=== PATIENT | male | born 1945 | race Caucasian/White ===

== ENCOUNTER 2017-09-02 21:05 | Emergency (ER) | payer OTHER ==
[~2017-09-02] VITALS: Ht 172.7 cm; Wt 67.9 kg
[~2017-09-02 21:05] MED LIST: ATOR-22 PO; CALCTAB5 PO; GLUCTAB7 PO; LSN/10125 PO; MULTCAP33 PO; ONDA8TAB6 PO; POLY335019 PO; PRLSR20 PO; TRMCR130WC TOP; XLD/500 PO
[2017-09-02 21:10] VITALS: TEMP 36.6; Ht 172.7 cm; Wt 67.9 kg
[2017-09-02] MEDS ORDERED: AMIO200T4 PO (21:47)
[2017-09-02] MEDS ORDERED: OXYC1TAB3 PO (21:47)
[2017-09-02] MEDS ORDERED: CMD/25 PO (21:47)
[2017-09-02] MEDS ORDERED: MULT60CA PO (21:47)
[2017-09-02] MEDS ORDERED: NUTRTAB48 PO (21:47)
[2017-09-02] MEDS ORDERED: CALC-354 PO (21:47)
[2017-09-02] MEDS ORDERED: PRLSR20 PO (21:47)
[2017-09-02] MEDS ORDERED: ATOR-22 PO (21:47)
--- NOTE | 2017-09-02 22:11 | EMERGENCY ROOM VISIT NOTE ---
History Report prepared by Ramirez: Derrick Montanez Under the Supervision of: Dr. Julian Curry M.D. First contact with patient: 22:02 Chief Complaint: URINARY SYMPTOMS Stated Complaint: BLEEDING IN URINARY BAG Nursing Triage Summary: Patient reports he had a urostomy placed in July and today started with bright red urine in his bag. Denies any other symptoms. History of Present Illness The patient is a 72 year old male who presents to the Emergency Room with complaints of persistent bleeding around the urostomy bag that started around 5 hours ago. He states that he had a urostomy on the 27 of July because of a history of prostate cancer. He says that starting earlier this week, he noted a bit of pinkish discharge in the urostomy bag. The patient adds that he has a colostomy bag as well. He states that he changed the bag around 5 hours ago, and then noticed that there was blood coming from around the bag, and that is when he decided to come here. He notes that he is on Coumadin for a history of atrial fibrillation. His last INR was checked 4 days ago and he thinks it was 1.6. He denies any pain, fevers, chills, cough, congestion, nausea, or vomiting. Source of History: patient Onset: Around 5 hours ago Position: other (global - bleeding) Symptom Intensity: constant bleeding this evening Quality: other (around urostomy bag) Timing: other (persistent) Associated Symptoms: No fevers, No chills, No cough, No nausea, No vomiting Note: Pinkish discharge in urostomy bag. Denies any pain. Review of Systems See HPI for pertinent positives and negatives. A total of ten systems were reviewed and were otherwise negative. Past Medical & Surgical Medical Problems: (1) Afib (2) Colostomy in place Family History Family history omitted secondary to patient's advanced age. Social History Smoking Status: Never Smoker Drug Use: none Marital Status: Housing Status: lives with family Current/Historical Medications Scheduled Amiodarone Hcl (Cordarone), 0.5 TAB PO DAILY Atorvastatin (Lipitor), 20 MG PO DAILY Calcium Carbonate-Cholecalcife (Caltrate 600+D), 1 TAB PO DAILY Multiple Vitamins W/ Minerals (Preservision Areds 2), 2 CAP PO DAILY Nutritional Supplements (Glucosamine Complex), 1 TAB PO DAILY Omeprazole (Prilosec), 20 MG PO DAILY Warfarin Sod (Coumadin), 2.5 MG PO DAILY Scheduled PRN Oxycodone Ir (Roxicodone Ir), 5 MG PO Q4H PRN for Severe Pain Allergies Coded Allergies: Iodinated Diagnostic Agents (Verified Allergy, Unknown, Rash, 09/02/17) Physical Exam Vital Signs Date Time Temp Pulse Resp B/P (MAP) Pulse Ox O2 Delivery O2 Flow Rate FiO2 09/03/17 00:44 62 18 142/79 96 09/02/17 23:31 64 18 137/74 97 Room Air 09/02/17 21:10 36.6 79 18 141/94 97 Room Air Physical Exam GENERAL: Awake, alert, well-appearing, in no distress HENT: Normocephalic, atraumatic. Oropharynx unremarkable. EYES: Normal conjunctiva. Sclera non-icteric. NECK: Supple. No nuchal rigidity. FROM. No JVD. RESPIRATORY: Clear to auscultation. CARDIAC: Regular rate, normal rhythm. Extremities warm and well perfused. Pulses equal. ABDOMEN: Soft, non-distended. No tenderness to palpation. No rebound or guarding. No masses. RECTAL: Deferred. : Urostomy site is clean dry and intact. Does have scant blood clots within the urostomy bag. The colostomy site is clean dry and intact. MUSCULOSKELETAL: Chest examination reveals no tenderness. The back is symmetrical on inspection without obvious abnormality. There is no CVA tenderness to palpation. No joint edema. LOWER EXTREMITIES: Calves are equal size bilaterally and non-tender. No edema. No discoloration. NEURO: Normal sensorium. No sensory or motor deficits noted. SKIN: No rash or jaundice noted. Medical Decision & Procedures ER Provider Diagnostic Interpretation: CT: Radiology results as stated below per my review and radiologist interpretation CT ABDOMEN & PELVIS Without Contrast: Retrocecal appendix appears within limited without secondary signs. No bowel dilation or free air. Three-vessel coronary calcification and/or stents. Mild prominence of the left and right renal collecting system. No evidence of ureter stone. Bilateral renovascular calcifications. Postsurgical changes noted. No free air. Radiologist: Brian Reed M.D. Laboratory Results 09/02/17 22:38 Red Blood Count 3.60, Mean Corpuscular Volume 87.8, Mean Corpuscular Hemoglobin 27.5, Mean Corpuscular Hemoglobin Concent 31.3, Mean Platelet Volume 7.9, Neutrophils (%) (Auto) 75.2, Lymphocytes (%) (Auto) 4.2, Monocytes (%) (Auto) 16.8, Eosinophils (%) (Auto) 3.0, Basophils (%) (Auto) 0.2, Neutrophils # (Auto ) 4.96, Lymphocytes # (Auto) 0.28, Monocytes # (Auto) 1.11, Eosinophils # (Auto ) 0.20, Basophils # (Auto) 0.01 09/02/17 22:38 Test 09/02/17 21:40 09/02/17 22:38 Urine Color RED Urine Appearance CLOUDY (CLEAR) Urine pH (4.5-7.5) Urine Specific [place] 1.005 (1.000-1.030) Urine Protein POS (NEG) Urine Glucose (UA) (NEG) Urine Ketones (NEG) Urine Occult Blood (NEG) Urine Nitrite (NEG) Urine Bilirubin (NEG) Urine Urobilinogen (NEG) Urine Leukocyte Esterase (NEG) Urine RBC >30 /hpf (0-4) Urine WBC 10-30 /hpf (0-5) Urine Epithelial Cells 10-20 /lpf (0-5) Urine Bacteria NEG (NEG) White Blood Count 6.60 K/uL (4.8-10.8) Red Blood Count 3.60 M/uL (4.7-6.1) Hemoglobin 9.9 g/dL (14.0-18.0) Hematocrit 31.6 % (42-52) Mean Corpuscular Volume 87.8 fL (80-100) Mean Corpuscular Hemoglobin 27.5 pg (25-34) Mean Corpuscular Hemoglobin Concent 31.3 g/dl (32-36) Platelet Count 364 K/uL (130-400) Mean Platelet Volume 7.9 fL (7.4-10.4) Neutrophils (%) (Auto) 75.2 % Lymphocytes (%) (Auto) 4.2 % Monocytes (%) (Auto) 16.8 % Eosinophils (%) (Auto) 3.0 % Basophils (%) (Auto) 0.2 % Neutrophils # (Auto) 4.96 K/uL (1.4-6.5) Lymphocytes # (Auto) 0.28 K/uL (1.2-3.4) Monocytes # (Auto) 1.11 K/uL (0.11-0.59) Eosinophils # (Auto) 0.20 K/uL (0-0.5) Basophils # (Auto) 0.01 K/uL (0-0.2) RDW Standard Deviation 51.4 fL (36.4-46.3) RDW Coefficient of Variation 15.9 % (11.5-14.5) Immature Granulocyte % (Auto) 0.6 % Immature Granulocyte # (Auto) 0.04 K/uL (0.00-0.02) Prothrombin Time 15.0 SECONDS (9.0-12.0) Prothromb Time International Ratio 1.4 (0.9-1.1) Anion Gap 9.0 mmol/L (3-11) Est Creatinine Clear Calc Drug Dose 87.7 ml/min Estimated GFR () 107.1 Estimated GFR (Non- 92.4 BUN/Creatinine Ratio 14.7 (10-20) Calcium Level 8.9 mg/dl (8.5-10.1) Total Bilirubin 0.3 mg/dl (0.2-1) Direct Bilirubin < 0.1 mg/dl (0-0.2) Aspartate Amino Transf (AST/SGOT) 10 U/L (15-37) Alanine Aminotransferase (ALT/SGPT) 22 U/L (12-78) Alkaline Phosphatase 70 U/L (45-117) Total Protein 6.5 gm/dl (6.4-8.2) Albumin 2.8 gm/dl (3.4-5.0) Lipase 106 U/L (73-393) Laboratory results reviewed by me Medications Administered Medications (Trade) Dose Ordered Sig/Elliot Route Start Time Stop Time Status Last Admin Dose Admin Sodium Chloride 1,000 ml @ 125 mls/hr Q8H STAT IV 09/02/17 22:12 09/03/17 01:01 DC 09/02/17 22:40 125 MLS/HR ED Course 2201: The patient was evaluated in room B12B. A complete history and physical exam was performed. 0038: I reevaluated the patient and he is resting comfortably. Discussed results and discharge instructions: he verbalized understanding and agreement. The patient is ready for discharge. Medical Decision I reviewed the patient's past medical history, medications, and the nursing notes as described above. Differential diagnosis includes but is not limited to: supratherapeutic INR, cancer recurrence, renal stone, surgical complication, wound dehiscence. The patient is a 72 y/o gentleman with a pmhx of afib on coumadin and prostate cancer with associated bowel obstruction s/o urostomy and colostomy in july presents to the emergency department with concern of hematuria in his urostomy today that was dark after he had changed his urostomy bag per HPI. Of note the patient does report having pinkish output in his urostomy earlier in the week that would come and go. On arrival the patient is well-appearing, in NAD, AFVSS. On exam the patient patient's RLQ urostomy has pink-tinged urine. Mucosa is friable with dried clot. No wound dehiscence. Labs unremarkable. CT unremarkable. Hematuria most likely 2/2 mucosal irrigation from changeing his urostomy bag. Unlikely to have emergent process at this time. Patient has scheduled f/u with his surgeon on Tuesday. Strict return instructions provided. Findings and plan for follow-up reviewed with patient. Patient agreeable and d/c 'd per discharge instructions. Medication Reconcilliation Current Medication List: was personally reviewed by me Blood Pressure Screening Patient's blood pressure: Elevated blood pressure Blood pressure disposition: Elevated BP felt to be situational Impression Primary Impression: Hematuria Scribe Attestation The scribe's documentation has been prepared under my direction and personally reviewed by me in its entirety. I confirm that the note above accurately reflects all work, treatment, procedures, and medical decision making performed by me. Departure Information Dispostion Home / Self-Care Referrals Renny Asher M.D. (PCP) Patient Instructions ED Hematuria, My [facility] Additional Instructions Please follow up with your surgeon next week as scheduled for re-evaluation. The cause of your bleeding is unclear at this time but may be due to mucosal irritation. Otherwise, your exam, lab results, and CT scan did not show signs of an emergent condition at this time. Return to the emergency department for worsening symptoms as described in the accompanying instructions.
[2017-09-02] MEDS ORDERED: SODIUM CHLORIDE 0.9% 1000ML 1,000 ML IV STA (22:12)
[2017-09-02 22:58] LABS: BASO % 0.2 %; BASO ABS # 0.01 K/uL (0-0.2); HEMATOCRIT 31.6 % (42-52); HEMOGLOBIN 9.9 g/dL (14.0-18.0); IG# 0.04 K/uL (0.00-0.02); LYMPH % 4.2 %; LYMPH ABS # 0.28 K/uL (1.2-3.4); MEAN CELL VOLUME 87.8 fL (80-100); MEAN CORPUSCULAR HEMOGLOBIN 27.5 pg (25-34); MEAN CORPUSCULAR HGB CONC 31.3 g/dl (32-36); MEAN PLATELET VOLUME 7.9 fL (7.4-10.4); MONO % 16.8 %; MONO ABS # 1.11 K/uL (0.11-0.59); NEUT % 75.2 %; NEUT ABS # 4.96 K/uL (1.4-6.5); PLATELET COUNT 364 K/uL (130-400); RED CELL DISTRIBUTION WIDTH CV 15.9 % (11.5-14.5); RED CELL DISTRIBUTION WIDTH SD 51.4 fL (36.4-46.3)
[2017-09-02 23:08] LABS: INR 1.4 (0.9-1.1)
[2017-09-02 23:15] LABS: ALBUMIN 2.8 gm/dl (3.4-5.0); BLOOD UREA NITROGEN 10 mg/dl (7-18); CALCIUM 8.9 mg/dl (8.5-10.1); CARBON DIOXIDE 28 mmol/L (21-32); CREATININE 0.71 mg/dl (0.60-1.40); GLUCOSE 110 mg/dl (70-99); LIPASE 106 U/L (73-393); POTASSIUM 3.6 mmol/L (3.5-5.1); SODIUM 137 mmol/L (136-145)
[2017-09-02 23:23] LABS: ALKALINE PHOSPHATASE 70 U/L (45-117); ALT/SGPT 22 U/L (12-78); AST/SGOT 10 U/L (15-37); TOTAL PROTEIN 6.5 gm/dl (6.4-8.2)
[2017-09-03 00:44] VITALS: BP 142/79; PULSE 62; O2SAT 96
--- NOTE | 2017-09-03 05:41 | DIAGNOSTIC IMAGING REPORT ---
ABD/PELVIS WITHOUT FOR STONE CT DOSE: 575.97 mGy.cm HISTORY: Bleeding bleeding from urostomy TECHNIQUE: Multiaxial CT images of the abdomen and pelvis were performed without the use of intravenous and oral contrast according to the standard department stone protocol. A dose lowering technique was utilized adhering to the principles of ALARA. COMPARISON STUDY: None. FINDINGS: Lung bases are clear. Small hepatic cysts. Multiple bilateral renal calcifications. Mild fullness of the renal collecting systems and ureters bilaterally. Normal appendix. Left-sided ostomy as well as right-sided ostomy with several fluid-filled loops of bowel. Bowel pattern overall however is nonobstructive. Prior partial colectomy. No mass or collection. IMPRESSION: Postoperative changes noted. Mild nonobstructive ileus. The above report was generated using voice recognition software. It may contain grammatical, syntax or spelling errors. Electronically signed by: Renny Moya M.D. 09/03/2017 5:40 AM Dictated Date/Time: 09/03/2017 5:38 AM
== END 2017-09-03 00:40 | disposition home or self-care (01) ==
LOC: C.EDB 21:08
DX: R31.9 Hematuria, unspecified (principal); N99.520 Hemorrhage of incontinent external stoma of urinary tract; I48.91 Unspecified atrial fibrillation; K56.609 Unspecified intestinal obstruction, unspecified as to partial versus complete obstruction; Z85.46 Personal history of malignant neoplasm of prostate; Z93.3 Colostomy status; Z79.01 Long term (current) use of anticoagulants; Z79.899 Other long term (current) drug therapy; Z91.041 Radiographic dye allergy status

== ENCOUNTER 2019-02-11 21:01 | Inpatient (IN) ==
[2019-02-11 22:00] LABS: Mean Corpuscular Hgb Conc 32.5 g/dL (32-36); Mean Platelet Volume 10.1 fL (7.4-10.4); Nucleated RBC # (auto) 0.06 K/uL (0-0); Nucleated RBC % (auto) 0.3 %; Platelet Count 165 K/uL (130-400)
--- NOTE | 2019-02-11 22:06 | XRay Report ---
XR chest 1V portable CLINICAL HISTORY: Atypical chest pain COMPARISON STUDY: 09/21/2018 FINDINGS: The cardiac and mediastinal contours remain stable. There is stable aortic tortuosity. Ther e is a right-sided A-Port catheter unchanged in position. There is no failure. There is no focal pulm onary consolidation. Postinflammatory calcifications are visualized towards the right lung base. Ther e are surgical clips in the right axillary region.[ IMPRESSION: No active disease in the chest. Electronically signed by: Manjit Mathur M.D. 02/11/2019 10:05 PM
[2019-02-11 22:16] LABS: Albumin Level 2.6 gm/dl (3.4-5.0); BUN Creatinine Ratio 14.5 (10-20); Calcium 8.3 mg/dl (8.5-10.1); Creatinine Clr Calc Pharmacy 55.8 ml/min; Est GFR (African American) 75.7; Est GFR (Non-African American) 65.3; Potassium 3.4 mmol/L (3.5-5.1)
[2019-02-11 22:18] LABS: Albumin Globulin Ratio 0.9 (0.9-2); Bilirubin,Total 0.2 mg/dl (0.2-1); Globulin 2.9 gm/dl (2.5-4.0); Total Protein 5.5 gm/dl (6.4-8.2)
[2019-02-11 22:54] LABS: ALC (manual) 0.16 K/uL (1.2-3.4); Dohle Bodies 2+; Hematocrit (blood only) 28.3 % (42-52); Hemoglobin 9.2 g/dL (14.0-18.0); Lymphocytes # (manual) 0.16 K/uL (1.2-3.4); Lymphocytes % (manual) 0.9 %; Mean Corpuscular Volume 92.2 fL (80-100); Metamyelocytes # (manual) 0.46 K/uL (0-0); Metamyelocytes % (manual) 2.6 %; Monocytes # (manual) 1.08 K/uL (0.11-0.59); Monocytes % (manual) 6.1 %; Myelocytes # (manual) 0.92 K/uL (0-0); Myelocytes % (manual) 5.2 %; Neutrophils % (manual) 85.2 %; Ovalocytes 1+; RDW Coefficient of Variation 16.1 % (11.5-14.5); RDW Standard Deviation 50.1 fL (36.4-46.3); Red Blood Count 3.07 M/uL (4.7-6.1); Tear Drop Cells 1+; Toxic Granulation 2+; White Blood Count 17.76 K/uL (4.8-10.8)
[2019-02-11] MEDS ORDERED: POTASSIUM CHLORIDE 20 MEQ TABCR PO STA (23:18)
[2019-02-11 23:39] LABS: Appearance Urine Clear (Clear); Bacteria Urine Automated 3+ (Negative); Bilirubin Urine Negative (Negative); Blood Urine 3+ (Negative); Color Urine Yellow; Glucose Urine UA Negative (Negative); Ketones Urine Negative (Negative); Leukocyte Esterase Urine Trace (Negative); Nitrite Urine Positive (Negative); Protein Urine Negative (Negative); RBC Urine Automated 0-4 /hpf (0-4); Specific Gravity Urine 1.007 (1.000-1.030); Urobilinogen Urine Negative (Negative)
[2019-02-11 23:41] LABS: Magnesium 1.8 mg/dl (1.8-2.4)
[2019-02-11 23:49] LABS: Partial Thromboplastin Ratio 1.1; Partial Thromboplastin Time 30.8 Seconds (21.0-31.0)
[2019-02-11] MEDS ORDERED: PANTOprazole 40 MG TAB PO STA (23:57)
--- NOTE | 2019-02-11 23:58 | History & Physical Report ---
Date of Service February 11, 2019 History of Present Illness Primary Care Provider: Renny Asher MD Allergies Allergy/AdvReac Type Severity Reaction Status Date / Time Iodinated Contrast- Oral and Allergy Intermediate Rash Verified 02/11/19 22:08 IV Dye Home Medications Home Medications Medication Instructions Recorded Confirmed Type Eliquis 5 mg PO BID 04/26/18 02/11/19 History atorvastatin 20 mg PO QAM 04/26/18 02/11/19 History omeprazole 20 mg PO DAILY PRN 04/26/18 02/11/19 History PreserVision AREDS 1 cap PO BID 05/29/18 02/11/19 History acetaminophen [Tylenol Extra 1,000 mg PO HS PRN 05/29/18 02/11/19 History Strength] Guaifenesin-Codeine 5 - 10 ml PO Q4 PRN 02/11/19 02/11/19 History dexamethasone 4 mg PO DIRECTED 02/11/19 02/11/19 History gabapentin 100 mg PO TID 02/11/19 02/11/19 History lorazepam 0.5 mg PO HS PRN 02/11/19 02/11/19 History methimazole 10 mg PO DAILY 02/11/19 02/11/19 History metoprolol succinate 25 mg PO QAM 02/11/19 02/11/19 History ondansetron HCl [Zofran] 8 mg PO Q8H PRN 02/11/19 02/11/19 History prednisone 20 mg PO DIRECTED 02/11/19 02/11/19 History prochlorperazine maleate 10 mg PO Q6H PRN 02/11/19 02/11/19 History triamcinolone acetonide 1 applic TOPICAL BID PRN 02/11/19 02/11/19 History Past Med/Surg History Medical History Hyperthyroidism RECENT DIAGNOSIS; ON METHIMAZOLE Atrial fibrillation PAROXYSMAL A.FIB ON ELIQUIS Hyperlipidemia Colon cancer PERMANENT ILEOSTOMY/NEPHROSTOMY IN PLACE Non-Hodgkin lymphoma in remission DX 2008; S/P CHEMO (2016) Osteoarthritis Prostate cancer S/P PROSTATECTOMY/RADIATION SEEDS (2003) GERD (gastroesophageal reflux disease) Hypertension Hx of Clostridium difficile infection (Acute) Large B-cell lymphoma Neck mass biopsy 08/23/2018. MAC no issues. Surgical History History of lymph node biopsy RIGHT AXILLARY LYMPH NODE BIOPSY= 04/28/18= LMA#5 AT [facility] History of bowel resection CURRENT ILEOSTOMY 2/2 COLON CANCER S/P prostatectomy History of bladder surgery S/P CYSTECTOMY History of colonoscopy Hx of biopsy RIGHT AXILLARY LYMPH NODE History of urostomy (Acute) History of lymph node biopsy RT NECK EXCISIONAL BIOPSY 08/23/18 [facility] Social History Preferred Language: Dutch Communication Ability: Effective Visual Impairment: No Limitations Beliefs That Will Affect Care: None Current Living Situation: Spouse Feels Safe at Home: Yes Smoking Status: Never smoker Second Hand Exposure: No Hx Alcohol Use: Yes Alcohol type: wine Hx Substance Use: No Results & Data Vital Signs (Past 12 Hours) Vital Signs Temp Pulse Resp BP Pulse Ox 02/11/19 23:31 62 20 137/79 99 02/11/19 23:01 60 16 129/77 98 02/11/19 22:31 58 L 20 129/72 98 02/11/19 21:31 64 18 138/77 99 02/11/19 21:11 67 23 158/88 H 100 02/11/19 21:02 36.5 C 77 20 156/61 H 98 Laboratory Results Laboratory Results WBC 17.76 K/uL (4.8-10.8) H 02/11/19 21:40 RBC 3.07 M/uL (4.7-6.1) L 02/11/19 21:40 Hgb 9.2 g/dL (14.0-18.0) L 02/11/19 21:40 Hct 28.3 % (42-52) L 02/11/19 21:40 MCV 92.2 fL (80-100) 02/11/19 21:40 MCH 30.0 pg (25-34) 02/11/19 21:40 MCHC 32.5 g/dL (32-36) 02/11/19 21:40 RDW Std Deviation 50.1 fL (36.4-46.3) H 02/11/19 21:40 RDW Coeff of Aubree 16.1 % (11.5-14.5) H 02/11/19 21:40 Plt Count 165 K/uL (130-400) 02/11/19 21:40 MPV 10.1 fL (7.4-10.4) 02/11/19 21:40 Absolute Nucleated RBC 0.06 K/uL (0-0) H 02/11/19 21:40 Nucleated RBC % (auto) 0.3 % 02/11/19 21:40 Neutrophils % (Manual) 85.2 % 02/11/19 21:40 Lymphocytes % (Manual) 0.9 % 02/11/19 21:40 Monocytes % (Manual) 6.1 % 02/11/19 21:40 Metamyelocytes % (Man) 2.6 % 02/11/19 21:40 Myelocytes % (Man) 5.2 % 02/11/19 21:40 Neutrophils # (Manual) 15.13 K/uL (1.4-6.5) H 02/11/19 21:40 Total Absolute Neuts 15.13 K/uL (1.4-6.5) H 02/11/19 21:40 Lymphocytes # (Manual) 0.16 K/uL (1.2-3.4) L 02/11/19 21:40 Total Abs Lymphocytes 0.16 K/uL (1.2-3.4) L 02/11/19 21:40 Monocytes # (Manual) 1.08 K/uL (0.11-0.59) H 02/11/19 21:40 Metamyelocytes # (Man) 0.46 K/uL (0-0) H 02/11/19 21:40 Myelocytes # (Manual) 0.92 K/uL (0-0) H 02/11/19 21:40 Toxic Granulation 2+ 02/11/19 21:40 Dohle Bodies 2+ 02/11/19 21:40 Tear Drop Cells 1+ 02/11/19 21:40 Ovalocytes 1+ 02/11/19 21:40 APTT 30.8 Seconds (21.0-31.0) 02/11/19 21:40 PTT Ratio 1.1 02/11/19 21:40 Sodium 138 mmol/L (136-145) 02/11/19 21:40 Potassium 3.4 mmol/L (3.5-5.1) L 02/11/19 21:40 Chloride 104 mmol/L (98-107) 02/11/19 21:40 Carbon Dioxide 27 mmol/L (21-32) 02/11/19 21:40 Anion Gap 7.0 (3-11) 02/11/19 21:40 BUN 16 mg/dl (7-18) 02/11/19 21:40 Creatinine 1.10 mg/dl (0.6-1.4) 02/11/19 21:40 Est Cr Clr Drug Dosing 55.8 ml/min 02/11/19 21:40 Est GFR ( Amer) 75.7 02/11/19 21:40 Est GFR (Non-Af Amer) 65.3 02/11/19 21:40 BUN/Creatinine Ratio 14.5 (10-20) 02/11/19 21:40 Glucose 147 mg/dl (70-99) H 02/11/19 21:40 Calcium 8.3 mg/dl (8.5-10.1) L 02/11/19 21:40 Magnesium 1.8 mg/dl (1.8-2.4) 02/11/19 21:40 Total Bilirubin 0.2 mg/dl (0.2-1) 02/11/19 21:40 AST 18 U/L (15-37) 02/11/19 21:40 ALT 29 U/L (12-78) 02/11/19 21:40 Alkaline Phosphatase 126 U/L (45-117) H 02/11/19 21:40 POC Troponin I < 0.03 ng/ml (0-0.045) 02/11/19 21:56 Total Protein 5.5 gm/dl (6.4-8.2) L 02/11/19 21:40 Albumin 2.6 gm/dl (3.4-5.0) L 02/11/19 21:40 Globulin 2.9 gm/dl (2.5-4.0) 02/11/19 21:40 Albumin/Globulin Ratio 0.9 (0.9-2) 02/11/19 21:40 Lipase 111 U/L (73-393) 02/11/19 21:40
--- NOTE | 2019-02-12 00:01 | History & Physical Report ---
Date of Service February 12, 2019 Assessment & Plan (1) Exertional chest pain: Rule out ACS Burning chest pain, possible uncontrolled GERD recent steroid Rx for chemotherapy for relapsed NHL PAF on Eliquis, px NSR hypertension, stable hyperlipidemia on statin Rx hx rectal cancer status post surgery/chemoradiation prostate cancer status post radiation history of amiodarone induced hyperthyroidism chronic anemia, hemoglobin at baseline Steroid-induced hyperglycemia rule out DM past tobacco abuse OBS PCU Trend troponin Cardiology consult RE chest pain Daily PPI for now for uncontrolled GERD Check hemoglobin A1c DVT prophylaxis. Home Eliquis pending cardiology evaluation Full code History of Present Illness Chief Complaint: Chest pain Primary Care Provider: Renny Asher MD History obtained from patient, family, and records. Medical history significant for PAF on Eliquis, hypertension, hyperlipidemia, relapsed NHL ongoing chemotherapy, rectal cancer status post surgery/chemoradiation, prostate cancer status post radiation, history of amiodarone induced hyperthyroidism, chronic anemia (baseline hemoglobin of 9), past tobacco abuse. Patient has been weak since the last week following chemotherapy for recurrent NHL from 2 weeks ago. Patient noted burning chest pain the last week similar to reflux. Patient has home Prilosec for as needed dosing. The last 2 days, patient noted exertional chest pain, S OB. No unusual cough symptoms. Denies fluid retention. Patient currently comfortable at the ER. Medical History as above TTE 04/2018 EF 55 to 60%. Normal LV systolic function. Grade 1 diastolic dysfunction, mild aortic valve sclerosis without stenosis. 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 Allergy/AdvReac Type Severity Reaction Status Date / Time Iodinated Contrast- Oral and Allergy Intermediate Rash Verified 02/11/19 22:08 IV Dye Home Medications Home Medications Medication Instructions Recorded Confirmed Type Eliquis 5 mg PO BID 04/26/18 02/11/19 History atorvastatin 20 mg PO QAM 04/26/18 02/11/19 History omeprazole 20 mg PO DAILY PRN 04/26/18 02/11/19 History PreserVision AREDS 1 cap PO BID 05/29/18 02/11/19 History acetaminophen [Tylenol Extra 1,000 mg PO HS PRN 05/29/18 02/11/19 History Strength] Guaifenesin-Codeine 5 - 10 ml PO Q4 PRN 02/11/19 02/11/19 History dexamethasone 4 mg PO DIRECTED 02/11/19 02/11/19 History gabapentin 100 mg PO TID 02/11/19 02/11/19 History lorazepam 0.5 mg PO HS PRN 02/11/19 02/11/19 History methimazole 10 mg PO DAILY 02/11/19 02/11/19 History metoprolol succinate 25 mg PO QAM 02/11/19 02/11/19 History ondansetron HCl [Zofran] 8 mg PO Q8H PRN 02/11/19 02/11/19 History prednisone 20 mg PO DIRECTED 02/11/19 02/11/19 History prochlorperazine maleate 10 mg PO Q6H PRN 02/11/19 02/11/19 History triamcinolone acetonide 1 applic TOPICAL BID PRN 02/11/19 02/11/19 History Past Med/Surg History Medical History Hyperthyroidism RECENT DIAGNOSIS; ON METHIMAZOLE Atrial fibrillation PAROXYSMAL A.FIB ON ELIQUIS Hyperlipidemia Colon cancer PERMANENT ILEOSTOMY/NEPHROSTOMY IN PLACE Non-Hodgkin lymphoma in remission DX 2008; S/P CHEMO (2016) Osteoarthritis Prostate cancer S/P PROSTATECTOMY/RADIATION SEEDS (2003) GERD (gastroesophageal reflux disease) Hypertension Hx of Clostridium difficile infection (Acute) Large B-cell lymphoma Neck mass biopsy 08/23/2018. MAC no issues. Surgical History History of lymph node biopsy RIGHT AXILLARY LYMPH NODE BIOPSY= 04/28/18= LMA#5 AT [facility] History of bowel resection CURRENT ILEOSTOMY 2/2 COLON CANCER S/P prostatectomy History of bladder surgery S/P CYSTECTOMY History of colonoscopy Hx of biopsy RIGHT AXILLARY LYMPH NODE History of urostomy (Acute) History of lymph node biopsy RT NECK EXCISIONAL BIOPSY 08/23/18 [facility] Social History Preferred Language: Hong Konger Communication Ability: Effective Visual Impairment: No Limitations Gift Basket Packer Required: No Beliefs That Will Affect Care: None Current Living Situation: Spouse Other Information That Helps Us Care for You: No Feels Safe at Home: Yes Safety Concerns: Feels Safe At This Time Smoking Status: Never smoker Do You Dip or Chew Tobacco: No Second Hand Exposure: No Hx Alcohol Use: No Hx Substance Use: No Review of Systems Review of Systems: As per HPI, all 10 systems reviewed, all other ROS negative Physical Exam Physical Exam: GENERAL: Pleasant, comfortable, no respiratory distress SKIN: Pallor, warm HEENT: Pale palpebral conjunctivae, no ptosis, dry buccal mucosa, chin hypopigmentation (chronic) NECK : Supple, no tenderness CHEST : Decreased breath sounds, no tenderness HEART : RRR, no obvious murmurs ABDOMEN: Some distention, ostomy bag noted EXTREMITIES : No LE swelling/tenderness, no other conspicuous deformities noted NEUROLOGIC : Coherent, no facial asymmetry, no other gross focality Results & Data Vital Signs (Past 12 Hours) Vital Signs Temp Pulse Resp BP Pulse Ox 02/11/19 23:31 62 20 137/79 99 02/11/19 23:01 60 16 129/77 98 02/11/19 22:31 58 L 20 129/72 98 02/11/19 21:31 64 18 138/77 99 02/11/19 21:11 67 23 158/88 H 100 02/11/19 21:02 36.5 C 77 20 156/61 H 98 Laboratory Results Laboratory Results WBC 17.76 K/uL (4.8-10.8) H 02/11/19 21:40 RBC 3.07 M/uL (4.7-6.1) L 02/11/19 21:40 Hgb 9.2 g/dL (14.0-18.0) L 02/11/19 21:40 Hct 28.3 % (42-52) L 02/11/19 21:40 MCV 92.2 fL (80-100) 02/11/19 21:40 MCH 30.0 pg (25-34) 02/11/19 21:40 MCHC 32.5 g/dL (32-36) 02/11/19 21:40 RDW Std Deviation 50.1 fL (36.4-46.3) H 02/11/19 21:40 RDW Coeff of Aubree 16.1 % (11.5-14.5) H 02/11/19 21:40 Plt Count 165 K/uL (130-400) 02/11/19 21:40 MPV 10.1 fL (7.4-10.4) 02/11/19 21:40 Absolute Nucleated RBC 0.06 K/uL (0-0) H 02/11/19 21:40 Nucleated RBC % (auto) 0.3 % 02/11/19 21:40 Neutrophils % (Manual) 85.2 % 02/11/19 21:40 Lymphocytes % (Manual) 0.9 % 02/11/19 21:40 Monocytes % (Manual) 6.1 % 02/11/19 21:40 Metamyelocytes % (Man) 2.6 % 02/11/19 21:40 Myelocytes % (Man) 5.2 % 02/11/19 21:40 Neutrophils # (Manual) 15.13 K/uL (1.4-6.5) H 02/11/19 21:40 Total Absolute Neuts 15.13 K/uL (1.4-6.5) H 02/11/19 21:40 Lymphocytes # (Manual) 0.16 K/uL (1.2-3.4) L 02/11/19 21:40 Total Abs Lymphocytes 0.16 K/uL (1.2-3.4) L 02/11/19 21:40 Monocytes # (Manual) 1.08 K/uL (0.11-0.59) H 02/11/19 21:40 Metamyelocytes # (Man) 0.46 K/uL (0-0) H 02/11/19 21:40 Myelocytes # (Manual) 0.92 K/uL (0-0) H 02/11/19 21:40 Toxic Granulation 2+ 02/11/19 21:40 Dohle Bodies 2+ 02/11/19 21:40 Tear Drop Cells 1+ 02/11/19 21:40 Ovalocytes 1+ 02/11/19 21:40 APTT 30.8 Seconds (21.0-31.0) 02/11/19 21:40 PTT Ratio 1.1 02/11/19 21:40 Sodium 138 mmol/L (136-145) 02/11/19 21:40 Potassium 3.4 mmol/L (3.5-5.1) L 02/11/19 21:40 Chloride 104 mmol/L (98-107) 02/11/19 21:40 Carbon Dioxide 27 mmol/L (21-32) 02/11/19 21:40 Anion Gap 7.0 (3-11) 02/11/19 21:40 BUN 16 mg/dl (7-18) 02/11/19 21:40 Creatinine 1.10 mg/dl (0.6-1.4) 02/11/19 21:40 Est Cr Clr Drug Dosing 55.8 ml/min 02/11/19 21:40 Est GFR ( Amer) 75.7 02/11/19 21:40 Est GFR (Non-Af Amer) 65.3 02/11/19 21:40 BUN/Creatinine Ratio 14.5 (10-20) 02/11/19 21:40 Glucose 147 mg/dl (70-99) H 02/11/19 21:40 Calcium 8.3 mg/dl (8.5-10.1) L 02/11/19 21:40 Magnesium 1.8 mg/dl (1.8-2.4) 02/11/19 21:40 Total Bilirubin 0.2 mg/dl (0.2-1) 02/11/19 21:40 AST 18 U/L (15-37) 02/11/19 21:40 ALT 29 U/L (12-78) 02/11/19 21:40 Alkaline Phosphatase 126 U/L (45-117) H 02/11/19 21:40 POC Troponin I < 0.03 ng/ml (0-0.045) 02/11/19 21:56 Total Protein 5.5 gm/dl (6.4-8.2) L 02/11/19 21:40 Albumin 2.6 gm/dl (3.4-5.0) L 02/11/19 21:40 Globulin 2.9 gm/dl (2.5-4.0) 02/11/19 21:40 Albumin/Globulin Ratio 0.9 (0.9-2) 02/11/19 21:40 Lipase 111 U/L (73-393) 02/11/19 21:40 TSH 3.140 uIu/ml (0.300-4.500) 02/11/19 21:40 Diagnostic Findings Chest x-ray showed no active disease EKG as per my interpretation : Rate 75, NSR, LAD, LAFB, no ischemia
--- NOTE | 2019-02-12 00:48 | Emergency Department Note ---
Entered by Shireen Samaniego acting as a scribe for History of Present Illness General Chief complaint: Chest Pain Stated complaint: CHEST PAINS Source: patient History of Present Illness Onset (ago): week(s) 1 Location: chest (central ) Radiation: other (left side of chest ) Pain Consistency: + intermittent and + other (worsening ) Maximum Pain Intensity: 0 Quality: + burning Exacerbated By: + other (exertion ) Associated symptoms: + diaphoresis, + shortness of breath and + other (negative abdominal pain ); no fever/chills and no nausea/vomiting The patient is a 73 year old male who presents to the Emergency Room with complaints of worsening intermittent central chest pain that began one week prior to arrival. The patient describes his pain as a burning and radiates toward the left side of the chest. The patient denies radiation of his pain to his arms. The patient states that his pain is exacerbated with exertion. He states that with this pain he has had sweating and shortness of breath. The patient denies fevers, chills, nausea, vomiting, and abdominal pain. The patient states that he has a history of Afib that is treated with Eliquis, but denies a history of NV. Home Medications Home Medications Medication Instructions Recorded Confirmed Type Eliquis 5 mg PO BID 04/26/18 02/11/19 History atorvastatin 20 mg PO QAM 04/26/18 02/11/19 History omeprazole 20 mg PO DAILY PRN 04/26/18 02/11/19 History PreserVision AREDS 1 cap PO BID 05/29/18 02/11/19 History acetaminophen [Tylenol Extra 1,000 mg PO HS PRN 05/29/18 02/11/19 History Strength] Guaifenesin-Codeine 5 - 10 ml PO Q4 PRN 02/11/19 02/11/19 History dexamethasone 4 mg PO DIRECTED 02/11/19 02/11/19 History gabapentin 100 mg PO TID 02/11/19 02/11/19 History lorazepam 0.5 mg PO HS PRN 02/11/19 02/11/19 History methimazole 10 mg PO DAILY 02/11/19 02/11/19 History metoprolol succinate 25 mg PO QAM 02/11/19 02/11/19 History ondansetron HCl [Zofran] 8 mg PO Q8H PRN 02/11/19 02/11/19 History prednisone 20 mg PO DIRECTED 02/11/19 02/11/19 History prochlorperazine maleate 10 mg PO Q6H PRN 02/11/19 02/11/19 History triamcinolone acetonide 1 applic TOPICAL BID PRN 02/11/19 02/11/19 History Allergies Allergy/AdvReac Type Severity Reaction Status Date / Time Iodinated Contrast- Oral and Allergy Intermediate Rash Verified 02/11/19 22:08 IV Dye Past Med/Surg History Medical History Hyperthyroidism RECENT DIAGNOSIS; ON METHIMAZOLE Atrial fibrillation PAROXYSMAL A.FIB ON ELIQUIS Hyperlipidemia Colon cancer PERMANENT ILEOSTOMY/NEPHROSTOMY IN PLACE Non-Hodgkin lymphoma in remission DX 2008; S/P CHEMO (2016) Osteoarthritis Prostate cancer S/P PROSTATECTOMY/RADIATION SEEDS (2003) GERD (gastroesophageal reflux disease) Hypertension Hx of Clostridium difficile infection (Acute) Large B-cell lymphoma Neck mass biopsy 08/23/2018. MAC no issues. Surgical History History of lymph node biopsy RIGHT AXILLARY LYMPH NODE BIOPSY= 04/28/18= LMA#5 AT [facility] History of bowel resection CURRENT ILEOSTOMY 2/2 COLON CANCER S/P prostatectomy History of bladder surgery S/P CYSTECTOMY History of colonoscopy Hx of biopsy RIGHT AXILLARY LYMPH NODE History of urostomy (Acute) History of lymph node biopsy RT NECK EXCISIONAL BIOPSY 08/23/18 [facility] Social History Preferred Language: Persian Communication Ability: Effective Visual Impairment: No Limitations Beliefs That Will Affect Care: None Current Living Situation: Spouse Feels Safe at Home: Yes Smoking Status: Never smoker Second Hand Exposure: No Hx Alcohol Use: Yes Alcohol type: wine Hx Substance Use: No Review of Systems See HPI for pertinent positives & negatives. and A total of 10 systems reviewed and were otherwise negative Physical Exam Vital Signs Vital Signs - 24 hr 02/11/19 21:02 02/11/19 21:11 02/11/19 21:17 Temperature 36.5 C Temperature Source Oral Sepsis Recent Fever Within 48 Hours No Sepsis Action Taken by Nursing No Action Required Pulse Rate 77 67 Pulse Rate from SpO2 Sensor 63 Pulse Rhythm Regular Pulse Strength Normal Respiratory Rate 20 23 Respiratory Effort / Characteristics Non-Labored Spontaneous Non-Labored Spontaneous Respiratory Depth Normal Normal Blood Pressure 156/61 H 158/88 H Blood Pressure Mean 92 111 Blood Pressure Position Sitting Pulse Oximetry 98 100 Oxygen Delivery Method Room Air 02/11/19 21:31 02/11/19 22:31 02/11/19 23:01 Temperature Temperature Source Sepsis Recent Fever Within 48 Hours Sepsis Action Taken by Nursing Pulse Rate 64 58 L 60 Pulse Rate from SpO2 Sensor 64 59 L 57 L Pulse Rhythm Pulse Strength Respiratory Rate 18 20 16 Respiratory Effort / Characteristics Respiratory Depth Blood Pressure 138/77 129/72 129/77 Blood Pressure Mean 97 91 94 Blood Pressure Position Pulse Oximetry 99 98 98 Oxygen Delivery Method Room Air Room Air Room Air 02/11/19 23:31 Temperature Temperature Source Sepsis Recent Fever Within 48 Hours Sepsis Action Taken by Nursing Pulse Rate 62 Pulse Rate from SpO2 Sensor 61 Pulse Rhythm Pulse Strength Respiratory Rate 20 Respiratory Effort / Characteristics Respiratory Depth Blood Pressure 137/79 Blood Pressure Mean 98 Blood Pressure Position Pulse Oximetry 99 Oxygen Delivery Method Constitutional: Vital signs reviewed. Eyes: Pupils are equal round reactive to light. Conjunctiva are noninjected. ENT: Pharynx is clear without erythema or exudate. Mucous membranes are moist. Neck supple without meningeal signs. Respiratory: Clear to auscultation bilaterally. Breath sounds are equal bilaterally. Cardiovascular: Regular rate and rhythm. No rubs or gallops. GI: Soft, nondistended and nontender. Bowel sounds are present. Colostomy on left side with normal output, no blood or black stools. Ileostomy on the right side with scant urine. Musculoskeletal: No peripheral edema. No lower extremity tenderness. Integumentary: No cyanosis. Neurological: The patient is awake and alert. No focal deficits. Psychiatric: Normal affect. Course 2113: Past medical records reviewed. The patient was evaluated in room C3. A complete history and physical exam was performed. 2257: I updated the patient on his test results. He is agreeable to further evaluation in the hospital. 2311: Upon reevaluation, the patient informed me that he had chemotherapy treatment about 1.5 weeks ago. 2314: I discussed the case with Dr. Chen Hospitalist who accepts the patient for further evaluation. Consultations Consultation #1: I discussed the case with Dr. [facility] who accepts the patient for further evaluation. [id number] Administered Medications Discontinued Medications Pantoprazole Sodium (Protonix) 40 mg PO NOW STA Stop: 02/11/19 23:58 Last Admin: 02/12/19 00:44 Dose: 40 mg Documented by: [id number] Potassium Chloride (Klor-Con M20) 40 meq PO NOW STA Stop: 02/11/19 23:19 Last Admin: 02/12/19 00:44 Dose: 40 meq Documented by: [id number] Medical Decision Making Differential Diagnosis Differential diagnoses include unstable angina, NV, anemia, pneumonia, pleurisy, GERD, and others were considered. Medical Records Attestation: I reviewed the patient's medical records. (The patient has no recent pertinent visits. ) Home Medications Current Medication List: was personally reviewed by me Laboratory Data Attestation: I reviewed the patient's lab results. Result diagrams: 02/11/19 21:40 02/11/19 21:40 Lab Results 02/11/19 02/11/19 02/11/19 Range/Units 21:40 21:40 21:40 WBC 17.76 H (4.8-10.8) K/uL RBC 3.07 L (4.7-6.1) M/uL Hgb 9.2 L (14.0-18.0) g/dL Hct 28.3 L (42-52) % MCV 92.2 (80-100) fL MCH 30.0 (25-34) pg MCHC 32.5 (32-36) g/dL RDW Std Deviation 50.1 H (36.4-46.3) fL RDW Coeff of Aubree 16.1 H (11.5-14.5) % Plt Count 165 (130-400) K/uL MPV 10.1 (7.4-10.4) fL Absolute Nucleated RBC 0.06 H (0-0) K/uL Nucleated RBC % (auto) 0.3 % Neutrophils % (Manual) 85.2 % Lymphocytes % (Manual) 0.9 % Monocytes % (Manual) 6.1 % Metamyelocytes % (Man) 2.6 % Myelocytes % (Man) 5.2 % Neutrophils # (Manual) 15.13 H (1.4-6.5) K/uL Total Absolute Neuts 15.13 H (1.4-6.5) K/uL Lymphocytes # (Manual) 0.16 L (1.2-3.4) K/uL Total Abs Lymphocytes 0.16 L (1.2-3.4) K/uL Monocytes # (Manual) 1.08 H (0.11-0.59) K/uL Metamyelocytes # (Man) 0.46 H (0-0) K/uL Myelocytes # (Manual) 0.92 H (0-0) K/uL Toxic Granulation 2+ Dohle Bodies 2+ Tear Drop Cells 1+ Ovalocytes 1+ APTT 30.8 (21.0-31.0) Seconds PTT Ratio 1.1 Sodium 138 (136-145) mmol/L Potassium 3.4 L (3.5-5.1) mmol/L Chloride 104 (98-107) mmol/L Carbon Dioxide 27 (21-32) mmol/L Anion Gap 7.0 (3-11) BUN 16 (7-18) mg/dl Creatinine 1.10 (0.6-1.4) mg/dl Est Cr Clr Drug Dosing 55.8 ml/min Est GFR ( Amer) 75.7 Est GFR (Non-Af Amer) 65.3 BUN/Creatinine Ratio 14.5 (10-20) Glucose 147 H (70-99) mg/dl Calcium 8.3 L (8.5-10.1) mg/dl Magnesium 1.8 (1.8-2.4) mg/dl Total Bilirubin 0.2 (0.2-1) mg/dl AST 18 (15-37) U/L ALT 29 (12-78) U/L Alkaline Phosphatase 126 H (45-117) U/L POC Troponin I (0-0.045) ng/ml Total Protein 5.5 L (6.4-8.2) gm/dl Albumin 2.6 L (3.4-5.0) gm/dl Globulin 2.9 (2.5-4.0) gm/dl Albumin/Globulin Ratio 0.9 (0.9-2) Lipase 111 (73-393) U/L TSH 3.140 (0.300-4.500) uIu/ml Urine Color Urine Appearance (Clear) Urine pH (4.5-7.5) Ur Specific [place] (1.000-1.030) Urine Protein (Negative) Urine Glucose (UA) (Negative) Urine Ketones (Negative) Urine Blood (Negative) Urine Nitrite (Negative) Urine Bilirubin (Negative) Urine Urobilinogen (Negative) Ur Leukocyte Esterase (Negative) Urine WBC (Auto) (0-5) /hpf Urine RBC (Auto) (0-4) /hpf U Hyaline Cast (Auto) (0-5) /lpf U Epithel Cells (Auto) (0-5) /lpf Urine Bacteria (Auto) (Negative) 02/11/19 02/11/19 Range/Units 21:56 23:27 WBC (4.8-10.8) K/uL RBC (4.7-6.1) M/uL Hgb (14.0-18.0) g/dL Hct (42-52) % MCV (80-100) fL MCH (25-34) pg MCHC (32-36) g/dL RDW Std Deviation (36.4-46.3) fL RDW Coeff of Aubree (11.5-14.5) % Plt Count (130-400) K/uL MPV (7.4-10.4) fL Absolute Nucleated RBC (0-0) K/uL Nucleated RBC % (auto) % Neutrophils % (Manual) % Lymphocytes % (Manual) % Monocytes % (Manual) % Metamyelocytes % (Man) % Myelocytes % (Man) % Neutrophils # (Manual) (1.4-6.5) K/uL Total Absolute Neuts (1.4-6.5) K/uL Lymphocytes # (Manual) (1.2-3.4) K/uL Total Abs Lymphocytes (1.2-3.4) K/uL Monocytes # (Manual) (0.11-0.59) K/uL Metamyelocytes # (Man) (0-0) K/uL Myelocytes # (Manual) (0-0) K/uL Toxic Granulation Dohle Bodies Tear Drop Cells Ovalocytes APTT (21.0-31.0) Seconds PTT Ratio Sodium (136-145) mmol/L Potassium (3.5-5.1) mmol/L Chloride (98-107) mmol/L Carbon Dioxide (21-32) mmol/L Anion Gap (3-11) BUN (7-18) mg/dl Creatinine (0.6-1.4) mg/dl Est Cr Clr Drug Dosing ml/min Est GFR ( Amer) Est GFR (Non-Af Amer) BUN/Creatinine Ratio (10-20) Glucose (70-99) mg/dl Calcium (8.5-10.1) mg/dl Magnesium (1.8-2.4) mg/dl Total Bilirubin (0.2-1) mg/dl AST (15-37) U/L ALT (12-78) U/L Alkaline Phosphatase (45-117) U/L POC Troponin I < 0.03 (0-0.045) ng/ml Total Protein (6.4-8.2) gm/dl Albumin (3.4-5.0) gm/dl Globulin (2.5-4.0) gm/dl Albumin/Globulin Ratio (0.9-2) Lipase (73-393) U/L TSH (0.300-4.500) uIu/ml Urine Color Yellow Urine Appearance Clear (Clear) Urine pH 6.0 (4.5-7.5) Ur Specific [place] 1.007 (1.000-1.030) Urine Protein Negative (Negative) Urine Glucose (UA) Negative (Negative) Urine Ketones Negative (Negative) Urine Blood 3+ H (Negative) Urine Nitrite Positive A (Negative) Urine Bilirubin Negative (Negative) Urine Urobilinogen Negative (Negative) Ur Leukocyte Esterase Trace H (Negative) Urine WBC (Auto) 5-10 H (0-5) /hpf Urine RBC (Auto) 0-4 (0-4) /hpf U Hyaline Cast (Auto) 1-5 (0-5) /lpf U Epithel Cells (Auto) 10-20 H (0-5) /lpf Urine Bacteria (Auto) 3+ H (Negative) Imaging Data Radiologist's Impression: Radiology results as stated below per my review and the radiologist's interpretation: XR chest 1V portable CLINICAL HISTORY: Atypical chest pain COMPARISON STUDY: 09/21/2018 FINDINGS: The cardiac and mediastinal contours remain stable. There is stable aortic tortuosity. There is a right-sided A-Port catheter unchanged in position. There is no failure. There is no focal pulmonary consolidation. Postinflammatory calcifications are visualized towards the right lung base. There are surgical clips in the right axillary region.[ IMPRESSION: No active disease in the chest. Electronically signed by: Manjit Mathur M.D. 02/11/2019 10:05 PM ECG Data Attestation: I personally reviewed and interpreted this ECG as follows: Indication: chest pain Rate (beats per minute): 73 Rhythm: sinus rhythm Findings: + other (QRS 88ms) and + Q waves (septally); no ST elevation Comparison ECG Date: from (08/23/2018) Change: no significant change (Q waves present on old) Blood Pressure Blood Pressure Findings: Elevated blood pressure Blood Pressure Disposition: further management by hospitalist MDM Narrative I did evaluate the patient as noted above. Patient is presenting with exertional chest pain. He has had multiple episodes today. Currently he is chest pain-free. He is on Eliquis for paroxysmal atrial fibrillation. IV access was established. The patient was placed on a continuous cardiac rehabilitation program director. I did order and personally review the patient's 12-lead EKG as described above. His twelve-lead EKG does not demonstrate any acute ischemia. I did order and personally reviewed the images of the patient's chest x-ray as described above. There is no evidence of pneumonia. I did order a urine analysis. He does have evidence of a UTI. I did order and review the patient's blood work as noted in the electronic medical record. Troponin is negative. His white count is elevated. This may be secondary to his UTI. He is anemic. He did recently have chemotherapy. I did discuss the test results with the patient. I did recommend hospitalization for repeat cardiac biomarkers and further evaluation. I did discuss case with the hospitalist and case resource manager. Impression & Plan Exertional chest pain, Anemia, UTI (urinary tract infection), Anticoagulated Discharge Plan Visit Data Chief Complaint: Chest Pain Stated Complaint: CHEST PAINS ED Provider: Jordan Amaro Discharge Problem: Exertional chest pain, Anemia, UTI (urinary tract infection), Anticoagulated Patient Disposition: Being Evaluated by Hospitalist Forms Stand Alone Forms: Call Back Authorization, [facility] Prescriptions Prescriptions: No Action metoprolol succinate 50 mg Tablet Extended Release 24 Hr 25 mg PO QAM RF: 0 methimazole 10 mg Tablet 10 mg PO DAILY RF: 0 ondansetron HCl [Zofran] 8 mg Tablet 8 mg PO Q8H PRN (Reason: Nausea) RF: 0 prednisone 20 mg Tablet 20 mg PO DIRECTED RF: 0 prochlorperazine maleate 10 mg Tablet 10 mg PO Q6H PRN (Reason: Nausea) RF: 0 triamcinolone acetonide 0.1 % Cream 1 applic TOPICAL BID PRN (Reason: Rash) RF: 0 lorazepam 0.5 mg Tablet 0.5 mg PO HS PRN (Reason: Insomnia) RF: 0 dexamethasone 4 mg Tablet 4 mg PO DIRECTED RF: 0 gabapentin 100 mg Capsule 100 mg PO TID RF: 0 Guaifenesin-Codeine 5 - 10 ml PO Q4 PRN (Reason: NEEDED) RF: 0 atorvastatin 20 mg Tablet 20 mg PO QAM RF: 0 omeprazole 20 mg Capsule,Delayed Release(Dr/Ec) 20 mg PO DAILY PRN (Reason: Acid Reflux) RF: 0 Eliquis 5 mg Tablet 5 mg PO BID RF: 0 acetaminophen [Tylenol Extra Strength] 500 mg Tablet 1,000 mg PO HS PRN (Reason: Pain) RF: 0 PreserVision AREDS [id number] Capsule 1 cap PO BID RF: 0 Referrals Referrals: Renny Asher MD [Primary Care Provider] - The scribe's documentation has been prepared under my direction and personally reviewed by me in its entirety. I confirm that the note above accurately reflects all work, treatment, procedures, and medical decision making performed by me.
[2019-02-12] MEDS ORDERED: MoRPHine SULFATE 2 MG/ML CARP IV PRN (01:20)
[2019-02-12] MEDS ORDERED: LORazepam 0.5 MG TAB PO PRN (01:20)
[2019-02-12] MEDS ORDERED: NITROGLYCERIN SL 0.4 MG/TAB TAB SL PRN (01:20)
[2019-02-12] MEDS ORDERED: TRAMADOL HCL 50 MG TABLET PO PRN (01:20)
[2019-02-12] MEDS ORDERED: ACETAMINOPHEN 325 MG TAB PO PRN (01:20)
[2019-02-12] MEDS ORDERED: PROMETHAZINE HCL 12.5 MG in SODIUM CHLORIDE 0.9% 50 ML IV PRN (01:20)
[2019-02-12] MEDS: NSS + 20MEQ KCL 20 MEQ/1,000 ML BAG IV SCH (02:46)
[2019-02-12] MEDS: GABAPENTIN 100 MG CAP PO SCH ×4 (02:46→21:01)
[2019-02-12 03:25] LABS: Mean Corpuscular Hgb Conc 32.8 g/dL (32-36); Mean Platelet Volume 9.1 fL (7.4-10.4); Nucleated RBC # (auto) 0.08 K/uL (0-0); Nucleated RBC % (auto) 0.4 %; Platelet Count 183 K/uL (130-400)
[2019-02-12 03:38] LABS: Partial Thromboplastin Time 27.3 Seconds (21.0-31.0)
[2019-02-12 03:46] LABS: Hematocrit (blood only) 22.9 % (42-52); Hemoglobin 7.5 g/dL (14.0-18.0); Mean Corpuscular Volume 92.7 fL (80-100); RDW Coefficient of Variation 16.2 % (11.5-14.5); RDW Standard Deviation 51.8 fL (36.4-46.3); Red Blood Count 2.47 M/uL (4.7-6.1); White Blood Count 19.92 K/uL (4.8-10.8)
[2019-02-12 03:48] LABS: Dohle Bodies 1+; Metamyelocytes # (manual) 0.18 K/uL (0-0); Metamyelocytes % (manual) 0.9 %; Monocytes # (manual) 1.57 K/uL (0.11-0.59); Monocytes % (manual) 7.9 %; Myelocytes # (manual) 0.88 K/uL (0-0); Myelocytes % (manual) 4.4 %; Neutrophils % (manual) 86.8 %; Ovalocytes 1+; Polychromasia 1+; Tear Drop Cells 1+; Toxic Granulation 1+
[2019-02-12 03:50] LABS: BUN Creatinine Ratio 13.9 (10-20); Calcium 8.1 mg/dl (8.5-10.1); Est GFR (African American) 90.4; Potassium 3.7 mmol/L (3.5-5.1)
[2019-02-12 03:55] LABS: Troponin I 0.043 ng/ml (0-0.045)
[2019-02-12 06:27] LABS: Estimated Average Glucose 137 mg/dl; Hemoglobin A1C 6.4 % (4.5-5.6)
[2019-02-12] MEDS: ATORVASTATIN 20 MG TAB PO SCH (07:46)
[2019-02-12] MEDS: METOPROLOL SUCC 25MG EXT REL TAB PO SCH (07:47)
[2019-02-12] MEDS: CEROVITE ADV FORMULA TAB PO SCH ×2 (07:48→21:01)
[2019-02-12] MEDS: methIMAzole 5 MG TABLET PO SCH (07:48)
[2019-02-12] MEDS ORDERED: SODIUM CHLORIDE 0.9% 250 ML IV PRN (09:23)
--- NOTE | 2019-02-12 10:47 | Cardiology Consultation ---
Date of Consultation February 12, 2019 Assessment & Plan (1) Acute chest pain: Patient symptoms suspicious for GI in origin, initial troponin is negative EKG unhelpful given underlying conduction system disease/left bundle branch block Plan: We will review echocardiogram consider stress testing depending on results of study Addendum echocardiogram demonstrates subtle apical and septal abnormalities likely secondary to conduction changes however ischemia not completely excluded. Plan dobutamine stress echo in a.m. Patient currently receiving IV infusion blood product (2) GERD (gastroesophageal reflux disease): (3) Left bundle branch block: Left bundle branch block is notably intermittent on telemetry and EKG (4) Atrial fibrillation: History of Present Illness Attending Physician: Mauro Christine MD History of Present Illness Patient is a 73-year-old male with underlying cardiac history 1. Paroxysmal atrial fibrillation with initial event occurring postoperatively following extensive pelvic exoneration surgery 07/27/2017, ultimately controlled with oral amiodarone. Amiodarone discontinued as below. Patient chronically anticoagulated with Eliquis 2.Hypertension. 3.Hyperlipidemia. 4.History of non-Hodgkin's lymphoma in 2004. 5.Rectal carcinoma status post resection. 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 day 1 through day 4 8. Nonspecific intraventricular conduction delay on EKG now progressed to left bundle branch block Patient presents this admission noting having developed severe upper epigastric substernal pain yesterday lasting approximately 15 minutes. Is not associated with diaphoresis radiation to the shoulders or back noted no nausea or vomiting. Notes no recent indigestion or heartburn. Has been somewhat anorexic but has been eating well. Has been fatigued in association with with recent chemotherapies and acute infection 1 month ago. Does note he feels breathless with exertion. Initial troponin is negative EKG unhelpful with underlying conduction abnormalities not progressed to left bundle branch block Patient denies fevers chills or sweats. Notes no melena hematochezia dysuria hematuria. Notes no orthopnea. Notes no syncope or near syncope. Allergies Allergy/AdvReac Type Severity Reaction Status Date / Time Iodinated Contrast- Oral and Allergy Intermediate Rash Verified 02/11/19 22:08 IV Dye Home Medications Home Medications Medication Instructions Recorded Confirmed Type Eliquis 5 mg PO BID 04/26/18 02/11/19 History atorvastatin 20 mg PO QAM 04/26/18 02/11/19 History omeprazole 20 mg PO DAILY PRN 04/26/18 02/11/19 History PreserVision AREDS 1 cap PO BID 05/29/18 02/11/19 History acetaminophen [Tylenol Extra 1,000 mg PO HS PRN 05/29/18 02/11/19 History Strength] Guaifenesin-Codeine 5 - 10 ml PO Q4 PRN 02/11/19 02/11/19 History dexamethasone 4 mg PO DIRECTED 02/11/19 02/11/19 History gabapentin 100 mg PO TID 02/11/19 02/11/19 History lorazepam 0.5 mg PO HS PRN 02/11/19 02/11/19 History methimazole 10 mg PO DAILY 02/11/19 02/11/19 History metoprolol succinate 25 mg PO QAM 02/11/19 02/11/19 History ondansetron HCl [Zofran] 8 mg PO Q8H PRN 02/11/19 02/11/19 History prednisone 20 mg PO DIRECTED 02/11/19 02/11/19 History prochlorperazine maleate 10 mg PO Q6H PRN 02/11/19 02/11/19 History triamcinolone acetonide 1 applic TOPICAL BID PRN 02/11/19 02/11/19 History Patient History Medical History Hyperthyroidism RECENT DIAGNOSIS; ON METHIMAZOLE Atrial fibrillation PAROXYSMAL A.FIB ON ELIQUIS Hyperlipidemia Colon cancer PERMANENT ILEOSTOMY/NEPHROSTOMY IN PLACE Non-Hodgkin lymphoma in remission DX 2008; S/P CHEMO (2016) Osteoarthritis Prostate cancer S/P PROSTATECTOMY/RADIATION SEEDS (2003) GERD (gastroesophageal reflux disease) Hypertension Hx of Clostridium difficile infection (Acute) Large B-cell lymphoma Neck mass biopsy 08/23/2018. MAC no issues. Surgical History History of lymph node biopsy RIGHT AXILLARY LYMPH NODE BIOPSY= 04/28/18= LMA#5 AT [facility] History of bowel resection CURRENT ILEOSTOMY 2/2 COLON CANCER S/P prostatectomy History of bladder surgery S/P CYSTECTOMY History of colonoscopy Hx of biopsy RIGHT AXILLARY LYMPH NODE History of urostomy (Acute) History of lymph node biopsy RT NECK EXCISIONAL BIOPSY 08/23/18 [facility] Social History Preferred Language: Bengali Communication Ability: Effective Visual Impairment: No Limitations Compound Machine Operator Required: No Beliefs That Will Affect Care: None Current Living Situation: Spouse Other Information That Helps Us Care for You: No Feels Safe at Home: Yes Safety Concerns: Feels Safe At This Time Smoking Status: Never smoker Do You Dip or Chew Tobacco: No Second Hand Exposure: No Hx Alcohol Use: No Hx Substance Use: No Physical Exam Constitutional: WD/WN, vitals as above no acute distress Eyes: PERRL, conjunctivae normal, anicteric sclerae ENMT: external ear and nose normal, oropharynx normal Neck: trachea midline, no thyromegaly Respiratory: normal respiratory effort, lungs clear to auscultation Cardiovascular: Rate/Rhythm: regular rate and regular rhythm Heart Sounds: normal S1 and normal S2; no murmur and no cardiac rub Gastrointestinal (Abdomen): normal bowel sounds, soft, nontender, no hepatosplenomegaly Musculoskeletal: no cyanosis or clubbing, extremities motor strength 5/5 Results & Data Vital Signs (Past 12 Hours) Vital Signs Temp Pulse Pulse Pulse Resp BP BP 02/12/19 10:29 36.6 C 58 L 18 137/73 02/12/19 09:33 78 02/12/19 07:44 68 02/12/19 07:07 36.7 C 73 18 127/67 02/12/19 05:59 36.7 C 75 19 02/12/19 01:21 78 02/12/19 01:05 36.6 C 87 18 153/83 H 02/12/19 00:51 58 L 18 135/95 02/11/19 23:31 62 20 137/79 02/11/19 23:01 60 16 129/77 BP Pulse Ox 02/12/19 10:29 97 02/12/19 09:33 02/12/19 07:44 123/68 02/12/19 07:07 99 02/12/19 05:59 121/66 98 02/12/19 01:21 02/12/19 01:05 100 02/12/19 00:51 98 02/11/19 23:31 99 02/11/19 23:01 98 Laboratory Results Laboratory Results - last 24 hr 02/11/19 02/11/19 02/11/19 21:40 21:40 21:40 WBC 17.76 H RBC 3.07 L Hgb 9.2 L Hct 28.3 L MCV 92.2 MCH 30.0 MCHC 32.5 RDW Std Deviation 50.1 H RDW Coeff of Aubree 16.1 H Plt Count 165 MPV 10.1 Absolute Nucleated RBC 0.06 H Nucleated RBC % (auto) 0.3 Neutrophils % (Manual) 85.2 Lymphocytes % (Manual) 0.9 Monocytes % (Manual) 6.1 Metamyelocytes % (Man) 2.6 Myelocytes % (Man) 5.2 Neutrophils # (Manual) 15.13 H Total Absolute Neuts 15.13 H Lymphocytes # (Manual) 0.16 L Total Abs Lymphocytes 0.16 L Monocytes # (Manual) 1.08 H Metamyelocytes # (Man) 0.46 H Myelocytes # (Manual) 0.92 H Toxic Granulation 2+ Dohle Bodies 2+ Polychromasia Tear Drop Cells 1+ Ovalocytes 1+ APTT 30.8 PTT Ratio 1.1 Sodium 138 Potassium 3.4 L Chloride 104 Carbon Dioxide 27 Anion Gap 7.0 BUN 16 Creatinine 1.10 Est Cr Clr Drug Dosing 55.8 Est GFR ( Amer) 75.7 Est GFR (Non-Af Amer) 65.3 BUN/Creatinine Ratio 14.5 Glucose 147 H Estimat Average Glucose Hemoglobin A1c Calcium 8.3 L Magnesium 1.8 Total Bilirubin 0.2 AST 18 ALT 29 Alkaline Phosphatase 126 H POC Troponin I Troponin I Total Protein 5.5 L Albumin 2.6 L Globulin 2.9 Albumin/Globulin Ratio 0.9 Triglycerides Cholesterol LDL Cholesterol, Calc VLDL Cholesterol, Calc HDL Cholesterol Cholesterol/HDL Ratio Lipase 111 TSH 3.140 Urine Color Urine Appearance Urine pH Ur Specific [place] Urine Protein Urine Glucose (UA) Urine Ketones Urine Blood Urine Nitrite Urine Bilirubin Urine Urobilinogen Ur Leukocyte Esterase Urine WBC (Auto) Urine RBC (Auto) U Hyaline Cast (Auto) U Epithel Cells (Auto) Urine Bacteria (Auto) Blood Type Blood Type Recheck Antibody Screen Crossmatch 02/11/19 02/11/19 02/11/19 21:40 21:56 23:27 WBC RBC Hgb Hct MCV MCH MCHC RDW Std Deviation RDW Coeff of Aubree Plt Count MPV Absolute Nucleated RBC Nucleated RBC % (auto) Neutrophils % (Manual) Lymphocytes % (Manual) Monocytes % (Manual) Metamyelocytes % (Man) Myelocytes % (Man) Neutrophils # (Manual) Total Absolute Neuts Lymphocytes # (Manual) Total Abs Lymphocytes Monocytes # (Manual) Metamyelocytes # (Man) Myelocytes # (Manual) Toxic Granulation Dohle Bodies Polychromasia Tear Drop Cells Ovalocytes APTT PTT Ratio Sodium Potassium Chloride Carbon Dioxide Anion Gap BUN Creatinine Est Cr Clr Drug Dosing Est GFR ( Amer) Est GFR (Non-Af Amer) BUN/Creatinine Ratio Glucose Estimat Average Glucose 137 Hemoglobin A1c 6.4 H Calcium Magnesium Total Bilirubin AST ALT Alkaline Phosphatase POC Troponin I < 0.03 Troponin I Total Protein Albumin Globulin Albumin/Globulin Ratio Triglycerides Cholesterol LDL Cholesterol, Calc VLDL Cholesterol, Calc HDL Cholesterol Cholesterol/HDL Ratio Lipase TSH Urine Color Yellow Urine Appearance Clear Urine pH 6.0 Ur Specific [place] 1.007 Urine Protein Negative Urine Glucose (UA) Negative Urine Ketones Negative Urine Blood 3+ H Urine Nitrite Positive A Urine Bilirubin Negative Urine Urobilinogen Negative Ur Leukocyte Esterase Trace H Urine WBC (Auto) 5-10 H Urine RBC (Auto) 0-4 U Hyaline Cast (Auto) 1-5 U Epithel Cells (Auto) 10-20 H Urine Bacteria (Auto) 3+ H Blood Type Blood Type Recheck Antibody Screen Crossmatch 02/12/19 02/12/19 02/12/19 03:11 03:11 03:11 WBC 19.92 H RBC 2.47 L Hgb 7.5 L Hct 22.9 L MCV 92.7 MCH 30.4 MCHC 32.8 RDW Std Deviation 51.8 H RDW Coeff of Aubree 16.2 H Plt Count 183 MPV 9.1 Absolute Nucleated RBC 0.08 H Nucleated RBC % (auto) 0.4 Neutrophils % (Manual) 86.8 Lymphocytes % (Manual) 0.0 Monocytes % (Manual) 7.9 Metamyelocytes % (Man) 0.9 Myelocytes % (Man) 4.4 Neutrophils # (Manual) 17.29 H Total Absolute Neuts 17.29 H Lymphocytes # (Manual) Total Abs Lymphocytes 0.00 L Monocytes # (Manual) 1.57 H Metamyelocytes # (Man) 0.18 H Myelocytes # (Manual) 0.88 H Toxic Granulation 1+ Dohle Bodies 1+ Polychromasia 1+ Tear Drop Cells 1+ Ovalocytes 1+ APTT 27.3 PTT Ratio 1.0 Sodium 141 Potassium 3.7 Chloride 107 Carbon Dioxide 30 Anion Gap 4.0 BUN 13 Creatinine 0.95 Est Cr Clr Drug Dosing 65.0 Est GFR ( Amer) 90.4 Est GFR (Non-Af Amer) 78.0 BUN/Creatinine Ratio 13.9 Glucose 108 H Estimat Average Glucose Hemoglobin A1c Calcium 8.1 L Magnesium Total Bilirubin AST ALT Alkaline Phosphatase POC Troponin I Troponin I 0.043 Total Protein Albumin Globulin Albumin/Globulin Ratio Triglycerides 50 Cholesterol 135 LDL Cholesterol, Calc 74 VLDL Cholesterol, Calc 10 HDL Cholesterol 51 Cholesterol/HDL Ratio 3 Lipase TSH Urine Color Urine Appearance Urine pH Ur Specific [place] Urine Protein Urine Glucose (UA) Urine Ketones Urine Blood Urine Nitrite Urine Bilirubin Urine Urobilinogen Ur Leukocyte Esterase Urine WBC (Auto) Urine RBC (Auto) U Hyaline Cast (Auto) U Epithel Cells (Auto) Urine Bacteria (Auto) Blood Type Blood Type Recheck Antibody Screen Crossmatch 02/12/19 02/12/19 02/12/19 03:11 06:03 06:03 WBC RBC Hgb 7.6 L Hct MCV MCH MCHC RDW Std Deviation RDW Coeff of Aubree Plt Count MPV Absolute Nucleated RBC Nucleated RBC % (auto) Neutrophils % (Manual) Lymphocytes % (Manual) Monocytes % (Manual) Metamyelocytes % (Man) Myelocytes % (Man) Neutrophils # (Manual) Total Absolute Neuts Lymphocytes # (Manual) Total Abs Lymphocytes Monocytes # (Manual) Metamyelocytes # (Man) Myelocytes # (Manual) Toxic Granulation Dohle Bodies Polychromasia Tear Drop Cells Ovalocytes APTT PTT Ratio Sodium Potassium Chloride Carbon Dioxide Anion Gap BUN Creatinine Est Cr Clr Drug Dosing Est GFR ( Amer) Est GFR (Non-Af Amer) BUN/Creatinine Ratio Glucose Estimat Average Glucose Hemoglobin A1c Calcium Magnesium Total Bilirubin AST ALT Alkaline Phosphatase POC Troponin I Troponin I 0.041 Total Protein Albumin Globulin Albumin/Globulin Ratio Triglycerides Cholesterol LDL Cholesterol, Calc VLDL Cholesterol, Calc HDL Cholesterol Cholesterol/HDL Ratio Lipase TSH Urine Color Urine Appearance Urine pH Ur Specific [place] Urine Protein Urine Glucose (UA) Urine Ketones Urine Blood Urine Nitrite Urine Bilirubin Urine Urobilinogen Ur Leukocyte Esterase Urine WBC (Auto) Urine RBC (Auto) U Hyaline Cast (Auto) U Epithel Cells (Auto) Urine Bacteria (Auto) Blood Type Blood Type Recheck A Positive Antibody Screen Crossmatch 02/12/19 09:42 WBC RBC Hgb Hct MCV MCH MCHC RDW Std Deviation RDW Coeff of Aubree Plt Count MPV Absolute Nucleated RBC Nucleated RBC % (auto) Neutrophils % (Manual) Lymphocytes % (Manual) Monocytes % (Manual) Metamyelocytes % (Man) Myelocytes % (Man) Neutrophils # (Manual) Total Absolute Neuts Lymphocytes # (Manual) Total Abs Lymphocytes Monocytes # (Manual) Metamyelocytes # (Man) Myelocytes # (Manual) Toxic Granulation Dohle Bodies Polychromasia Tear Drop Cells Ovalocytes APTT PTT Ratio Sodium Potassium Chloride Carbon Dioxide Anion Gap BUN Creatinine Est Cr Clr Drug Dosing Est GFR ( Amer) Est GFR (Non-Af Amer) BUN/Creatinine Ratio Glucose Estimat Average Glucose Hemoglobin A1c Calcium Magnesium Total Bilirubin AST ALT Alkaline Phosphatase POC Troponin I Troponin I Total Protein Albumin Globulin Albumin/Globulin Ratio Triglycerides Cholesterol LDL Cholesterol, Calc VLDL Cholesterol, Calc HDL Cholesterol Cholesterol/HDL Ratio Lipase TSH Urine Color Urine Appearance Urine pH Ur Specific [place] Urine Protein Urine Glucose (UA) Urine Ketones Urine Blood Urine Nitrite Urine Bilirubin Urine Urobilinogen Ur Leukocyte Esterase Urine WBC (Auto) Urine RBC (Auto) U Hyaline Cast (Auto) U Epithel Cells (Auto) Urine Bacteria (Auto) Blood Type A Positive Blood Type Recheck Antibody Screen NEGATIVE Crossmatch See Detail
[2019-02-12] MEDS ORDERED: FUROSEMIDE 20 MG in SYRINGE 0 ML IV ONE (11:47)
--- NOTE | 2019-02-12 12:58 | Hospitalist Progress Note ---
Date of Service February 12, 2019 Assessment & Plan (1) Exertional chest pain: Rule out ACS Patient is chest pain-free Troponins x3 negative EKG LBBB Echocardiogram: Pending Spud Grader consulted, will decide on stress test pending echocardiogram results Possible component of anemia No signs of active bleeding Secondary to chemotherapy We will order anemia panel Hemoglobin 7.5 2 units packed RBCs ordered Repeat hemoglobin after transfusion Burning chest pain, possible uncontrolled GERD recent steroid Rx for chemotherapy for relapsed NHL Protonix started PAF on Eliquis, px NSR hypertension, stable hyperlipidemia on statin Rx hx rectal cancer status post surgery/chemoradiation prostate cancer status post radiation history of amiodarone induced hyperthyroidism chronic anemia, hemoglobin at baseline A1c 6.4, monitor as an outpatient past tobacco abuse DVT prophylaxis. Home Eliquis Full code Disposition Anticipate discharge to home medically stable Case discussed with patient and his daughter Nereida at the bedside They are understanding, agreeable and comfortable with plan Subjective Follow-up for chest pain Seen resting in bed, comfortable, in good spirits Denies recurrence of chest pain, shortness of breath, dizziness, palpitation Denies signs of bleeding including hematuria, melena or hematochezia No other symptoms Review of Systems Review of Systems: All systems reviewed & are unremarkable except as noted in HPI & below Physical Exam Physical Exam: General- oriented x 3, not in distress, speaks in sentences with no effort or accessory muscle use Head- atraumatic Eyes- PERRL, EOMI, anicteric ENT- oropharynx clear Neck- supple, no JVD, no adenopathy, no thyromegaly; carotids +2/2, no bruits appreciated Lungs- clear to auscultation bilaterally, no rales/wheezes Heart- normal rate, regular rhythm; no murmur, no gallop, no rub appreciated Abdomen- normal bowel sounds, nondistended, soft, nontender, no masses or hepatosplenomegaly Extremities- no pretibial edema, no calf tenderness; peripheral pulses intact Neuro- alert, oriented x 3; CN 2-12 grossly intact; motor 5/5 bilaterally;sensation 100% on all extremities; no other gross focal neurologic deficits Skin- warm & dry Results & Data Vital Signs (Past 12 Hours) Vital Signs Temp Pulse Pulse Pulse Resp BP BP 02/12/19 12:39 36.6 C 53 L 18 124/70 02/12/19 12:10 36.7 C 59 L 15 129/70 02/12/19 11:41 36.7 C 56 L 15 122/72 02/12/19 11:25 36.7 C 59 L 15 109/59 L 02/12/19 11:10 36.6 C 59 L 14 132/73 02/12/19 10:29 36.6 C 58 L 18 137/73 02/12/19 09:33 78 02/12/19 07:44 68 02/12/19 07:07 36.7 C 73 18 127/67 02/12/19 05:59 36.7 C 75 19 02/12/19 01:21 78 02/12/19 01:05 36.6 C 87 18 153/83 H BP Pulse Ox 02/12/19 12:39 98 02/12/19 12:10 99 02/12/19 11:41 98 02/12/19 11:25 98 02/12/19 11:10 98 02/12/19 10:29 97 02/12/19 09:33 02/12/19 07:44 123/68 02/12/19 07:07 99 02/12/19 05:59 121/66 98 02/12/19 01:21 02/12/19 01:05 100 Laboratory Results Laboratory Results - last 24 hr 02/11/19 02/11/19 02/11/19 21:40 21:40 21:40 WBC 17.76 H RBC 3.07 L Hgb 9.2 L Hct 28.3 L MCV 92.2 MCH 30.0 MCHC 32.5 RDW Std Deviation 50.1 H RDW Coeff of Aubree 16.1 H Plt Count 165 MPV 10.1 Absolute Nucleated RBC 0.06 H Nucleated RBC % (auto) 0.3 Neutrophils % (Manual) 85.2 Lymphocytes % (Manual) 0.9 Monocytes % (Manual) 6.1 Metamyelocytes % (Man) 2.6 Myelocytes % (Man) 5.2 Neutrophils # (Manual) 15.13 H Total Absolute Neuts 15.13 H Lymphocytes # (Manual) 0.16 L Total Abs Lymphocytes 0.16 L Monocytes # (Manual) 1.08 H Metamyelocytes # (Man) 0.46 H Myelocytes # (Manual) 0.92 H Toxic Granulation 2+ Dohle Bodies 2+ Polychromasia Tear Drop Cells 1+ Ovalocytes 1+ APTT 30.8 PTT Ratio 1.1 Sodium 138 Potassium 3.4 L Chloride 104 Carbon Dioxide 27 Anion Gap 7.0 BUN 16 Creatinine 1.10 Est Cr Clr Drug Dosing 55.8 Est GFR ( Amer) 75.7 Est GFR (Non-Af Amer) 65.3 BUN/Creatinine Ratio 14.5 Glucose 147 H Estimat Average Glucose Hemoglobin A1c Calcium 8.3 L Magnesium 1.8 Total Bilirubin 0.2 AST 18 ALT 29 Alkaline Phosphatase 126 H POC Troponin I Troponin I Total Protein 5.5 L Albumin 2.6 L Globulin 2.9 Albumin/Globulin Ratio 0.9 Triglycerides Cholesterol LDL Cholesterol, Calc VLDL Cholesterol, Calc HDL Cholesterol Cholesterol/HDL Ratio Lipase 111 TSH 3.140 Urine Color Urine Appearance Urine pH Ur Specific [place] Urine Protein Urine Glucose (UA) Urine Ketones Urine Blood Urine Nitrite Urine Bilirubin Urine Urobilinogen Ur Leukocyte Esterase Urine WBC (Auto) Urine RBC (Auto) U Hyaline Cast (Auto) U Epithel Cells (Auto) Urine Bacteria (Auto) Blood Type Blood Type Recheck Antibody Screen Crossmatch 02/11/19 02/11/19 02/11/19 21:40 21:56 23:27 WBC RBC Hgb Hct MCV MCH MCHC RDW Std Deviation RDW Coeff of Aubree Plt Count MPV Absolute Nucleated RBC Nucleated RBC % (auto) Neutrophils % (Manual) Lymphocytes % (Manual) Monocytes % (Manual) Metamyelocytes % (Man) Myelocytes % (Man) Neutrophils # (Manual) Total Absolute Neuts Lymphocytes # (Manual) Total Abs Lymphocytes Monocytes # (Manual) Metamyelocytes # (Man) Myelocytes # (Manual) Toxic Granulation Dohle Bodies Polychromasia Tear Drop Cells Ovalocytes APTT PTT Ratio Sodium Potassium Chloride Carbon Dioxide Anion Gap BUN Creatinine Est Cr Clr Drug Dosing Est GFR ( Amer) Est GFR (Non-Af Amer) BUN/Creatinine Ratio Glucose Estimat Average Glucose 137 Hemoglobin A1c 6.4 H Calcium Magnesium Total Bilirubin AST ALT Alkaline Phosphatase POC Troponin I < 0.03 Troponin I Total Protein Albumin Globulin Albumin/Globulin Ratio Triglycerides Cholesterol LDL Cholesterol, Calc VLDL Cholesterol, Calc HDL Cholesterol Cholesterol/HDL Ratio Lipase TSH Urine Color Yellow Urine Appearance Clear Urine pH 6.0 Ur Specific [place] 1.007 Urine Protein Negative Urine Glucose (UA) Negative Urine Ketones Negative Urine Blood 3+ H Urine Nitrite Positive A Urine Bilirubin Negative Urine Urobilinogen Negative Ur Leukocyte Esterase Trace H Urine WBC (Auto) 5-10 H Urine RBC (Auto) 0-4 U Hyaline Cast (Auto) 1-5 U Epithel Cells (Auto) 10-20 H Urine Bacteria (Auto) 3+ H Blood Type Blood Type Recheck Antibody Screen Crossmatch 02/12/19 02/12/19 02/12/19 03:11 03:11 03:11 WBC 19.92 H RBC 2.47 L Hgb 7.5 L Hct 22.9 L MCV 92.7 MCH 30.4 MCHC 32.8 RDW Std Deviation 51.8 H RDW Coeff of Aubree 16.2 H Plt Count 183 MPV 9.1 Absolute Nucleated RBC 0.08 H Nucleated RBC % (auto) 0.4 Neutrophils % (Manual) 86.8 Lymphocytes % (Manual) 0.0 Monocytes % (Manual) 7.9 Metamyelocytes % (Man) 0.9 Myelocytes % (Man) 4.4 Neutrophils # (Manual) 17.29 H Total Absolute Neuts 17.29 H Lymphocytes # (Manual) Total Abs Lymphocytes 0.00 L Monocytes # (Manual) 1.57 H Metamyelocytes # (Man) 0.18 H Myelocytes # (Manual) 0.88 H Toxic Granulation 1+ Dohle Bodies 1+ Polychromasia 1+ Tear Drop Cells 1+ Ovalocytes 1+ APTT 27.3 PTT Ratio 1.0 Sodium 141 Potassium 3.7 Chloride 107 Carbon Dioxide 30 Anion Gap 4.0 BUN 13 Creatinine 0.95 Est Cr Clr Drug Dosing 65.0 Est GFR ( Amer) 90.4 Est GFR (Non-Af Amer) 78.0 BUN/Creatinine Ratio 13.9 Glucose 108 H Estimat Average Glucose Hemoglobin A1c Calcium 8.1 L Magnesium Total Bilirubin AST ALT Alkaline Phosphatase POC Troponin I Troponin I 0.043 Total Protein Albumin Globulin Albumin/Globulin Ratio Triglycerides 50 Cholesterol 135 LDL Cholesterol, Calc 74 VLDL Cholesterol, Calc 10 HDL Cholesterol 51 Cholesterol/HDL Ratio 3 Lipase TSH Urine Color Urine Appearance Urine pH Ur Specific [place] Urine Protein Urine Glucose (UA) Urine Ketones Urine Blood Urine Nitrite Urine Bilirubin Urine Urobilinogen Ur Leukocyte Esterase Urine WBC (Auto) Urine RBC (Auto) U Hyaline Cast (Auto) U Epithel Cells (Auto) Urine Bacteria (Auto) Blood Type Blood Type Recheck Antibody Screen Crossmatch 02/12/19 02/12/1902/12/19 03:11 06:03 06:03 WBC RBC Hgb 7.6 L Hct MCV MCH MCHC RDW Std Deviation RDW Coeff of Aubree Plt Count MPV Absolute Nucleated RBC Nucleated RBC % (auto) Neutrophils % (Manual) Lymphocytes % (Manual) Monocytes % (Manual) Metamyelocytes % (Man) Myelocytes % (Man) Neutrophils # (Manual) Total Absolute Neuts Lymphocytes # (Manual) Total Abs Lymphocytes Monocytes # (Manual) Metamyelocytes # (Man) Myelocytes # (Manual) Toxic Granulation Dohle Bodies Polychromasia Tear Drop Cells Ovalocytes APTT PTT Ratio Sodium Potassium Chloride Carbon Dioxide Anion Gap BUN Creatinine Est Cr Clr Drug Dosing Est GFR ( Amer) Est GFR (Non-Af Amer) BUN/Creatinine Ratio Glucose Estimat Average Glucose Hemoglobin A1c Calcium Magnesium Total Bilirubin AST ALT Alkaline Phosphatase POC Troponin I Troponin I 0.041 Total Protein Albumin Globulin Albumin/Globulin Ratio Triglycerides Cholesterol LDL Cholesterol, Calc VLDL Cholesterol, Calc HDL Cholesterol Cholesterol/HDL Ratio Lipase TSH Urine Color Urine Appearance Urine pH Ur Specific [place] Urine Protein Urine Glucose (UA) Urine Ketones Urine Blood Urine Nitrite Urine Bilirubin Urine Urobilinogen Ur Leukocyte Esterase Urine WBC (Auto) Urine RBC (Auto) U Hyaline Cast (Auto) U Epithel Cells (Auto) Urine Bacteria (Auto) Blood Type Blood Type Recheck A Positive Antibody Screen Crossmatch 02/12/19 09:42 WBC RBC Hgb Hct MCV MCH MCHC RDW Std Deviation RDW Coeff of Aubree Plt Count MPV Absolute Nucleated RBC Nucleated RBC % (auto) Neutrophils % (Manual) Lymphocytes % (Manual) Monocytes % (Manual) Metamyelocytes % (Man) Myelocytes % (Man) Neutrophils # (Manual) Total Absolute Neuts Lymphocytes # (Manual) Total Abs Lymphocytes Monocytes # (Manual) Metamyelocytes # (Man) Myelocytes # (Manual) Toxic Granulation Dohle Bodies Polychromasia Tear Drop Cells Ovalocytes APTT PTT Ratio Sodium Potassium Chloride Carbon Dioxide Anion Gap BUN Creatinine Est Cr Clr Drug Dosing Est GFR ( Amer) Est GFR (Non-Af Amer) BUN/Creatinine Ratio Glucose Estimat Average Glucose Hemoglobin A1c Calcium Magnesium Total Bilirubin AST ALT Alkaline Phosphatase POC Troponin I Troponin I Total Protein Albumin Globulin Albumin/Globulin Ratio Triglycerides Cholesterol LDL Cholesterol, Calc VLDL Cholesterol, Calc HDL Cholesterol Cholesterol/HDL Ratio Lipase TSH Urine Color Urine Appearance Urine pH Ur Specific [place] Urine Protein Urine Glucose (UA) Urine Ketones Urine Blood Urine Nitrite Urine Bilirubin Urine Urobilinogen Ur Leukocyte Esterase Urine WBC (Auto) Urine RBC (Auto) U Hyaline Cast (Auto) U Epithel Cells (Auto) Urine Bacteria (Auto) Blood Type A Positive Blood Type Recheck Antibody Screen NEGATIVE Crossmatch See Detail
[2019-02-12 17:34] LABS: Hematocrit (blood only) 30.7 % (42-52); Hemoglobin 10.3 g/dL (14.0-18.0)
[2019-02-12] MEDS: APIXABAN 5 MG TABLET PO SCH (21:01)
[2019-02-12] MEDS: PANTOprazole 40 MG TAB PO SCH (21:02)
[2019-02-13] MEDS ORDERED: HEPARIN 100 UNIT/ML 5ML FLUSH FLUSH PRN (00:28)
[2019-02-13 06:10] LABS: Mean Corpuscular Hgb Conc 33.8 g/dL (32-36); Mean Platelet Volume 9.3 fL (7.4-10.4); Nucleated RBC # (auto) 0.06 K/uL (0-0); Nucleated RBC % (auto) 0.3 %; Platelet Count 222 K/uL (130-400)
[2019-02-13 06:42] LABS: Hematocrit (blood only) 29.9 % (42-52); Hemoglobin 10.1 g/dL (14.0-18.0); Mean Corpuscular Volume 88.7 fL (80-100); RDW Coefficient of Variation 16.5 % (11.5-14.5); RDW Standard Deviation 49.9 fL (36.4-46.3); Red Blood Count 3.37 M/uL (4.7-6.1); White Blood Count 21.57 K/uL (4.8-10.8)
[2019-02-13 06:43] LABS: Dohle Bodies 1+; Ovalocytes 1+; Tear Drop Cells 1+; Toxic Granulation 2+
[2019-02-13 06:46] LABS: ALC (manual) 0.19 K/uL (1.2-3.4); Blast # (manual) 0.19 K/uL (0-0); Blast Cells % (manual) 0.9 %; Eosinophils # (manual) 0.19 K/uL (0-0.5); Eosinophils % (manual) 0.9 %; Ferritin 489.6 ng/ml (8-388); Lymphocytes # (manual) 0.19 K/uL (1.2-3.4); Lymphocytes % (manual) 0.9 %; Metamyelocytes # (manual) 1.68 K/uL (0-0); Metamyelocytes % (manual) 7.8 %; Monocytes # (manual) 1.51 K/uL (0.11-0.59); Myelocytes # (manual) 1.88 K/uL (0-0); Myelocytes % (manual) 8.7 %; Neutrophils % (manual) 70.3 %; Promyelocytes # (manual) 0.75 K/uL (0-0); Promyelocytes % (manual) 3.5 %
[2019-02-13 08:03] LABS: Vitamin B12 1942 pg/ml (211-911)
[2019-02-13 08:04] LABS: Folate (Folic Acid) > 24.00 ng/ml (>5.38)
[2019-02-13] MEDS: CEROVITE ADV FORMULA TAB PO SCH ×2 (08:40→21:43)
[2019-02-13] MEDS: ATORVASTATIN 20 MG TAB PO SCH (08:40)
[2019-02-13] MEDS: FERROUS SULFATE 325 MG TAB PO SCH ×2 (08:40→16:54)
[2019-02-13] MEDS: methIMAzole 5 MG TABLET PO SCH (08:41)
[2019-02-13] MEDS: GABAPENTIN 100 MG CAP PO SCH ×3 (08:41→21:42)
[2019-02-13] MEDS: NSS + 20MEQ KCL 20 MEQ/1,000 ML BAG IV SCH (08:41)
[2019-02-13] MEDS: APIXABAN 5 MG TABLET PO SCH (08:41)
[2019-02-13] MEDS ORDERED: DOBUTamine HCL 12.5 MG/ML 20 ML VIAL IV ONE (09:41)
[2019-02-13] MEDS ORDERED: ATROPINE SULFATE 0.1 MG/ML 10ML SYR IV ONE (09:41)
[2019-02-13] MEDS ORDERED: METOPROLOL TARTRATE 1 MG/ML VIAL IV ONE (09:41)
--- NOTE | 2019-02-13 10:48 | Hospitalist Progress Note ---
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 Newell- secondary to Neulasta PAF on Eliquis, px NSR hypertension, stable hyperlipidemia on statin Rx hx rectal cancer status post surgery/chemoradiation prostate cancer status post radiation history of amiodarone induced hyperthyroidism chronic anemia, hemoglobin at baseline A1c 6.4, monitor as an outpatient past tobacco abuse DVT prophylaxis. Home Eliquis Full code Disposition Anticipate discharge to home today if stress test is negative Subjective ff up for chest pain, dyspnea on exertion seen resting in bed, comfortable states he feels much better overall no recurrence of chest pain, dyspnea, palpitations, dizziness no fever/chills, cough, shortness of breath, abdominal pain no other symptoms Review of Systems Review of Systems: All systems reviewed & are unremarkable except as noted in HPI & below Physical Exam Physical Exam: General- oriented x 3, not in distress, speaks in sentences with no effort or accessory muscle use Eyes- anicteric Neck- no JVD Lungs- clear breath sounds bilaterally no crackles no wheezing Heart- normal rate, regular rhythm; no murmurs Abdomen- normal bowel sounds, nondistended, soft, nontender Extremities- no pretibial edema, no calf tenderness Neuro- alert, oriented x 3; no gross focal neurologic deficits Skin- warm & dry Results & Data Vital Signs (Past 12 Hours) Vital Signs Temp Pulse Pulse Pulse Resp BP BP 02/13/19 08:15 62 02/13/19 07:27 36.6 C 61 16 122/65 02/13/19 03:35 36.7 C 57 L 16 105/56 L 02/13/19 01:37 68 02/13/19 01:20 02/13/19 00:19 36.8 C 64 16 121/52 L Pulse Ox Pulse Ox 02/13/19 08:15 02/13/19 07:27 96 02/13/19 03:35 96 02/13/19 01:37 02/13/19 01:20 98 02/13/19 00:19 95 Laboratory Results Laboratory Results - last 24 hr 02/12/19 02/12/19 02/13/19 09:42 17:26 05:47 WBC 21.57 H RBC 3.37 L Hgb 10.3 L 10.1 L Hct 30.7 L 29.9 L MCV 88.7 MCH 30.0 MCHC 33.8 RDW Std Deviation 49.9 H RDW Coeff of Aubree 16.5 H Plt Count 222 MPV 9.3 Absolute Nucleated RBC 0.06 H Nucleated RBC % (auto) 0.3 Neutrophils % (Manual) 70.3 Lymphocytes % (Manual) 0.9 Monocytes % (Manual) 7.0 Eosinophils % (Manual) 0.9 Metamyelocytes % (Man) 7.8 Myelocytes % (Man) 8.7 Promyelocytes % (Man) 3.5 Blast Cells % (Manual) 0.9 Neutrophils # (Manual) 15.16 H Total Absolute Neuts 15.16 H Lymphocytes # (Manual) 0.19 L Total Abs Lymphocytes 0.19 L Monocytes # (Manual) 1.51 H Eosinophils # (Manual) 0.19 Metamyelocytes # (Man) 1.68 H Myelocytes # (Manual) 1.88 H Promyelocytes # (Man) 0.75 H Blast Cells # (Man) 0.19 H Blood Smear Review Toxic Granulation 2+ Dohle Bodies 1+ Tear Drop Cells 1+ Ovalocytes 1+ Iron TIBC Transferrin Ferritin Vitamin B12 Folate Blood Type A Positive Antibody Screen NEGATIVE Crossmatch See Detail 02/13/19 02/13/19 05:47 05:47 WBC RBC Hgb Hct MCV MCH MCHC RDW Std Deviation RDW Coeff of Aubree Plt Count MPV Absolute Nucleated RBC Nucleated RBC % (auto) Neutrophils % (Manual) Lymphocytes % (Manual) Monocytes % (Manual) Eosinophils % (Manual) Metamyelocytes % (Man) Myelocytes % (Man) Promyelocytes % (Man) Blast Cells % (Manual) Neutrophils # (Manual) Total Absolute Neuts Lymphocytes # (Manual) Total Abs Lymphocytes Monocytes # (Manual) Eosinophils # (Manual) Metamyelocytes # (Man) Myelocytes # (Manual) Promyelocytes # (Man) Blast Cells # (Man) Blood Smear Review Toxic Granulation Dohle Bodies Tear Drop Cells Ovalocytes Iron 35 TIBC 233 L Transferrin 185 L Ferritin 489.6 H Vitamin B12 1942 H Folate > 24.00 Blood Type Antibody Screen Crossmatch
[2019-02-13] MEDS: METOPROLOL SUCC 25MG EXT REL TAB PO SCH (10:58)
--- NOTE | 2019-02-13 15:01 | Cardiology Progress Note ---
Date of Service February 13, 2019 Assessment & Plan (1) Acute chest pain: Patient initial symptoms suspicious for GI in origin, initial troponin is negative Stress test today notable for stress-induced left bundle branch block as expected however echocardiogram demonstrated a worsening apical and septal wall motion abnormality as well consistent with significant area distribution ischemia including mid inferior wall as well. Discussed with patient would recommend undergoing diagnostic cardiac catheterization in light of symptoms. Abnormal stress testing as well as anticipated significant stressors with upcoming chemotherapies. Patient has history of dye allergy and has been on apixaban Plan contrast allergy prep will be given today, patient kept n.p.o. after midnight , apixaban on hold Patient agreeable plan (2) GERD (gastroesophageal reflux disease): (3) Left bundle branch block: Left bundle branch block is notably intermittent on telemetry , EKG and during stress (4) Atrial fibrillation: Physical Exam Constitutional: WD/WN, vitals as above no acute distress Eyes: PERRL, conjunctivae normal, anicteric sclerae ENMT: external ear and nose normal, oropharynx normal Neck: trachea midline, no thyromegaly Respiratory: normal respiratory effort, lungs clear to auscultation Cardiovascular: Rate/Rhythm: regular rate and regular rhythm Heart Sounds: normal S1 and normal S2; no murmur and no cardiac rub Gastrointestinal (Abdomen): normal bowel sounds, soft, nontender, no hepatosplenomegaly Musculoskeletal: no cyanosis or clubbing, extremities motor strength 5/5 Results & Data Vital Signs (Past 12 Hours) Vital Signs Temp Pulse Pulse Pulse Resp BP BP 02/13/19 11:06 36.7 C 63 16 142/90 H 02/13/19 08:15 62 02/13/19 07:27 36.6 C 61 16 122/65 02/13/19 03:35 36.7 C 57 L 16 105/56 L Pulse Ox 02/13/19 11:06 97 02/13/19 08:15 02/13/19 07:27 96 02/13/19 03:35 96
[2019-02-13] MEDS: predniSONE 50 MG TAB PO SCH ×2 (16:55→21:41)
[2019-02-13] MEDS: PANTOprazole 40 MG TAB PO SCH (21:43)
[2019-02-14] MEDS ORDERED: SODIUM CHLORIDE 0.9% 1000ML 1,000 ML IV SCH
[2019-02-14] MEDS: predniSONE 50 MG TAB PO SCH (07:45)
[2019-02-14] MEDS: NSS + 20MEQ KCL 20 MEQ/1,000 ML BAG IV SCH (07:45)
[2019-02-14] MEDS: FERROUS SULFATE 325 MG TAB PO SCH ×2 (08:13→15:40)
[2019-02-14] MEDS: GABAPENTIN 100 MG CAP PO SCH ×3 (08:13→19:59)
[2019-02-14] MEDS: ATORVASTATIN 20 MG TAB PO SCH (08:13)
[2019-02-14] MEDS: methIMAzole 5 MG TABLET PO SCH (08:14)
[2019-02-14] MEDS: CEROVITE ADV FORMULA TAB PO SCH ×2 (08:14→19:59)
[2019-02-14] MEDS: METOPROLOL SUCC 25MG EXT REL TAB PO SCH ×2 (08:14→19:59)
[2019-02-14] MEDS ORDERED: MIDAZOLAM HCL 1 MG/ML 2ML VIAL ONE (09:43)
[2019-02-14] MEDS ORDERED: HEPARIN (PORCINE) 1000 UNIT/ML 10 ML (CATH LAB USE ONLY) ONE (09:43)
[2019-02-14] MEDS ORDERED: fentaNYL citrate 100 MCG/2 ML VIAL ONE (09:43)
[2019-02-14] MEDS ORDERED: NiCARDipine HCL INJ 2.5 MG/ML 10 ML AMP ONE (09:43)
[2019-02-14] MEDS ORDERED: NITROGLYCERIN/D5W 100MCG/ML 20ML SYR ONE (09:44)
--- NOTE | 2019-02-14 09:48 | Pre Anesthesia Assessment ---
Date of Service February 14, 2019 Pre Sedation Assessment Vital Signs Temp Pulse Pulse Pulse Resp BP BP 02/14/19 08:33 77 02/14/19 07:20 36.6 C 69 16 122/72 02/14/19 03:47 36.5 C 61 17 107/62 107/62 02/14/19 01:52 62 02/13/19 23:40 36.8 C 65 17 127/73 02/13/19 20:00 36.8 C 68 16 133/78 02/13/19 16:00 62 02/13/19 15:43 36.7 C 61 18 124/74 02/13/19 11:06 36.7 C 63 16 142/90 H Pulse Ox 02/14/19 08:33 02/14/19 07:20 95 02/14/19 03:47 95 02/14/19 01:52 02/13/19 23:40 95 02/13/19 20:00 97 02/13/19 16:00 02/13/19 15:43 93 02/13/19 11:06 97 Cardiovascular RRR, no murmur, no edema Respiratory normal respiratory effort, lungs clear to auscultation Pre-Sedation Airway Assessment Smoking Status: Never smoker Mallampati Class: II NPO Status Date of Last Intake of Fluids: 02/14/19 Time of Last Intake of Fluids: 07:00 Last Oral Intake of Fluids Comment: Sips of fluid with medications Date of Last Intake of Solid Food: 02/13/19 Time of Last Intake of Solid Foods: 20:48 Procedure Planning Contraindications for Sedation: none Current Medications Reviewed: Yes Notes The planned sedation has been discussed with the patient. Informed Consent was obtained. I have identified the patient, determined the appropriateness of sedation and have assessed the patient immediately prior to the procedure. All medicine(s) and interventions are by my order.
[2019-02-14] MEDS ORDERED: ADENOSINE IV SOLN 3 MG/ML 20 ML VIAL IV ONE (10:16)
[2019-02-14] MEDS ORDERED: ATROPINE SULFATE 0.1 MG/ML 10ML SYR IV PRN (10:28)
[2019-02-14] MEDS ORDERED: SODIUM CHLORIDE 0.9% 500 ML IV PRN (10:28)
--- NOTE | 2019-02-14 10:34 | Cardiac Catheterization ---
Cardiac Cath Procedure: Brief Procedure Date February 14, 2019 Pre-Procedure Diagnosis Pre-Procedure Diagnosis: Angina and Positive Stress Test AUC Score AUC Score: 7 Post-Procedure Diagnosis Post-Procedure Diagnosis: Severe CAD Procedure(s) Performed Procedure(s) Performed: Coronary Angiography and Left Heart Cath Grinder Set Up Operator Thread Jerry Kerr MD Estimated Blood Loss Estimated Blood Loss: <15cc Medication(s) Medication(s): Fentanyl (12.5 mcg IV), Lidocaine 1% (Local infiltration access site) and Nicardipine (250 mcg intra-arterial after arterial sheath insertion) Preliminary Findings Right dominant coronary anatomy. Diffuse coronary atherosclerosis multivessel Left main: Distal 30% Left anterior descending: Type II distribution thin in caliber with diffuse disease in its proximal portion. It gives rise to a small diagonal and a small septal branch and has a 100% occlusion. The mid and distal vessel fills via collateral flow as a thin caliber vessel Left circumflex: Very large but nondominant. It gives rise to a trivial first marginal branch second the small marginal branch followed by a very large obtuse marginal which receives and supplies a large portion of the apex. The circumflex then continues along the AV groove giving rise to a very large posterior lateral branch. Within the left circumflex there is diffuse moderate irregularities. The obtuse marginal has a 60 to 70% eccentric narrowing at its origin and a 70% narrowing in a subbranch. Distal posterior lateral branch has moderate irregularities Right coronary artery: Dominant vessel seen to be occluded shortly after its origin 100%. The distal vessel fills richly via retrograde collateral flow from the left circumflex all the way to its point of occlusion demonstrating a moderate caliber posterior descending artery and 2 posterior ventricular branches. Paroxysmal atrial tachycardia induced with catheter insertion to the left ventricle responsive to adenosine 6 mg IV Left ventricular end-diastolic pressure 23 Recommendations Recommendations: Medical Therapy and/or Counseling Specimens Specimens: None Fluids (cc crystalloids) Fluids (cc crystalloids): 50 Anesthesia Start time: 10:00, stop time 10:20 Procedural Complication(s) None Disposition Recovery Room\PACU
--- NOTE | 2019-02-14 10:56 | Cardiac Catheterization ---
Cardiac Cath Procedure Full Procedure Date February 14, 2019 Pre-Procedure Diagnosis Pre-Procedure Diagnosis: Angina and Positive Stress Test AUC Score AUC Score: 7 Post-Procedure Diagnosis Post-Procedure Diagnosis: Severe CAD Procedure(s) Performed Procedure(s) Performed: Coronary Angiography and Left Heart Cath Sanitary Plumber Jerry Kerr MD Estimated Blood Loss Estimated Blood Loss: <15cc Medication(s) Medication(s): Fentanyl (12.5 mcg IV), Lidocaine 1% (Local infiltration access site) and Nicardipine (250 mcg intra-arterial after arterial sheath insertion) Summary of Findings Right dominant coronary anatomy. Diffuse coronary atherosclerosis multivessel Left main: Distal 30% Left anterior descending: Type II distribution thin in caliber with diffuse disease in its proximal portion. It gives rise to a small diagonal and a small septal branch and has a 100% occlusion. The mid and distal vessel fills via collateral flow as a thin caliber vessel Left circumflex: Very large but nondominant. It gives rise to a trivial first marginal branch second the small marginal branch followed by a very large obtuse marginal which receives and supplies a large portion of the apex. The circumflex then continues along the AV groove giving rise to a very large posterior lateral branch. Within the left circumflex there is diffuse moderate irregularities. The obtuse marginal has a 60 to 70% eccentric narrowing at its origin and a 70% narrowing in a subbranch. Distal posterior lateral branch has moderate irregularities Right coronary artery: Dominant vessel seen to be occluded shortly after its origin 100%. The distal vessel fills richly via retrograde collateral flow from the left circumflex all the way to its point of occlusion demonstrating a moderate caliber posterior descending artery and 2 posterior ventricular branches. Paroxysmal atrial tachycardia induced with catheter insertion to the left ventricle responsive to adenosine 6 mg IV Left ventricular end-diastolic pressure 23 Impression: Multivessel coronary disease as outlined above with chronic occlusion of the left anterior descending at mid level and very proximal right coronary artery with collateral filling of both vessels. 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 Stress echocardiography demonstrated stress-induced extensive apical, LAD distribution ischemia CAD Presenation: Positive Stress Test and Stable angina Anginal Classification: CCS III Heart Failure: No Cardiogenic Shock within 24 Hours: No Cardiac Arrest within 24 Hours: No Imaging Studies Past 6 Months: Yes Stress Studies Past 6 Months: Yes Standard Exercise Test: No Stress Echocardiogram: Yes - Positive Stress Testing w/SPECT MPI: No Cardiac CTA: No Coronary Anatomy Dominant: Right Left Main (% Stenosis): Distal (30-40) LAD (% Stenosis): Mid (100) Circumflex (% Stenosis): Normal OM1 (% Stenosis): Normal OM2 (% Stenosis): Normal OM3 (% Stenosis): Proximal (60-70) and Distal (70) L PL2 (% Stenosis): Normal RCA (% Stenosis): Proximal (100) Diagnostic Physicians Name: Jerry Kerr MD Status: Urgent Closure Device Percutaneous Entry Location: Radial Closure Device: Radial Band Recommendations: Medical Therapy and/or Counseling
[2019-02-14] MEDS: SODIUM CHLORIDE 0.9% 1000ML 1,000 ML IV SCH ×2 (10:58→19:59)
--- NOTE | 2019-02-14 14:16 | Cardiology Progress Note ---
Date of Service February 14, 2019 Assessment & Plan (1) Acute chest pain: Patient initial symptoms suspicious for GI in origin, initial troponin is negative Stress test today notable for stress-induced left bundle branch block as expected however echocardiogram demonstrated a worsening apical and septal wall motion abnormality as well consistent with significant area distribution ischemia including mid inferior wall as well. Cardiac catheterization demonstrated multivessel coronary disease with 100% occlusion of the left anterior descending mid vessel and 100% occlusion of the right coronary artery proximal. Both vessels have excellent collateral fill Recommendations we will optimize medical therapy aid in demand induced complaints. Specifically will increase metoprolol to prevent tachycardia as well as hopefully prevent atrial arrhythmias. Isosorbide will be added to regimen. Patient to be maintained on telemetry tonight after changes Apixaban resumed this evening (2) GERD (gastroesophageal reflux disease): (3) Left bundle branch block: Left bundle branch block is notably intermittent on telemetry , EKG and during stress (4) Atrial fibrillation: Subjective Patient without complaints. Tolerated diagnostic cardiac catheterization well. No chest pains or discomfort. Patient as per telemetry and past evaluations has had transient atrial tachycardia during cardiac catheterization which responded to IV adenosine No orthopnea PND peripheral edema ambulatory in room yesterday. Physical Exam Constitutional: WD/WN, vitals as above no acute distress Eyes: PERRL, conjunctivae normal, anicteric sclerae ENMT: Mallampati Class: II Neck: trachea midline, no thyromegaly Respiratory: normal respiratory effort, lungs clear to auscultation Cardiovascular: RRR, no murmur, no edema Rate/Rhythm: regular rate and regular rhythm Heart Sounds: normal S1 and normal S2; no murmur and no cardiac rub Gastrointestinal (Abdomen): normal bowel sounds, soft, nontender, no hepatosplenomegaly Musculoskeletal: no cyanosis or clubbing, extremities motor strength 5/5 Right radial access healing no hematoma Results & Data Vital Signs (Past 12 Hours) Vital Signs Temp Pulse Pulse Pulse Resp BP BP 02/14/19 14:00 60 17 103/56 L 02/14/19 13:00 68 17 118/64 02/14/19 12:30 63 17 111/54 L 02/14/19 12:00 67 17 132/70 02/14/19 11:42 63 18 125/77 02/14/19 11:00 69 17 136/79 02/14/19 10:44 37.0 C 73 16 133/72 02/14/19 08:33 77 02/14/19 07:20 36.6 C 69 16 122/72 02/14/19 03:47 36.5 C 61 17 107/62 107/62 Pulse Ox 02/14/19 14:00 96 02/14/19 13:00 95 02/14/19 12:30 94 02/14/19 12:00 95 02/14/19 11:42 95 02/14/19 11:00 95 02/14/19 10:44 95 02/14/19 08:33 02/14/19 07:20 95 02/14/19 03:47 95
[2019-02-14] MEDS: ISOSORBIDE DINITRATE 10 MG TAB PO SCH (15:40)
--- NOTE | 2019-02-14 17:20 | Hospitalist Progress Note ---
Date of Service February 14, 2019 Assessment & Plan (1) Exertional chest pain: 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 Both vessels have excellent collateral fill -as per cardiology service: increase metoprolol to prevent tachycardia to prevent atrial arrhythmias. Isosorbide will be added to regimen. Patient to be maintained on telemetry tonight after changes. 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 Newell- secondary to Neulasta hx rectal cancer status post surgery/chemoradiation prostate cancer status post radiation past tobacco use DVT prophylaxis. Home Eliquis Full code Subjective Patient seen and examined after cardiac cath. Patient is breathing on room air. no acute shortness of breath. no chest pain. no abdominal pain. no vomiting Physical Exam Constitutional: WD/WN, vitals as above comfortable Eyes: PERRL, conjunctivae normal, anicteric sclerae EOM intact bilaterally ENMT: external ear and nose normal, oropharynx normal Neck: trachea midline, no thyromegaly normal visual inspection Respiratory: normal respiratory effort, lungs clear to auscultation Cardiovascular: Rate/Rhythm: regular rhythm and + bradycardic Gastrointestinal (Abdomen): normal bowel sounds, soft, nontender, no hepatosplenomegaly Musculoskeletal: no cyanosis or clubbing, extremities motor strength 5/5 Head/Neck/Chest: normocephalic and head atraumatic Neurologic: PERRL, EOMI, accommodation nl, no face palsy, no dysarthria CN's II-XI intact bilaterally Psychiatric: A+Ox3, euthymic affect Results & Data Vital Signs (Past 12 Hours) Vital Signs Temp Pulse Pulse Pulse Resp BP Pulse Ox 02/14/19 15:42 36.4 C 58 L 16 108/69 98 02/14/19 15:24 76 02/14/19 14:42 36.4 C L 60 18 121/67 96 02/14/19 14:00 60 17 103/56 L 96 02/14/19 13:00 68 17 118/64 95 02/14/19 12:30 63 17 111/54 L 94 02/14/19 12:00 67 17 132/70 95 02/14/19 11:42 63 18 125/77 95 02/14/19 11:00 69 17 136/79 95 02/14/19 10:44 37.0 C 73 16 133/72 95 02/14/19 08:33 77 02/14/19 07:20 36.6 C 69 16 122/72 95
[2019-02-14] MEDS: APIXABAN 5 MG TABLET PO SCH (22:12)
[2019-02-15] MEDS: SODIUM CHLORIDE 0.9% 1000ML 1,000 ML IV SCH ×2 (02:01→09:04)
[2019-02-15 06:28] LABS: Hematocrit (blood only) 27.6 % (42-52); Hemoglobin 9.2 g/dL (14.0-18.0); Mean Corpuscular Hgb Conc 33.3 g/dL (32-36); Mean Corpuscular Volume 90.8 fL (80-100); Mean Platelet Volume 8.8 fL (7.4-10.4); Platelet Count 326 K/uL (130-400); RDW Coefficient of Variation 16.5 % (11.5-14.5); RDW Standard Deviation 52.1 fL (36.4-46.3); Red Blood Count 3.04 M/uL (4.7-6.1); White Blood Count 32.05 K/uL (4.8-10.8)
[2019-02-15 06:50] LABS: ALC (manual) 0.58 K/uL (1.2-3.4); Basophils # (manual) 0.29 K/uL (0-0.2); Basophils % (manual) 0.9 %; Lymphocytes # (manual) 0.58 K/uL (1.2-3.4); Lymphocytes % (manual) 1.8 %; Monocytes # (manual) 1.41 K/uL (0.11-0.59); Monocytes % (manual) 4.4 %; Myelocytes # (manual) 2.28 K/uL (0-0); Myelocytes % (manual) 7.1 %; Neutrophils % (manual) 85.8 %; Ovalocytes 1+
[2019-02-15 06:56] LABS: Albumin Level 2.6 gm/dl (3.4-5.0); BUN Creatinine Ratio 22.4 (10-20); Calcium 7.7 mg/dl (8.5-10.1); Creatinine Clr Calc Pharmacy 57.5 ml/min; Est GFR (African American) 78.3; Est GFR (Non-African American) 67.5; Potassium 3.5 mmol/L (3.5-5.1)
[2019-02-15 06:59] LABS: Albumin Globulin Ratio 1.1 (0.9-2); Bilirubin,Total 0.2 mg/dl (0.2-1); Globulin 2.4 gm/dl (2.5-4.0)
[2019-02-15] MEDS: ATORVASTATIN 20 MG TAB PO SCH (08:00)
[2019-02-15] MEDS: ISOSORBIDE DINITRATE 10 MG TAB PO SCH ×2 (08:00→11:15)
[2019-02-15] MEDS: METOPROLOL SUCC 25MG EXT REL TAB PO SCH (08:00)
[2019-02-15] MEDS: GABAPENTIN 100 MG CAP PO SCH ×2 (08:01→13:26)
[2019-02-15] MEDS: CEROVITE ADV FORMULA TAB PO SCH (08:01)
[2019-02-15] MEDS: methIMAzole 5 MG TABLET PO SCH (08:01)
[2019-02-15] MEDS: FERROUS SULFATE 325 MG TAB PO SCH (08:01)
[2019-02-15] MEDS: APIXABAN 5 MG TABLET PO SCH (08:02)
[2019-02-15] MEDS ORDERED: POTASSIUM CHLORIDE 20 MEQ TABCR PO STA (12:12)
--- NOTE | 2019-02-15 12:57 | Cardiology Progress Note ---
Date of Service February 15, 2019 Assessment & Plan (1) Acute chest pain: Patient initial symptoms suspicious for GI in origin, initial troponin is negative Stress test today notable for stress-induced left bundle branch block as expected however echocardiogram demonstrated a worsening apical and septal wall motion abnormality as well consistent with significant area distribution ischemia including mid inferior wall as well. Cardiac catheterization demonstrated multivessel coronary disease with 100% occlusion of the left anterior descending mid vessel and 100% occlusion of the right coronary artery proximal. Both vessels have excellent collateral fill Recommendations we will optimize medical therapy aid in demand induced complaints. Specifically will increase metoprolol to prevent tachycardia as well as hopefully prevent atrial arrhythmias. Isosorbide will be added to regimen. Patient to be maintained on telemetry tonight after changes Apixaban resumed this evening Potassium supplement added to regimen today with 10 medical events p.o. daily Anticipate discharge later today follow-up cardiology 2 to 3 weeks time (2) GERD (gastroesophageal reflux disease): (3) Left bundle branch block: Left bundle branch block is notably intermittent on telemetry , EKG and during stress (4) Atrial fibrillation: Subjective Patient seen and examined, chart medications telemetry reviewed. No symptoms overnight feels well today tolerated cardiac catheterization yesterday well without difficulty. Notes no chest pains dizziness/syncope near syncope. Telemetry demonstrated short runs of atrial tachycardia with wide complex last evening none since Physical Exam Constitutional: WD/WN, vitals as above no acute distress Eyes: PERRL, conjunctivae normal, anicteric sclerae ENMT: Mallampati Class: II Neck: trachea midline, no thyromegaly Respiratory: normal respiratory effort, lungs clear to auscultation Cardiovascular: RRR, no murmur, no edema Rate/Rhythm: regular rate and regular rhythm Heart Sounds: normal S1 and normal S2; no murmur and no c ardiac rub Vessels: radial pulses present (Right radial access site healing well) Gastrointestinal (Abdomen): normal bowel sounds, soft, nontender, no hepatosplenomegaly Musculoskeletal: no cyanosis or clubbing, extremities motor strength 5/5 Results & Data Vital Signs (Past 12 Hours) Vital Signs Temp Pulse Pulse Resp BP Pulse Ox 02/15/19 11:17 36.3 C L 58 L 20 118/63 96 02/15/19 07:48 36.6 C 53 L 20 124/68 96 06/27/19 03:28 36.5 C 56 L 18 110/61 97 Laboratory Results Laboratory Results - last 24 hr 02/15/19 02/15/19 06:01 06:01 WBC 32.05 H* RBC 3.04 L Hgb 9.2 L Hct 27.6 L MCV 90.8 MCH 30.3 MCHC 33.3 RDW Std Deviation 52.1 H RDW Coeff of Aubree 16.5 H Plt Count 326 MPV 8.8 Neutrophils % (Manual) 85.8 Lymphocytes % (Manual) 1.8 Monocytes % (Manual) 4.4 Basophils % (Manual) 0.9 Myelocytes % (Man) 7.1 Neutrophils # (Manual) 27.50 H Total Absolute Neuts 27.50 H Lymphocytes # (Manual) 0.58 L Total Abs Lymphocytes 0.58 L Monocytes # (Manual) 1.41 H Basophils # (Manual) 0.29 H Myelocytes # (Manual) 2.28 H Ovalocytes 1+ Sodium 139 Potassium 3.5 Chloride 108 H Carbon Dioxide 26 Anion Gap 5.0 BUN 24 H Creatinine 1.07 Est Cr Clr Drug Dosing 57.5 Est GFR ( Amer) 78.3 Est GFR (Non-Af Amer) 67.5 BUN/Creatinine Ratio 22.4 H Glucose 91 Calcium 7.7 L Total Bilirubin 0.2 AST 12 L ALT 19 Alkaline Phosphatase 102 Total Protein 5.0 L Albumin 2.6 L Globulin 2.4 L Albumin/Globulin Ratio 1.1
[2019-02-15] MEDS ORDERED: POTASSIUM CHLORIDE 10 MEQ TABCR PO SCH (13:30)
--- NOTE | 2019-02-15 13:47 | Hospitalist Progress Note ---
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 Both vessels have excellent collateral fill -as per cardiology service: increase metoprolol to prevent tachycardia to prevent atrial arrhythmias. Isosorbide will be added to regimen. Patient to be maintained on telemetry tonight after changes. Apixaban resumed on evening of 02/14/19 -Discharge with prescriptions electronically sent to pharmacy of metoprolol succinate 25 mg twice a day isosorbide dinitrate 10 mg twice a day potassium 10 meq 5 more days in total Anemia secondary to chemotherapy and/or iron deficiency -admission Hgb 7.5 -no signs of active bleeding -given 2 units of PRBC on 02/12/19 with subsequent hgb improving to 10 -trial of pantoprazole stopped on discharge day, patient may resum home dose omeprazole as outpatient for GERD/anemia -ferrous sulfate daily for anemia Paroxysmal Atrial Fibrillation -is normal sinus rhythm -on Eliquis hypertension, stable hyperlipidemia on statin Rx 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 Newell- secondary to Neulasta -WBC have increased to 30,000 on 02/15/19 - no fever, patient to follow as outpatient for chemotherapy -Patient should have WBC repeated by primary care doctor hx rectal cancer status post surgery/chemoradiation prostate cancer status post radiation past tobacco use DVT prophylaxis. 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, Anemia secondary to chemotherapy and/or iron deficiency, Paroxysmal Atrial Fibrillation (in normal sinus rhythm currently), anticoagulated on Eliquis anticoagulation therapy, Non Hodgkin Lymphoma, Leukocytosis Discharge Instructions Discharge with prescriptions electronically sent to pharmacy of metoprolol succinate 25 mg twice a day isosorbide dinitrate 10 mg twice a day ferrous sulfate daily for anemia potassium 10 meq 5 more days in total Patient should follow up with 02/21/2019 9:20 AM Provider Renny Asher MD Department [facility] Patient should have white blood cell counts repeated 02/26/2019 9:00 AM Provider Randy Newell MD Department Hematology/Oncology [facility] 02/26/2019 9:30 AM Provider Chair 4 Hem Onc [facility] Department Hematology/Oncology Treatment, [place] 02/28/2019 1:00 PM Provider [facility]/09/[facility] 3:00 PM Provider Perlita Bennett PA-C Department Cardiology, [facility] 08/17/2019 3:00 PM Provider Jerry Kerr MD Department Cardiology, [facility] Subjective Patient seen and examined at bedside. He is comfortable. breathing on room air. no chest pain . no dizziness. no fever. we discussed discharge plans and instructions Physical Exam Constitutional: WD/WN, vitals as above comfortable Eyes: PERRL, conjunctivae normal, anicteric sclerae EOM intact bilaterally ENMT: external ear and nose normal, oropharynx normal Neck: trachea midline, no thyromegaly normal visual inspection Respiratory: normal respiratory effort, lungs clear to auscultation Cardiovascular: Rate/Rhythm: regular rhythm and + bradycardic Gastrointestinal (Abdomen): normal bowel sounds, soft, nontender, no hepatosplenomegaly Musculoskeletal: no cyanosis or clubbing, extremities motor strength 5/5 Head/Neck/Chest: normocephalic and head atraumatic Neurologic: PERRL, EOMI, accommodation nl, no face palsy, no dysarthria CN's II-XI intact bilaterally Psychiatric: A+Ox3, euthymic affect Results & Data Vital Signs (Past 12 Hours) Vital Signs Temp Pulse Pulse Resp BP Pulse Ox 02/15/19 13:35 36.3 C L 58 L 53 L 20 118/63 96 02/15/19 11:17 36.3 C L 58 L 20 118/63 96 02/15/19 07:48 36.6 C 53 L 20 124/68 96 02/15/19 03:28 36.5 C 56 L 18 110/61 97
--- NOTE | 2019-02-15 13:55 | Discharge Summary ---
Date of Service February 15, 2019 Admission HPI Per Admitting Provider History obtained from patient, family, and records. Medical history significant for PAF on Eliquis, hypertension, hyperlipidemia, relapsed NHL ongoing chemotherapy, rectal cancer status post surgery/chemoradiation, prostate cancer status post radiation, history of amiodarone induced hyperthyroidism, chronic anemia (baseline hemoglobin of 9), past tobacco abuse. Patient has been weak since the last week following chemotherapy for recurrent NHL from 2 weeks ago. Patient noted burning chest pain the last week similar to reflux. Patient has home Prilosec for as needed dosing. The last 2 days, patient noted exertional chest pain, S OB. No unusual cough symptoms. Denies fluid retention. Patient currently comfortable at the ER. Medical History as above TTE 04/2018 EF 55 to 60%. Normal LV systolic function. Grade 1 diastolic dysfunction, mild aortic valve sclerosis without stenosis. 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 Admission Exam Per Admitting Provider GENERAL: Pleasant, comfortable, no respiratory distress SKIN: Pallor, warm HEENT: Pale palpebral conjunctivae, no ptosis, dry buccal mucosa, chin hypopigmentation (chronic) NECK : Supple, no tenderness CHEST : Decreased breath sounds, no tenderness HEART : RRR, no obvious murmurs ABDOMEN: Some distention, ostomy bag noted EXTREMITIES : No LE swelling/tenderness, no other conspicuous deformities noted NEUROLOGIC : Coherent, no facial asymmetry, no other gross focali Principal Diagnosis 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, Anemia secondary to chemotherapy and/or iron deficiency, Paroxysmal Atrial Fibrillation (in normal sinus rhythm currently), anticoagulated on Eliquis anticoagulation therapy, Non Hodgkin Lymphoma, Leukocytosis Discharge Exam Constitutional WD/WN, vitals as above comfortable Eyes PERRL, conjunctivae normal, anicteric sclerae EOM intact bilaterally ENMT external ear and nose normal, oropharynx normal Neck trachea midline, no thyromegaly normal visual inspection Respiratory normal respiratory effort, lungs clear to auscultation Cardiovascular Rate/Rhythm: regular rhythm and + bradycardic Gastrointestinal (Abdomen) normal bowel sounds, soft, nontender, no hepatosplenomegaly Musculoskeletal no cyanosis or clubbing, extremities motor strength 5/5 Head/Neck/Chest: normocephalic and head atraumatic Neurologic PERRL, EOMI, accommodation nl, no face palsy, no dysarthria CN's II-XI intact bilaterally Psychiatric A+Ox3, euthymic affect Discharge Data Allergies Allergy/AdvReac Type Severity Reaction Status Date / Time Iodinated Contrast- Oral and Allergy Intermediate Rash Verified 02/11/19 22:08 IV Dye Consultations 02/11/19 23:35 ED Decision to Admit Stat 02/12/19 01:20 Consult Cardiology Routine Procedures Performed Operation Date: 02/14/19 08:00 Actual Procedures p Cath, Left with Cors and Vent - Jerry Kerr MD s Cineradiography w/Routine Exam - Tay Lao MD Ordered Studies 02/14/19 06:32 CL Cath Imgs for PACS use only Routine 02/14/19 06:39 CL Cath Imgs for PACS use only Routine Hospital Course (1) Exertional chest pain: 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 Both vessels have excellent collateral fill -as per cardiology service: increase metoprolol to prevent tachycardia to prevent atrial arrhythmias. Isosorbide will be added to regimen. Patient to be maintained on telemetry tonight after changes. Apixaban resumed on evening of 02/14/19 -Discharge with prescriptions electronically sent to pharmacy of metoprolol succinate 25 mg twice a day isosorbide dinitrate 10 mg twice a day potassium 10 meq 5 more days in total Anemia secondary to chemotherapy and/or iron deficiency -admission Hgb 7.5 -no signs of active bleeding -given 2 units of PRBC on 02/12/19 with subsequent hgb improving to 10 -trial of pantoprazole stopped on discharge day, patient may resum home dose omeprazole as outpatient for GERD/anemia -ferrous sulfate daily for anemia Paroxysmal Atrial Fibrillation -is normal sinus rhythm -on Eliquis hypertension, stable hyperlipidemia on statin Rx 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 Newell- secondary to Neulasta -WBC have increased to 30,000 on 02/15/19 - no fever, patient to follow as outpatient for chemotherapy -Patient should have WBC repeated by primary care doctor hx rectal cancer status post surgery/chemoradiation prostate cancer status post radiation past tobacco use DVT prophylaxis. 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, Anemia secondary to chemotherapy and/or iron deficiency, Paroxysmal Atrial Fibrillation (in normal sinus rhythm currently), anticoagulated on Eliquis anticoagulation therapy, Non Hodgkin Lymphoma, Leukocytosis Discharge Instructions Discharge with prescriptions electronically sent to pharmacy of metoprolol succinate 25 mg twice a day isosorbide dinitrate 10 mg twice a day ferrous sulfate daily for anemia potassium 10 meq 5 more days in total Patient should follow up with 02/21/2019 9:20 AM Provider Renny Asher MD Department [facility] Patient should have white blood cell counts repeated 02/26/2019 9:00 AM Provider Randy Newell MD Department Hematology/Oncology [facility] 02/26/2019 9:30 AM Provider Chair 4 Hem Onc [facility] Department Hematology/Oncology [facility] 02/28/2019 1:00 PM Provider [facility]/09/[facility] 3:00 PM Provider Perlita Bennett PA-C Department Cardiology, [facility] 08/17/2019 3:00 PM Provider Jerry Kerr MD Department Cardiology, [facility] Total Time Total Time Spent Total Time Spent (In Minutes): 40 minutes Total Time Includes: Examination of the Patient, Discharge Planning, Medication Reconciliation and Communication With Other Providers Discharge Plan Discharge Items Patient Disposition: Home - Self-Care Reason For Visit: MULTIVESSELL CORONARY ARTERY DISEASE, S/P Discharge Diagnosis: 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, Anemia secondary to chemotherapy and/or iron deficiency, Paroxysmal Atrial Fibrillation (in normal sinus rhythm currently), anticoagulated on Eliquis anticoagulation therapy, Non Hodgkin Lymphoma, Leukocytosis Condition: Good Discharge Goals: Improve disease control and Improve function Activity: Resume your previous activity Lifting: No more than 10 pounds Non-emergency contact: Primary Care Provider and Medicine Aide Call non-emergency contact if: you have any medication questions Follow-up/Referrals: Renny Asher MD [Primary Care Provider] - Diet: Carb Consistent or DM2 and Heart Healthy Addtl Provider Instructions: short summary Stress test today notable for stress-induced left bundle branch block as expected however echocardiogram demonstrated a worsening apical and septal wall motion abnormality as well consistent with significant area distribution ischemia including mid inferior wall as well. Cardiac catheterization demonstrated multivessel coronary disease with 100% occlusion of the left anterior descending mid vessel and 100% occlusion of the right coronary artery proximal. Both vessels have excellent collateral fill cardiology recommendations - increased home dose metoprolol and added Isosorbide Discharge with prescriptions electronically sent to pharmacy of metoprolol succinate 25 mg twice a day isosorbide dinitrate 10 mg twice a day ferrous sulfate daily for anemia potassium 10 meq 5 more days in total Patient should follow up with 02/21/2019 9:20 AM Provider Renny Asher MD Department [facility] Patient should have white blood cell counts repeated 02/26/2019 9:00 AM Provider Randy Newell MD Department Hematology/Oncology [facility] 02/26/2019 9:30 AM Provider Chair 4 Hem Onc [facility] Department Hematology/Oncology Treatment, [place] 02/28/2019 1:00 PM Provider Deandre Flores MD Department Urology, [place] 03/09/2019 3:00 PM Provider Perlita Bennett PA-C Department Cardiology, [facility] 08/17/2019 3:00 PM Provider Jerry Kerr MD Department Cardiology, [facility] Prescriptions: New isosorbide dinitrate 10 mg Tablet 10 mg PO BID@0700,1200 30 Days Qty: 60 RF: 0 metoprolol succinate 25 mg Tablet Extended Release 24 Hr 25 mg PO BID 30 Days Qty: 60 RF: 0 ferrous sulfate 325 mg (65 mg iron) Tablet,Delayed Release (Dr/Ec) 325 mg PO DAILY 30 Days Qty: 30 RF: 0 potassium chloride [Klor-Con M10] 10 mEq Tablet,Er Particles/Crystals 10 meq PO DAILY 5 Days Qty: 5 RF: 0 Continued methimazole 10 mg Tablet 10 mg PO DAILY RF: 0 ondansetron HCl [Zofran] 8 mg Tablet 8 mg PO Q8H PRN (Reason: Nausea) RF: 0 prednisone 20 mg Tablet 20 mg PO DIRECTED RF: 0 prochlorperazine maleate 10 mg Tablet 10 mg PO Q6H PRN (Reason: Nausea) RF: 0 triamcinolone acetonide 0.1 % Cream 1 applic TOPICAL BID PRN (Reason: Rash) RF: 0 lorazepam 0.5 mg Tablet 0.5 mg PO HS PRN (Reason: Insomnia) RF: 0 dexamethasone 4 mg Tablet 4 mg PO DIRECTED RF: 0 gabapentin 100 mg Capsule 100 mg PO TID RF: 0 Guaifenesin-Codeine 5 - 10 ml PO Q4 PRN (Reason: NEEDED) RF: 0 atorvastatin 20 mg Tablet 20 mg PO QAM RF: 0 omeprazole 20 mg Capsule,Delayed Release(Dr/Ec) 20 mg PO DAILY PRN (Reason: Acid Reflux) RF: 0 Eliquis 5 mg Tablet 5 mg PO BID RF: 0 acetaminophen [Tylenol Extra Strength] 500 mg Tablet 1,000 mg PO HS PRN (Reason: Pain) RF: 0 PreserVision AREDS [id number] Capsule 1 cap PO BID RF: 0 Discontinued metoprolol succinate 50 mg Tablet Extended Release 24 Hr 25 mg PO QAM RF: 0 Stand-Alone Forms: Call Back Authorization, [facility]/Other Patient Handouts: Prediabetes, Diabetes Meal Planning Discharge Orders: Discharge Order (Routine); Ordered 02/15/19 Ordered By: Solomon Brown Admission Data Admit Date/Time: 02/14/19 13:16 Attending Provider: Solomon Brown Admit Provider: Donnie Angel Primary Care Provider: Renny Asher Other Providers: Donnie Angel ; Jerry Kerr Service: Telemetry Other Interventions: Discharge Summary Assessment (RN) Last Done: 02/15/19 13:35
== END 2019-02-15 14:17 | disposition home or self-care (01) | DRG 287 ==
LOC: 2S 21:01 → ED 21:01 → SUATTDRO 02-12 → 2S 02-12 00:55

== ENCOUNTER 2019-04-02 20:46 | Inpatient (IN) ==
[2019-04-02 21:44] LABS: Hematocrit (blood only) 28.4 % (42-52); Hemoglobin 9.8 g/dL (14.0-18.0); Mean Corpuscular Hgb Conc 34.5 g/dL (32-36); Mean Corpuscular Volume 91.3 fL (80-100); RDW Coefficient of Variation 17.6 % (11.5-14.5); RDW Standard Deviation 58.7 fL (36.4-46.3); Red Blood Count 3.11 M/uL (4.7-6.1); White Blood Count 62.71 K/uL (4.8-10.8)
[2019-04-02 21:46] LABS: iSTAT Creatinine 1.3 mg/dl (0.6-1.3); iSTAT Hemoglobin 9.5 g/dl (14.0-18.0); iSTAT Ionized Calcium 1.13 mmol/l (1.12-1.32); iSTAT Potassium 3.6 mEq/L (3.3-5.0)
[2019-04-02 21:52] LABS: Alanine Aminotransferase 56 U/L (12-78); Albumin Level 3.5 gm/dl (3.4-5.0); Aspartate Aminotransferase 31 U/L (15-37); BUN Creatinine Ratio 29.8 (10-20); Blood Urea Nitrogen 37 mg/dl (7-18); Calcium 8.5 mg/dl (8.5-10.1); Carbon Dioxide 27 mmol/L (21-32); Chloride 104 mmol/L (98-107); Est GFR (African American) 65.5; Est GFR (Non-African American) 56.5; Glucose 80 mg/dl (70-99); Potassium 3.6 mmol/L (3.5-5.1); Sodium 139 mmol/L (136-145)
[2019-04-02 21:57] LABS: Albumin Globulin Ratio 1.5 (0.9-2); Alkaline Phosphatase 170 U/L (45-117); Bilirubin,Total 0.3 mg/dl (0.2-1); Creatine Kinase 37 U/L (39-308); Creatine Kinase MB < 1.0 ng/ml (0.5-3.6); Globulin 2.4 gm/dl (2.5-4.0); Total Protein 5.9 gm/dl (6.4-8.2); Troponin I < 0.015 ng/ml (0-0.045)
[2019-04-02 22:00] LABS: Mean Platelet Volume 8.5 fL (7.4-10.4); Platelet Count 339 K/uL (130-400)
[2019-04-02 22:03] LABS: ALC (manual) 0.25 K/uL (1.2-3.4); Dohle Bodies 2+; Lymphocytes # (manual) 0.25 K/uL (1.2-3.4); Lymphocytes % (manual) 0.4 %; Monocytes # (manual) 4.33 K/uL (0.11-0.59); Monocytes % (manual) 6.9 %; Myelocytes # (manual) 0.82 K/uL (0-0); Myelocytes % (manual) 1.3 %; Neutrophils % (manual) 91.4 %; Platelet Estimate Normal (Normal); Tear Drop Cells 1+; Toxic Granulation 2+
[2019-04-02] MEDS ORDERED: ONDANSETRON INJ 2 MG/ML 2 ML VIAL IV STA (22:15)
[2019-04-02] MEDS ORDERED: MoRPHine SULFATE 10 MG/ML CARP/VIAL IV STA (22:15)
[2019-04-02] MEDS ORDERED: ACETAMINOPHEN 500 MG TAB PO STA (22:15)
--- NOTE | 2019-04-02 22:33 | XRay Report ---
XR chest 1V portable HISTORY: Atypical Chest Pain COMPARISON: Chest 02/11/2019. FINDINGS: Calcified granulomas again noted within the right lower lobe. No pneumothorax. No pleural e ffusions. The heart is stable in size. No new focal lung consolidations to suggest pneumonia. No evid ence for pulmonary edema. Surgical clips noted within the right axilla. Right jugular Port-A-Cath ter minates at the proximal SVC. IMPRESSION: No significant change compared to the prior study. No acute process. Electronically signed by: Herman Castano M.D. 04/02/2019 10:32 PM
[2019-04-02] MEDS ORDERED: TOPROL 25 MG PO SCH (23:00)
[2019-04-02] MEDS ORDERED: ISOSORBIDE DINITRATE 10 MG PO SCH (23:00)
[2019-04-03] MEDS: SODIUM CHLORIDE 0.9% 1000ML 1,000 ML IV SCH ×2 (00:15→10:37)
[2019-04-03] MEDS ORDERED: NITROGLYCERIN SL 0.4 MG/TAB TAB SL PRN (00:16)
[2019-04-03] MEDS ORDERED: ACETAMINOPHEN 325 MG TAB PO PRN (00:16)
[2019-04-03] MEDS ORDERED: PANTOprazole 40 MG TAB PO PRN (00:16)
[2019-04-03] MEDS ORDERED: PROCHLORPERAZINE MALEATE 10 MG TAB PO PRN (00:16)
[2019-04-03] MEDS ORDERED: ONDANSETRON 8 MG TABLET PO PRN (00:16)
[2019-04-03] MEDS ORDERED: ONDANSETRON INJ 2 MG/ML 2 ML VIAL IV PRN (00:16)
[2019-04-03] MEDS ORDERED: LORazepam 0.5 MG TAB PO PRN (00:16)
[2019-04-03] MEDS ORDERED: MoRPHine SULFATE 4 MG/ML 1 ML CARP\\VIAL IV PRN (00:16)
--- NOTE | 2019-04-03 00:17 | History and Physical Report ---
DATE OF ADMISSION: 04/02/2019 CHIEF COMPLAINT: Chest pain. HISTORY OF PRESENT ILLNESS: This is a 73-year-old male with past medical history significant for paroxysmal atrial fibrillation, on Eliquis; hypertension; hyperlipidemia; relapsed non-Hodgkin lymphoma, ongoing chemotherapy; rectal cancer status post surgery and chemoradiation, on colostomy bag; prostate cancer status post radiation and also prostatectomy and removal of bladder and ileostomy; history of amiodarone-induced hyperthyroidism; chronic anemia, baseline hemoglobin 9; past tobacco abuse. Presents with chest pain. The patient was here on 02/15/2019 with chest pain. At that time, cardiac catheterization was done which showed multivessel coronary artery disease with 100% occlusion of left anterior descending midvessel and 100% occlusion of the right coronary artery proximal, both areas have excellent collateral fill. At that time, isosorbide was added and metoprolol dose was increased. Did not do any intervention at that time because of his ongoing chemo. The patient had his chemo last . After chemo, he has Neulasta and also Decadron for 4 days. Comes in because of chest pain. The patient today morning noticed chest discomfort. He did not walk much today. He is generally active and the pain is more when lying down and when he leans forward the pain is less and it is about 5/10 or 6/10 in severity, not associated with nausea, no dizziness, no sweating. Currently resting comfortably and hemodynamically stable. Also complains of right hip pain which is chronic. Denies any blurred vision. No earache, no runny nose, no sore throat, no difficulty swallowing. Appetite is okay. He gained weight recently after he lost of 15 pounds. No nausea, no abdominal pain. No blood in the stools. His ileostomy and colostomy bags are working okay. No rash seen. ALLERGIES: IODINATED DIAGNOSTIC AGENTS. PAST MEDICAL HISTORY: As mentioned above. PAST SURGICAL HISTORY: Right axillary lymph node biopsy, biopsy of the lymph node in the neck, colonoscopy with endoscopic ultrasound, ureteroileal conduit with bowel, thin needle aspiration biopsy of left supraclavicular lymph node, A-port insertion, prostrate radiation implant, prostate needle punch biopsy, laparoscopic prostatectomy complete with colostomy, pelvic exenteration, sigmoidoscopy. MEDICATIONS: The patient is on Isordil 10 mg b.i.d., Toprol XL 25 mg b.i.d., Decadron 1-4 days of the cycle of chemotherapy, vitamin D 1000 units p.o. daily, Ativan 0.5 mg p.o. at bedtime p.r.n., ferrous sulfate 325 mg p.o. daily, triamcinolone apply topically b.i.d., gabapentin 100 mg p.o. t.i.d., atorvastatin 20 mg p.o. daily, Eliquis 5 mg p.o. b.i.d., Zofran 8 mg p.o. t.i.d. p.r.n., Compazine 10 mg p.o. q. 6 hours p.r.n., methimazole 10 mg p.o. daily, omeprazole 20 mg p.o. daily, multivitamin with minerals 1 capsule daily. FAMILY HISTORY: Significant for father had lung cancer, mother has heart disorder, sister has bladder and breast cancer. SOCIAL HISTORY: . Former smoker, smoked from age 8 to 10. Alcohol, wine daily, 1-2 glasses. No drug use. REVIEW OF SYMPTOMS: As per HPI. Rest of the review of systems negative. PHYSICAL EXAMINATION: GENERAL: The patient is alert and oriented, not in acute distress. VITAL SIGNS: Temperature 36.5, pulse 58, respiratory rate 21, blood pressure 146/77, oxygen 95% on room air. HEENT: No pallor, no icterus. Pupils equal, round, and reactive to light. NECK: No JVD, no neck masses, no carotid bruits. CARDIOVASCULAR: S1, S2 heard, regular rate and rhythm, no murmur, no gallop. RESPIRATORY SYSTEM: Normal AP diameter. No accessory muscle use. No wheezing, no crackles. ABDOMEN: Soft, bowel sounds present, nontender. No distention. CENTRAL NERVOUS SYSTEM: Cranial nerves II-XII grossly intact, nonfocal. SKIN: Hyperpigmentation seen around mouth and neck region and hands. EXTREMITIES: Trace pedal edema, no erythema seen. LABORATORY DATA: WBC 62.7, hemoglobin 9.8, hematocrit 28.4, platelets 339. Sodium 139, potassium 3.6, chloride 104, CO2 of 27, BUN 37, creatinine 1.24, serum glucose 80, calcium 8.5, total bilirubin 0.3, AST 31, ALT 56, alkaline phosphatase 170, total creatinine kinase 37. Troponin I less than 0.015. Lipase 114. IMAGING DATA: Chest x-ray, no significant change compared to previous x-rays. EKG: Sinus rhythm with PACs at a rate of 60, no acute ST changes seen. ASSESSMENT AND PLAN: This is a 73-year-old male who presents with chest pain. 1. Chest pain. History of multivessel coronary disease with complete occlusion of mid LAD and proximal RCA, but with good collaterals on the cardiac cath done in January 2019, on medical management. Continue Isordil, metoprolol, and Eliquis. Initial EKG and troponins are negative. We will observe in tele floor. Serial cardiac enzymes, echo, and consult cardiology in a.m. We will keep n.p.o. until seen by Cardiology. 2. Non-Hodgkin's lymphoma, recurrent. Currently getting chemo, last chemo was on . Follow with hematology/oncology. 3. Leukocytosis, marked. Labs as outpatient on 03/29/2019 prior to chemo, white count was 3.8, now it is 62,000, most likely secondary to Neulasta and Decadron, but we will check with hematology/oncology to make sure he is not in crisis. 4. Paroxysmal atrial fibrillation, on Toprol-XL and Eliquis, Currently rate is under control. 5. Anemia, currently on iron tablet. Seems to be stable. Most likely from chemo. 6. Hyperlipidemia, continue statin. 7. Gastroesophageal reflux disease, continue PPI. 8. Hypertension, on Isordil and metoprolol, will monitor the blood pressure. 9. History of rectal cancer status post surgery and chemoradiation, s/p colostomy.Hxof prostrate cancer status post radiation s/p prostatectomy and currently s/p ileostomy.. 10. History of amiodarone-induced hyperthyroidism, on methimazole. 11. Type 2 diabetes,Not on medications, will follow HbA1c levels. 12. Deep venous thrombosis prophylaxis, on Eliquis. DISPOSITION: Observe in tele floor. Expect to discharge home and follow with his family doctor. Level 1 full code as per my discussion with the patient and the family. MTDD
--- NOTE | 2019-04-03 01:43 | Emergency Department Note ---
Entered by Claus Foster acting as a scribe for History of Present Illness General Chief complaint: Chest Pain Stated complaint: CHEST PAIN- CHEMO PATIENT Time Seen by Provider: 04/02/19 20:54 Source: patient History of Present Illness Onset (ago): hour(s) (this morning) Location: chest (central) Pain Consistency: + intermittent Maximum Pain Intensity: 7 Relieved By: + other (sitting up hunched over a pillow) Exacerbated By: + other (lying down) Associated symptoms: + denies other symptoms (abdominal pain) The patient is a 73 y/o male who presents to the ED w/ CC of intermittent, central, chest pain beginning this morning. The patient states he has a history of chest pain about 6 weeks ago and was admitted for four day. He reports he was evaluated by Dr. Kerr, Cardiology and did not have a heart catheterization. The patient notes he was told he had a blockage and did not have stents placed because he is being treated for relapsed Non-Hodgkins Lymphoma. He states he has chemotherapy every three weeks, and he had his most recent dose three days ago. The patient reports his symptoms are mildly alleviated when he is sitting bent over a pillow. He notes laying down worsens his symptoms. He reports he did take Prilosec without relief. The patient states he has a history of colorectal ca ncer as well and a port, colostomy, and catheter. He denies abdominal pain and taking nitroglycerin. Home Medications Home Medications Medication Instructions Recorded Confirmed Type Eliquis 5 mg PO BID 04/26/18 04/02/19 History atorvastatin 20 mg PO QAM 04/26/18 04/02/19 History omeprazole 20 mg PO DAILY PRN 04/26/18 04/02/19 History PreserVision AREDS 1 cap PO BID 05/29/18 04/02/19 History acetaminophen [Tylenol Extra 1,000 mg PO HS PRN 05/29/18 04/02/19 History Strength] dexamethasone 4 mg PO DIRECTED 02/11/19 04/02/19 History gabapentin 100 mg PO TID 02/11/19 04/02/19 History methimazole 10 mg PO DAILY 02/11/19 04/02/19 History ondansetron HCl [Zofran] 8 mg PO Q8H PRN 02/11/19 04/02/19 History prednisone 20 mg PO DIRECTED 02/11/19 04/02/19 History prochlorperazine maleate 10 mg PO Q6H PRN 02/11/19 04/02/19 History triamcinolone acetonide 1 applic TOPICAL BID PRN 02/11/19 04/02/19 History Vitamin D3 1,000 unit PO DAILY 04/02/19 04/02/19 History ferrous sulfate 325 mg PO DAILY 04/02/19 04/02/19 History isosorbide dinitrate 10 mg PO BID 04/02/19 04/02/19 History metoprolol succinate [Toprol XL] 25 mg PO BID 04/02/19 04/02/19 History Allergies Allergy/AdvReac Type Severity Reaction Status Date / Time Iodinated Contrast- Oral and Allergy Intermediate Rash Verified 04/02/19 23:00 IV Dye Past Med/Surg History Medical History Hyperthyroidism RECENT DIAGNOSIS; ON METHIMAZOLE Atrial fibrillation PAROXYSMAL A.FIB ON ELIQUIS Hyperlipidemia Colon cancer PERMANENT ILEOSTOMY/NEPHROSTOMY IN PLACE Non-Hodgkin lymphoma in remission DX 2008; S/P CHEMO (2016) Osteoarthritis Prostate cancer S/P PROSTATECTOMY/RADIATION SEEDS (2003) GERD (gastroesophageal reflux disease) Hypertension Hx of Clostridium difficile infection (Acute) Large B-cell lymphoma Neck mass biopsy 08/23/2018. MAC no issues. Surgical History History of lymph node biopsy RIGHT AXILLARY LYMPH NODE BIOPSY= 04/28/18= LMA#5 AT [facility] History of bowel resection CURRENT ILEOSTOMY 2/2 COLON CANCER S/P prostatectomy History of bladder surgery S/P CYSTECTOMY History of colonoscopy Hx of biopsy RIGHT AXILLARY LYMPH NODE History of urostomy (Acute) History of lymph node biopsy RT NECK EXCISIONAL BIOPSY 08/23/18 [facility] Family History Other Cancer Heart disease Hypertension Social History Preferred Language: Cymro Communication Ability: Effective Visual Impairment: No Limitations Systems Architect Required: No Beliefs That Will Affect Care: None Current Living Situation: Spouse Other Information That Helps Us Care for You: No Feels Safe at Home: Yes Safety Concerns: Feels Safe At This Time and Afraid for Self Smoking Status: Former smoker Second Hand Exposure: No ; Hx Alcohol Use: No Hx Substance Use: No Review of Systems See HPI for pertinent positives & negatives. and A total of 10 systems reviewed and were otherwise negative Physical Exam Vital Signs Vital Signs - 24 hr 04/02/19 20:49 04/02/19 21:30 04/02/19 22:00 Temperature 36.7 C Temperature Source Oral Sepsis Recent Fever Within 48 Hours No Sepsis Action Taken by Nursing No Action Required Pulse Rate 77 58 L 63 Pulse Rate from SpO2 Sensor 56 L 67 Respiratory Rate 18 21 24 Respiratory Effort / Characteristics Non-Labored Spontaneous Respiratory Depth Normal Respiratory Pattern Regular Blood Pressure 149/66 H 146/77 H 138/77 Blood Pressure Mean 93 100 97 Blood Pressure Position Sitting Pulse Oximetry 94 95 95 Oxygen Delivery Method Room Air Room Air 04/02/19 22:30 Temperature Temperature Source Sepsis Recent Fever Within 48 Hours Sepsis Action Taken by Nursing Pulse Rate 65 Pulse Rate from SpO2 Sensor 61 Respiratory Rate 20 Respiratory Effort / Characteristics Respiratory Depth Respiratory Pattern Blood Pressure 149/77 H Blood Pressure Mean 101 Blood Pressure Position Pulse Oximetry 95 Oxygen Delivery Method GENERAL: Awake, alert, well-appearing, in no acute distress HENT: Normocephalic, atraumatic. Oropharynx unremarkable. EYES: Normal conjunctiva. Sclera non-icteric. NECK: Supple. No nuchal rigidity. FROM. No JVD. RESPIRATORY: Clear to auscultation. CARDIAC: Regular rate, normal rhythm. Extremities warm and well perfused. Pulses equal. ABDOMEN: Soft, non-distended. No tenderness to palpation. No rebound or guarding. No masses. RECTAL: Deferred. MUSCULOSKELETAL: Chest examination reveals no tenderness. The back is sy mmetrical on inspection without obvious abnormality. There is no CVA tenderness to palpation. No joint edema. LOWER EXTREMITIES: Calves are equal size bilaterally and non-tender. No edema. No discoloration. NEURO: Normal sensorium. No sensory or motor deficits noted. SKIN: No rash or jaundice noted. Course 2105: Past medical records reviewed. The patient was evaluated in room C05. A complete history and physical exam was performed. 2201: I spoke with Dr. Cohen of the [facility] Service. The patient will be evaluated for further management and care. 2212: Upon reevaluation, I discussed findings and results with the patient and his family at bedside. They verbalized agreement of the treatment plan. Administered Medications Sodium Chloride (Nss 1000ml) 1,000 mls @ 100 mls/hr IV .Q10H SVETA Stop: 04/03/19 16:00 Last Admin: 04/03/19 00:15 Dose: 100 mls/hr Documented by: [id number] Discontinued Medications Acetaminophen (Tylenol) 1,000 mg PO NOW STA Stop: 04/02/19 22:16 Last Admin: 04/02/19 22:37 Dose: 1,000 mg Documented by: [id number] Morphine Sulfate (Morphine Sulfate) 6 mg IV NOW STA Stop: 04/02/19 22:16 Last Admin: 04/02/19 22:37 Dose: 6 mg Documented by: [id number] Ondansetron HCl (Zofran) 4 mg IV NOW STA Stop: 04/02/19 22:16 Last Admin: 04/02/19 22:37 Dose: 4 mg Documented by: [id number] Medical Decision Making Differential Diagnosis Differential diagnoses includes but is not limited to acute coronary syndrome, myocardial infarction, pericarditis, pulmonary embolus, aortic dissection, pneumonia, pneumothorax, musculoskeletal, shingles, esophageal. Medical Records Attestation: I reviewed the patient's medical records. Home Medications Current Medication List: was personally reviewed by me Laboratory Data Attestation: I reviewed the patient's lab results. Result diagrams: 04/02/19 21:20 04/02/19 21:20 Lab Results 04/02/19 04/02/19 04/02/19 Range/Units 21:20 21:20 21:31 WBC 62.71 H* (4.8-10.8) K/uL RBC 3.11 L (4.7-6.1) M/uL Hgb 9.8 L (14.0-18.0) g/dL POC Hgb 9.5 L (14.0-18.0) g/dl Hct 28.4 L (42-52) % POC Hct 28 L (42-52) % MCV 91.3 (80-100) fL MCH 31.5 (25-34) pg MCHC 34.5 (32-36) g/dL RDW Std Deviation 58.7 H (36.4-46.3) fL RDW Coeff of Aubree 17.6 H (11.5-14.5) % Plt Count 339 (130-400) K/uL MPV 8.5 (7.4-10.4) fL Neutrophils % (Manual) 91.4 % Lymphocytes % (Manual) 0.4 % Monocytes % (Manual) 6.9 % Myelocytes % (Man) 1.3 % Neutrophils # (Manual) 57.32 H (1.4-6.5) K/uL Total Absolute Neuts 57.32 H (1.4-6.5) K/uL Lymphocytes # (Manual) 0.25 L (1.2-3.4) K/uL Total Abs Lymphocytes 0.25 L (1.2-3.4) K/uL Monocytes # (Manual) 4.33 H (0.11-0.59) K/uL Myelocytes # (Manual) 0.82 H (0-0) K/uL Toxic Granulation 2+ Dohle Bodies 2+ Platelet Estimate Normal (Normal) Tear Drop Cells 1+ POC Sodium 136 (135-144) mEq/L Sodium 139 (136-145) mmol/L POC Potassium 3.6 (3.3-5.0) mEq/L Potassium 3.6 (3.5-5.1) mmol/L POC Chloride 100 L (101-112) mEq/L Chloride 104 (98-107) mmol/L Carbon Dioxide 27 (21-32) mmol/L POC Total CO2 24 (24-31) mEq/l Anion Gap 8.0 (3-11) POC Anion Gap 17.0 (16-25) mmol/L POC BUN 35 H (7-18) mg/dl BUN 37 H (7-18) mg/dl Creatinine 1.24 (0.6-1.4) mg/dl POC Creatinine 1.3 (0.6-1.3) mg/dl Est Cr Clr Drug Dosing Not Reportable Est GFR ( Amer) 65.5 Est GFR (Non-Af Amer) 56.5 BUN/Creatinine Ratio 29.8 H (10-20) Glucose 80 (70-99) mg/dl POC Glucose (other) 81 (70-99) mg/dl Calcium 8.5 (8.5-10.1) mg/dl POC Ioniz Calcium Paola 1.13 (1.12-1.32) mmol/l Total Bilirubin 0.3 (0.2-1) mg/dl AST 31 (15-37) U/L ALT 56 (12-78) U/L Alkaline Phosphatase 170 H (45-117) U/L Total Creatine Kinase 37 L (39-308) U/L CK-MB (CK-2) < 1.0 (0.5-3.6) ng/ml CK/CKMB % Calc TNP Troponin I < 0.015 (0-0.045) ng/ml Total Protein 5.9 L (6.4-8.2) gm/dl Albumin 3.5 (3.4-5.0) gm/dl Globulin 2.4 L (2.5-4.0) gm/dl Albumin/Globulin Ratio 1.5 (0.9-2) Lipase 114 (73-393) U/L Imaging Data Radiologist's Impression: Radiology results as stated below per my review and the radiologist's interpretation: XR chest 1V portable HISTORY: Atypical Chest Pain COMPARISON: Chest 02/11/2019. FINDINGS: Calcified granulomas again noted within the right lower lobe. No pneumothorax. No pleural effusions. The heart is stable in size. No new focal lung consolidations to suggest pneumonia. No evidence for pulmonary edema. Surgical clips noted within the right axilla. Right jugular Port-A-Cath terminates at the proximal SVC. IMPRESSION: No significant change compared to the prior study. No acute process. Electronically signed by: Herman Castano M.D. 04/02/2019 10:32 PM ECG Data Attestation: I personally reviewed and interpreted this ECG as follows: Indication: chest pain Rate (beats per minute): 60 Rhythm: normal sinus Findings: + PAC; no ST depression and no ST elevation Blood Pressure Blood Pressure Findings: Elevated blood pressure Blood Pressure Disposition: elevated BP felt to be situational MDM Narrative This is a 73-year-old male who has a significant history of coronary artery disease as well as a significant history of receiving chemotherapy for non- Hodgkin's lymphoma. Because of the patient's significant cardiac history as well as his recent stress echo I did recommend that the patient be admitted to the hospital. His EKG and troponin levels are unchanged from previous. He was given 10 mg of morphine here for the pain as well as Zofran. Repeat examination revealed improvement in the patient's symptoms.. Patient was in agreement with treatment plan. I did discuss the case with the hospitalist service who was kind enough to see the patient Impression & Plan Acute chest pain, Anemia, Non-Hodgkin lymphoma Discharge Plan Visit Data *Final* Discharge Date/Time: 04/02/19 23:29 Chief Complaint: Chest Pain Stated Complaint: CHEST PAIN- CHEMO PATIENT ED Provider: Jese Michaels Discharge Problem: Acute chest pain, Anemia, Non-Hodgkin lymphoma Patient Disposition: Admitted As Inpatient Discharge Instructions Interventions: ED Discharge Assessment Last Done: 04/02/19 23:29 The scribe's documentation has been prepared under my direction and personally reviewed by me in its entirety. I confirm that the note above accurately reflects all work, treatment, procedures, and medical decision making performed by me.
[2019-04-03] MEDS: ISOSORBIDE DINITRATE 10 MG TAB PO SCH ×2 (05:36→11:46)
[2019-04-03 07:04] LABS: BUN Creatinine Ratio 28.3 (10-20); Creatinine Clr Calc Pharmacy 55.6 ml/min; Est GFR (African American) 74.9; Est GFR (Non-African American) 64.6; Magnesium 1.9 mg/dl (1.8-2.4); Potassium 3.7 mmol/L (3.5-5.1)
[2019-04-03 07:07] LABS: Estimated Average Glucose 128 mg/dl; Hemoglobin A1C 6.1 % (4.5-5.6)
[2019-04-03 07:17] LABS: Hematocrit (blood only) 26.1 % (42-52); Hemoglobin 8.9 g/dL (14.0-18.0); Mean Corpuscular Hgb Conc 34.1 g/dL (32-36); Mean Corpuscular Volume 91.6 fL (80-100); RDW Coefficient of Variation 17.7 % (11.5-14.5); RDW Standard Deviation 59.8 fL (36.4-46.3); Red Blood Count 2.85 M/uL (4.7-6.1); White Blood Count 52.99 K/uL (4.8-10.8)
[2019-04-03 07:25] LABS: Mean Platelet Volume 8.3 fL (7.4-10.4); Platelet Count 300 K/uL (130-400)
[2019-04-03 07:26] LABS: ALC (manual) 0.53 K/uL (1.2-3.4); Dohle Bodies 2+; Lymphocytes # (manual) 0.53 K/uL (1.2-3.4); Metamyelocytes # (manual) 1.59 K/uL (0-0); Monocytes # (manual) 1.06 K/uL (0.11-0.59); Myelocytes # (manual) 2.12 K/uL (0-0); Platelet Estimate Normal (Normal); Promyelocytes # (manual) 0.53 K/uL (0-0); Tear Drop Cells Occasional; Toxic Granulation 2+
[2019-04-03] MEDS: METOPROLOL SUCC 25MG EXT REL TAB PO SCH ×2 (09:10→20:41)
[2019-04-03] MEDS: CEROVITE ADV FORMULA TAB PO SCH ×2 (09:10→20:41)
[2019-04-03] MEDS: FERROUS SULFATE 325 MG TAB PO SCH (09:10)
[2019-04-03] MEDS: GABAPENTIN 100 MG CAP PO SCH ×3 (09:10→20:41)
[2019-04-03] MEDS: methIMAzole 5 MG TABLET PO SCH (09:10)
[2019-04-03] MEDS: ATORVASTATIN 20 MG TAB PO SCH (09:10)
[2019-04-03] MEDS: APIXABAN 5 MG TABLET PO SCH ×2 (09:11→20:41)
--- NOTE | 2019-04-03 10:59 | Cardiology Consultation ---
Date of Consultation April 03, 2019 Assessment & Plan (1) Acute chest pain: Mr. Pak was admitted with chest discomfort suspicious for angina aggravated by anemia as well as possible pericarditis. Although the EKGs are poor in technical quality they appear to be without acute ischemic change and without overt evident of acute pericarditis. Chest x-ray on admission shows no significant change when compared to the prior study, without evidence of acute cardiopulmonary disease. Resting echocardiography requested. Recommend transfusion of pRBC's. Recommend maintaining a hemoglobin of 10 given his significant symptomatic coronary artery disease. (2) Atrial fibrillation: Paroxysmal atrial fibrillation. Initial event occurred postoperatively following extensive pelvic surgery in July 2017, treated with amiodarone. 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 Continue metoprolol as prescribed. Consideration may need to be made for discontinuation of Eliquis anticoag ulation. (3) Multi-vessel coronary artery stenosis: Recommend medical management Continue beta-brielle therapy as presently prescribed. Increase Isordil to three times per day as long as his blood pressure permits. (4) Anemia: See above Recommend transfusion of pRBC's. Recommend maintaining a hemoglobin of 10 given his significant symptomatic coronary artery disease. Supervising Physician Co-Signing Physician Notes I discussed the case with Renny Greenwood, reviewed the chart and examined the patient. I do not believe that this is acute coronary syndrome. The patient is currently receiving a transfusion which should be helpful. I think some of the stress of just receiving chemotherapy may have contributed at least part to the patient's symptoms. History of Present Illness Reason for Consultation: Chest pain Requesting Physician: Shawn Cohen Attending Physician: Dale Gomez MD History of Present Illness Mr. Brian Pak is a very pleasant 73-year-old male who was admitted to [facility] on April 02, 2019, presenting through the ER with substernal chest discomfort that began in the morning of April 02, 2019. The patient notes that his chest discomfort is brought on by activity. He notes that is feels somewhat worse when attempting to lay flat. He notes that leaning over and putting his head down on his lap helps the discomfort. He denies aggravat ion of the discomfort with a deep breath. Patient notes that his chest discomfort is the same as the discomfort that brought him to the hospital in January. He states that in January he was significantly anemic, hemoglobin reported by the patient to be 7.3 g/dL at that time. He notes significant improvement in his chest discomfort following transfusion of 2 units pRBC's in January. During his hospitalization in January Mr. Pak underwent diagnostic cardiac catheterization that demonstrated multivessel coronary artery disease including a 100% occlusion of the mid left anterior descending coronary artery and a 100% proximal right coronary artery occlusion; both vessels noted to have excellent collateral fill. In the ER on 04/02/2019 the patient was evaluated by Dr. Michaels. EKG showed no acute change. Troponin negative with serial troponins also negative. Continuous telemetry monitoring reveals sinus bradycardia in the 50s as well as sinus rhythm in the 60s. Frequent premature atrial complexes observed. No overt recurrent atrial fibrillation. The patient has relapsing non-Hodgkin's lymphoma and is currently receiving chemotherapy under the direction of Dr. Newell. He also has a history of rectal cancer status post surgery/chemo radiation, prostate cancer status post surgery/radiation, removal of the bladder, ileostomy. The patient also has a history of symptomatic paroxysmal atrial fibrillation and is prescribed Eliquis anticoagulation. He was previously treated with amiodarone until he was found to have amiodarone induced hyperthyroidism. Allergies Allergy/AdvReac Type Severity Reaction Status Date / Time Iodinated Contrast- Oral and Allergy Intermediate Rash Verified 04/02/19 23:00 IV Dye Home Medications Home Medications Medication Instructions Recorded Confirmed Type Eliquis 5 mg PO BID 04/26/18 04/02/19 History atorvastatin 20 mg PO QAM 04/26/18 04/02/19 History omeprazole 20 mg PO DAILY PRN 04/26/18 04/02/19 History PreserVision AREDS 1 cap PO BID 05/29/18 04/02/19 History acetaminophen [Tylenol Extra 1,000 mg PO HS PRN 05/29/18 04/02/19 History Strength] dexamethasone 4 mg PO DIRECTED 02/11/19 04/02/19 History gabapentin 100 mg PO TID 02/11/19 04/02/19 History methimazole 10 mg PO DAILY 02/11/19 04/02/19 History ondansetron HCl [Zofran] 8 mg PO Q8H PRN 02/11/19 04/02/19 History prednisone 20 mg PO DIRECTED 02/11/19 04/02/19 History prochlorperazine maleate 10 mg PO Q6H PRN 02/11/19 04/02/19 History triamcinolone acetonide 1 applic TOPICAL BID PRN 02/11/19 04/02/19 History Vitamin D3 1,000 unit PO DAILY 04/02/19 04/02/19 History ferrous sulfate 325 mg PO DAILY 04/02/19 04/02/19 History isosorbide dinitrate 10 mg PO BID 04/02/19 04/02/19 History metoprolol succinate [Toprol XL] 25 mg PO BID 04/02/19 04/02/19 History Patient History Medical History Hyperthyroidism RECENT DIAGNOSIS; ON METHIMAZOLE Atrial fibrillation PAROXYSMAL A.FIB ON ELIQUIS Hyperlipidemia Colon cancer PERMANENT ILEOSTOMY/NEPHROSTOMY IN PLACE Non-Hodgkin lymphoma in remission DX 2008; S/P CHEMO (2016) Osteoarthritis Prostate cancer S/P PROSTATECTOMY/RADIATION SEEDS (2003) GERD (gastroesophageal reflux disease) Hypertension Hx of Clostridium difficile infection (Acute) Large B-cell lymphoma Neck mass biopsy 08/23/2018. MAC no issues. Surgical History History of lymph node biopsy RIGHT AXILLARY LYMPH NODE BIOPSY= 04/28/18= LMA#5 AT [facility] History of bowel resection CURRENT ILEOSTOMY 2/2 COLON CANCER S/P prostatectomy History of bladder surgery S/P CYSTECTOMY History of colonoscopy Hx of biopsy RIGHT AXILLARY LYMPH NODE History of urostomy (Acute) History of lymph node biopsy RT NECK EXCISIONAL BIOPSY 08/23/18 [facility] Family History Other Cancer Heart disease Hypertension Social History Preferred Language: Syriac Communication Ability: Effective Visual Impairment: No Limitations Plastics Plater Required: No Beliefs That Will Affect Care: None marital status: Current Living Situation: Spouse Other Information That Helps Us Care for You: No Feels Safe at Home: Yes Safety Concerns: Feels Safe At This Time and Afraid for Self Smoking Status: Former smoker Second Hand Exposure: No ; Hx Alcohol Use: No Hx Substance Use: No Review of Systems Review of Systems: All systems reviewed & are unremarkable except as noted in HPI & below Physical Exam Physical Exam: General: A&Ox3. NAD. HEENT: Normocephalic. Atraumatic. PER. Conjunctiva pink, sclera pale. Neck: No JVD. Heart: Irregular with frequent ectopy. Grade II/ systolic ejection murmur. No diastolic murmur. No rub. PMI is nondisplaced. Lungs: Clear to auscultation anterolaterally Abdomen: +BS. Extremities: No clubbing, cyanosis, or edema. Pulses: radial=2/4, posterior tibial=2/4. Limited neurological examination is without focal deficits. Results & Data Vital Signs (Past 12 Hours) Vital Signs Temp Pulse Pulse Pulse Resp BP BP 04/03/19 07:29 36.7 C 52 L 18 04/03/19 02:46 36.5 C 54 L 18 108/63 04/03/19 01:57 60 04/03/19 00:01 36.5 C 59 L 20 131/69 04/02/19 23:30 61 19 107/66 04/02/19 23:29 60 18 127/63 04/02/19 23:00 62 16 127/63 BP Pulse Ox 04/03/19 07:29 110/58 L 91 04/03/19 02:46 95 04/03/19 01:57 04/03/19 00:01 95 04/02/19 23:30 94 04/02/19 23:29 93 04/02/19 23:00 93 Laboratory Results - last 24 hr 04/02/19 04/02/19 04/02/19 21:20 21:20 21:31 WBC 62.71 H* RBC 3.11 L Hgb 9.8 L POC Hgb 9.5 L Hct 28.4 L POC Hct 28 L MCV 91.3 MCH 31.5 MCHC 34.5 RDW Std Deviation 58.7 H RDW Coeff of Aubree 17.6 H Plt Count 339 MPV 8.5 Neutrophils % (Manual) 91.4 Lymphocytes % (Manual) 0.4 Monocytes % (Manual) 6.9 Metamyelocytes % (Man) Myelocytes % (Man) 1.3 Promyelocytes % (Man) Neutrophils # (Manual) 57.32 H Total Absolute Neuts 57.32 H Lymphocytes # (Manual) 0.25 L Total Abs Lymphocytes 0.25 L Monocytes # (Manual) 4.33 H Metamyelocytes # (Man) Myelocytes # (Manual) 0.82 H Promyelocytes # (Man) Toxic Granulation 2+ Dohle Bodies 2+ Platelet Estimate Normal Tear Drop Cells 1+ POC Sodium 136 Sodium 139 POC Potassium 3.6 Potassium 3.6 POC Chloride 100 L Chloride 104 Carbon Dioxide 27 POC Total CO2 24 Anion Gap 8.0 POC Anion Gap 17.0 POC BUN 35 H BUN 37 H Creatinine 1.24 POC Creatinine 1.3 Est Cr Clr Drug Dosing Not Reportable Est GFR ( Amer) 65.5 Est GFR (Non-Af Amer) 56.5 BUN/Creatinine Ratio 29.8 H Glucose 80 POC Glucose (other) 81 Estimat Average Glucose Hemoglobin A1c Calcium 8.5 POC Ioniz Calcium Paola 1.13 Magnesium Total Bilirubin 0.3 AST 31 ALT 56 Alkaline Phosphatase 170 H Total Creatine Kinase 37 L CK-MB (CK-2) < 1.0 CK/CKMB % Calc TNP Troponin I < 0.015 Total Protein 5.9 L Albumin 3.5 Globulin 2.4 L Albumin/Globulin Ratio 1.5 Lipase 114 04/03/19 04/03/19 04/03/19 00:30 06:20 06:20 WBC 52.99 H* RBC 2.85 L Hgb 8.9 L POC Hgb Hct 26.1 L POC Hct MCV 91.6 MCH 31.2 MCHC 34.1 RDW Std Deviation 59.8 H RDW Coeff of Aubree 17.7 H Plt Count 300 MPV 8.3 Neutrophils % (Manual) 89.0 Lymphocytes % (Manual) 1.0 Monocytes % (Manual) 2.0 Metamyelocytes % (Man) 3.0 Myelocytes % (Man) 4.0 Promyelocytes % (Man) 1.0 Neutrophils # (Manual) 47.16 H Total Absolute Neuts 47.16 H Lymphocytes # (Manual) 0.53 L Total Abs Lymphocytes 0.53 L Monocytes # (Manual) 1.06 H Metamyelocytes # (Man) 1.59 H Myelocytes # (Manual) 2.12 H Promyelocytes # (Man) 0.53 H Toxic Granulation 2+ Dohle Bodies 2+ Platelet Estimate Normal Tear Drop Cells Occasional POC Sodium Sodium 141 POC Potassium Potassium 3.7 POC Chloride Chloride 105 Carbon Dioxide 30 POC Total CO2 Anion Gap 6.0 POC Anion Gap POC BUN BUN 31 H Creatinine 1.11 POC Creatinine Est Cr Clr Drug Dosing 55.6 Est GFR ( Amer) 74.9 Est GFR (Non-Af Amer) 64.6 BUN/Creatinine Ratio 28.3 H Glucose 75 POC Glucose (other) Estimat Average Glucose Hemoglobin A1c Calcium 8.0 L POC Ioniz Calcium Paola Magnesium 1.9 Total Bilirubin AST ALT Alkaline Phosphatase Total Creatine Kinase CK-MB (CK-2) CK/CKMB % Calc Troponin I < 0.015 Total Protein Albumin Globulin Albumin/Globulin Ratio Lipase 04/03/19 04/03/19 06:20 06:20 WBC RBC Hgb POC Hgb Hct POC Hct MCV MCH MCHC RDW Std Deviation RDW Coeff of Aubree Plt Count MPV Neutrophils % (Manual) Lymphocytes % (Manual) Monocytes % (Manual) Metamyelocytes % (Man) Myelocytes % (Man) Promyelocytes % (Man) Neutrophils # (Manual) Total Absolute Neuts Lymphocytes # (Manual) Total Abs Lymphocytes Monocytes # (Manual) Metamyelocytes # (Man) Myelocytes # (Manual) Promyelocytes # (Man) Toxic Granulation Dohle Bodies Platelet Estimate Tear Drop Cells POC Sodium Sodium POC Potassium Potassium POC Chloride Chloride Carbon Dioxide POC Total CO2 Anion Gap POC Anion Gap POC BUN BUN Creatinine POC Creatinine Est Cr Clr Drug Dosing Est GFR ( Amer) Est GFR (Non-Af Amer) BUN/Creatinine Ratio Glucose POC Glucose (other) Estimat Average Glucose 128 Hemoglobin A1c 6.1 H Calcium POC Ioniz Calcium Paola Magnesium Total Bilirubin AST ALT Alkaline Phosphatase Total Creatine Kinase CK-MB (CK-2) CK/CKMB % Calc Troponin I < 0.015 Total Protein Albumin Globulin Albumin/Globulin Ratio Lipase (1) Anemia Anemia type: unspecified type Qualified Code(s): D64.9 - Anemia, unspecified
[2019-04-03 11:58] LABS: Hematocrit (blood only) 27.4 % (42-52); Hemoglobin 9.3 g/dL (14.0-18.0)
[2019-04-03] MEDS ORDERED: SODIUM CHLORIDE 0.9% 250 ML IV PRN (12:47)
--- NOTE | 2019-04-03 16:11 | Hospitalist Progress Note ---
Date of Service April 03, 2019 Assessment & Plan (1) Acute chest pain: Has been complaining of chest pain on and off No other associated symptoms Has significant CAD Cardiac enzymes and EKG unremarkable for ACS We will get echo-rule out pericarditis Appreciate cardiology input and recommendation Present on Admission?: Yes (2) Atrial fibrillation: Heart rate is controlled with medication (3) Multi-vessel coronary artery stenosis: Has a significant CAD during recent catheterization Medical management contemplated Will reduce any cause for angina (4) Non-Hodgkin lymphoma: Has been getting chemotherapy White count is about 60,000 Discussed with the oncologist Likely secondary to Neulasta and Decadron (5) Hypertension: Continue current medication (6) GERD (gastroesophageal reflux disease): Continue PPI (7) Colon cancer: Status post surgery and colostomy in situ No acute problem (8) Anemia: Multifactorial Likely secondary to cancer chemotherapy We will try to keep hemoglobin more than 10 to avoid anemia induced chest pain Will give 2 units of blood transfusion DVT prophylaxis Continue Eliquis Subjective 04/03 Patient was seen and examined in telemetry unit He has been complaining of chest pain, precordial, off and on since yesterday Does not have any significant symptoms associated with it but has significant CAD Review of Systems Review of Systems: All systems reviewed and are unremarkable except as noted below Cardiovascular: + chest pain Additional Comments: Very minimal chest pain without any associated symptoms Physical Exam Physical Exam: No apparent distress at rest Constitutional: no acute distress and not ill appearing Eyes: PERRL, conjunctivae normal, anicteric sclerae ENMT: external ear and nose normal, oropharynx normal Neck: trachea midline, no thyromegaly Respiratory: normal respiratory effort; no respiratory distress Auscultation: lungs clear to auscultation bilaterally Cardiovascular: Rate/Rhythm: regular rate and regular rhythm Heart Sounds: + murmur (2/6 over precordium) Gastrointestinal (Abdomen): Inspection/Auscultation: abdomen normal to inspection Percussion/Palpation: abdomen soft Musculoskeletal: No acute arthritis Neurologic: Alert, awake and oriented Lymphatic: no cervical or axillary lymphadenopathy Results & Data Vital Signs (Past 12 Hours) Vital Signs Temp Pulse Pulse Resp BP BP Pulse Ox 04/03/19 15:10 36.8 C 66 17 127/65 94 04/03/19 14:54 36.8 C 69 17 126/64 94 04/03/19 12:07 36.6 C 69 20 121/72 93 04/03/19 07:29 36.7 C 52 L 18 110/58 L 91 Laboratory Results Short CBC 04/02/19 04/03/19 04/03/19 Range/Units 21:20 06:20 11:43 WBC 62.71 H* 52.99 H* (4.8-10.8) K/uL Hgb 9.8 L 8.9 L 9.3 L (14.0-18.0) g/dL Hct 28.4 L 26.1 L 27.4 L (42-52) % Plt Count 339 300 (130-400) K/uL BMP 04/02/19 04/03/19 21:20 06:20 Sodium 139 141 Potassium 3.6 3.7 Chloride 104 105 Carbon Dioxide 27 30 BUN 37 H 31 H Creatinine 1.24 1.11 Glucose 80 75 Calcium 8.5 8.0 L Cardiac Enzymes 04/02/19 04/03/19 04/03/19 Range/Units 21:20 00:30 06:20 Total Creatine Kinase 37 L (39-308) U/L CK-MB (CK-2) < 1.0 (0.5-3.6) ng/ml Troponin I < 0.015 < 0.015 < 0.015 (0-0.045) ng/ml 04/03/19 Range/Units 11:43 Total Creatine Kinase (39-308) U/L CK-MB (CK-2) (0.5-3.6) ng/ml Troponin I < 0.015 (0-0.045) ng/ml Liver Function 04/02/19 Range/Units 21:20 Total Bilirubin 0.3 (0.2-1) mg/dl AST 31 (15-37) U/L ALT 56 (12-78) U/L Alkaline Phosphatase 170 H (45-117) U/L Albumin 3.5 (3.4-5.0) gm/dl Medications Administered Current Inpatient Medications Acetaminophen (Tylenol) 650 mg PO Q4H PRN PRN Reason: Pain or Fever Stop: 05/03/19 00:15 Apixaban (Eliquis) 5 mg PO BID [facility] Stop: 05/03/19 08:59 Last Admin: 04/03/19 09:11 Dose: 5 mg Documented by: Atorvastatin Calcium (Lipitor) 20 mg PO QAM [facility] Stop: 05/03/19 08:59 Last Admin: 04/03/19 09:10 Dose: 20 mg Documented by: Ferrous Sulfate (Feosol) 325 mg PO DAILY [facility] Stop: 05/03/19 08:59 Last Admin: 04/03/19 09:10 Dose: 325 mg Documented by: Gabapentin (Neurontin) 100 mg PO TID [facility] Stop: 05/03/19 08:59 Last Admin: 04/03/19 15:04 Dose: 100 mg Documented by: Heparin Sodium (Porcine) (Heparin Sod 100 Unit/Ml Flush) 5 ml FLUSH PRN PRN PRN Reason: Flush Stop: 05/03/19 01:59 Sodium Chloride (Nss) 250 mls @ 15 mls/hr IV .[id number] PRN PRN Reason: For Transfusion Stop: 05/03/19 12:46 Isosorbide Dinitrate (Isordil) 10 mg PO BID@0700,1200 [facility] Stop: 05/03/19 06:59 Last Admin: 04/03/19 11:46 Dose: 10 mg Documented by: Lorazepam (Ativan) 0.5 mg PO HS PRN PRN Reason: Insomnia Stop: 05/03/19 00:15 Methimazole (Tapazole) 10 mg PO DAILY [facility] Stop: 05/03/19 08:59 Last Admin: 04/03/19 09:10 Dose: 10 mg Documented by: Metoprolol Succinate (Toprol Xl) 25 mg PO BID [facility] Stop: 05/03/19 08:59 Last Admin: 04/03/19 09:10 Dose: 25 mg Documented by: Morphine Sulfate (Morphine Sulfate) 3 mg IV Q3H PRN PRN Reason: Pain Stop: 04/17/19 00:15 Multivitamins/Minerals (Multivitamin W/ Minerals Tab) 1 tab PO BID [facility] Stop: 05/03/19 08:59 Last Admin: 04/03/19 09:10 Dose: 1 tab Documented by: Nitroglycerin (Nitrostat) 0.4 mg SL UD PRN PRN Reason: Chest Pain Stop: 05/03/19 00:15 Ondansetron HCl (Zofran) 4 mg IV Q6H PRN PRN Reason: Nausea Stop: 05/03/19 00:15 Ondansetron HCl (Zofran Tab) 8 mg PO Q8H PRN PRN Reason: Nausea Stop: 05/03/19 00:15 Pantoprazole Sodium (Protonix) 40 mg PO DAILY PRN PRN Reason: Acid Reflux Prochlorperazine (Compazine) 10 mg PO Q6H PRN PRN Reason: Nausea Stop: 05/03/19 00:15 (1) Non-Hodgkin lymphoma Lymphoma site: unspecified region Non-Hodgkin lymphoma type: unspecified type Qualified Code(s): C85.90 - Non-Hodgkin lymphoma, unspecified, unspecified site (2) Anemia Anemia type: unspecified type Qualified Code(s): D64.9 - Anemia, unspecified
[2019-04-03] MEDS: HEPARIN 100 UNIT/ML 5ML FLUSH FLUSH PRN (22:15)
[2019-04-04] MEDS: HEPARIN 100 UNIT/ML 5ML FLUSH FLUSH PRN ×2 (05:59→14:18)
[2019-04-04] MEDS: ISOSORBIDE DINITRATE 10 MG TAB PO SCH (06:00)
[2019-04-04 06:52] LABS: BUN Creatinine Ratio 23.8 (10-20); Calcium 8.2 mg/dl (8.5-10.1); Creatinine Clr Calc Pharmacy 56.7 ml/min; Est GFR (African American) 76.5; Potassium 3.7 mmol/L (3.5-5.1)
[2019-04-04 07:00] LABS: ALC (manual) 1.64 K/uL (1.2-3.4); Dohle Bodies 2+; Hematocrit (blood only) 33.1 % (42-52); Hemoglobin 11.5 g/dL (14.0-18.0); Lymphocytes # (manual) 1.64 K/uL (1.2-3.4); Lymphocytes % (manual) 3.4 %; Mean Corpuscular Hgb Conc 34.7 g/dL (32-36); Mean Corpuscular Volume 89.5 fL (80-100); Mean Platelet Volume 8.9 fL (7.4-10.4); Monocytes # (manual) 2.84 K/uL (0.11-0.59); Monocytes % (manual) 5.9 %; Neutrophils % (manual) 88.2 %; Platelet Count 253 K/uL (130-400); Platelet Estimate Normal (Normal); Promyelocytes % (manual) 2.5 %; RDW Coefficient of Variation 17.6 % (11.5-14.5); RDW Standard Deviation 57.3 fL (36.4-46.3); Toxic Granulation 1+; White Blood Count 48.15 K/uL (4.8-10.8)
[2019-04-04] MEDS: ATORVASTATIN 20 MG TAB PO SCH (08:00)
[2019-04-04] MEDS: GABAPENTIN 100 MG CAP PO SCH ×2 (08:00→14:00)
[2019-04-04] MEDS: APIXABAN 5 MG TABLET PO SCH (08:00)
[2019-04-04] MEDS: FERROUS SULFATE 325 MG TAB PO SCH (08:00)
[2019-04-04] MEDS: METOPROLOL SUCC 25MG EXT REL TAB PO SCH (08:00)
[2019-04-04] MEDS: methIMAzole 5 MG TABLET PO SCH (08:00)
[2019-04-04] MEDS: CEROVITE ADV FORMULA TAB PO SCH (08:01)
--- NOTE | 2019-04-04 08:54 | Cardiology Progress Note ---
Date of Service April 04, 2019 Assessment & Plan (1) Acute chest pain: Mr. Pak was admitted with angina aggravated by anemia. His presenting symptoms have completely resolved following transfusion of 1 U pRBCs. Recommend maintaining a hemoglobin of greater than or equal to 10 g/dL given his significant artery disease. (2) Atrial fibrillation: Paroxysmal atrial fibrillation. Initial event occurred postoperatively following extensive pelvic surgery in July 2017, treated with amiodarone. 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 Continue metoprolol as prescribed. Risks and benefits of anticoagulation discussed. Will continue Eliquis anticoagulation for now. Recommend close monitoring; low threshold for discontinuation. (3) Multi-vessel coronary artery stenosis: Recommend medical management Continue beta-brielle therapy as presently prescribed. Increase Isordil to three times per day. (4) Anemia: See above Recommend maintaining a hemoglobin of greater than or equal to 10 g/dL given his significant symptomatic coronary artery disease. Supervising Physician Co-Signing Physician Notes I discussed the case with Mr. Greenwood, reviewed the chart and examined the patient. I do not believe any additional cardiac testing is indicated and I agree with the plan as provided by Mr. Greenwood. At this point I believe the patient may be discharged home to outpatient follow-up. Subjective Patient seen and examined. Chart, medications, telemetry reviewed. Patient notes significant improvement, resolution, in presenting symptoms following transfusion of 1 U pRBC's yesterday. H&H this morning are 11.5 and 33.1. No complaints voiced this morning. He denies chest pain, palpitations, shortness of breath, cough, orthopnea, PND, or lower extremity peripheral edema. EKG this morning reveals sinus rhythm at 60 bpm with sinus arrhythmia, improved nonspecific T wave changes in the inferior leads. Continuous telemetry monitoring reveals sinus with rare to occasional PACs and rare PVCs, heart rates predominantly in the 60s and 70s. April 03, 2019 TTE Interpretation Summary ([facility], Dr. Raman): The left ventricle was normal in size. Ejection fraction 60 to 65%. RV systolic function normal. Normal left atrial size. Normal right atrial size. Mild aortic valve sclerosis without significant stenosis. Review of Systems Review of Systems: All systems reviewed & are unremarkable except as noted in HPI & below Physical Exam Physical Exam: General: A&Ox3. NAD. HEENT: Normocephalic. Atraumatic. PER. Conjunctiva pink, sclera clear. No carotid bruits. No JVD. No HJR. Heart: RRR. Grade II/ systolic ejection murmur. No diastolic murmur. No rub. Lungs: Faint dry right basilar rales. Otherwise, clear. Abdomen: +BS. Extremities: No clubbing, cyanosis, or edema. Limited neurological examination is without focal deficits. Pulses: radial=2/4, posterior tibial=1/4. Results & Data Vital Signs (Past 12 Hours) Vital Signs Temp Pulse Pulse Pulse Resp BP BP 04/04/19 07:04 37.0 C 67 15 04/04/19 06:00 58 L 130/72 04/04/19 02:56 36.9 C 60 16 04/03/19 23:32 37.0 C 71 17 04/03/19 22:25 36.7 C 77 18 142/72 H 04/03/19 22:04 36.9 C 72 17 135/66 04/03/19 21:07 36.8 C 71 17 143/74 H BP Pulse Ox 04/04/19 07:04 118/65 93 04/04/19 06:00 04/04/19 02:56 127/70 95 04/03/19 23:32 144/71 H 94 04/03/19 22:25 97 04/03/19 22:04 94 04/03/19 21:07 95 Laboratory Results - last 24 hr 04/03/19 04/03/19 04/03/19 11:43 11:43 11:43 WBC RBC Hgb 9.3 L Hct 27.4 L MCV MCH MCHC RDW Std Deviation RDW Coeff of Aubree Plt Count MPV Neutrophils % (Manual) Lymphocytes % (Manual) Monocytes % (Manual) Promyelocytes % (Man) Neutrophils # (Manual) Total Absolute Neuts Lymphocytes # (Manual) Total Abs Lymphocytes Monocytes # (Manual) Promyelocytes # (Man) Toxic Granulation Dohle Bodies Platelet Estimate ESR 2 Sodium Potassium Chloride Carbon Dioxide Anion Gap BUN Creatinine Est Cr Clr Drug Dosing Est GFR ( Amer) Est GFR (Non-Af Amer) BUN/Creatinine Ratio Glucose Calcium Magnesium Troponin I < 0.015 Blood Type Antibody Screen Crossmatch 04/03/19 04/04/19 04/04/19 12:57 05:55 05:55 WBC 48.15 H* RBC 3.70 L Hgb 11.5 L Hct 33.1 L MCV 89.5 MCH 31.1 MCHC 34.7 RDW Std Deviation 57.3 H RDW Coeff of Aubree 17.6 H Plt Count 253 MPV 8.9 Neutrophils % (Manual) 88.2 Lymphocytes % (Manual) 3.4 Monocytes % (Manual) 5.9 Promyelocytes % (Man) 2.5 Neutrophils # (Manual) 42.47 H Total Absolute Neuts 42.47 H Lymphocytes # (Manual) 1.64 Total Abs Lymphocytes 1.64 Monocytes # (Manual) 2.84 H Promyelocytes # (Man) 1.20 H Toxic Granulation 1+ Dohle Bodies 2+ Platelet Estimate Normal ESR Sodium 138 Potassium 3.7 Chloride 101 Carbon Dioxide 31 Anion Gap 6.0 BUN 26 H Creatinine 1.09 Est Cr Clr Drug Dosing 56.7 Est GFR ( Amer) 76.5 Est GFR (Non-Af Amer) 66.0 BUN/Creatinine Ratio 23.8 H Glucose 79 Calcium 8.2 L Magnesium 2.0 Troponin I Blood Type A Positive Antibody Screen NEGATIVE Crossmatch See Detail (1) Anemia Anemia type: unspecified type Qualified Code(s): D64.9 - Anemia, unspecified
[2019-04-04] MEDS ORDERED: ISOSORBIDE DINITRATE 10 MG TAB PO SCH (12:00)
--- NOTE | 2019-04-04 16:23 | Hospitalist Progress Note ---
Date of Service April 04, 2019 Assessment & Plan (1) Acute chest pain: ACS ruled out troponin x 3 negative EKG no signs of acute ischemia echo: left ventricular wall motion is normal [facility] consulted Chest pain likely secondary to Anemia, Hg 8.9 given 2 units pRBC, Hg improved to 11.5 Chest pain resolved Cardiology service recommend maintaining Hg > 10 ISDN also increased from 10mg BID to TID discussed with Dr. Randy Newell, repeat CBC Thursday April 11, 2019 (2) Anemia: Multifactorial Likely secondary to cancer chemotherapy given 2 units pRBC Hg increased from 8.9 to 11 maintain hemoglobin more than 10 to avoid anemia induced chest pain (3) Atrial fibrillation: Heart rate is controlled with Metoprolol (4) Multi-vessel coronary artery stenosis: Has a significant CAD during recent catheterization ACS ruled out on admission ISDN increased to TID ff up with [facility] Changer as scheduled (5) Non-Hodgkin lymphoma: Has been getting chemotherapy White count is about 60,000 Discussed with the oncologist Likely secondary to Neulasta and Decadron (6) Hypertension: Continue current medication (7) GERD (gastroesophageal reflux disease): Continue PPI (8) Colon cancer: Status post surgery and colostomy in situ No acute problem Discharge to home today ff up with PCP Tuesday04/09/19 ff up with [facility], Oncologist as scheduled Subjective ff up for chest pain, anemia seen resting in bed, comfortable, in good spirits states he feels much better overall no chest pain, dyspnea, palpitations, dizziness no melena/ hematochezia states he ambulated in the hallways with no problems denies other symptoms states he is back to baseline states he is ready and would like to be discharged today at bedside, agreeable Review of Systems Review of Systems: All systems reviewed & are unremarkable except as noted in HPI & below Physical Exam Physical Exam: General- oriented x 3, not in distress, speaks in sentences with no effort or accessory muscle use Eyes- anicteric Neck- no JVD Lungs- clear breath sounds bilaterally, no rales/wheezes Heart- normal rate, regular rhythm; no murmurs Abdomen- normal bowel sounds, nondistended, soft, nontender Extremities- no pretibial edema, no calf tenderness Neuro- alert, oriented x 3; no gross focal neurologic deficits Skin- warm & dry Results & Data Vital Signs (Past 12 Hours) Vital Signs Temp Pulse Pulse Pulse Pulse Resp BP 04/04/19 14:33 36.4 C L 59 L 60 56 L 18 130/72 04/04/19 11:54 36.4 C L 56 L 18 04/04/19 08:00 77 04/04/19 07:04 37.0 C 67 15 04/04/19 06:00 58 L 130/72 BP Pulse Ox 04/04/19 14:33 156/79 H 97 04/04/19 11:54 156/79 H 97 04/04/19 08:00 04/04/19 07:04 118/65 93 04/04/19 06:00 Laboratory Results Laboratory Results - last 24 hr 04/03/19 04/04/19 04/04/19 12:57 05:55 05:55 WBC 48.15 H* RBC 3.70 L Hgb 11.5 L Hct 33.1 L MCV 89.5 MCH 31.1 MCHC 34.7 RDW Std Deviation 57.3 H RDW Coeff of Aubree 17.6 H Plt Count 253 MPV 8.9 Neutrophils % (Manual) 88.2 Lymphocytes % (Manual) 3.4 Monocytes % (Manual) 5.9 Promyelocytes % (Man) 2.5 Neutrophils # (Manual) 42.47 H Total Absolute Neuts 42.47 H Lymphocytes # (Manual) 1.64 Total Abs Lymphocytes 1.64 Monocytes # (Manual) 2.84 H Promyelocytes # (Man) 1.20 H Toxic Granulation 1+ Dohle Bodies 2+ Platelet Estimate Normal Sodium 138 Potassium 3.7 Chloride 101 Carbon Dioxide 31 Anion Gap 6.0 BUN 26 H Creatinine 1.09 Est Cr Clr Drug Dosing 56.7 Est GFR ( Amer) 76.5 Est GFR (Non-Af Amer) 66.0 BUN/Creatinine Ratio 23.8 H Glucose 79 Calcium 8.2 L Magnesium 2.0 Blood Type A Positive Antibody Screen NEGATIVE Crossmatch See Detail (1) Non-Hodgkin lymphoma Lymphoma site: unspecified region Non-Hodgkin lymphoma type: unspecified type Qualified Code(s): C85.90 - Non-Hodgkin lymphoma, unspecified, unspecified site (2) Anemia Anemia type: unspecified type Qualified Code(s): D64.9 - Anemia, unspecified
--- NOTE | 2019-04-04 16:34 | Discharge Summary ---
Date of Service April 04, 2019 Admission HPI Per Admitting Provider CHIEF COMPLAINT: Chest pain. HISTORY OF PRESENT ILLNESS: This is a 73-year-old male with past medical history significant for paroxysmal atrial fibrillation, on Eliquis; hypertension; hyperlipidemia; relapsed non-Hodgkin lymphoma, ongoing chemotherapy; rectal cancer status post surgery and chemoradiation, on colostomy bag; prostate cancer status post radiation and also prostatectomy and removal of bladder and ileostomy; history of amiodarone-induced hyperthyroidism; chronic anemia, baseline hemoglobin 9; past tobacco abuse. Presents with chest pain. The patient was here on 02/15/2019 with chest pain. At that time, cardiac catheterization was done which showed multivessel coronary artery disease with 100% occlusion of left anterior descending midvessel and 100% occlusion of the right coronary artery proximal, both areas have excellent collateral fill. At that time, isosorbide was added and metoprolol dose was increased. Did not do any intervention at that time because of his ongoing chemo. The patient had his chemo last . After chemo, he has Neulasta and also Decadron for 4 days. Comes in because of chest pain. The patient today morning noticed chest discomfort. He did not walk much today. He is generally active and the pain is more when lying down and when he leans forward the pain is less and it is about 5/10 or 6/10 in severity, not associated with nausea, no dizziness, no sweating. Currently resting comfortably and hemodynamically stable. Also complains of right hip pain which is chronic. Denies any blurred vision. No earache, no runny nose, no sore throat, no difficulty swallowing. Appetite is okay. He gained weight recently after he lost of 15 pounds. No nausea, no abdominal pain. No blood in the stools. His ileostomy and colostomy bags are working okay. No rash seen. ALLERGIES: IODINATED DIAGNOSTIC AGENTS. PAST MEDICAL HISTORY: As mentioned above. PAST SURGICAL HISTORY: Right axillary lymph node biopsy, biopsy of the lymph node in the neck, colonoscopy with endoscopic ultrasound, ureteroileal conduit with bowel, thin needle aspiration biopsy of left supraclavicular lymph node, A-port insertion, prostrate radiation implant, prostate needle punch biopsy, laparoscopic prostatectomy complete with colostomy, pelvic exenteration, sigmoidoscopy. MEDICATIONS: The patient is on Isordil 10 mg b.i.d., Toprol XL 25 mg b.i.d., Decadron 1-4 days of the cycle of chemotherapy, vitamin D 1000 units p.o. daily, Ativan 0.5 mg p.o. at bedtime p.r.n., ferrous sulfate 325 mg p.o. daily, triamcinolone apply topically b.i.d., gabapentin 100 mg p.o. t.i.d., atorvastatin 20 mg p.o. daily, Eliquis 5 mg p.o. b.i.d., Zofran 8 mg p.o. t.i.d. p.r.n., Compazine 10 mg p.o. q. 6 hours p.r.n., methimazole 10 mg p.o. daily, omeprazole 20 mg p.o. daily, multivitamin with minerals 1 capsule daily. FAMILY HISTORY: Significant for father had lung cancer, mother has heart disorder, sister has bladder and breast cancer. SOCIAL HISTORY: . Former smoker, smoked from age 8 to 10. Alcohol, wine daily, 1-2 glasses. No drug use. REVIEW OF SYMPTOMS: As per HPI. Rest of the review of systems negative. Admission Exam Per Admitting Provider PHYSICAL EXAMINATION: GENERAL: The patient is alert and oriented, not in acute distress. VITAL SIGNS: Temperature 36.5, pulse 58, respiratory rate 21, blood pressure 146/77, oxygen 95% on room air. HEENT: No pallor, no icterus. Pupils equal, round, and reactive to light. NECK: No JVD, no neck masses, no carotid bruits. CARDIOVASCULAR: S1, S2 heard, regular rate and rhythm, no murmur, no gallop. RESPIRATORY SYSTEM: Normal AP diameter. No accessory muscle use. No wheezing, no crackles. ABDOMEN: Soft, bowel sounds present, nontender. No distention. CENTRAL NERVOUS SYSTEM: Cranial nerves II-XII grossly intact, nonfocal. SKIN: Hyperpigmentation seen around mouth and neck region and hands. EXTREMITIES: Trace pedal edema, no erythema seen. Principal Diagnosis CHEST PAIN, LIKELY SECONDARY TO ANEMIA Discharge Exam General- oriented x 3, not in distress, speaks in sentences with no effort or accessory muscle use Eyes- anicteric Neck- no JVD Lungs- clear breath sounds bilaterally, no rales/wheezes Heart- normal rate, regular rhythm; no murmurs Abdomen- normal bowel sounds, nondistended, soft, nontender Extremities- no pretibial edema, no calf tenderness Neuro- alert, oriented x 3; no gross focal neurologic deficits Skin- warm & dry Discharge Data Allergies Allergy/AdvReac Type Severity Reaction Status Date / Time Iodinated Contrast- Oral and Allergy Intermediate Rash Verified 04/02/19 23:00 IV Dye Consultations 04/02/19 22:03 ED Decision to Admit Stat 04/03/19 08:00 Consult Cardiology Routine Hospital Course (1) Acute chest pain: likely secondary to Anemia History of CAD ACS ruled out troponin x 3 negative EKG no signs of acute ischemia echo: left ventricular wall motion is normal [facility] consulted- CHUCHO Greenwood/Dr. Raman Chest pain likely secondary to Anemia, Hg 8.9 given 2 units pRBC, Hg improved to 11.5 Chest pain resolved Cardiology service recommend maintaining Hg > 10 ISDN also increased from 10mg BID to TID discussed with Dr. Randy Newell, repeat CBC Thursday April 11, [address] [facility]st as scheduled (2) Anemia: Likely secondary to cancer chemotherapy given 2 units pRBC Hg increased from 8.9 to 11 maintain hemoglobin more than 10 to avoid anemia induced chest pain (3) Atrial fibrillation: Heart rate is controlled with Metoprolol (4) Multi-vessel coronary artery stenosis: Has a significant CAD during recent catheterization ACS ruled out on admission ISDN increased to TID ff up with [facility] as scheduled (5) Non-Hodgkin lymphoma: Has been getting chemotherapy White count is about 60,000 Discussed with the oncologist Likely secondary to Neulasta and Decadron (6) Hypertension: Continue current medication (7) GERD (gastroesophageal reflux disease): Continue PPI (8) Colon cancer: Status post surgery and colostomy in situ No acute problem Discharge to home today ff up with PCP Tuesday04/09/19 ff up with [facility], Oncologist as scheduled Total Time Total Time Spent Total Time Spent (In Minutes): 45 minutes Discharge Plan Discharge Items Patient Disposition: Home - Self-Care Reason For Visit: CHEST PAIN Discharge Diagnosis: CHEST PAIN, ANEMIA Discharge Goals: Diagnostic testing and Therapeutic intervention Activity: As commented below Activity Comment: NO HEAVY EXERTION UNTIL RE-EVALUATION BY PRIMARY CARE PHYSICIAN Lifting: Wait until after follow-up appointment Exercise/Sports: Wait until after follow-up appointment Driving/Machine Use Comment: NO DRIVING UNTIL RE-EVALUATED BY PRIMARY CARE PHYSI DELIA Non-emergency contact: Primary Care Provider Call non-emergency contact if: you have any medication questions, your symptoms worsen and you have a fever Diet: Heart Healthy Addtl Provider Instructions: PLEASE FOLLOW UP WITH DR. WILD (ASSOCIATE OF DR. ASHER) ON TUESDAY APRIL 09, 2019 AT 3:45PM. PLEAESE HAVE REPEAT BLOODWORK IN [facility] ON THURSDAY APRIL 11, 2019. MEDICATION CHANGE: ISOSORBIDE DINITRATE IS BEING INCREASED FROM 20MG TWICE DAY TO THREE TIMES A DAY. PLEASE CALL PRIMARY CARE PHYSICIAN OR RETURN TO THE ER IMMEDIATELY IF WITH RECURRENCE OF SYMPTOMS, BLOOD IN THE STOOLS. Prescriptions: Continued methimazole 10 mg Tablet 10 mg PO DAILY RF: 0 ondansetron HCl [Zofran] 8 mg Tablet 8 mg PO Q8H PRN (Reason: Nausea) RF: 0 prednisone 20 mg Tablet 20 mg PO DIRECTED RF: 0 prochlorperazine maleate 10 mg Tablet 10 mg PO Q6H PRN (Reason: Nausea) RF: 0 triamcinolone acetonide 0.1 % Cream 1 applic TOPICAL BID PRN (Reason: Rash) RF: 0 dexamethasone 4 mg Tablet 4 mg PO DIRECTED RF: 0 gabapentin 100 mg Capsule 100 mg PO TID RF: 0 Vitamin D3 1,000 units 1,000 unit PO DAILY RF: 0 metoprolol succinate [Toprol XL] 25 mg tablet extended release 24 hr 25 mg PO BID RF: 0 ferrous sulfate 325 mg (65 mg iron) tablet,delayed release (DR/EC) 325 mg PO DAILY RF: 0 atorvastatin 20 mg Tablet 20 mg PO QAM RF: 0 omeprazole 20 mg Capsule,Delayed Release(Dr/Ec) 20 mg PO DAILY PRN (Reason: Acid Reflux) RF: 0 Eliquis 5 mg Tablet 5 mg PO BID RF: 0 acetaminophen [Tylenol Extra Strength] 500 mg Tablet 1,000 mg PO HS PRN (Reason: Pain) RF: 0 PreserVision AREDS [id number] Capsule 1 cap PO BID RF: 0 Changed isosorbide dinitrate 10 mg tablet 10 mg PO TID 30 Days Qty: 0 RF: 0 Stand-Alone Forms: Call Back Authorization, My [facility] Discharge Orders: Discharge Order (Routine); Ordered 04/04/19 Ordered By: Mauro Christine Admission Data Admit Date/Time: 04/03/19 12:41 Attending Provider: Mauro Christine Admit Provider: Shawn Cohen Primary Care Provider: Renny Asher Other Providers: Shawn Cohen ; Olu Crawley ; Saul Tobar ; Jerry Kerr ; Jordan Henning ; Lei Raman ; Renny Greenwood ; Perlita Bennett ; Lis Earl ; Dale Gomez Service: Telemetry Other Interventions: Discharge Summary Assessment (RN) Last Done: 04/04/19 14:33 DC Date/Time DO NOT enter until pt leaves facility: 04/04/19 14:53
== END 2019-04-04 14:53 | disposition home or self-care (01) | DRG 812 ==
LOC: ED 20:46 → 2S 20:46 → SUATTDRO 04-03 12:41

== ENCOUNTER 2019-04-25 11:39 | Inpatient (IN) ==
[2019-04-25] MEDS ORDERED: ASPIRIN CHEW 324 MG PO STA (12:00)
--- NOTE | 2019-04-25 12:20 | XRay Report ---
XR chest 1V portable HISTORY: Atypical Chest Pain COMPARISON: Chest 04/02/2019. FINDINGS: No pneumothorax. No pleural effusions. Stable calcified granulomas within the right lower l obe. Right jugular Port-A-Cath terminates at the proximal SVC. This is also unchanged. The heart is n ormal in size. No new focal lung consolidations to suggest pneumonia. No evidence for pulmonary edema . IMPRESSION: No significant change compared to the prior study. No acute process. Electronically signed by: Herman Castano M.D. 04/25/2019 12:19 PM
[2019-04-25 12:51] LABS: INR 1.1 (0.9-1.1); Partial Thromboplastin Ratio 1.1; Partial Thromboplastin Time 28.7 Seconds (21.0-31.0); Prothrombin Time 11.3 Seconds (9.0-12.0)
[2019-04-25 13:04] LABS: Alanine Aminotransferase 36 U/L (12-78); Albumin Level 3.2 gm/dl (3.4-5.0); Aspartate Aminotransferase 21 U/L (15-37); BUN Creatinine Ratio 26.8 (10-20); Blood Urea Nitrogen 28 mg/dl (7-18); Calcium 8.5 mg/dl (8.5-10.1); Carbon Dioxide 26 mmol/L (21-32); Chloride 100 mmol/L (98-107); Est GFR (African American) 80.1; Est GFR (Non-African American) 69.1; Glucose 120 mg/dl (70-99); Potassium 3.4 mmol/L (3.5-5.1); Sodium 136 mmol/L (136-145)
[2019-04-25 13:13] LABS: Albumin Globulin Ratio 1.4 (0.9-2); Alkaline Phosphatase 155 U/L (45-117); Bilirubin,Total 0.2 mg/dl (0.2-1); Globulin 2.3 gm/dl (2.5-4.0); Total Protein 5.5 gm/dl (6.4-8.2); Troponin I 0.607 ng/ml (0-0.045)
[2019-04-25 13:18] LABS: Hemoglobin 10.2 g/dL (14.0-18.0); Mean Corpuscular Volume 91.7 fL (80-100); Mean Platelet Volume 8.8 fL (7.4-10.4); Platelet Count 171 K/uL (130-400); RDW Coefficient of Variation 16.4 % (11.5-14.5); RDW Standard Deviation 55.1 fL (36.4-46.3); Red Blood Count 3.27 M/uL (4.7-6.1)
[2019-04-25 13:19] LABS: ALC (manual) 0.29 K/uL (1.2-3.4); Dohle Bodies 1+; Eosinophils # (manual) 0.29 K/uL (0-0.5); Eosinophils % (manual) 0.9 %; Lymphocytes # (manual) 0.29 K/uL (1.2-3.4); Lymphocytes % (manual) 0.9 %; Monocytes # (manual) 2.51 K/uL (0.11-0.59); Monocytes % (manual) 7.8 %; Neutrophils % (manual) 90.4 %; Ovalocytes 1+; Platelet Estimate Normal (Normal); Toxic Granulation 2+
[2019-04-25] MEDS ORDERED: HEPARIN SODIUM/DEXTROSE 25,000 UNITS/500 ML BAG IV SCH (13:30)
[2019-04-25] MEDS ORDERED: Heparin BOLUS **ED Use Only IV STA (13:50)
--- NOTE | 2019-04-25 14:53 | History & Physical Report ---
Date of Service April 25, 2019 Assessment & Plan (1) Angina pectoris: (2) Elevated troponin: PMH CAD with multivessel coronary disease -complete occlusion of mid LAD and proximal RCA with good collaterals on cath in 01/2019 on med management History echo 04/03/2019: EF: 60-65%, mild aortic sclerosis without significant stenosis Patient presented with complaint of anterior chest pain with associated shortness of breath, dizziness, sensation of heart racing which lasted approximately 30 minutes. Took 2 Tylenol prior to ER arrival. Since arrival to ER has been chest pain-free. In ER afebrile, pulse 76, RR: 16, BP: 139/92, 99% on room air. Troponin: 0.6. EKG rate 67, sinus rhythm with PACs, nonspecific ST changes. Pt was given ASA 324mg po, Heparin IV started R/O ACS -Monitor Vitals -Repeat EKG in am -Will trend troponin -Limited echo -Lipid panel in am, continue statin -Continue metoprolol -Increase isosorbide dinitrate to 20mg TID as per Cardiology -ASA -Nitro prn CP and repeat EKG for CP -NPO midnight -Cardiology consulted--Appreciate Input (3) Leukocytosis: WBC: 32. Has trended down from 48 on 04/04/19. Likely secondary to Neulasta, decadron No fever/chills, no infectious symptoms (4) Paroxysmal atrial fibrillation: Current sinus rhythm -Continue metoprolol -Hold Eliquis while on heparin IV (5) Anemia: Chronic anemia H/H: 10.2/30 -Monitor H&H -Previous cardiology recommendations keeping hemoglobin >10 -Type and cross PRBC and hold and transfuse as needed (6) Diabetes: Diet-controlled. A1c: 6.1 on 04/03/2018 Glucose: 120 Diabetic diet (7) Hypertension: Stable -Continue metoprolol -Monitor BP with increase isosorbide dose (8) Hyperlipidemia: -Continue atorvastatin (9) Large B-cell lymphoma: Recurrent lymphoma. History R-[facility] in 2009, prior treatment chemo and radiation in [id number]. Current chemo. 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 See addendum History of Present Illness Chief Complaint: CP Primary Care Provider: Renny Asher MD Pt is 73 y/o M with PMH CAD (multivessel coronary disease -complete occlusion of mid LAD and proximal RCA with good collaterals on cath in 01/2019 on med [facility]), paroxysmal atrial fibrillation on Eliquis, HTN, HLD, GERD, chronic anemia, h/o prostate cancer in 2003 s/p radiation and surgery, history of rectal adenoma carcinoma 2016 s/p chemo, radiation, surgery, recurrent lymphoma on chemo presented to ER with complaint of chest pain today. History recent hospitalization 04/02/2019-04/04/2019 for chest pain. Had negative troponins x3. Hemoglobin 8.9. Was thought to be angina secondary to anemia. Patient received 1 unit PRBCs. Isosorbide dinitrate was increased. Patient reports an episode of chest pain 3 days ago which lasted 5 to 10 minutes and was centrally located and resolved with rest. Patient states today around 1030 he was walking in his house when he developed some sensation of heart racing, central chest pain that lasted approximately 30 minutes. Had associated shortness of breath and dizziness with episode. Patient states took 2 Tylenol. Upon arrival to ER patient chest pain resolved and has been chest pain-free during ED course. Patient reports normally has episodes of chest pain after chemotherapy. Last chemo treatment on 04/18/2019. Denies fever/chills, diaphoresis, N/V/D/C, ISLAS, syncope, vision changes, neck pain, orthopnea, cough, sore throat, choking, otalgia, rhinorrhea, abdominal pain, paresthesias, weakness, extremity weakness, extremity edema, rashes, urinary symptoms. History echo 04/03/2019: EF: 60-65%, mild aortic sclerosis without significant stenosis Allergies Allergy/AdvReac Type Severity Reaction Status Date / Time Iodinated Contrast- Oral and Allergy Intermediate Rash Verified 04/25/19 12:29 IV Dye Home Medications Home Medications Medication Instructions Recorded Confirmed Type Eliquis 5 mg PO BID 04/26/18 04/25/19 History atorvastatin 20 mg PO QAM 04/26/18 04/25/19 History PreserVision AREDS 1 cap PO BID 05/29/18 04/25/19 History acetaminophen [Tylenol Extra 1,000 mg PO Q8H PRN 05/29/18 04/25/19 History Strength] dexamethasone 4 mg PO DIRECTED 02/11/19 04/25/19 History gabapentin 100 mg PO TID 02/11/19 04/25/19 History methimazole 10 mg PO DAILY 02/11/19 04/25/19 History triamcinolone acetonide 1 applic TOPICAL BID PRN 02/11/19 04/25/19 History ferrous sulfate 325 mg PO DAILY 04/02/19 04/25/19 History metoprolol succinate [Toprol XL] 25 mg PO BID 04/02/19 04/25/19 History isosorbide dinitrate 10 mg PO TID 30 Days #0 tab 04/04/19 04/25/19 Rx cholecalciferol (vitamin D3) 1,000 unit PO DAILY 04/25/19 04/25/19 History [Vitamin D3] lorazepam 0.5 mg PO HS PRN 04/25/19 04/25/19 History ondansetron HCl [Zofran] 8 mg PO TID PRN 04/25/19 04/25/19 History Past Med/Surg History Medical History Paroxysmal atrial fibrillation (Chronic) Large B-cell lymphoma (Chronic) Hyperthyroidism (Chronic) RECENT DIAGNOSIS; ON METHIMAZOLE Hyperlipidemia (Chronic) Colon cancer (Chronic) PERMANENT ILEOSTOMY/NEPHROSTOMY IN PLACE Non-Hodgkin lymphoma in remission (Chronic) DX 2008; S/P CHEMO (2016) Osteoarthritis (Chronic) Prostate cancer (Chronic) S/P PROSTATECTOMY/RADIATION SEEDS (2003) GERD (gastroesophageal reflux disease) (Chronic) Hypertension (Chronic) Hx of Clostridium difficile infection (Resolved) Surgical History History of urostomy (Chronic) History of lymph node biopsy (Chronic) RT NECK EXCISIONAL BIOPSY 08/23/18 [facility] History of bowel resection (Chronic) CURRENT ILEOSTOMY 2/2 COLON CANCER S/P prostatectomy (Chronic) History of bladder surgery (Chronic) S/P CYSTECTOMY History of colonoscopy (Chronic) Family History Other Cancer Heart disease Hypertension Social History Preferred Language: [place]i Communication Ability: Effective Visual Impairment: No Limitations E Commerce Developer Required: No Beliefs That Will Affect Care: None marital status: Current Living Situation: Spouse Other Information That Helps Us Care for You: No Feels Safe at Home: Yes Smoking Status: Never smoker Do You Dip or Chew Tobacco: No ; Second Hand Exposure: No ; Hx Alcohol Use: No Hx Substance Use: No Review of Systems Review of Systems: All systems reviewed & are unremarkable except as noted in HPI & below Physical Exam Physical Exam: General: no acute distress, WDWN Head: normocephalic, atraumatic Eyes: PERRL, EOM's intact, conjunctiva non-injected, anicteric ENT: normal inspection external ears, nose, mucous membranes moist Neck: supple, trachea midline, non-tender Lungs: clear, no respiratory distress, no wheezing/rhonchi/rales Chest: +port to right upper chest CV: regular rate, 62, irregular rhythm, no murmur, no JVD, no pretibial edema Abd: normal BS, +ostomy x 2, soft, non-tender Ext: no cyanosis, no calf tenderness Neuro: A&O x 3, no focal deficits noted, normal affect Skin: warm, dry Results & Data Vital Signs (Past 12 Hours) Vital Signs Temp Pulse Resp BP Pulse Ox 04/25/19 13:30 60 17 131/71 97 04/25/19 13:00 60 18 110/64 97 04/25/19 12:30 63 18 108/67 97 04/25/19 12:02 99 04/25/19 12:00 65 19 129/82 100 04/25/19 11:59 65 16 99 04/25/19 11:50 72 18 137/85 99 04/25/19 11:40 37.1 C 76 16 139/92 99 Laboratory Results Short CBC 04/25/19 Range/Units 12:32 WBC 32.20 H* (4.8-10.8) K/uL Hgb 10.2 L (14.0-18.0) g/dL Hct 30.0 L (42-52) % Plt Count 171 (130-400) K/uL BMP 04/25/19 12:32 Sodium 136 Potassium 3.4 L Chloride 100 Carbon Dioxide 26 BUN 28 H Creatinine 1.05 Glucose 120 H Calcium 8.5 Cardiac Enzymes 04/25/19 Range/Units 12:32 Troponin I 0.607 H* (0-0.045) ng/ml Liver Function 04/25/19 Range/Units 12:32 Total Bilirubin 0.2 (0.2-1) mg/dl AST 21 (15-37) U/L ALT 36 (12-78) U/L Alkaline Phosphatase 155 H (45-117) U/L Albumin 3.2 L (3.4-5.0) gm/dl Diagnostic Findings CXR: IMPRESSION: No significant change compared to the prior study. No acute process. Code Status & VTE Plan VTE Prophylaxis Plan VTE Prophylaxis will be ordered: Yes Supervising Physician Co-Signing Physician Notes Patient is a 73 yr male with history of paroxysmal atrial fibrillation on chronic anticoagulation, coronary artery disease, large B-cell lymphoma--ongoing chemotherapy and other medical problems presents with history of transient chest pain which started at rest today. Reports associated palpitations, shortness of breath, dizziness. Patient has history of multivessel coronary art rowan disease which is being managed medically. Please review HPI for complete details of presentation. On exam patient is normocephalic atraumatic, no apparent distress, lungs are clear to auscultation, S1-S2, Chemo-Port on right side of the chest, trace pedal edema, abdomen soft nontender,+ ostomy, grossly no focal neurological deficits. Patient was noted to have elevated troponin. EKG showed normal sinus rhythm with nonspecific ST changes. Patient is admitted for management of NSTEMI. Continue aspirin, metoprolol, statin, Imdur. Also started on IV heparin. Added Ranexa as per cardiology recommendation. Appreciate input. Agree with holding Eliquis. Consider nitro if recurrence of chest pain. I personally reviewed the record. Patient is interviewed and examined at bedside. Patient's care is coordinated with Rosa Villaseñor. Please refer to the documentation above for details of patient's presentation and for discussion of other issues. (1) Anemia Anemia type: unspecified type Qualified Code(s): D64.9 - Anemia, unspecified
[2019-04-25] MEDS ORDERED: LORazepam 0.5 MG TAB PO PRN (16:38)
[2019-04-25] MEDS ORDERED: SODIUM CHLORIDE 0.9% 250 ML IV PRN (16:38)
[2019-04-25] MEDS ORDERED: NITROGLYCERIN SL 0.4 MG/TAB TAB SL PRN (16:38)
[2019-04-25] MEDS ORDERED: ONDANSETRON INJ 2 MG/ML 2 ML VIAL IV PRN (16:38)
[2019-04-25] MEDS ORDERED: Heparin IV Standard *NO* Bolus IV SCH (16:38)
[2019-04-25] MEDS ORDERED: ACETAMINOPHEN 325 MG TAB PO PRN (16:38)
[2019-04-25] MEDS ORDERED: POTASSIUM CHLORIDE 20 MEQ TABCR PO STA (16:51)
[2019-04-25] MEDS: HEPARIN SODIUM/DEXTROSE 25,000 UNITS/500 ML BAG IV SCH (17:26)
--- NOTE | 2019-04-25 17:27 | Emergency Department Note ---
Entered by Rell Fry acting as a scribe for History of Present Illness General Chief complaint: Chest Pain Stated complaint: CHEST PAIN Time Seen by Provider: 04/25/19 11:47 Source: patient History of Present Illness Onset (ago): minute(s) 30 Location: chest (central) Radiation: non-radiation Pain Consistency: + now resolved and + other (episode ) Maximum Pain Intensity: 5 Associated symptoms: + shortness of breath and + other (+increaed heart rate ); no nausea/vomiting Treatments prior to arrival: other (2 Tylenol ) The patient is a 73 year old male who presents to the Emergency Room with complaints of an episode of central chest pain that began 30 minutes prior to arrival. The patient notes the pain has subsided currently. The patient notes the chest pain was preceded by increased heart rate. The patient states the pain does not radiate anywhere. The patient also notes shortness of breath, but he denies nausea and vomiting. The patient notes he took 2 Tylenol prior to arrival. The patient reports he had a heart cath and stress test about two weeks ago with Dr. Kerr. The patient states he found out that two arteries in the back of his heart were clogged, but the patient notes nothing was done about them yet due to his chemo. The patient notes history of Non-Hodgkin's lymphoma. Home Medications Home Medications Medication Instructions Recorded Confirmed Type Eliquis 5 mg PO BID 04/26/18 04/25/19 History atorvastatin 20 mg PO QAM 04/26/18 04/25/19 History PreserVision AREDS 1 cap PO BID 05/29/18 04/25/19 History acetaminophen [Tylenol Extra 1,000 mg PO Q8H PRN 05/29/18 04/25/19 History Strength] dexamethasone 4 mg PO DIRECTED 02/11/19 04/25/19 History gabapentin 100 mg PO TID 02/11/19 04/25/19 History methimazole 10 mg PO DAILY 02/11/19 04/25/19 History triamcinolone acetonide 1 applic TOPICAL BID PRN 02/11/19 04/25/19 History ferrous sulfate 325 mg PO DAILY 04/02/19 04/25/19 History metoprolol succinate [Toprol XL] 25 mg PO BID 04/02/19 04/25/19 History isosorbide dinitrate 10 mg PO TID 30 Days #0 tab 04/04/19 04/25/19 Rx cholecalciferol (vitamin D3) 1,000 unit PO DAILY 04/25/19 04/25/19 History [Vitamin D3] lorazepam 0.5 mg PO HS PRN 04/25/19 04/25/19 History ondansetron HCl [Zofran] 8 mg PO TID PRN 04/25/19 04/25/19 History Allergies Allergy/AdvReac Type Severity Reaction Status Date / Time Iodinated Contrast- Oral and Allergy Intermediate Rash Verified 04/25/19 12:29 IV Dye Past Med/Surg History Medical History Paroxysmal atrial fibrillation (Chronic) Large B-cell lymphoma (Chronic) Hyperthyroidism (Chronic) RECENT DIAGNOSIS; ON METHIMAZOLE Hyperlipidemia (Chronic) Colon cancer (Chronic) PERMANENT ILEOSTOMY/NEPHROSTOMY IN PLACE Non-Hodgkin lymphoma in remission (Chronic) DX 2008; S/P CHEMO (2016) Osteoarthritis (Chronic) Prostate cancer (Chronic) S/P PROSTATECTOMY/RADIATION SEEDS (2003) GERD (gastroesophageal reflux disease) (Chronic) Hypertension (Chronic) Hx of Clostridium difficile infection (Resolved) Surgical History History of urostomy (Chronic) History of lymph node biopsy (Chronic) RT NECK EXCISIONAL BIOPSY 08/23/18 [facility] History of bowel resection (Chronic) CURRENT ILEOSTOMY 2/2 COLON CANCER S/P prostatectomy (Chronic) History of bladder surgery (Chronic) S/P CYSTECTOMY History of colonoscopy (Chronic) Family History Other Cancer Heart disease Hypertension Social History Preferred Language: Slovenian Communication Ability: Effective Visual Impairment: No Limitations Charge Entry Required: No Beliefs That Will Affect Care: None marital status: Current Living Situation: Spouse Other Information That Helps Us Care for You: No Feels Safe at Home: Yes Smoking Status: Never smoker Do You Dip or Chew Tobacco: No ; Second Hand Exposure: No ; Hx Alcohol Use: No Hx Substance Use: No Review of Systems See HPI for pertinent positives & negatives. and A total of 10 systems reviewed and were otherwise negative Physical Exam Vital Signs Vital Signs - 24 hr 04/25/19 11:40 04/25/19 11:50 04/25/19 11:59 Temperature 37.1 C Temperature Source Oral Sepsis Recent Fever Within 48 Hours No Sepsis Action Taken by Nursing No Action Required Pulse Rate 76 72 65 Pulse Rate from SpO2 Sensor 71 66 Respiratory Rate 16 18 16 Respiratory Effort / Characteristics Non-Labored Spontaneous Respiratory Depth Normal Blood Pressure 139/92 137/85 Blood Pressure Mean 107 102 Blood Pressure Position Sitting Pulse Oximetry 99 99 99 Oxygen Delivery Method Room Air Room Air 04/25/19 12:00 04/25/19 12:02 04/25/19 12:30 Temperature Temperature Source Sepsis Recent Fever Within 48 Hours Sepsis Action Taken by Nursing Pulse Rate 65 63 Pulse Rate from SpO2 Sensor 65 61 Respiratory Rate 19 18 Respiratory Effort / Characteristics Respiratory Depth Blood Pressure 129/82 108/67 Blood Pressure Mean 97 80 Blood Pressure Position Pulse Oximetry 100 99 97 Oxygen Delivery Method Room Air 04/25/19 13:00 04/25/19 13:30 04/25/19 14:00 Temperature Temperature Source Sepsis Recent Fever Within 48 Hours Sepsis Action Taken by Nursing Pulse Rate 60 60 Pulse Rate from SpO2 Sensor 60 59 L Respiratory Rate 18 17 Respiratory Effort / Characteristics Respiratory Depth Blood Pressure 110/64 131/71 Blood Pressure Mean 79 91 150 Blood Pressure Position Pulse Oximetry 97 97 Oxygen Delivery Method 04/25/19 14:20 04/25/19 14:30 Temperature Temperature Source Sepsis Recent Fever Within 48 Hours Sepsis Action Taken by Nursing Pulse Rate 67 61 Pulse Rate from SpO2 Sensor Respiratory Rate 18 22 Respiratory Effort / Characteristics Respiratory Depth Blood Pressure 143/77 H 138/80 Blood Pressure Mean 99 99 Blood Pressure Position Pulse Oximetry Oxygen Delivery Method GENERAL: Patient is awake, alert, and in no acute distress.Patient is resting comfortably and showing no signs of anxiety EYES: The conjunctivae are clear. The pupils are round and reactive. EARS, NOSE, MOUTH AND THROAT: The nose is without any evidence of any deformity. Mucous membranes are moist.Tongue is midline NECK: The neck is nontender and supple. RESPIRATORY: Normal respiratory effort is noted. There is no evidence of wheezing rhonchi or rales to auscultation. CARDIOVASCULAR: Ectopy was noticed to auscultation, no definite murmur noted. GASTROINTESTINAL: The abdomen is soft. Bowel sounds are present in all quadrants. Abdomen is nontender. MUSCULOSKELETAL/EXTREMITIES: There is no evidence of gross deformity. Full range of motion is noted in the hips and shoulders. SKIN: There is no obvious evidence of any rash. There are no petechiae, pallor o r cyanosis noted. NEUROLOGIC: Patient is awake alert and oriented x3. Strength is symmetric. Patellar reflexes are 2+ bilaterally. Course 1200: Past medical records reviewed. The patient was evaluated in room B5. A complete history and physical exam was performed. 1318: I updated the patient on the patient's case. 1328: I reviewed the patient's case with Dr. Sharon Caro. 1331: I reviewed the patient's case with Rosa Caro. Dr. Edvin Caro will evaluate the patient for further management. Consultations Consultation #1: I reviewed the patient's case with Dr. Sharon Caro. Time: 13:28 Consultation #2: I reviewed the patient's case with Rosa Caro. Dr. Edvin Caro will evaluate the patient for further management. Time: 13:31 Administered Medications Discontinued Medications Aspirin (Aspirin) 324 mg PO NOW STA Stop: 04/25/19 12:01 Last Admin: 04/25/19 12:10 Dose: 324 mg Documented by: [id number] Heparin Sodium (Porcine) (Heparin Iv Bolus) 6,000 units IV NOW STA Stop: 04/25/19 13:51 Last Admin: 04/25/19 14:08 Dose: 6,000 units Documented by: [id number] Cosigned by: [id number] Heparin Sodium/Dextrose (Heparin Sodium/Dextrose) 25,000 units in 500 mls @ 25 mls/hr IV .Q20H [facility]; Protocol Stop: 05/25/19 13:29 Last Admin: 04/25/19 14:08 Dose: 1,250 units/hr, 25 mls/hr Documented by: [id number] Cosigned by: [id number] Medical Decision Making Differential Diagnosis Differential diagnosis: Etiologies such as cardiac ischemia, aortic dissection, pulmonary embolism, pneumonia, pneumothorax, musculoskeletal, infections, pericarditis, myocarditis, esophageal rupture, gastrointestinal, as well as others were entertained. Medical Records Attestation: I reviewed the patient's medical records. Home Medications Current Medication List: was personally reviewed by ar Laboratory Data Attestation: I reviewed the patient's lab results. Result diagrams: 04/25/19 12:32 04/25/19 12:32 Lab Results 04/25/19 04/25/19 04/25/19 Range/Units 12:32 12:32 12:32 WBC 32.20 H* (4.8-10.8) K/uL RBC 3.27 L (4.7-6.1) M/uL Hgb 10.2 L (14.0-18.0) g/dL POC Hgb Hct 30.0 L (42-52) % POC Hct MCV 91.7 (80-100) fL MCH 31.2 (25-34) pg MCHC 34.0 (32-36) g/dL RDW Std Deviation 55.1 H (36.4-46.3) fL RDW Coeff of Aubree 16.4 H (11.5-14.5) % Plt Count 171 (130-400) K/uL MPV 8.8 (7.4-10.4) fL Neutrophils % (Manual) 90.4 % Lymphocytes % (Manual) 0.9 % Monocytes % (Manual) 7.8 % Eosinophils % (Manual) 0.9 % Neutrophils # (Manual) 29.11 H (1.4-6.5) K/uL Total Absolute Neuts 29.11 H (1.4-6.5) K/uL Lymphocytes # (Manual) 0.29 L (1.2-3.4) K/uL Total Abs Lymphocytes 0.29 L (1.2-3.4) K/uL Monocytes # (Manual) 2.51 H (0.11-0.59) K/uL Eosinophils # (Manual) 0.29 (0-0.5) K/uL Toxic Granulation 2+ Dohle Bodies 1+ Platelet Estimate Normal (Normal) Ovalocytes 1+ PT 11.3 (9.0-12.0) Seconds INR 1.1 (0.9-1.1) APTT 28.7 (21.0-31.0) Seconds PTT Ratio 1.1 POC Sodium Sodium 136 (136-145) mmol/L POC Potassium Potassium 3.4 L (3.5-5.1) mmol/L POC Chloride Chloride 100 (98-107) mmol/L Carbon Dioxide 26 (21-32) mmol/L POC Total CO2 Anion Gap 10.0 (3-11) POC Anion Gap POC BUN BUN 28 H (7-18) mg/dl Creatinine 1.05 (0.6-1.4) mg/dl POC Creatinine Est Cr Clr Drug Dosing Not Reportable Est GFR ( Amer) 80.1 Est GFR (Non-Af Amer) 69.1 BUN/Creatinine Ratio 26.8 H (10-20) Glucose 120 H (70-99) mg/dl POC Glucose (other) Calcium 8.5 (8.5-10.1) mg/dl POC Ioniz Calcium Paola Total Bilirubin 0.2 (0.2-1) mg/dl AST 21 (15-37) U/L ALT 36 (12-78) U/L Alkaline Phosphatase 155 H (45-117) U/L Troponin I 0.607 H* (0-0.045) ng/ml Total Protein 5.5 L (6.4-8.2) gm/dl Albumin 3.2 L (3.4-5.0) gm/dl Globulin 2.3 L (2.5-4.0) gm/dl Albumin/Globulin Ratio 1.4 (0.9-2) Lipase 88 (73-393) U/L 04/25/19 Range/Units 13:19 WBC (4.8-10.8) K/uL RBC (4.7-6.1) M/uL Hgb (14.0-18.0) g/dL POC Hgb Cancelled Hct (42-52) % POC Hct Cancelled MCV (80-100) fL MCH (25-34) pg MCHC (32-36) g/dL RDW Std Deviation (36.4-46.3) fL RDW Coeff of Aubree (11.5-14.5) % Plt Count (130-400) K/uL MPV (7.4-10.4) fL Neutrophils % (Manual) % Lymphocytes % (Manual) % Monocytes % (Manual) % Eosinophils % (Manual) % Neutrophils # (Manual) (1.4-6.5) K/uL Total Absolute Neuts (1.4-6.5) K/uL Lymphocytes # (Manual) (1.2-3.4) K/uL Total Abs Lymphocytes (1.2-3.4) K/uL Monocytes # (Manual) (0.11-0.59) K/uL Eosinophils # (Manual) (0-0.5) K/uL Toxic Granulation Dohle Bodies Platelet Estimate (Normal) Ovalocytes PT (9.0-12.0) Seconds INR (0.9-1.1) APTT (21.0-31.0) Seconds PTT Ratio POC Sodium Cancelled Sodium (136-145) mmol/L POC Potassium Cancelled Potassium (3.5-5.1) mmol/L POC Chloride Cancelled Chloride (98-107) mmol/L Carbon Dioxide (21-32) mmol/L POC Total CO2 Cancelled Anion Gap (3-11) POC Anion Gap Cancelled POC BUN Cancelled BUN (7-18) mg/dl Creatinine (0.6-1.4) mg/dl POC Creatinine Cancelled Est Cr Clr Drug Dosing Est GFR ( Amer) Est GFR (Non-Af Amer) BUN/Creatinine Ratio (10-20) Glucose (70-99) mg/dl POC Glucose (other) Cancelled Calcium (8.5-10.1) mg/dl POC Ioniz Calcium Paola Cancelled Total Bilirubin (0.2-1) mg/dl AST (15-37) U/L ALT (12-78) U/L Alkaline Phosphatase (45-117) U/L Troponin I (0-0.045) ng/ml Total Protein (6.4-8.2) gm/dl Albumin (3.4-5.0) gm/dl Globulin (2.5-4.0) gm/dl Albumin/Globulin Ratio (0.9-2) Lipase (73-393) U/L Imaging Data Radiologist's Impression: Radiology results as stated below per my review and the radiologist's interpretation: XR chest 1V portable HISTORY: Atypical Chest Pain COMPARISON: Chest 04/02/2019. FINDINGS: No pneumothorax. No pleural effusions. Stable calcified granulomas within the right lower lobe. Right jugular Port-A-Cath terminates at the proximal SVC. This is also unchanged. The heart is normal in size. No new focal lung consolidations to suggest pneumonia. No evidence for pulmonary edema. IMPRESSION: No significant change compared to the prior study. No acute process. Electronically signed by: Herman Castano M.D. 04/25/2019 12:19 PM ECG Data Attestation: I personally reviewed and interpreted this ECG as follows: Indication: chest pain Rate (beats per minute): 67 Rhythm: sinus rhythm Findings: + PVC and + ST depression (lateral) Comparison ECG Date: from (04/04/19) Change: the following changes noted (Changes are new compared to old ) Blood Pressure Blood Pressure Findings: Elevated blood pressure Blood Pressure Disposition: elevated BP felt to be situational MDM Narrative The patient is a 73-year-old male who presented to the emergency department for an evaluation of chest pain. The patient has a history of known coronary artery disease however at this time cardiac catheterization has been deferred until the patient's other medical conditions are stabilized. He was pain-free recently been started having more pain recently more often. Patient's EKG at this time does show some ST segment abnormalities and his troponin was abnormal. Patient was treated with aspirin as well as IV heparin in the emergency department. He was reevaluated multiple times. I discussed his laboratory and radiographic studies with him and his significant other. I also discussed his case with the on-call [facility] global upstream marketing manager as well as the on-call [facility] hospitalist group. They have agreed to evaluate the patient in the emergency department for further management disposition. The patient was feeling much b lavonne on subsequent reevaluation and was pain-free. Impression & Plan Angina pectoris, unstable, Elevated troponin, Chest pain, Abnormal ECG Critical Care Time Critical Care Time: Yes Total Critical Care Time: 60 I have personally spent greater than 60 minutes of critical care time in the direct management of this patient. This includes bedside care, interpretation of diagnostic studies, and testing, discussion with consultants, patient, and fa della members, and other required patient management activities. This 60 minutes is in excess of all separately billable procedures. Discharge Plan Visit Data *Final* Discharge Date/Time: 04/25/19 15:52 Chief Complaint: Chest Pain Stated Complaint: CHEST PAIN ED Provider: Josiah Cook Discharge Problem: Angina pectoris, unstable, Elevated troponin, Chest pain, Abnormal ECG Patient Disposition: Being Evaluated by Hospitalist Discharge Instructions Interventions: ED Discharge Assessment Last Done: 04/25/19 15:52 Discharge Problem: Chest pain Qualifiers: Chest pain type: unspecified Qualified Code(s): R07.9 - Chest pain, unspecified The scribe's documentation has been prepared under my direction and personally reviewed by me in its entirety. I confirm that the note above accurately reflects all work, treatment, procedures, and medical decision making performed by me.
[2019-04-25 18:01] LABS: Magnesium 1.8 mg/dl (1.8-2.4); Troponin I 5.56 ng/ml (0-0.045)
[2019-04-25] MEDS: ISOSORBIDE DINITRATE 20 MG TAB PO SCH (18:31)
[2019-04-25] MEDS ORDERED: MoRPHine SULFATE 2 MG/ML CARP IV PRN (19:54)
[2019-04-25] MEDS ORDERED: RANOLAZINE 500 MG ER TAB PO STA (19:56)
[2019-04-25 20:02] LABS: Partial Thromboplastin Ratio 1.4; Partial Thromboplastin Time 38.4 Seconds (21.0-31.0)
[2019-04-25] MEDS: METOPROLOL SUCC 25MG EXT REL TAB PO SCH (21:57)
[2019-04-25] MEDS: GABAPENTIN 100 MG CAP PO SCH (21:57)
[2019-04-25] MEDS ORDERED: HEPARIN IV BOLUS 6,000 UNITS in SYRINGE 0 ML IV ONE (22:04)
[2019-04-26 04:51] LABS: BUN Creatinine Ratio 23.3 (10-20); Calcium 8.3 mg/dl (8.5-10.1); Creatinine Clr Calc Pharmacy 56.7 ml/min; Est GFR (African American) 76.5; Magnesium 1.7 mg/dl (1.8-2.4); Potassium 4.6 mmol/L (3.5-5.1)
[2019-04-26] MEDS ORDERED: MAGNESIUM SULFATE / D5W 1 GM/100 ML BAG IV ONE (05:00)
[2019-04-26 05:46] LABS: Basophils # (auto) 0.03 K/uL (0-0.2); Basophils % (auto) 0.1 %; Dohle Bodies 1+; Eosinophils # (auto) 0.13 K/uL (0-0.5); Eosinophils % (auto) 0.6 %; Hematocrit (blood only) 31.2 % (42-52); Hemoglobin 10.6 g/dL (14.0-18.0); Immature Granulocytes # (auto) 0.35 K/uL (0.00-0.02); Immature Granulocytes % (auto) 1.5 %; Lymphocytes # (auto) 1.52 K/uL (1.2-3.4); Lymphocytes % (auto) 6.5 %; Mean Platelet Volume 8.8 fL (7.4-10.4); Monocytes # (auto) 1.07 K/uL (0.11-0.59); Monocytes % (auto) 4.6 %; Neutrophils # (auto) 20.29 K/uL (1.4-6.5); Neutrophils % (auto) 86.7 %; Platelet Count 152 K/uL (130-400); Platelet Estimate Normal (Normal); RDW Coefficient of Variation 16.6 % (11.5-14.5); RDW Standard Deviation 56.1 fL (36.4-46.3); Red Blood Count 3.39 M/uL (4.7-6.1); Toxic Granulation 1+; White Blood Count 23.39 K/uL (4.8-10.8)
[2019-04-26 06:52] LABS: Partial Thromboplastin Ratio 2.4; Partial Thromboplastin Time 64.4 Seconds (21.0-31.0)
[2019-04-26] MEDS: ASPIRIN 81 MG ECTAB PO SCH (07:59)
[2019-04-26] MEDS: RANOLAZINE 500 MG ER TAB PO SCH ×2 (07:59→20:31)
[2019-04-26] MEDS: ATORVASTATIN 20 MG TAB PO SCH (07:59)
[2019-04-26] MEDS: ISOSORBIDE DINITRATE 20 MG TAB PO SCH ×3 (07:59→16:06)
[2019-04-26] MEDS: CHOLECALCIFEROL 1,000 UNITS TAB PO SCH (07:59)
[2019-04-26] MEDS: METOPROLOL SUCC 25MG EXT REL TAB PO SCH ×2 (07:59→20:31)
[2019-04-26] MEDS: GABAPENTIN 100 MG CAP PO SCH ×3 (08:00→20:30)
[2019-04-26] MEDS: methIMAzole 5 MG TABLET PO SCH (08:01)
--- NOTE | 2019-04-26 08:50 | Cardiology Consultation ---
Date of Consultation April 26, 2019 Assessment & Plan (1) NSTEMI (non-ST elevated myocardial infarction): Patient currently chest pain free. ST depression resolved on EKG No wall motion abnormalities on echo. Continue IV heparin for 48 hours from admission Continue ASA, beta brielle, statin, Isordil at 20 mg TID (increased dose), and Ranexa 500 mg BID (new medication) Recent cath in January demonstrated 100% LAD and 100% RCA occlusion with collaterals. Med management recommended at that time. (2) Paroxysmal atrial fibrillation: Patient reports he had episode of "tachycardia" yesterday prior to chest pain. Possibly had episode of PAF. Currently NSR. Continue metoprolol. He was previously intolerant to amiodarone. Eliquis on hold while using IV heparin for NSTEMI (3) Multi-vessel coronary artery stenosis: continue home medications of ASA, statin (unable to increase atorvastatin dose due to history of LFT"s), beta brielle, nitrates, and now Ranexa (4) Anemia: stable. Keep hbg > [address] Crawley. Will follow during admission. Supervising Physician Co-Signing Physician Notes Patient seen and examined with Perlita Bennett PA-C. Agree with findings and assessment as above. Pt states that he felt himself go into afib with RVR for approx 15minutes immediately prior to development of chest pain. Likely outstripped myocardial blood supply of collaterals, which would explain troponin elevation. No wall motion abnormalities on echo. Given VENEER GLUER of both LAD and RCA only option is medical therapy. Isordil dose increased and Ranexa added. Could also consider addition of amlodipine if bp would allow. Monitor on tele overnight for 48hours or heparin. Pt and in agreement with plan. General: Awake, alert and oriented x 3. No acute distress. HEENT: Normocephalic, atraumatic. Pupils equal, round and reactive to light and accommodation. Extraocular muscles are intact. Anicteric sclera. Moist mucous membranes. Neck: No JVD. No bruit. Cardiovascular: Regular. Positive S-4. Normal S-1 and S-2. No S-3. No murmurs or rubs. Pulmonary: Clear to auscultation B/L. No rales, rhonchi or wheezing Abdomen: Bowel sounds x 4, soft. No rebound, guarding or tenderness. No organomegaly. Extremities: No clubbing, cyanosis or edema. +2 pedal pulses bilaterally. Skin: Warm and dry. History of Present Illness Reason for Consultation: NSTEMI; CAD Requesting Physician: Ms. Ferdinand Alfaro, PAC Attending Physician: Dr. Felton Crawley History of Present Illness Patient is a 73-year-old male who presented to the [facility] emergency department yesterday with complaints of palpitations and chest tightness lasting approximately 30 minutes. His drove him to the emergency department and symptoms were starting to subside en route. Upon arrival to ER, minimal chest pain reported. EKG demonstrated normal sinus rhythm with mild ST depression in anterolateral leads. Initial troponin elevated at 5.5. He was treated with nitrates with resolution of his symptoms. He was started on IV heparin for non- ST elevation OH. Eliquis was held. Hemoglobin stable. Repeat EKG after symptoms resolved demonstrated improved ST depression in anterior lateral leads. Case was reviewed with on-call commercial teller, Dr. Crawley who recommended increasing Isordil to 20 mg 3 times daily and addition of Ranexa 500 mg twice daily. He is tolerating these changes thus far. He was recently admitted in March 2019 with complaints of chest pain. Cardiac enzymes unremarkable at that time. He was found to be anemic and received 1 unit packed red blood cells. Isordil was increased to 10 mg 3 times daily at that time. Echo during that admission revealed normal LV systolic function without wall motion abnormalities. He is currently undergoing treatments for lymphoma at [facility] in [place]. He has upcoming PET scan on May 11, 2019. At time of consult patient resting comfortably without recurrent chest pain, palpitations, tachycardia, shortness of breath. He reports he slept well last night without recurrent symptoms. He currently feels well. No recent fever cough or chills. No dizziness, lightheadedness, syncope or near syncope. No orthopnea, PND, lower extremity edema. He carries a long complex history including 1. Paroxysmal atrial fibrillation with initial event occurring postoperatively following extensive pelvic exoneration surgery 07/27/2017, ultimately controlled with oral amiodarone. 2.Hypertension. 3.Hyperlipidemia. 4.History of non-Hodgkin's lymphoma in 2004. 5.Rectal carcinoma status post resection. 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 Multivessel coronary artery disease per Cath 01/2019 with 100% LAD and RCA occlusion with collaterals. January 2019 patient was admitted to [facility] with complaints waxing/waning chest pain with characteristics similar to GI etiology. Cardiac enzymes were negative. He was found to be profoundly anemic with Hbg of 7.5 requiring 2 units PRBC. He underwent stress test with stress induced LBBB and apical/septal wall motion abnormality. He subsequently was sent for cardiac catheterization which demonstrated multivessel coronary artery disease with 100% occlusion of the LAD and 100% occlusion of the RCA with excellent collateral fill. Patient developed atrial tachycardia during cath requiring IV adenosine. Metoprolol was subsequently increased to 25 mg BID and isosorbide initiated at 10 mg BID for coronary disease and anginal symptoms. Given his ongoing chemotherapy treatments, medical management recommended. Allergies Allergy/AdvReac Type Severity Reaction Status Date / Time Iodinated Contrast- Oral and Allergy Intermediate Rash Verified 04/25/19 12:29 IV Dye Home Medications Home Medications Medication Instructions Recorded Confirmed Type Eliquis 5 mg PO BID 04/26/18 04/25/19 History atorvastatin 20 mg PO QAM 04/26/18 04/25/19 History PreserVision AREDS 1 cap PO BID 05/29/18 04/25/19 History acetaminophen [Tylenol Extra 1,000 mg PO Q8H PRN 05/29/18 04/25/19 History Strength] dexamethasone 4 mg PO DIRECTED 02/11/19 04/25/19 History gabapentin 100 mg PO TID 02/11/19 04/25/19 History methimazole 10 mg PO DAILY 02/11/19 04/25/19 History triamcinolone acetonide 1 applic TOPICAL BID PRN 02/11/19 04/25/19 History ferrous sulfate 325 mg PO DAILY 04/02/19 04/25/19 History metoprolol succinate [Toprol XL] 25 mg PO BID 04/02/19 04/25/19 History isosorbide dinitrate 10 mg PO TID 30 Days #0 tab 04/04/19 04/25/19 Rx cholecalciferol (vitamin D3) 1,000 unit PO DAILY 04/25/19 04/25/19 History [Vitamin D3] lorazepam 0.5 mg PO HS PRN 04/25/19 04/25/19 History ondansetron HCl [Zofran] 8 mg PO TID PRN 04/25/19 04/25/19 History Patient History Medical History Paroxysmal atrial fibrillation (Chronic) Large B-cell lymphoma (Chronic) Hyperthyroidism (Chronic) RECENT DIAGNOSIS; ON METHIMAZOLE Hyperlipidemia (Chronic) Colon cancer (Chronic) PERMANENT ILEOSTOMY/NEPHROSTOMY IN PLACE Non-Hodgkin lymphoma in remission (Chronic) DX 2008; S/P CHEMO (2017) Osteoarthritis (Chronic) Prostate cancer (Chronic) S/P PROSTATECTOMY/RADIATION SEEDS (2003) GERD (gastroesophageal reflux disease) (Chronic) Hypertension (Chronic) Hx of Clostridium difficile infection (Resolved) Surgical History History of urostomy (Chronic) History of lymph node biopsy (Chronic) RT NECK EXCISIONAL BIOPSY 08/23/18 [facility] History of bowel resection (Chronic) CURRENT ILEOSTOMY / COLON CANCER S/P prostatectomy (Chronic) History of bladder surgery (Chronic) S/P CYSTECTOMY History of colonoscopy (Chronic) Family History Other Cancer Heart disease Hypertension Social History Preferred Language: Mosotho Communication Ability: Effective Visual Impairment: No Limitations Step Down Nurse Required: No Beliefs That Will Affect Care: None marital status: Current Living Situation: Spouse Other Information That Helps Us Care for You: No Feels Safe at Home: Yes Smoking Status: Never smoker Do You Dip or Chew Tobacco: No ; Second Hand Exposure: No ; Hx Alcohol Use: No Hx Substance Use: No Review of Systems Review of Systems: All systems reviewed & are unremarkable except as noted in HPI & below Physical Exam Physical Exam: General: NAD. A+Ox3. HEENT: Normocephalic. Atraumatic. PERRL. EOMI. Conjunctiva and sclera clear. NECK: No carotid bruits. No JVD. Carotid upstrokes are brisk. Heart: RRR. S1 and S2 noted without murmur, rubs, gallops. PMI non displaced. Lungs: Clear to auscultation and percussion. No wheezes, rhonchi, rales. Abdomen: Normal bowel sounds. Soft. Nontender. No masses or organomegaly. No abdominal bruits. Extremities: No edema. No clubbing or cyanosis. Pulses: radial=2/4, posterior tibial=2/4, dorsalis pedis = 2/4. NEURO: No focal deficits. PSYCH: Normal. Results & Data Vital Signs (Past 12 Hours) Vital Signs Temp Pulse Resp BP Pulse Ox 04/26/19 07:13 36.9 C 62 18 127/72 96 04/26/19 03:23 36.9 C 62 18 130/74 95 04/26/19 00:26 36.7 C 61 18 129/69 97 Laboratory Results 04/26/19 04/26/19 04/26/19 Range/Units 07:45 06:17 06:15 WBC (4.8-10.8) K/uL RBC (4.7-6.1) M/uL Hgb (14.0-18.0) g/dL POC Hgb Hct (42-52) % POC Hct MCV (80-100) fL MCH (25-34) pg MCHC (32-36) g/dL RDW Std Deviation (36.4-46.3) fL RDW Coeff of Aubree (11.5-14.5) % Plt Count (130-400) K/uL MPV (7.4-10.4) fL Immature Gran % (Auto) % Neut % (Auto) % Lymph % (Auto) % Hernando % (Auto) % Eos % (Auto) % Baso % (Auto) % Immature Gran # (Auto) (0.00-0.02) K/uL Neut # (Auto) (1.4-6.5) K/uL Lymph # (Auto) (1.2-3.4) K/uL Hernando # (Auto) (0.11-0.59) K/uL Eos # (Auto) (0-0.5) K/uL Baso # (Auto) (0-0.2) K/uL Neutrophils % (Manual) % Lymphocytes % (Manual) % Monocytes % (Manual) % Eosinophils % (Manual) % Neutrophils # (Manual) (1.4-6.5) K/uL Total Absolute Neuts (1.4-6.5) K/uL Lymphocytes # (Manual) (1.2-3.4) K/uL Total Abs Lymphocytes (1.2-3.4) K/uL Monocytes # (Manual) (0.11-0.59) K/uL Eosinophils # (Manual) (0-0.5) K/uL Toxic Granulation Dohle Bodies Platelet Estimate (Normal) Ovalocytes PT (9.0-12.0) Seconds INR (0.9-1.1) APTT 64.4 H* (21.0-31.0) Seconds PTT Ratio 2.4 POC Sodium Sodium (136-145) mmol/L POC Potassium Potassium (3.5-5.1) mmol/L POC Chloride Chloride (98-107) mmol/L Carbon Dioxide (21-32) mmol/L POC Total CO2 Anion Gap (3-11) POC Anion Gap POC BUN BUN (7-18) mg/dl Creatinine (0.6-1.4) mg/dl POC Creatinine Est Cr Clr Drug Dosing Est GFR ( Amer) Est GFR (Non-Af Amer) BUN/Creatinine Ratio (10-20) Glucose (70-99) mg/dl POC Glucose 93 (70-99) POC Glucose (other) Calcium (8.5-10.1) mg/dl POC Ioniz Calcium Paola Magnesium (1.8-2.4) mg/dl Total Bilirubin (0.2-1) mg/dl AST (15-37) U/L ALT (12-78) U/L Alkaline Phosphatase (45-117) U/L Troponin I 3.680 H* (0-0.045) ng/ml Total Protein (6.4-8.2) gm/dl Albumin (3.4-5.0) gm/dl Globulin (2.5-4.0) gm/dl Albumin/Globulin Ratio (0.9-2) Triglycerides (0-150) mg/dl Cholesterol (0-200) mg/dl LDL Cholesterol, Calc mg/dl VLDL Cholesterol, Calc mg/dl HDL Cholesterol mg/dl Cholesterol/HDL Ratio Lipase (73-393) U/L Blood Type Antibody Screen Crossmatch 04/26/19 04/26/19 04/26/19 Range/Units 04:18 04:18 04:18 WBC 23.39 H (4.8-10.8) K/uL RBC 3.39 L (4.7-6.1) M/uL Hgb 10.6 L (14.0-18.0) g/dL POC Hgb Hct 31.2 L (42-52) % POC Hct MCV 92.0 (80-100) fL MCH 31.3 (25-34) pg MCHC 34.0 (32-36) g/dL RDW Std Deviation 56.1 H (36.4-46.3) fL RDW Coeff of Aubree 16.6 H (11.5-14.5) % Plt Count 152 (130-400) K/uL MPV 8.8 (7.4-10.4) fL Immature Gran % (Auto) 1.5 % Neut % (Auto) 86.7 % Lymph % (Auto) 6.5 % Hernando % (Auto) 4.6 % Eos % (Auto) 0.6 % Baso % (Auto) 0.1 % Immature Gran # (Auto) 0.35 H (0.00-0.02) K/uL Neut # (Auto) 20.29 H (1.4-6.5) K/uL Lymph # (Auto) 1.52 (1.2-3.4) K/uL Hernando # (Auto) 1.07 H (0.11-0.59) K/uL Eos # (Auto) 0.13 (0-0.5) K/uL Baso # (Auto) 0.03 (0-0.2) K/uL Neutrophils % (Manual) % Lymphocytes % (Manual) % Monocytes % (Manual) % Eosinophils % (Manual) % Neutrophils # (Manual) (1.4-6.5) K/uL Total Absolute Neuts (1.4-6.5) K/uL Lymphocytes # (Manual) (1.2-3.4) K/uL Total Abs Lymphocytes (1.2-3.4) K/uL Monocytes # (Manual) (0.11-0.59) K/uL Eosinophils # (Manual) (0-0.5) K/uL Toxic Granulation 1+ Dohle Bodies 1+ Platelet Estimate Normal (Normal) Ovalocytes PT (9.0-12.0) Seconds INR (0.9-1.1) APTT Cancelled (21.0-31.0) Seconds PTT Ratio Cancelled POC Sodium Sodium 139 (136-145) mmol/L POC Potassium Potassium 4.6 D (3.5-5.1) mmol/L POC Chloride Chloride 103 (98-107) mmol/L Carbon Dioxide 31 (21-32) mmol/L POC Total CO2 Anion Gap 5.0 (3-11) POC Anion Gap POC BUN BUN 25 H (7-18) mg/dl Creatinine 1.09 (0.6-1.4) mg/dl POC Creatinine Est Cr Clr Drug Dosing 56.7 Est GFR ( Amer) 76.5 Est GFR (Non-Af Amer) 66.0 BUN/Creatinine Ratio 23.3 H (10-20) Glucose 99 (70-99) mg/dl POC Glucose (70-99) POC Glucose (other) Calcium 8.3 L (8.5-10.1) mg/dl POC Ioniz Calcium Paola Magnesium 1.7 L (1.8-2.4) mg/dl Total Bilirubin (0.2-1) mg/dl AST (15-37) U/L ALT (12-78) U/L Alkaline Phosphatase (45-117) U/L Troponin I (0-0.045) ng/ml Total Protein (6.4-8.2) gm/dl Albumin (3.4-5.0) gm/dl Globulin (2.5-4.0) gm/dl Albumin/Globulin Ratio (0.9-2) Triglycerides 82 (0-150) mg/dl Cholesterol 165 (0-200) mg/dl LDL Cholesterol, Calc 64 mg/dl VLDL Cholesterol, Calc 16 mg/dl HDL Cholesterol 85 mg/dl Cholesterol/HDL Ratio 2 Lipase (73-393) U/L Blood Type Antibody Screen Crossmatch 04/26/19 04/26/19 04/25/19 Range/Units 00:28 00:11 20:08 WBC (4.8-10.8) K/uL RBC (4.7-6.1) M/uL Hgb (14.0-18.0) g/dL POC Hgb Hct (42-52) % POC Hct MCV (80-100) fL MCH (25-34) pg MCHC (32-36) g/dL RDW Std Deviation (36.4-46.3) fL RDW Coeff of Aubree (11.5-14.5) % Plt Count (130-400) K/uL MPV (7.4-10.4) fL Immature Gran % (Auto) % Neut % (Auto) % Lymph % (Auto) % Hernando % (Auto) % Eos % (Auto) % Baso % (Auto) % Immature Gran # (Auto) (0.00-0.02) K/uL Neut # (Auto) (1.4-6.5) K/uL Lymph # (Auto) (1.2-3.4) K/uL Hernando # (Auto) (0.11-0.59) K/uL Eos # (Auto) (0-0.5) K/uL Baso # (Auto) (0-0.2) K/uL Neutrophils % (Manual) % Lymphocytes % (Manual) % Monocytes % (Manual) % Eosinophils % (Manual) % Neutrophils # (Manual) (1.4-6.5) K/uL Total Absolute Neuts (1.4-6.5) K/uL Lymphocytes # (Manual) (1.2-3.4) K/uL Total Abs Lymphocytes (1.2-3.4) K/uL Monocytes # (Manual) (0.11-0.59) K/uL Eosinophils # (Manual) (0-0.5) K/uL Toxic Granulation Dohle Bodies Platelet Estimate (Normal) Ovalocytes PT (9.0-12.0) Seconds INR (0.9-1.1) APTT (21.0-31.0) Seconds PTT Ratio POC Sodium Sodium (136-145) mmol/L POC Potassium Potassium (3.5-5.1) mmol/L POC Chloride Chloride (98-107) mmol/L Carbon Dioxide (21-32) mmol/L POC Total CO2 Anion Gap (3-11) POC Anion Gap POC BUN BUN (7-18) mg/dl Creatinine (0.6-1.4) mg/dl POC Creatinine Est Cr Clr Drug Dosing Est GFR ( Amer) Est GFR (Non-Af Amer) BUN/Creatinine Ratio (10-20) Glucose (70-99) mg/dl POC Glucose 100 H 98 (70-99) POC Glucose (other) Calcium (8.5-10.1) mg/dl POC Ioniz Calcium Paola Magnesium (1.8-2.4) mg/dl Total Bilirubin (0.2-1) mg/dl AST (15-37) U/L ALT (12-78) U/L Alkaline Phosphatase (45-117) U/L Troponin I 5.510 H* (0-0.045) ng/ml Total Protein (6.4-8.2) gm/dl Albumin (3.4-5.0) gm/dl Globulin (2.5-4.0) gm/dl Albumin/Globulin Ratio (0.9-2) Triglycerides (0-150) mg/dl Cholesterol (0-200) mg/dl LDL Cholesterol, Calc mg/dl VLDL Cholesterol, Calc mg/dl HDL Cholesterol mg/dl Cholesterol/HDL Ratio Lipase (73-393) U/L Blood Type Antibody Screen Crossmatch 04/25/19 04/25/19 04/25/19 Range/Units 19:40 17:02 17:02 WBC (4.8-10.8) K/uL RBC (4.7-6.1) M/uL Hgb (14.0-18.0) g/dL POC Hgb Hct (42-52) % POC Hct MCV (80-100) fL MCH (25-34) pg MCHC (32-36) g/dL RDW Std Deviation (36.4-46.3) fL RDW Coeff of Aubree (11.5-14.5) % Plt Count (130-400) K/uL MPV (7.4-10.4) fL Immature Gran % (Auto) % Neut % (Auto) % Lymph % (Auto) % Hernando % (Auto) % Eos % (Auto) % Baso % (Auto) % Immature Gran # (Auto) (0.00-0.02) K/uL Neut # (Auto) (1.4-6.5) K/uL Lymph # (Auto) (1.2-3.4) K/uL Hernando # (Auto) (0.11-0.59) K/uL Eos # (Auto) (0-0.5) K/uL Baso # (Auto) (0-0.2) K/uL Neutrophils % (Manual) % Lymphocytes % (Manual) % Monocytes % (Manual) % Eosinophils % (Manual) % Neutrophils # (Manual) (1.4-6.5) K/uL Total Absolute Neuts (1.4-6.5) K/uL Lymphocytes # (Manual) (1.2-3.4) K/uL Total Abs Lymphocytes (1.2-3.4) K/uL Monocytes # (Manual) (0.11-0.59) K/uL Eosinophils # (Manual) (0-0.5) K/uL Toxic Granulation Dohle Bodies Platelet Estimate (Normal) Ovalocytes PT (9.0-12.0) Seconds INR (0.9-1.1) APTT 38.4 H (21.0-31.0) Seconds PTT Ratio 1.4 POC Sodium Sodium (136-145) mmol/L POC Potassium Potassium (3.5-5.1) mmol/L POC Chloride Chloride (98-107) mmol/L Carbon Dioxide (21-32) mmol/L POC Total CO2 Anion Gap (3-11) POC Anion Gap POC BUN BUN (7-18) mg/dl Creatinine (0.6-1.4) mg/dl POC Creatinine Est Cr Clr Drug Dosing Est GFR ( Amer) Est GFR (Non-Af Amer) BUN/Creatinine Ratio (10-20) Glucose (70-99) mg/dl POC Glucose (70-99) POC Glucose (other) Calcium (8.5-10.1) mg/dl POC Ioniz Calcium Paola Magnesium 1.8 (1.8-2.4) mg/dl Total Bilirubin (0.2-1) mg/dl AST (15-37) U/L ALT (12-78) U/L Alkaline Phosphatase (45-117) U/L Troponin I 5.560 H* (0-0.045) ng/ml Total Protein (6.4-8.2) gm/dl Albumin (3.4-5.0) gm/dl Globulin (2.5-4.0) gm/dl Albumin/Globulin Ratio (0.9-2) Triglycerides (0-150) mg/dl Cholesterol (0-200) mg/dl LDL Cholesterol, Calc mg/dl VLDL Cholesterol, Calc mg/dl HDL Cholesterol mg/dl Cholesterol/HDL Ratio Lipase (73-393) U/L Blood Type A Positive Antibody Screen NEGATIVE Crossmatch See Detail 04/25/19 04/25/19 04/25/19 Range/Units 13:19 12:32 12:32 WBC (4.8-10.8) K/uL RBC (4.7-6.1) M/uL Hgb (14.0-18.0) g/dL POC Hgb Cancelled Hct (42-52) % POC Hct Cancelled MCV (80-100) fL MCH (25-34) pg MCHC (32-36) g/dL RDW Std Deviation (36.4-46.3) fL RDW Coeff of Aubree (11.5-14.5) % Plt Count (130-400) K/uL MPV (7.4-10.4) fL Immature Gran % (Auto) % Neut % (Auto) % Lymph % (Auto) % Hernando % (Auto) % Eos % (Auto) % Baso % (Auto) % Immature Gran # (Auto) (0.00-0.02) K/uL Neut # (Auto) (1.4-6.5) K/uL Lymph # (Auto) (1.2-3.4) K/uL Hernando # (Auto) (0.11-0.59) K/uL Eos # (Auto) (0-0.5) K/uL Baso # (Auto) (0-0.2) K/uL Neutrophils % (Manual) % Lymphocytes % (Manual) % Monocytes % (Manual) % Eosinophils % (Manual) % Neutrophils # (Manual) (1.4-6.5) K/uL Total Absolute Neuts (1.4-6.5) K/uL Lymphocytes # (Manual) (1.2-3.4) K/uL Total Abs Lymphocytes (1.2-3.4) K/uL Monocytes # (Manual) (0.11-0.59) K/uL Eosinophils # (Manual) (0-0.5) K/uL Toxic Granulation Dohle Bodies Platelet Estimate (Normal) Ovalocytes PT 11.3 (9.0-12.0) Seconds INR 1.1 (0.9-1.1) APTT 28.7 (21.0-31.0) Seconds PTT Ratio 1.1 POC Sodium Cancelled Sodium 136 (136-145) mmol/L POC Potassium Cancelled Potassium 3.4 L (3.5-5.1) mmol/L POC Chloride Cancelled Chloride 100 (98-107) mmol/L Carbon Dioxide 26 (21-32) mmol/L POC Total CO2 Cancelled Anion Gap 10.0 (3-11) POC Anion Gap Cancelled POC BUN Cancelled BUN 28 H (7-18) mg/dl Creatinine 1.05 (0.6-1.4) mg/dl POC Creatinine Cancelled Est Cr Clr Drug Dosing Not Reportable Est GFR ( Amer) 80.1 Est GFR (Non-Af Amer) 69.1 BUN/Creatinine Ratio 26.8 H (10-20) Glucose 120 H (70-99) mg/dl POC Glucose (70-99) POC Glucose (other) Cancelled Calcium 8.5 (8.5-10.1) mg/dl POC Ioniz Calcium Paola Cancelled Magnesium (1.8-2.4) mg/dl Total Bilirubin 0.2 (0.2-1) mg/dl AST 21 (15-37) U/L ALT 36 (12-78) U/L Alkaline Phosphatase 155 H (45-117) U/L Troponin I 0.607 H* (0-0.045) ng/ml Total Protein 5.5 L (6.4-8.2) gm/dl Albumin 3.2 L (3.4-5.0) gm/dl Globulin 2.3 L (2.5-4.0) gm/dl Albumin/Globulin Ratio 1.4 (0.9-2) Triglycerides (0-150) mg/dl Cholesterol (0-200) mg/dl LDL Cholesterol, Calc mg/dl VLDL Cholesterol, Calc mg/dl HDL Cholesterol mg/dl Cholesterol/HDL Ratio Lipase 88 (73-393) U/L Blood Type Antibody Screen Crossmatch 04/25/19 Range/Units 12:32 WBC 32.20 H* (4.8-10.8) K/uL RBC 3.27 L (4.7-6.1) M/uL Hgb 10.2 L (14.0-18.0) g/dL POC Hgb Hct 30.0 L (42-52) % POC Hct MCV 91.7 (80-100) fL MCH 31.2 (25-34) pg MCHC 34.0 (32-36) g/dL RDW Std Deviation 55.1 H (36.4-46.3) fL RDW Coeff of Aubree 16.4 H (11.5-14.5) % Plt Count 171 (130-400) K/uL MPV 8.8 (7.4-10.4) fL Immature Gran % (Auto) % Neut % (Auto) % Lymph % (Auto) % Hernando % (Auto) % Eos % (Auto) % Baso % (Auto) % Immature Gran # (Auto) (0.00-0.02) K/uL Neut # (Auto) (1.4-6.5) K/uL Lymph # (Auto) (1.2-3.4) K/uL Hernando # (Auto) (0.11-0.59) K/uL Eos # (Auto) (0-0.5) K/uL Baso # (Auto) (0-0.2) K/uL Neutrophils % (Manual) 90.4 % Lymphocytes % (Manual) 0.9 % Monocytes % (Manual) 7.8 % Eosinophils % (Manual) 0.9 % Neutrophils # (Manual) 29.11 H (1.4-6.5) K/uL Total Absolute Neuts 29.11 H (1.4-6.5) K/uL Lymphocytes # (Manual) 0.29 L (1.2-3.4) K/uL Total Abs Lymphocytes 0.29 L (1.2-3.4) K/uL Monocytes # (Manual) 2.51 H (0.11-0.59) K/uL Eosinophils # (Manual) 0.29 (0-0.5) K/uL Toxic Granulation 2+ Dohle Bodies 1+ Platelet Estimate Normal (Normal) Ovalocytes 1+ PT (9.0-12.0) Seconds INR (0.9-1.1) APTT (21.0-31.0) Seconds PTT Ratio POC Sodium Sodium (136-145) mmol/L POC Potassium Potassium (3.5-5.1) mmol/L POC Chloride Chloride (98-107) mmol/L Carbon Dioxide (21-32) mmol/L POC Total CO2 Anion Gap (3-11) POC Anion Gap POC BUN BUN (7-18) mg/dl Creatinine (0.6-1.4) mg/dl POC Creatinine Est Cr Clr Drug Dosing Est GFR ( Amer) Est GFR (Non-Af Amer) BUN/Creatinine Ratio (10-20) Glucose (70-99) mg/dl POC Glucose (70-99) POC Glucose (other) Calcium (8.5-10.1) mg/dl POC Ioniz Calcium Paola Magnesium (1.8-2.4) mg/dl Total Bilirubin (0.2-1) mg/dl AST (15-37) U/L ALT (12-78) U/L Alkaline Phosphatase (45-117) U/L Troponin I (0-0.045) ng/ml Total Protein (6.4-8.2) gm/dl Albumin (3.4-5.0) gm/dl Globulin (2.5-4.0) gm/dl Albumin/Globulin Ratio (0.9-2) Triglycerides (0-150) mg/dl Cholesterol (0-200) mg/dl LDL Cholesterol, Calc mg/dl VLDL Cholesterol, Calc mg/dl HDL Cholesterol mg/dl Cholesterol/HDL Ratio Lipase (73-393) U/L Blood Type Antibody Screen Crossmatch Diagnostic Findings 2D echocardiogram report reviewed dated 04/26/2019: Limited study completed to compare with prior study on 04/03/2019: No new wall motion abnormalities. Normal LV systolic function with ejection fraction of 60 to 65%. Mild concentric LVH. Repeat EKG on 04/25: Sinus bradycardia with Premature supraventricular complexes Nonspecific T wave abnormality Compared with admission EKG, ST depression in anterolateral leads has resolved EKG on admission 04/25/19 Sinus rhythm with Premature atrial complexes Nonspecific ST and T wave abnormality Compared with prior EKG, Premature atrial complexes are now present ST now depressed in Anterolateral leads chest xray on admission IMPRESSION: No significant change compared to the prior study. No acute process. Medications Administered Current Inpatient Medications Acetaminophen (Tylenol) 650 mg PO Q4H PRN PRN Reason: Pain or Fever Stop: 05/25/19 16:37 Aspirin (Ecotrin Ectab) 81 mg PO QAM [facility] Stop: 05/26/19 08:59 Last Admin: 04/26/19 07:59 Dose: 81 mg Documented by: Atorvastatin Calcium (Lipitor) 20 mg PO QAM [facility] Stop: 05/26/19 08:59 Last Admin: 04/26/19 07:59 Dose: 20 mg Documented by: Ferrous Sulfate (Feosol) 325 mg PO DAILY [facility] Stop: 05/26/19 08:59 Gabapentin (Neurontin) 100 mg PO TID [facility] Stop: 05/25/19 20:59 Last Admin: 04/26/19 08:00 Dose: 100 mg Documented by: Heparin Sodium/Dextrose (Heparin Sodium/Dextrose) 25,000 units in 500 mls @ 27 mls/hr IV .[id number] [facility]; Protocol Stop: 05/25/19 16:37 Last Titration: 04/26/19 07:02 Dose: 1,350 units/hr, 27 mls/hr Documented by: Sodium Chloride (Nss) 250 mls @ 15 mls/hr IV .[id number] PRN PRN Reason: For Transfusion Stop: 05/25/19 16:37 Isosorbide Dinitrate (Isordil) 20 mg PO TID@0700,1200,1700 [facility] Stop: 05/25/19 16:59 Last Admin: 04/26/19 07:59 Dose: 20 mg Documented by: Lorazepam (Ativan) 0.5 mg PO HS PRN PRN Reason: Insomnia Stop: 05/25/19 16:37 Methimazole (Tapazole) 10 mg PO DAILY [facility] Stop: 05/26/19 08:59 Last Admin: 04/26/19 08:01 Dose: 10 mg Documented by: Metoprolol Succinate (Toprol Xl) 25 mg PO BID [facility] Stop: 05/25/19 20:59 Last Admin: 04/26/19 07:59 Dose: 25 mg Documented by: Morphine Sulfate (Morphine Sulfate) 1 mg IV Q4 PRN PRN Reason: Pain Stop: 05/09/19 19:53 Multivitamins/Minerals (Multivitamin W/ Minerals Tab) 1 tab PO DAILY [facility] Stop: 05/26/19 08:59 Nitroglycerin (Nitrostat) 0.4 mg SL UD PRN PRN Reason: Chest Pain Stop: 05/25/19 16:37 Ondansetron HCl (Zofran) 4 mg IV Q6H PRN PRN Reason: Nausea Stop: 05/25/19 16:37 Ranolazine (Ranexa) 500 mg PO BID [facility] Stop: 05/26/19 08:59 Last Admin: 04/26/19 07:59 Dose: 500 mg Documented by: Vitamin D (Vitamin D3) 1,000 units PO DAILY [facility] Stop: 05/26/19 08:59 Last Admin: 04/26/19 07:59 Dose: 1,000 units Documented by: (1) Anemia Anemia type: unspecified type Qualified Code(s): D64.9 - Anemia, unspecified
[2019-04-26] MEDS: HEPARIN SODIUM/DEXTROSE 25,000 UNITS/500 ML BAG IV SCH (10:54)
[2019-04-26] MEDS: CEROVITE ADV FORMULA TAB PO SCH (10:54)
[2019-04-26] MEDS: FERROUS SULFATE 325 MG TAB PO SCH (10:54)
[2019-04-26 13:09] LABS: Partial Thromboplastin Ratio 2.1
[2019-04-26 13:12] LABS: Partial Thromboplastin Time 55.7 Seconds (21.0-31.0)
[2019-04-26 13:19] LABS: Troponin I 2.15 ng/ml (0-0.045)
--- NOTE | 2019-04-26 14:36 | Hospitalist Progress Note ---
Date of Service April 26, 2019 Assessment & Plan (1) Elevated troponin: NSTEMI (non-ST elevated myocardial infarction) Multi-vessel coronary artery disease Anticoagulated on anticoagulation therapy with IV heparin drip (started on 04/25/19) -H CAD with multivessel coronary disease -complete occlusion of mid LAD and proximal RCA with good collaterals on cath in 01/2019 on med management History echo 04/03/2019: EF: 60-65%, mild aortic sclerosis without significant stenosis -Patient presented on 04/25/19 with complaint of anterior chest pain with associated shortness of breath, dizziness, sensation of heart racing which lasted approximately 30 minutes. Took 2 Tylenol prior to ER arrival. Since arrival to ER has been chest pain-free; In the ED EKG rate 67, sinus rhythm with PACs, nonspecific ST changes and troponin of 0.6. Pt was given ASA 324mg po, Heparin IV started -troponins peaked to 5.56 on 04/25/19 -as per cardiology evaluation. ST depression resolved on EKG and No wall motion abnormalities on echocardiogram -Continue IV heparin for 48 hours from admission -Continue ASA, beta brielle, statin, Isordil at 20 mg TID (increased dose), and Ranexa 500 mg BID (new medication) (2) Leukocytosis: -Leukocytosis of 32,000 on admission which is comparatively downtrend from 48,000 on 04/04/19. -no fever -Leukocytosis likely secondary to use of Neulasta, decadron for Large B-cell lymphoma and because of malignancy -WBC count downtrended to 23,000 as of 04/26/19 (3) Paroxysmal atrial fibrillation: Current sinus rhythm -Continue metoprolol -Hold Eliquis while on heparin IV (4) Anemia: Chronic anemia -maintain hemoglobin above 10 as per cardiology service (5) Diabetes: Type 2 diabetes mellitus without residential use of insulin -Diet-controlled. A1c: 6.1 on 04/03/2018 -blood sugars stable (6) Hypertension: -blood pressure controlled, cardiovascular medications as described above (7) Hyperlipidemia: -lipid panel profile shows good control of lipids with current atorvastatin (8) Large B-cell lymphoma: -Recurrent lymphoma. History R-[facility]OP in 2009, prior treatment chemo and radiation in [id number]. 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 Has been chest pain free. no palpitations. no shortness of breath. breathing on room air. no dizziness. no headache. no gross bleeding. no abdomen pain. comfortable Physical Exam Constitutional: WD/WN, vitals as above Eyes: PERRL, conjunctivae normal, anicteric sclerae EOM intact bilaterally Neck: normal visual inspection Respiratory: normal respiratory effort, lungs clear to auscultation Cardiovascular: Rate/Rhythm: + bradycardic Gastrointestinal (Abdomen): normal bowel sounds, soft, nontender, no hepatosplenomegaly Musculoskeletal: Head/Neck/Chest: normocephalic and head atraumatic Neurologic: PERRL, EOMI, accommodation nl, no face palsy, no dysarthria CN's II-XI intact bilaterally Psychiatric: A+Ox3, euthymic affect Results & Data Vital Signs (Past 12 Hours) Vital Signs Temp Pulse Pulse Resp BP Pulse Ox 04/26/19 11:37 36.5 C 62 20 122/66 97 04/26/19 08:00 59 L 04/26/19 07:13 36.9 C 62 18 127/72 96 04/26/19 03:23 36.9 C 62 18 130/74 95 (1) Anemia Anemia type: unspecified type Qualified Code(s): D64.9 - Anemia, unspecified
[2019-04-26] MEDS ORDERED: HEPARIN 100 UNIT/ML 5ML FLUSH FLUSH PRN (23:34)
[2019-04-27] MEDS: HEPARIN SODIUM/DEXTROSE 25,000 UNITS/500 ML BAG IV SCH (02:56)
[2019-04-27 07:25] LABS: Hematocrit (blood only) 32.4 % (42-52); Hemoglobin 10.9 g/dL (14.0-18.0); Mean Corpuscular Volume 91.8 fL (80-100); Platelet Count 122 K/uL (130-400); RDW Coefficient of Variation 16.1 % (11.5-14.5); Red Blood Count 3.53 M/uL (4.7-6.1); White Blood Count 19.72 K/uL (4.8-10.8)
[2019-04-27 07:43] LABS: BUN Creatinine Ratio 23.7 (10-20); Calcium 8.6 mg/dl (8.5-10.1); Creatinine Clr Calc Pharmacy 50.6 ml/min; Est GFR (African American) 66.8; Est GFR (Non-African American) 57.6; Potassium 4.5 mmol/L (3.5-5.1)
[2019-04-27 07:44] LABS: Partial Thromboplastin Ratio 2.4
[2019-04-27 07:46] LABS: Partial Thromboplastin Time 64.9 Seconds (21.0-31.0)
[2019-04-27 08:01] LABS: Basophils # (auto) 0.04 K/uL (0-0.2); Basophils % (auto) 0.2 %; Eosinophils # (auto) 0.06 K/uL (0-0.5); Eosinophils % (auto) 0.3 %; Immature Granulocytes # (auto) 0.27 K/uL (0.00-0.02); Immature Granulocytes % (auto) 1.4 %; Lymphocytes # (auto) 1.26 K/uL (1.2-3.4); Lymphocytes % (auto) 6.4 %; Mean Corpuscular Hgb Conc 33.6 g/dL (32-36); Monocytes # (auto) 1.56 K/uL (0.11-0.59); Monocytes % (auto) 7.9 %; Neutrophils # (auto) 16.53 K/uL (1.4-6.5); Neutrophils % (auto) 83.8 %; Schistocytes 1+; Toxic Granulation 1+; Toxic Vacuolation 1+
[2019-04-27] MEDS: RANOLAZINE 500 MG ER TAB PO SCH (08:24)
[2019-04-27] MEDS: ISOSORBIDE DINITRATE 20 MG TAB PO SCH ×3 (08:24→17:10)
[2019-04-27] MEDS: METOPROLOL SUCC 25MG EXT REL TAB PO SCH (08:24)
[2019-04-27] MEDS: ATORVASTATIN 20 MG TAB PO SCH (08:25)
[2019-04-27] MEDS: GABAPENTIN 100 MG CAP PO SCH ×2 (08:25→12:54)
[2019-04-27] MEDS: CEROVITE ADV FORMULA TAB PO SCH (08:25)
[2019-04-27] MEDS: CHOLECALCIFEROL 1,000 UNITS TAB PO SCH (08:25)
[2019-04-27] MEDS: ASPIRIN 81 MG ECTAB PO SCH (08:25)
[2019-04-27] MEDS: FERROUS SULFATE 325 MG TAB PO SCH (08:25)
[2019-04-27] MEDS: methIMAzole 5 MG TABLET PO SCH (08:26)
--- NOTE | 2019-04-27 14:35 | Cardiology Progress Note ---
Date of Service April 27, 2019 Assessment & Plan (1) NSTEMI (non-ST elevated myocardial infarction): Patient currently chest pain free. No wall motion abnormalities on echo. Continue IV heparin for 48 hours from admission, which would be around 4 PM today. Continue ASA, beta brielle, statin, Isordil at 20 mg TID (increased dose), and Ranexa 500 mg BID (new medication) Patient reports he was not taking ASA 81 mg at home. will resume. Resume Eliquis on discharge as well. Recent cath in January demonstrated 100% LAD and 100% RCA occlusion with collaterals. Med management recommended at that time. (2) Paroxysmal atrial fibrillation: Patient reports he had episode of "tachycardia" yesterday prior to chest pain. Possibly had episode of PAF. Currently NSR. Continue metoprolol. He was previously intolerant to amiodarone. Eliquis on hold while using IV heparin for NSTEMI (3) Multi-vessel coronary artery stenosis: continue home medications of ASA, statin (unable to increase atorvastatin dose due to history of LFT"s), beta brielle, nitrates, and now Ranexa (4) Anemia: stable. Keep hbg > 10 Stable for discharge later today after 48 hours of heparin therapy. Discharge on above medications with notable changes to isordil at 20 mg three times daily, addition of Ranexa, and ASA 81 mg daily. Case discussed with Dr. Crawley. Supervising Physician Co-Signing Physician Notes Patient seen and examined with Perlita Bennett PA-C. Agree with findings and assessment as above. Pt denies further chest discomfort. Antianginals have been increased, would d/c home on current medical regimen today. next scheduled appt with Dr. Kerr is 06/12, my office will arrange sooner f/u with Perlita in next 1-2 weeks to follow. General: Awake, alert and oriented x 3. No acute distress. HEENT: Normocephalic, atraumatic. Pupils equal, round and reactive to light and accommodation. Extraocular muscles are intact. Anicteric sclera. Moist mucous membranes. Neck: No JVD. No bruit. Cardiovascular: Regular. Positive S-4. Normal S-1 and S-2. No S-3. No murmurs or rubs. Pulmonary: Clear to auscultation B/L. No rales, rhonchi or wheezing Abdomen: Bowel sounds x 4, soft. No rebound, guarding or tenderness. No organomegaly. Extremities: No clubbing, cyanosis or edema. +2 pedal pulses bilaterally. Skin: Warm and dry. Subjective Patient examined this morning in his room. He felt well. He denies recurrent chest pain overnight or this morning. He is able to ambulate in the hallways without exertional symptoms. Tolerating medication changes. No unusual dyspnea. No dizziness, syncope or near-syncope. No palpitations. Review of Systems Review of Systems: All systems reviewed & are unremarkable except as noted in HPI & below Physical Exam Constitutional: WD/WN, vitals as above well developed; no acute distress Respiratory: normal respiratory effort, lungs clear to auscultation Cardiovascular: RRR, no murmur, no edema Heart Sounds: + murmur Gastrointestinal (Abdomen): normal bowel sounds, soft, nontender, no hepatosplenomegaly Psychiatric: A+Ox3, euthymic affect Results & Data Vital Signs (Past 12 Hours) Vital Signs Temp Pulse Resp BP Pulse Ox 04/27/19 10:55 36.5 C 71 18 127/83 99 04/27/19 07:56 36.7 C 61 16 132/76 96 04/27/19 03:13 36.7 C 62 16 120/64 98 Laboratory Results 04/27/19 04/27/19 04/27/19 Range/Units 07:15 07:15 07:15 WBC 19.72 H (4.8-10.8) K/uL RBC 3.53 L (4.7-6.1) M/uL Hgb 10.9 L (14.0-18.0) g/dL Hct 32.4 L (42-52) % MCV 91.8 (80-100) fL MCH 30.9 (25-34) pg MCHC 33.6 (32-36) g/dL RDW Std Deviation 54.0 H (36.4-46.3) fL RDW Coeff of Aubree 16.1 H (11.5-14.5) % Plt Count 122 L (130-400) K/uL MPV 9.0 (7.4-10.4) fL Immature Gran % (Auto) 1.4 % Neut % (Auto) 83.8 % Lymph % (Auto) 6.4 % [place] % (Auto) 7.9 % Eos % (Auto) 0.3 % Baso % (Auto) 0.2 % Immature Gran # (Auto) 0.27 H (0.00-0.02) K/uL Neut # (Auto) 16.53 H (1.4-6.5) K/uL Lymph # (Auto) 1.26 (1.2-3.4) K/uL [place] # (Auto) 1.56 H (0.11-0.59) K/uL Eos # (Auto) 0.06 (0-0.5) K/uL Baso # (Auto) 0.04 (0-0.2) K/uL Toxic Granulation 1+ Toxic Vacuolation 1+ Schistocytes 1+ APTT 64.9 H* (21.0-31.0) Seconds PTT Ratio 2.4 Sodium 137 (136-145) mmol/L Potassium 4.5 (3.5-5.1) mmol/L Chloride 102 (98-107) mmol/L Carbon Dioxide 29 (21-32) mmol/L Anion Gap 6.0 (3-11) BUN 29 H (7-18) mg/dl Creatinine 1.22 (0.6-1.4) mg/dl Est Cr Clr Drug Dosing 50.6 ml/min Est GFR ( Amer) 66.8 Est GFR (Non-Af Amer) 57.6 BUN/Creatinine Ratio 23.7 H (10-20) Glucose 98 (70-99) mg/dl POC Glucose (70-99) Calcium 8.6 (8.5-10.1) mg/dl 04/26/19 Range/Units 16:16 WBC (4.8-10.8) K/uL RBC (4.7-6.1) M/uL Hgb (14.0-18.0) g/dL Hct (42-52) % MCV (80-100) fL MCH (25-34) pg MCHC (32-36) g/dL RDW Std Deviation (36.4-46.3) fL RDW Coeff of Aubree (11.5-14.5) % Plt Count (130-400) K/uL MPV (7.4-10.4) fL Immature Gran % (Auto) % Neut % (Auto) % Lymph % (Auto) % [place] % (Auto) % Eos % (Auto) % Baso % (Auto) % Immature Gran # (Auto) (0.00-0.02) K/uL Neut # (Auto) (1.4-6.5) K/uL Lymph # (Auto) (1.2-3.4) K/uL [place] # (Auto) (0.11-0.59) K/uL Eos # (Auto) (0-0.5) K/uL Baso # (Auto) (0-0.2) K/uL Toxic Granulation Toxic Vacuolation Schistocytes APTT (21.0-31.0) Seconds PTT Ratio Sodium (136-145) mmol/L Potassium (3.5-5.1) mmol/L Chloride (98-107) mmol/L Carbon Dioxide (21-32) mmol/L Anion Gap (3-11) BUN (7-18) mg/dl Creatinine (0.6-1.4) mg/dl Est Cr Clr Drug Dosing ml/min Est GFR ( Amer) Est GFR (Non-Af Amer) BUN/Creatinine Ratio (10-20) Glucose (70-99) mg/dl POC Glucose 116 H (70-99) Calcium (8.5-10.1) mg/dl Diagnostic Findings Telemetry reviewed demonstrating normal sinus rhythm. occasional PAC. No atrial fibrillation. (1) Anemia Anemia type: unspecified type Qualified Code(s): D64.9 - Anemia, unspecified
[2019-04-27 16:01] VITALS: BP 105/64; PULSE 61; TEMP 98.1; O2SAT 96
--- NOTE | 2019-04-27 16:41 | Hospitalist Progress Note ---
Date of Service April 27, 2019 Assessment & Plan (1) Elevated troponin: NSTEMI (non-ST elevated myocardial infarction) Multi-vessel coronary artery disease Anticoagulated on anticoagulation therapy with IV heparin drip (started on 04/25/19) -H CAD with multivessel coronary disease -complete occlusion of mid LAD and proximal RCA with good collaterals on cath in 01/2019 on med management History echo 04/03/2019: EF: 60-65%, mild aortic sclerosis without significant stenosis -Patient presented on 04/25/19 with complaint of anterior chest pain with associated shortness of breath, dizziness, sensation of heart racing which lasted approximately 30 minutes. Took 2 Tylenol prior to ER arrival. Since arrival to ER has been chest pain-free; In the ED EKG rate 67, sinus rhythm with PACs, nonspecific ST changes and troponin of 0.6. Pt was given ASA 324mg po, Heparin IV started -troponins peaked to 5.56 on 04/25/19 -as per cardiology evaluation. ST depression resolved on EKG and No wall motion abnormalities on echocardiogram To summarize: Patient was evaluated in the hospital for NSTEMI (non-ST elevated myocardial infarction) and completed at least 48 hours of IV heparin from 04/25/19 to 04/27/19 and as per cardiology evaluations is to be discharged with new medication of aspirin 81 mg daily, isosorbide 20 mg three times a day and ranolazine 500 mg twice a day which were given in the hospital. Patient should also resume other heart related medication such as Eliquis 5 mg twice a day and atorvastatin 20 mg daily. New prescriptions have been sent electronically to [facility] [address] [place] [address] Patient should follow up with outpatient doctors and lab work in regards to blood counts and lymphoma treatment 04/30/2019 11:00 AM Provider Lab [facility] Department Laboratory [facility] 04/30/2019 11:45 AM Provider Nurse Hem Onc [facility] Department Hematology/Oncology [facility] 05/02/2019 3:30 PM Provider Renny Asher MD Department [facility] 05/17/2019 10:45 AM Provider Lab [facility] Department Laboratory [facility] 05/17/2019 11:15 AM Provider Randy Newell MD Department Hematology/Oncology [facility] 05/17/2019 11:45 AM Provider Chair 8 Hem Onc [facility] Department Hematology/Oncology Treatment, [place] 05/28/2019 1:30 PM Provider Renny Asher MD Department [facility] 06/12/2019 11:00 AM Provider Jerry Kerr MD Department Cardiology, [facility] 08/17/2019 3:00 PM Provider Jerry Kerr MD Department Cardiology, [facility] (2) Leukocytosis: -Leukocytosis of 32,000 on admission which is comparatively downtrend from 48,000 on 04/04/19. -no fever -Leukocytosis likely secondary to use of Neulasta, decadron for Large B-cell lymphoma and because of malignancy -WBC count downtrended to 23,000 as of 04/26/19 and downtrended to 19,700 as of 04/27/19 (3) Paroxysmal atrial fibrillation: Current sinus rhythm -Continue metoprolol -can resume Eliquis BID as heparin IV treatment completed (4) Anemia: Chronic anemia -maintain hemoglobin above 10 as per cardiology service - discharge hemoglobin is 10.9 (5) Diabetes: Type 2 diabetes mellitus without prison use of insulin -Diet-controlled. A1c: 6.1 on 04/03/2018 -blood sugars stable (6) Hypertension: -blood pressure controlled, cardiovascular medications as described above (7) Hyperlipidemia: -lipid panel profile shows good control of lipids with current atorvastatin -as per cardiology service, unable to increase atorvastatin dose due to history of (elevated) LFT"s (8) Large B-cell lymphoma: -Recurrent lymphoma. History R-[facility] in 2009, prior treatment chemo and radiation in [id number]. -Current chemotherapy patient as outpatient, last chemo 04/18/2019 (9) Rectal adenocarcinoma: diagnosed in 2017 had been treated with previously with chemo, radiation, ileostomy (10) Prostate cancer: -history of radiation and surgery in the past (11) Hyperthyroidism: History amiodarone induced hyperthyroidism -Continue methimazole DVT Prophylaxis -completed at least 48 hours of IV heparin and can resume Eliquis Full Code Discharge Diagnosis: NSTEMI (non-ST elevated myocardial infarction); Multi-vesse l coronary artery disease; Anticoagulated on anticoagulation therapy; Leukocytosis; Large B-cell lymphoma; chronic anemia Subjective Patient completed at least 48 hours of IV heparin therapy. He has been feeling well. no chest pain. no shortness of breath. no abdomen pain. no vomiting. no dizziness. no lightheadedness. no headache. Physical Exam Constitutional: WD/WN, vitals as above Eyes: PERRL, conjunctivae normal, anicteric sclerae EOM intact bilaterally Neck: normal visual inspection Respiratory: normal respiratory effort, lungs clear to auscultation Cardiovascular: Rate/Rhythm: + bradycardic Gastrointestinal (Abdomen): normal bowel sounds, soft, nontender, no hepatosplenomegaly Musculoskeletal: Head/Neck/Chest: normocephalic and head atraumatic Neurologic: PERRL, EOMI, accommodation nl, no face palsy, no dysarthria CN's II-XI intact bilaterally Psychiatric: A+Ox3, euthymic affect Results & Data Vital Signs (Past 12 Hours) Vital Signs Temp Pulse Resp BP Pulse Ox 04/27/19 15:59 36.7 C 61 20 105/64 96 04/27/19 10:55 36.5 C 71 18 127/83 99 04/27/19 07:56 36.7 C 61 16 132/76 96 (1) Anemia Anemia type: unspecified type Qualified Code(s): D64.9 - Anemia, unspecified
--- NOTE | 2019-04-27 16:50 | Discharge Summary ---
Date of Service April 27, 2019 Admission HPI Per Admitting Provider Pt is 73 y/o M with PMH CAD (multivessel coronary disease -complete occlusion of mid LAD and proximal RCA with good collaterals on cath in 01/2019 on med management), paroxysmal atrial fibrillation on Eliquis, HTN, HLD, GERD, chronic anemia, h/o prostate cancer in 2004 s/p radiation and surgery, history of rectal adenoma carcinoma 2017 s/p chemo, radiation, surgery, recurrent lymphoma on chemo presented to ER with complaint of chest pain today. History recent hospitalization 04/02/2019-04/04/2019 for chest pain. Had negative troponins x3. Hemoglobin 8.9. Was thought to be angina secondary to anemia. Patient received 1 unit PRBCs. Isosorbide dinitrate was increased. Patient reports an episode of chest pain 3 days ago which lasted 5 to 10 minutes and was centrally located and resolved with rest. Patient states today around 1030 he was walking in his house when he developed some sensation of heart racing, central chest pain that lasted approximately 30 minutes. Had associated shortness of breath and dizziness with episode. Patient states took 2 Tylenol. Upon arrival to ER patient chest pain resolved and has been chest pain-free during ED course. Patient reports normally has episodes of chest pain after chemotherapy. Last chemo treatment on 04/18/2019. Denies fever/chills, diaphoresis, N/V/D/C, ISLAS, syncope, vision changes, neck pain, orthopnea, cough, sore throat, choking, otalgia, rhinorrhea, abdominal pain, paresthesias, weakness, extremity weakness, extremity edema, rashes, urinary symptoms. History echo 04/03/2019: EF: 60-65%, mild aortic sclerosis without significant stenosis Admission Exam Per Admitting Provider General: no acute distress, WDWN Head: normocephalic, atraumatic Eyes: PERRL, EOM's intact, conjunctiva non-injected, anicteric ENT: normal inspection external ears, nose, mucous membranes moist Neck: supple, trachea midline, non-tender Lungs: clear, no respiratory distress, no wheezing/rhonchi/rales Chest: +port to right upper chest CV: regular rate, 62, irregular rhythm, no murmur, no JVD, no pretibial edema Abd: normal BS, +ostomy x 2, soft, non-tender Ext: no cyanosis, no calf tenderness Neuro: A&O x 3, no focal deficits noted, normal affect Skin: warm, dry Principal Diagnosis NSTEMI (non-ST elevated myocardial infarction); Multi-vessel coronary artery disease; Anticoagulated on anticoagulation therapy; Leukocytosis; Large B-cell lymphoma; chronic anemia Discharge Exam Constitutional WD/WN, vitals as above Eyes PERRL, conjunctivae normal, anicteric sclerae EOM intact bilaterally Neck normal visual inspection Respiratory normal respiratory effort, lungs clear to auscultation Cardiovascular Rate/Rhythm: + bradycardic Gastrointestinal (Abdomen) normal bowel sounds, soft, nontender, no hepatosplenomegaly Musculoskeletal Head/Neck/Chest: normocephalic and head atraumatic Neurologic PERRL, EOMI, accommodation nl, no face palsy, no dysarthria CN's II-XI intact bilaterally Psychiatric A+Ox3, euthymic affect Discharge Data Allergies Allergy/AdvReac Type Severity Reaction Status Date / Time Iodinated Contrast- Oral and Allergy Intermediate Rash Verified 04/25/19 12:29 IV Dye Consultations 04/25/19 13:30 ED Decision to Admit Stat 04/25/19 16:38 Consult Cardiology Routine Consult Case Management - Discharge Planning Routine Hospital Course (1) Elevated troponin: NSTEMI (non-ST elevated myocardial infarction) Multi-vessel coronary artery disease Anticoagulated on anticoagulation therapy with IV heparin drip (started on 04/25/19) -H CAD with multivessel coronary disease -complete occlusion of mid LAD and proximal RCA with good collaterals on cath in 01/2019 on med management History echo 04/03/2019: EF: 60-65%, mild aortic sclerosis without significant stenosis -Patient presented on 04/25/19 with complaint of anterior chest pain with associated shortness of breath, dizziness, sensation of heart racing which lasted approximately 30 minutes. Took 2 Tylenol prior to ER arrival. Since arrival to ER has been chest pain-free; In the ED EKG rate 67, sinus rhythm with PACs, nonspecific ST changes and troponin of 0.6. Pt was given ASA 324mg po, Heparin IV started -troponins peaked to 5.56 on 04/25/19 -as per cardiology evaluation. ST depression resolved on EKG and No wall motion abnormalities on echocardiogram To summarize: Patient was evaluated in the hospital for NSTEMI (non-ST elevated myocardial infarction) and completed at least 48 hours of IV heparin from 04/25/19 to 04/27/19 and as per cardiology evaluations is to be discharged with new medication of aspirin 81 mg daily, isosorbide 20 mg three times a day and ranolazine 500 mg twice a day which were given in the hospital. Patient should also resume other heart related medication such as Eliquis 5 mg twice a day and atorvastatin 20 mg daily. New prescriptions have been sent electronically to [facility] [address] [place] [address] Patient should follow up with outpatient doctors and lab work in regards to b lood counts and lymphoma treatment 04/30/2019 11:00 AM Provider Lab [facility] Department Laboratory [facility] 04/30/2019 11:45 AM Provider Nurse Hem Onc [facility] Department Hemat ology/Oncology [facility] 05/02/2019 3:30 PM Provider Renny Asher MD Department [facility] 05/17/2019 10:45 AM Provider Lab [facility] Department Laboratory [facility] 05/17/2019 11:15 AM Provider Randy Newell MD Department Hematology/Oncology [facility] 05/17/2019 11:45 AM Provider Chair 8 Hem Onc [facility] 1:30 PM Provider Renny Asher MD Department [facility] 06/12/2019 11:00 AM Provider Jerry Kerr MD Department Cardiology, [facility] 08/17/2019 3:00 PM Provider Jerry Kerr MD Department Cardiology, [facility] (2) Leukocytosis: -Leukocytosis of 32,000 on admission which is comparatively downtrend from 48,000 on 04/04/19. -no fever -Leukocytosis likely secondary to use of Neulasta, decadron for Large B-cell lymphoma and because of malignancy -WBC count downtrended to 23,000 as of 04/26/19 and downtrended to 19,700 as of 04/27/19 (3) Paroxysmal atrial fibrillation: Current sinus rhythm -Continue metoprolol -can resume Eliquis BID as heparin IV treatment completed (4) Anemia: Chronic anemia -maintain hemoglobin above 10 as per cardiology service - discharge hemoglobin is 10.9 (5) Diabetes: Type 2 diabetes mellitus without halfway use of insulin -Diet-controlled. A1c: 6.1 on 04/03/2018 -blood sugars stable (6) Hypertension: -blood pressure controlled, cardiovascular medications as described above (7) Hyperlipidemia: -lipid panel profile shows good control of lipids with current atorvastatin -as per cardiology service, unable to increase atorvastatin dose due to history of (elevated) LFT"s (8) Large B-cell lymphoma: -Recurrent lymphoma. History R-[facility] in 2009, prior treatment chemo and radiation in 1669-2026. -Current chemotherapy patient as outpatient, last chemo 04/18/2019 (9) Rectal adenocarcinoma: diagnosed in 2017 had been treated with previously with chemo, radiation, ileostomy (10) Prostate cancer: -history of radiation and surgery in the past (11) Hyperthyroidism: History amiodarone induced hyperthyroidism -Continue methimazole DVT Prophylaxis -completed at least 48 hours of IV heparin and can resume Eliquis Full Code Discharge Diagnosis: NSTEMI (non-ST elevated myocardial infarction); Multi- vessel coronary artery disease; Anticoagulated on anticoagulation therapy; Leukocytosis; Large B-cell lymphoma; chronic anemia Total Time Total Time Spent Total Time Spent (In Minutes): 40 minutes Total Time Includes: Examination of the Patient, Discharge Planning, Medication Reconciliation and Communication With Other Providers Discharge Plan Discharge Items Patient Disposition: Home - Self-Care Reason For Visit: CP Discharge Diagnosis: NSTEMI (non-ST elevated myocardial infarction); Multi- vessel coronary artery disease; Anticoagulated on anticoagulation therapy; Leukocytosis; Large B-cell lymphoma; chronic anemia Condition: Good Discharge Goals: Improve disease control Activity: Resume your previous activity Non-emergency contact: Primary Care Provider, Specialist and Senior Qc Technician Call non-emergency contact if: you have any medication questions Follow-up/Referrals: Renny Asher MD [Primary Care Provider] - Diet: Carb Consistent or DM2 and Heart Healthy Addtl Provider Instructions: Patient was evaluated in the hospital for NSTEMI (non-ST elevated myocardial infarction) and completed at least 48 hours of IV heparin from 04/25/19 to 04/27/19 and as per cardiology evaluations is to be discharged with new medication of asp irin 81 mg daily, isosorbide 20 mg three times a day and ranolazine 500 mg twice a day which were given in the hospital. Patient should also resume other heart related medication such as Eliquis 5 mg twice a day and atorvastatin 20 mg daily. New prescriptions have been sent electronically to [facility] [address] [place] [address] Patient should follow up with outpatient doctors and lab work in regards to blood counts and lymphoma treatment 04/30/2019 11:00 AM Provider Lab [facility] Department Laboratory [facility] 04/30/2019 11:45 AM Provider Nurse Hem Onc [facility] Department Hematology/Oncology [facility] 05/02/2019 3:30 PM Provider Renny Asher MD Department [facility] 05/17/2019 10:45 AM Provider Lab [facility] Department Laboratory [facility] 05/17/2019 11:15 AM Provider Randy Newell MD Department Hematology/Oncology [facility] 05/17/2019 11:45 AM Provider Chair 8 Hem Onc [facility] Department Hematology/Oncology Treatment, [place] 05/28/2019 1:30 PM Provider Renny Asher MD Department [facility] 06/12/2019 11:00 AM Provider Jerry Kerr MD Department Cardiology, [facility] 08/17/2019 3:00 PM Provider Jerry Kerr MD Department Cardiology, [facility] Prescriptions: New isosorbide dinitrate 20 mg Tablet 20 mg PO TID@0700,1200,1700 30 Days Qty: 60 RF: 0 ranolazine [Ranexa] 500 mg Tablet Extended Release 12 Hr 500 mg PO BID 30 Days Qty: 60 RF: 0 aspirin [Ecotrin Low Strength] 81 mg Tablet,Delayed Release (Dr/Ec) 81 mg PO QAM 30 Days Qty: 30 RF: 0 Continued methimazole 10 mg Tablet 10 mg PO DAILY RF: 0 triamcinolone acetonide 0.1 % Cream 1 applic TOPICAL BID PRN (Reason: Rash) RF: 0 dexamethasone 4 mg Tablet 4 mg PO DIRECTED RF: 0 gabapentin 100 mg Capsule 100 mg PO TID RF: 0 metoprolol succinate [Toprol XL] 25 mg tablet extended release 24 hr 25 mg PO BID RF: 0 ferrous sulfate 325 mg (65 mg iron) tablet,delayed release (DR/EC) 325 mg PO DAILY RF: 0 atorvastatin 20 mg Tablet 20 mg PO QAM RF: 0 Eliquis 5 mg Tablet 5 mg PO BID RF: 0 acetaminophen [Tylenol Extra Strength] 500 mg Tablet 1,000 mg PO Q8H PRN (Reason: Pain) RF: 0 PreserVision AREDS [id number] Capsule 1 cap PO BID RF: 0 lorazepam 0.5 mg tablet 0.5 mg PO HS PRN (Reason: Insomnia) RF: 0 cholecalciferol (vitamin D3) [Vitamin D3] 1,000 unit Capsule 1,000 unit PO DAILY RF: 0 ondansetron HCl [Zofran] 8 mg Tablet 8 mg PO TID PRN (Reason: Nausea And Vomiting) RF: 0 Discontinued isosorbide dinitrate 10 mg tablet 10 mg PO TID 30 Days Qty: 0 RF: 0 Stand-Alone Forms: Call Back Authorization, [facility] Discharge Orders: Discharge Order (Routine); Ordered 04/27/19 Ordered By: Solomon Bronw Admission Data Admit Date/Time: 04/26/19 14:33 Attending Provider: Solomon Brown Admit Provider: Daniel Cheek Primary Care Provider: Renny Asher Other Providers: Olu Crawley ; Daniel Cheek Service: Telemetry
[2019-04-27] MEDS ORDERED: APIXABAN 5 MG TABLET PO SCH (21:00)
== END 2019-04-27 17:28 | disposition home or self-care (01) | DRG 281 ==
LOC: ED 11:39 → 2S 11:39
DX: D72.829 Elevated white blood cell count, unspecified; I21.4 Non-ST elevation (NSTEMI) myocardial infarction; D63.8 Anemia in other chronic diseases classified elsewhere; T45.8X5A Adverse effect of other primarily systemic and hematological agents, initial encounter; Z79.899 Other long term (current) drug therapy; Z85.46 Personal history of malignant neoplasm of prostate; T46.2X5S Adverse effect of other antidysrhythmic drugs, sequela; Z92.3 Personal history of irradiation; E78.5 Hyperlipidemia, unspecified; I48.0 Paroxysmal atrial fibrillation; T38.0X5A Adverse effect of glucocorticoids and synthetic analogues, initial encounter; Z79.52 Long term (current) use of systemic steroids; C85.10 Unspecified B-cell lymphoma, unspecified site; I10 Essential (primary) hypertension; E11.9 Type 2 diabetes mellitus without complications; Z79.01 Long term (current) use of anticoagulants; Z91.041 Radiographic dye allergy status; I25.110 Atherosclerotic heart disease of native coronary artery with unstable angina pectoris; C20 Malignant neoplasm of rectum; Z93.2 Ileostomy status; E05.80 Other thyrotoxicosis without thyrotoxic crisis or storm

== ENCOUNTER 2021-06-09 14:10 | Inpatient (IN) ==
[2021-06-09] MEDS ORDERED: CEFEPIME 2,000 MG/20 ML VIAL IV STA (14:55)
[2021-06-09] MEDS ORDERED: SODIUM CHLORIDE 0.9% 1000ML 1,000 ML IV SCH (15:00)
--- NOTE | 2021-06-09 15:05 | Emergency Department Note ---
Impression & Plan Hypotension, Cough, Neutropenia, Fever, SOB (shortness of breath) ED Provider Note NAME: CARROLL STALLINGS AGE: 76 SEX: M : 1945 ARRIVES VIA: Walk-In INFORMANT: [Patient] ED PROVIDER(S): [Tyree Storey MD] CHIEF COMPLAINT: Cough HISTORY OF PRESENT ILLNESS: The patient is a 76-year-old male presents with 6 weeks of illness. He has been short of breath with exertion, he has been coughing. He has had a low-grade fever, he has had fatigue. He has lymphoma but has not had recent chemotherapy or radiation for about a year. Patient states he has not had vomiting or diarrhea. He has no abdominal or chest pain. The patient is vaccinated against COVID-19, he has had no recent known Covid exposures. The patient has a colostomy and urostomy. Both are functioning normally for him. The patient was sent today by Dr. Newell as he just is not improving. As per the note from Dr. Newell, the patient is neutropenic. REVIEW OF SYSTEMS: See HPI for pertinent positives and negatives. A total of ten systems were reviewed and were otherwise negative. PMHx/PSHx: See Below SOCIAL HISTORY: See Below. PHYSICAL EXAM: GENERAL: Patient is in no acute distress. HEENT: No acute trauma, normocephalic atraumatic, mucous membranes moist, no nasal congestion, no scleral icterus. NECK: No stridor, no adenopathy, no meningismus, trachea is midline. LUNGS: Clear to auscultation bilaterally, no wheeze, no rhonchi, breath sounds equal. Breath sounds are diminished bilaterally. HEART: Without murmurs gallops or rubs, regular rate and rhythm. ABDOMEN: Soft, nontender, bowel sounds positive, no hernias, no peritonitis. Urostomy and colostomy noted. EXTREMITIES: No cyanosis or edema, full range of motion of all the joints without pain or difficulty, no signs for acute trauma. NEUROLOGIC: Oriented x 3, no acute motor or sensory deficits, no focal weakness. SKIN: No rash, no jaundice, no diaphoresis. DIFFERENTIAL DIAGNOSIS: Sepsis, UTI, pneumonia, COVID-19, generalized viral illness, acute bronchitis, neutropenia, metabolic abnormality, electrolyte abnormalities, cardiac sources, cellulitis, bacteremia, intracerebral event, toxicologic etiology, neurologic event, as well as other pathologies. EMERGENCY DEPARTMENT COURSE/PROCEDURES: ECG: Indication was shortness of breath. The ECG shows what appears to be a sinus rhythm with frequent PVCs and possibly some PACs. The rate is 87. There is a nonspecific ventricular block seen. No ST elevation. Nonspecific ST changes noted diffusely. QTc is 500. Compared to an ECG from 26 April 2019, the PACs and PVCs are now present, the nonspecific ST change appears similar. Continuous Cardiac Monitoring: An order was placed for continuous cardiac monitoring. The monitor shows a rate of 88 with sinus rhythm with PACs and PVCs. Critical Care Note: I have personally spent 51 minutes of critical care time in the direct management of this patient. This includes bedside care, interpretat ion of diagnostic studies, and testing, discussion with consultants, patient, and family members, and other required patient management activities. This 51 minutes is in excess of all separately billable procedures. MEDICAL DECISION MAKING: There is a low white count, this is consistent with the recent history. There is an anemia present. The anemia looks to be at baseline based on previous testing. There is a lower platelet count. The patient was not neutropenic by our differential testing. INR was slightly high at 1.2. Sodium somewhat low at 132 but not in need of emergent correction. No kidney failure. Lactic acid level was elevated consistent with infection/dehydration. Magnesium was low at 1.4. No concerning liver enzyme elevation. Procalcitonin level was normal. Urinalysis does not show infection. Covid testing was negative. Chest film does not show pneumonia or CHF. The patient presented hypotensive. He has been complaining of fatigue and shortness of breath. He has had a low-grade fever. He is neutropenic. He did receive IV saline for hydration, 1.5 L. He was given IV cefepime as empiric antibiotic coverage. 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 Hospitalization is warranted. The cause for the pancytopenia is unclear. The cause for his fever and cough is unclear. Further work-up is certainly warranted. I did speak with the patient about his findings, I spoke with the binder caser. The on-call hospitalist was consulted. Past Med/Surg History Medical History Colon cancer PERMANENT ILEOSTOMY/NEPHROSTOMY IN PLACE Coronary artery disease Per patient, 2 blocked coronary arteries d/t chemo. Being followed by Dr. Kerr. GERD (gastroesophageal reflux disease) Hx of Clostridium difficile infection Hyperlipidemia Hypertension Hyperthyroidism RECENT DIAGNOSIS; ON METHIMAZOLE Large B-cell lymphoma Non-Hodgkin lymphoma in remission DX 2008; S/P CHEMO (2017) Osteoarthritis Paroxysmal atrial fibrillation Prostate cancer S/P PROSTATECTOMY/RADIATION SEEDS (2003) Surgical History History of bladder surgery S/P CYSTECTOMY History of bowel resection CURRENT ILEOSTOMY / COLON CANCER History of colonoscopy History of lymph node biopsy RT NECK EXCISIONAL BIOPSY 08/23/18 [facility] History of urostomy S/P prostatectomy Family History Other Cancer Heart disease Hypertension Social History Smoking Status: Never smoker Second Hand Exposure: No; Hx Alcohol Use: No Hx Substance Use: No Preferred Language: Turkmen Communication Ability: Effective Visual Impairment: No Limitations Jockey Room Custodian Required: No Beliefs That Will Affect Care: None marital status: Current Living Situation: Spouse Feels Safe at Home: Yes Assistive Devices: Glasses Allergies Allergies Allergy/AdvReac Type Severity Reaction Status Date / Time Iodinated Contrast Media Allergy Intermediate Rash Verified 06/09/21 17:21 Home Meds Home Medications Medication Instructions Recorded Confirmed apixaban 5 mg tablet (Eliquis) 5 mg PO BID 04/26/18 06/09/21 atorvastatin 20 mg tablet 20 mg PO QAM 04/26/18 06/09/21 acetaminophen 500 mg tablet 1,000 mg PO Q8H PRN 05/29/18 06/09/21 (Tylenol Extra Strength) gabapentin 100 mg capsule 100 mg PO TID 02/11/19 06/09/21 methimazole 10 mg tablet 10 mg PO QDL 02/11/19 06/09/21 triamcinolone acetonide 0.1 % 1 applic TOPICAL BID PRN 02/11/19 06/09/21 topical cream metoprolol succinate 25 mg 25 mg PO BID 04/02/19 06/09/21 tablet,extended release 24 hr (Toprol XL) aspirin 81 mg tablet,delayed 81 mg PO QDL 06/09/21 06/09/21 release isosorbide dinitrate 20 mg tablet 20 mg PO TID 06/09/21 06/09/21 omeprazole 20 mg capsule,delayed 20 mg PO DAILY PRN 06/09/21 06/09/21 release ranolazine 500 mg tablet,extended 0 mg PO UD 06/09/21 06/09/21 release,12 hr (Ranexa) Results & Data (ED) Vital Signs Vital Signs - 24 hr 06/09/21 14:42 06/09/21 15:32 06/09/21 15:41 Temperature 37.9 C H Temperature Source Temporal Artery Scan Pulse Rate 104 H 88 Pulse Rate [Apical] 85 Pulse Rate from SpO2 Sensor Pulse Rhythm [Apical] Regular Respiratory Rate 24 24 24 Respiratory Effort / Characteristics Short of Breath Non-Labored Spontaneous Respiratory Depth Normal Respiratory Pattern Regular Regular Blood Pressure 97/58 L Blood Pressure [Left Arm] 110/68 Blood Pressure Mean 71 Blood Pressure Mean [Left Arm] 82 Blood Pressure Position Sitting Blood Pressure Position [Left Arm] Semi-fowlers Pulse Oximetry 96 94 94 Oxygen Delivery Method Room Air Room Air Room Air Sepsis Recent Fever Within 48 Hours Yes Sepsis New/Unexplained Change in Mental Status No Sepsis Action Taken by Nursing Physician Notified 06/09/21 16:00 06/09/21 16:30 06/09/21 17:00 Temperature Temperature Source Pulse Rate 83 79 76 Pulse Rate [Apical] Pulse Rate from SpO2 Sensor 87 75 73 Pulse Rhythm [Apical] Respiratory Rate 24 24 23 Respiratory Effort / Characteristics Respiratory Depth Respiratory Pattern Blood Pressure 94/65 L 86/63 L Blood Pressure [Left Arm] Blood Pressure Mean 74 70 Blood Pressure Mean [Left Arm] Blood Pressure Position Blood Pressure Position [Left Arm] Pulse Oximetry 94 95 95 Oxygen Delivery Method Sepsis Recent Fever Within 48 Hours Sepsis New/Unexplained Change in Mental Status Sepsis Action Taken by [facility] Medications Current Medication List: was personally reviewed by me Laboratory Data Attestation: I reviewed the patient's lab results. Result diagrams: 06/09/21 15:54 06/09/21 15:54 Lab Results 06/09/21 06/09/21 06/09/21 Range/Units 15:54 15:54 15:54 WBC 1.61 L (4.8-10.8) K/uL RBC 2.88 L (4.7-6.1) M/uL Hgb 9.5 L (14.0-18.0) g/dL Hct 27.6 L (42-52) % MCV 95.8 (80-100) fL MCH 33.0 (25-34) pg MCHC 34.4 (32-36) g/dL RDW Std Deviation 63.3 H (36.4-46.3) fL RDW Coeff of Aubree 18.2 H (11.5-14.5) % Plt Count 59 L (130-400) K/uL MPV 10.6 H (7.4-10.4) fL Neutrophils % (Manual) 36.5 % Lymphocytes % (Manual) 22.6 % Prolymphocyte % 1.7 % Monocytes % (Manual) 37.5 % Blast Cells % (Manual) 1.7 % Neutrophils # (Manual) 0.59 L (1.4-6.5) K/uL Total Absolute Neuts 0.59 L* (1.4-6.5) K/uL Lymphocytes # (Manual) 0.36 L (1.2-3.4) K/uL Prolymphocyte # 0.03 H (0-0) K/uL Total Abs Lymphocytes 0.39 L (1.2-3.4) K/uL Monocytes # (Manual) 0.60 H (0.11-0.59) K/uL Blast Cells # (Man) 0.03 H (0-0) K/uL Platelet Estimate Decreased L (Normal) Polychromasia 1+ PT 12.1 H (9.0-12.0) Seconds INR 1.2 H (0.9-1.1) APTT 36.3 H (21.0-31.0) Seconds PTT Ratio 1.4 Sodium 132 L (136-145) mmol/L Potassium 3.8 (3.5-5.1) mmol/L Chloride 98 (98-107) mmol/L Carbon Dioxide 26 (21-32) mmol/L Anion Gap 8.0 (3-11) BUN 23 H (7-18) mg/dl Creatinine 1.19 (0.6-1.4) mg/dl Est Cr Clr Drug Dosing 48.3 ml/min Est GFR ( Amer) 67.4 ml/min Est GFR (Non-Af Amer) 58.2 ml/min BUN/Creatinine Ratio 19.2 (10-20) Glucose 145 H (70-99) mg/dl Lactate (0.4-2.0) mmol/L Calcium 9.3 (8.5-10.1) mg/dl Magnesium 1.4 L (1.8-2.4) mg/dl Total Bilirubin 0.9 (0.2-1) mg/dl AST 20 (15-37) U/L ALT 27 (12-78) U/L Alkaline Phosphatase 78 (45-117) U/L Troponin I < 0.015 (0-0.045) ng/ml Total Protein 6.1 L (6.4-8.2) gm/dl Albumin 2.8 L (3.4-5.0) gm/dl Globulin 3.3 (2.5-4.0) gm/dl Albumin/Globulin Ratio 0.9 (0.9-2) Procalcitonin (0-0.5) ng/ml Urine Color Urine Appearance (Clear) Urine pH (4.5-7.5) Ur Specific [place] (1.000-1.030) Urine Protein (Negative) Urine Glucose (UA) (Negative) Urine Ketones (Negative) Urine Blood (Negative) Urine Nitrite (Negative) Urine Bilirubin (Negative) Urine Urobilinogen (Negative) Ur Leukocyte Esterase (Negative) Urine WBC (Auto) (0-5) /hpf Urine RBC (Auto) (0-4) /hpf U Hyaline Cast (Auto) (0-5) /lpf U Epithel Cells (Auto) (0-5) /lpf Urine Bacteria (Auto) (Negative) Ur Renal Epithelial Cell Urine Mucus (None Prsent) COVID-19 Eval Order SARS-CoV-2 (PCR) (Negative) 06/09/21 06/09/21 06/09/21 Range/Units 15:54 15:54 17:12 WBC (4.8-10.8) K/uL RBC (4.7-6.1) M/uL Hgb (14.0-18.0) g/dL Hct (42-52) % MCV (80-100) fL MCH (25-34) pg MCHC (32-36) g/dL RDW Std Deviation (36.4-46.3) fL RDW Coeff of Aubree (11.5-14.5) % Plt Count (130-400) K/uL MPV (7.4-10.4) fL Neutrophils % (Manual) % Lymphocytes % (Manual) % Prolymphocyte % % Monocytes % (Manual) % Blast Cells % (Manual) % Neutrophils # (Manual) (1.4-6.5) K/uL Total Absolute Neuts (1.4-6.5) K/uL Lymphocytes # (Manual) (1.2-3.4) K/uL Prolymphocyte # (0-0) K/uL Total Abs Lymphocytes (1.2-3.4) K/uL Monocytes # (Manual) (0.11-0.59) K/uL Blast Cells # (Man) (0-0) K/uL Platelet Estimate (Normal) Polychromasia PT (9.0-12.0) Seconds INR (0.9-1.1) APTT (21.0-31.0) Seconds PTT Ratio Sodium (136-145) mmol/L Potassium (3.5-5.1) mmol/L Chloride (98-107) mmol/L Carbon Dioxide (21-32) mmol/L Anion Gap (3-11) BUN (7-18) mg/dl Creatinine (0.6-1.4) mg/dl Est Cr Clr Drug Dosing ml/min Est GFR ( Amer) ml/min Est GFR (Non-Af Amer) ml/min BUN/Creatinine Ratio (10-20) Glucose (70-99) mg/dl Lactate 2.1 H* (0.4-2.0) mmol/L Calcium (8.5-10.1) mg/dl Magnesium (1.8-2.4) mg/dl Total Bilirubin (0.2-1) mg/dl AST (15-37) U/L ALT (12-78) U/L Alkaline Phosphatase (45-117) U/L Troponin I (0-0.045) ng/ml Total Protein (6.4-8.2) gm/dl Albumin (3.4-5.0) gm/dl Globulin (2.5-4.0) gm/dl Albumin/Globulin Ratio (0.9-2) Procalcitonin 0.12 (0-0.5) ng/ml Urine Color Dark Yellow Urine Appearance Cloudy A (Clear) Urine pH 5.0 (4.5-7.5) Ur Specific [place] 1.020 (1.000-1.030) Urine Protein 1+ H (Negative) Urine Glucose (UA) Negative (Negative) Urine Ketones Negative (Negative) Urine Blood Trace H (Negative) Urine Nitrite Negative (Negative) Urine Bilirubin Negative (Negative) Urine Urobilinogen Negative (Negative) Ur Leukocyte Esterase Negative (Negative) Urine WBC (Auto) 5-10 H (0-5) /hpf Urine RBC (Auto) 0-4 (0-4) /hpf U Hyaline Cast (Auto) 1-5 (0-5) /lpf U Epithel Cells (Auto) >30 H (0-5) /lpf Urine Bacteria (Auto) Negative (Negative) Ur Renal Epithelial Cell Not Reportable Urine Mucus Present A (None Prsent) COVID-19 Eval Order SARS-CoV-2 (PCR) (Negative) 06/09/21 06/09/21 06/09/21 Range/Units 17:16 17:16 18:29 WBC (4.8-10.8) K/uL RBC (4.7-6.1) M/uL Hgb (14.0-18.0) g/dL Hct (42-52) % MCV (80-100) fL MCH (25-34) pg MCHC (32-36) g/dL RDW Std Deviation (36.4-46.3) fL RDW Coeff of Aubree (11.5-14.5) % Plt Count (130-400) K/uL MPV (7.4-10.4) fL Neutrophils % (Manual) % Lymphocytes % (Manual) % Prolymphocyte % % Monocytes % (Manual) % Blast Cells % (Manual) % Neutrophils # (Manual) (1.4-6.5) K/uL Total Absolute Neuts (1.4-6.5) K/uL Lymphocytes # (Manual) (1.2-3.4) K/uL Prolymphocyte # (0-0) K/uL Total Abs Lymphocytes (1.2-3.4) K/uL Monocytes # (Manual) (0.11-0.59) K/uL Blast Cells # (Man) (0-0) K/uL Platelet Estimate (Normal) Polychromasia PT (9.0-12.0) Seconds INR (0.9-1.1) APTT (21.0-31.0) Seconds PTT Ratio Sodium (136-145) mmol/L Potassium (3.5-5.1) mmol/L Chloride (98-107) mmol/L Carbon Dioxide (21-32) mmol/L Anion Gap (3-11) BUN (7-18) mg/dl Creatinine (0.6-1.4) mg/dl Est Cr Clr Drug Dosing ml/min Est GFR ( Amer) ml/min Est GFR (Non-Af Amer) ml/min BUN/Creatinine Ratio (10-20) Glucose (70-99) mg/dl Lactate 0.9 (0.4-2.0) mmol/L Calcium (8.5-10.1) mg/dl Magnesium (1.8-2.4) mg/dl Total Bilirubin (0.2-1) mg/dl AST (15-37) U/L ALT (12-78) U/L Alkaline Phosphatase (45-117) U/L Troponin I (0-0.045) ng/ml Total Protein (6.4-8.2) gm/dl Albumin (3.4-5.0) gm/dl Globulin (2.5-4.0) gm/dl Albumin/Globulin Ratio (0.9-2) Procalcitonin (0-0.5) ng/ml Urine Color Urine Appearance (Clear) Urine pH (4.5-7.5) Ur Specific [place] (1.000-1.030) Urine Protein (Negative) Urine Glucose (UA) (Negative) Urine Ketones (Negative) Urine Blood (Negative) Urine Nitrite (Negative) Urine Bilirubin (Negative) Urine Urobilinogen (Negative) Ur Leukocyte Esterase (Negative) Urine WBC (Auto) (0-5) /hpf Urine RBC (Auto) (0-4) /hpf U Hyaline Cast (Auto) (0-5) /lpf U Epithel Cells (Auto) (0-5) /lpf Urine Bacteria (Auto) (Negative) Ur Renal Epithelial Cell Urine Mucus (None Prsent) COVID-19 Eval Order Covid19 at [facility] SARS-CoV-2 (PCR) NEGATIVE (Negative) Administered Medications Discontinued Medications Sodium Chloride (Nss 1000ml) 1,000 mls @ 999 mls/hr IV .Q1H1M SVETA Stop: 06/09/21 16:00 Last Admin: 06/09/21 16:00 Dose: 999 mls/hr Documented by: [id number] Cefepime HCl (Maxipime) 2,000 mg in 20 mls @ 5 mls/min IV NOW STA; Protocol Stop: 06/09/21 14:58 Last Admin: 06/09/21 16:55 Dose: 5 mls/min Documented by: [id number] Magnesium Sulfate/Dextrose (Magnesium Sulfate / D5w) 1 gm in 100 mls @ 100 mls/hr IV Q1H SVETA Stop: 06/09/21 18:30 Last Admin: 06/09/21 17:15 Dose: 100 mls/hr Documented by: [id number] Sodium Chloride (Nss 1000ml) 500 mls @ 999 mls/hr IV .Q31M ONE Stop: 06/09/21 18:01 Last Admin: 06/09/21 18:29 Dose: 999 mls/hr Documented by: Imaging Data Radiologist's Impression: Chest X-Ray 06/09/21 14:55 XR chest 1V portable CLINICAL HISTORY: SEPSIS TECHNIQUE: Single frontal radiograph of the chest was obtained. Comparison: Chest 1 view 04/25/2019 FINDINGS: Stable right portacatheter. The aorta is tortuous. The remainder of the cardiomediastinal silhouette is unremarkable. The lungs are clear. No evidence of pleural effusion or pneumothorax. IMPRESSION: No acute chest disease. ACT 112: Negative or not required by law. Electronically signed by: Oswaldo Damian M.D. 06/09/2021 3:28 PM Discharge Plan Visit Data Chief Complaint: Cough Stated Complaint: COUGH ED Provider: Tyree Stoery Discharge Problem: Hypotension, Cough, Neutropenia, Fever, SOB (shortness of breath) Patient Disposition: Admitted As Inpatient Condition: Fair Forms Stand Alone Forms: [facility] [employer] Prescriptions Prescriptions: No Action methimazole 10 mg Tablet 10 mg PO QDL RF: 0 triamcinolone acetonide 0.1 % Cream 1 applic TOPICAL BID PRN (Reason: Rash) RF: 0 gabapentin 100 mg Capsule 100 mg PO TID RF: 0 metoprolol succinate [Toprol XL] 25 mg tablet extended release 24 hr 25 mg PO BID RF: 0 atorvastatin 20 mg Tablet 20 mg PO QAM RF: 0 Eliquis 5 mg Tablet 5 mg PO BID RF: 0 acetaminophen [Tylenol Extra Strength] 500 mg Tablet 1,000 mg PO Q8H PRN (Reason: Pain) RF: 0 isosorbide dinitrate 20 mg tablet 20 mg PO TID RF: 0 omeprazole 20 mg capsule,delayed release(DR/EC) 20 mg PO DAILY PRN (Reason: Gi Upset) RF: 0 ranolazine [Ranexa] 500 mg tablet extended release 12 hr 0 mg PO UD RF: 0 aspirin [Aspirin Low-Strength] 81 mg Tablet,Delayed Release (Dr/Ec) 81 mg PO QDL RF: 0 Referrals Referrals: Renny Asher MD [Primary Care Provider] -
--- NOTE | 2021-06-09 15:29 | XRay Report ---
XR chest 1V portable CLINICAL HISTORY: SEPSIS TECHNIQUE: Single frontal radiograph of the chest was obtained. Comparison: Chest 1 view 04/25/2019 FINDINGS: Stable right portacatheter. The aorta is tortuous. The remainder of the cardiomediastinal silhouette is unremarkable. The lungs are clear. No evidence of pleural effusion or pneumothorax. IMPRESSION: No acute chest disease. ACT 112: Negative or not required by law. Electronically signed by: Oswaldo Damian M.D. 06/09/2021 3:28 PM
[2021-06-09 16:26] LABS: INR 1.2 (0.9-1.1); Partial Thromboplastin Ratio 1.4; Partial Thromboplastin Time 36.3 Seconds (21.0-31.0); Prothrombin Time 12.1 Seconds (9.0-12.0)
[2021-06-09 16:27] LABS: Alanine Aminotransferase 27 U/L (12-78); Albumin Level 2.8 gm/dl (3.4-5.0); Aspartate Aminotransferase 20 U/L (15-37); BUN Creatinine Ratio 19.2 (10-20); Blood Urea Nitrogen 23 mg/dl (7-18); Calcium 9.3 mg/dl (8.5-10.1); Carbon Dioxide 26 mmol/L (21-32); Chloride 98 mmol/L (98-107); Creatinine Clr Calc Pharmacy 48.3 ml/min; Est GFR (African American) 67.4 ml/min; Est GFR (Non-African American) 58.2 ml/min; Glucose 145 mg/dl (70-99); Magnesium 1.4 mg/dl (1.8-2.4); Potassium 3.8 mmol/L (3.5-5.1); Sodium 132 mmol/L (136-145)
[2021-06-09 16:32] LABS: Albumin Globulin Ratio 0.9 (0.9-2); Alkaline Phosphatase 78 U/L (45-117); Bilirubin,Total 0.9 mg/dl (0.2-1); Globulin 3.3 gm/dl (2.5-4.0); Total Protein 6.1 gm/dl (6.4-8.2); Troponin I < 0.015 ng/ml (0-0.045)
[2021-06-09 17:01] LABS: Hematocrit (blood only) 27.6 % (42-52); Hemoglobin 9.5 g/dL (14.0-18.0); Mean Corpuscular Hgb Conc 34.4 g/dL (32-36); Mean Corpuscular Volume 95.8 fL (80-100); Mean Platelet Volume 10.6 fL (7.4-10.4); Platelet Count 59 K/uL (130-400); RDW Coefficient of Variation 18.2 % (11.5-14.5); RDW Standard Deviation 63.3 fL (36.4-46.3); Red Blood Count 2.88 M/uL (4.7-6.1); White Blood Count 1.61 K/uL (4.8-10.8)
[2021-06-09 17:02] LABS: Platelet Estimate Decreased (Normal); Polychromasia 1+
[2021-06-09 17:03] LABS: ALC (manual) 0.39 K/uL (1.2-3.4); ANC (manual) 0.59 K/uL (1.4-6.5); Blast # (manual) 0.03 K/uL (0-0); Blast Cells % (manual) 1.7 %; Lymphocytes # (manual) 0.36 K/uL (1.2-3.4); Lymphocytes % (manual) 22.6 %; Monocytes % (manual) 37.5 %; Neutrophils # (manual) 0.59 K/uL (1.4-6.5); Neutrophils % (manual) 36.5 %; Prolymphocyte # (manual) 0.03 K/uL (0-0); Prolymphocyte % (manual) 1.7 %
[2021-06-09] MEDS: MAGNESIUM SULFATE / D5W 1 GM/100 ML BAG IV SCH ×2 (17:15→18:29)
[2021-06-09 17:27] LABS: Appearance Urine Cloudy (Clear); Bacteria Urine Automated Negative (Negative); Bilirubin Urine Negative (Negative); Blood Urine Trace (Negative); Color Urine Dark Yellow; Epithelial Cell Urine Auto >30 /lpf (0-5); Glucose Urine UA Negative (Negative); Ketones Urine Negative (Negative); Leukocyte Esterase Urine Negative (Negative); Nitrite Urine Negative (Negative); Protein Urine 1+ (Negative); RBC Urine Automated 0-4 /hpf (0-4); Urobilinogen Urine Negative (Negative)
[2021-06-09] MEDS ORDERED: SODIUM CHLORIDE 0.9% 1000ML 500 ML IV ONE (17:31)
[2021-06-09 18:17] LABS: Mucus Urine Present (None Prsent)
[2021-06-09] MEDS ORDERED: VANCOMYCIN HCL 1,500 MG in SODIUM CHLORIDE 0.9% 500 ML IV ONE (18:30)
[2021-06-09] MEDS ORDERED: ACETAMINOPHEN 325 MG TAB PO PRN (19:01)
[2021-06-09] MEDS ORDERED: POLYETHYLENE (MIRALAX) 17 GM PACK PO PRN (19:01)
--- NOTE | 2021-06-09 19:14 | History & Physical Report ---
Date of Service June 09, 2021 Assessment & Plan (1) Neutropenic fever: Plan: Pancytopenia Patient has a history of recurrent diffuse large B cell lymphoma -Follows w/Dr. Newell -Status post chemotherapy, last cycle in 2018 -Tried treatment in August 2019, however patient did not tolerate -surveillance, no treatment since mid November 2019 -Lately has been feeling very tired, and besides his anemia, he also became pancytopenic -Therefore he underwent bone marrow biopsy on May 26, w/ Dr. Newell, which did not show leukemia or lymphoma, however findings of noncaseating granuloma -He now presents in ED, due to feeling feverish, diaphoretic, weak -He is neutropenic, febrile and hypotensive in the ED -He was given IV fluids, started on broad-spectrum IV antibiotics -Blood cultures, UA chest x-ray obtained -covid 19 negative -Received cefepime, will continue with vancomycin and Zosyn Discussed with Dr. Newell, that ID consult may be appropriate given findings of noncaseating granuloma -Given neutropenia, also would recommend one dose of Neupogen -Recommend transfusion, with goal hemoglobin more than 10, given his CAD -Continue to monitor white blood cell count, platelets, H&H History of rectal adenocarcinoma, status post resection CAD, ischemic MCO -at home ASA, ranexa, isordil -cont. ASA, monitor BP, restart other home BP meds when BP appropriate pAfib - cont. home Eliquis, metoprolol HTN - hold lisinopril - monitor BP, restart when BP appropriate DVT ppx: SCDs History of Present Illness Chief Complaint: Neutropenic fever Primary Care Provider: Renny Asher MD 76-year-old male, with history of diffuse B cell lymphoma (recurrent), rectal adenocarcinoma s/p resection, HTM, CAD, paroxysmal A. fib, who presents with neutropenic fever. Patient has not been on any chemotherapy treatment for more than a year. However lately has been feeling fatigued, diaphoretic, short of breath. Patient has been anemic for some time however pancytopenia has been fairly new. He un derwent bone marrow biopsy with Dr. Newell on May 26. Results did not show any lymphoma or leukemia, there was some finding of noncaseating granuloma. He was also seen at cardiology office. Lisinopril was put on hold due to low blood pressure. However pt then developed fever and it was recommended that he comes to be evaluated in the emergency room given that he has been neutropenic. In the emergency room, blood cultures, urine, chest x-ray were obtained as well as Covid. COVID-19 was negative. Chest x-ray unremarkable. Patient is however febrile and hypotensive in the ED. Received IV fluids, and cefepime. Discussed with Dr. Newell, that it is not clear at this time what is causing this, and infectious disease work-up would be appropriate. In addition discussed that we could give patient Neupogen to increase his white blood cell count, and recommend blood transfusion as needed, hemoglobin goal above 10. Allergies Allergy/AdvReac Type Severity Reaction Status Date / Time Iodinated Contrast Media Allergy Intermediate Rash Verified 06/09/21 17:21 Home Medications Medication Instructions Recorded Confirmed Type apixaban 5 mg tablet (Eliquis) 5 mg PO BID 04/26/18 06/09/21 History atorvastatin 20 mg tablet 20 mg PO QAM 04/26/18 06/09/21 History acetaminophen 500 mg tablet 1,000 mg PO Q8H PRN 05/29/18 06/09/21 History (Tylenol Extra Strength) gabapentin 100 mg capsule 100 mg PO TID 02/11/19 06/09/21 History methimazole 10 mg tablet 10 mg PO QDL 02/11/19 06/09/21 History triamcinolone acetonide 0.1 % 1 applic TOPICAL BID PRN 02/11/19 06/09/21 History topical cream metoprolol succinate 25 mg 25 mg PO BID 04/02/19 06/09/21 History tablet,extended release 24 hr (Toprol XL) aspirin 81 mg tablet,delayed 81 mg PO QDL 06/09/21 06/09/21 History release isosorbide dinitrate 20 mg tablet 20 mg PO TID 06/09/21 06/09/21 History ranolazine 500 mg tablet,extended 0 mg PO UD 06/09/21 06/09/21 History release,12 hr (Ranexa) benzonatate 100 mg capsule 100 mg PO TID PRN #30 cap 06/13/21 Rx (Tessalon Janice) codeine 10 mg-guaifenesin 100 mg/5 10 ml PO Q6H PRN #120 ml 06/13/21 Rx mL oral liquid (Guaiatussin AC) omeprazole 20 mg capsule,delayed 20 mg PO DAILY #30 cap 06/13/21 Rx release Past Med/Surg History Medical History Colon cancer PERMANENT ILEOSTOMY/NEPHROSTOMY IN PLACE Coronary artery disease Per patient, 2 blocked coronary arteries d/t chemo. Being followed by Dr. Kerr. GERD (gastroesophageal reflux disease) Hx of Clostridium difficile infection Hyperlipidemia Hypertension Hyperthyroidism RECENT DIAGNOSIS; ON METHIMAZOLE Large B-cell lymphoma Non-Hodgkin lymphoma in remission DX 2008; S/P CHEMO (2016) Osteoarthritis Paroxysmal atrial fibrillation Prostate cancer S/P PROSTATECTOMY/RADIATION SEEDS (2003) Surgical History History of bladder surgery S/P CYSTECTOMY History of bowel resection CURRENT ILEOSTOMY 09/23 [facility] History of colonoscopy History of lymph node biopsy RT NECK EXCISIONAL BIOPSY 08/23/18 [facility] History of urostomy S/P prostatectomy Family History Other Cancer Heart disease Hypertension Social History Smoking Status: Never smoker Second Hand Exposure: No; Hx Alcohol Use: No Hx Substance Use: No Preferred Language: Kyrgyz Communication Ability: Effective Visual Impairment: No Limitations Exhibits Manager Required: No Beliefs That Will Affect Care: None marital status: Current Living Situation: Spouse Feels Safe at Home: Yes Assistive Devices: Glasses Review of Systems Constitutional: + fever and + malaise Eyes: no problem reported Respiratory: + dyspnea on exertion Cardiovascular: no chest pain Gastrointestinal: no abdominal pain Genitourinary: no dysuria Musculoskeletal: no problem reported Integumentary: no problem reported Neurologic: no problem reported Psychiatric: no problem reported Endocrine: + fatigue Hematologic / Lymphatic: + night sweats Allergy / Immunological: no problem reported Physical Exam Constitutional: WD/WN, vitals as above (appears fatigued but in NAD) Eyes: PERRL, conjunctivae normal, anicteric sclerae ENMT: external ear and nose normal, oropharynx normal Neck: trachea midline, no thyromegaly Respiratory: normal respiratory effort, lungs clear to auscultation Cardiovascular: RRR, no murmur, no edema Chest (Breasts): Chest: normal inspection of chest (port present) Gastrointestinal (Abdomen): soft, nontender to palpation, + bowel sounds Musculoskeletal: no cyanosis or clubbing, extremities motor strength 5/5 Skin: no rashes, warm and dry Neurologic: PERRL, EOMI, accommodation nl, no face palsy, no dysarthria Psychiatric: A+Ox3, euthymic affect Genitourinary: no CVA tenderness Lymphatic: no lymphedema Results & Data Results & Data ([facility]) Vital Signs (Past 12 Hours) Vital Signs Temp Pulse Pulse Resp BP BP Pulse Ox 06/09/21 17:00 76 23 95 06/09/21 16:30 79 24 86/63 L 95 06/09/21 16:00 83 24 94/65 L 94 06/09/21 15:41 88 24 94 06/09/21 15:32 85 24 110/68 94 06/09/21 14:42 37.9 C H 104 H 24 97/58 L 96 Laboratory Results 06/09/21 06/09/21 06/09/21 Range/Units 18:29 17:16 17:16 WBC (4.8-10.8) K/uL RBC (4.7-6.1) M/uL Hgb (14.0-18.0) g/dL Hct (42-52) % MCV (80-100) fL MCH (25-34) pg MCHC (32-36) g/dL RDW Std Deviation (36.4-46.3) fL RDW Coeff of Aubree (11.5-14.5) % Plt Count (130-400) K/uL MPV (7.4-10.4) fL Neutrophils % (Manual) % Lymphocytes % (Manual) % Prolymphocyte % % Monocytes % (Manual) % Blast Cells % (Manual) % Neutrophils # (Manual) (1.4-6.5) K/uL Total Absolute Neuts (1.4-6.5) K/uL Lymphocytes # (Manual) (1.2-3.4) K/uL Prolymphocyte # (0-0) K/uL Total Abs Lymphocytes (1.2-3.4) K/uL Monocytes # (Manual) (0.11-0.59) K/uL Blast Cells # (Man) (0-0) K/uL Blood Smear Review Platelet Estimate (Normal) Polychromasia PT (9.0-12.0) Seconds INR (0.9-1.1) APTT (21.0-31.0) Seconds PTT Ratio Sodium (136-145) mmol/L Potassium (3.5-5.1) mmol/L Chloride (98-107) mmol/L Carbon Dioxide (21-32) mmol/L Anion Gap (3-11) BUN (7-18) mg/dl Creatinine (0.6-1.4) mg/dl Est Cr Clr Drug Dosing ml/min Est GFR ( Amer) ml/min Est GFR (Non-Af Amer) ml/min BUN/Creatinine Ratio (10-20) Glucose (70-99) mg/dl Lactate 0.9 (0.4-2.0) mmol/L Calcium (8.5-10.1) mg/dl Magnesium (1.8-2.4) mg/dl Total Bilirubin (0.2-1) mg/dl AST (15-37) U/L ALT (12-78) U/L Alkaline Phosphatase (45-117) U/L Troponin I (0-0.045) ng/ml Total Protein (6.4-8.2) gm/dl Albumin (3.4-5.0) gm/dl Globulin (2.5-4.0) gm/dl Albumin/Globulin Ratio (0.9-2) Procalcitonin (0-0.5) ng/ml Urine Color Urine Appearance (Clear) Urine pH (4.5-7.5) Ur Specific [place] (1.000-1.030) Urine Protein (Negative) Urine Glucose (UA) (Negative) Urine Ketones (Negative) Urine Blood (Negative) Urine Nitrite (Negative) Urine Bilirubin (Negative) Urine Urobilinogen (Negative) Ur Leukocyte Esterase (Negative) Urine WBC (Auto) (0-5) /hpf Urine RBC (Auto) (0-4) /hpf U Hyaline Cast (Auto) (0-5) /lpf U Epithel Cells (Auto) (0-5) /lpf Urine Bacteria (Auto) (Negative) Ur Renal Epithelial Cell Urine Mucus (None Prsent) COVID-19 Eval Order Covid19 at [facility] SARS-CoV-2 (PCR) NEGATIVE (Negative) 06/09/21 06/09/21 06/09/21 Range/Units 17:12 15:54 15:54 WBC (4.8-10.8) K/uL RBC (4.7-6.1) M/uL Hgb (14.0-18.0) g/dL Hct (42-52) % MCV (80-100) fL MCH (25-34) pg MCHC (32-36) g/dL RDW Std Deviation (36.4-46.3) fL RDW Coeff of Aubree (11.5-14.5) % Plt Count (130-400) K/uL MPV (7.4-10.4) fL Neutrophils % (Manual) % Lymphocytes % (Manual) % Prolymphocyte % % Monocytes % (Manual) % Blast Cells % (Manual) % Neutrophils # (Manual) (1.4-6.5) K/uL Total Absolute Neuts (1.4-6.5) K/uL Lymphocytes # (Manual) (1.2-3.4) K/uL Prolymphocyte # (0-0) K/uL Total Abs Lymphocytes (1.2-3.4) K/uL Monocytes # (Manual) (0.11-0.59) K/uL Blast Cells # (Man) (0-0) K/uL Blood Smear Review Platelet Estimate (Normal) Polychromasia PT (9.0-12.0) Seconds INR (0.9-1.1) APTT (21.0-31.0) Seconds PTT Ratio Sodium (136-145) mmol/L Potassium (3.5-5.1) mmol/L Chloride (98-107) mmol/L Carbon Dioxide (21-32) mmol/L Anion Gap (3-11) BUN (7-18) mg/dl Creatinine (0.6-1.4) mg/dl Est Cr Clr Drug Dosing ml/min Est GFR ( Amer) ml/min Est GFR (Non-Af Amer) ml/min BUN/Creatinine Ratio (10-20) Glucose (70-99) mg/dl Lactate 2.1 H* (0.4-2.0) mmol/L Calcium (8.5-10.1) mg/dl Magnesium (1.8-2.4) mg/dl Total Bilirubin (0.2-1) mg/dl AST (15-37) U/L ALT (12-78) U/L Alkaline Phosphatase (45-117) U/L Troponin I (0-0.045) ng/ml Total Protein (6.4-8.2) gm/dl Albumin (3.4-5.0) gm/dl Globulin (2.5-4.0) gm/dl Albumin/Globulin Ratio (0.9-2) Procalcitonin 0.12 (0-0.5) ng/ml Urine Color Dark Yellow Urine Appearance Cloudy A (Clear) Urine pH 5.0 (4.5-7.5) Ur Specific [place] 1.020 (1.000-1.030) Urine Protein 1+ H (Negative) Urine Glucose (UA) Negative (Negative) Urine Ketones Negative (Negative) Urine Blood Trace H (Negative) Urine Nitrite Negative (Negative) Urine Bilirubin Negative (Negative) Urine Urobilinogen Negative (Negative) Ur Leukocyte Esterase Negative (Negative) Urine WBC (Auto) 5-10 H (0-5) /hpf Urine RBC (Auto) 0-4 (0-4) /hpf U Hyaline Cast (Auto) 1-5 (0-5) /lpf U Epithel Cells (Auto) >30 H (0-5) /lpf Urine Bacteria (Auto) Negative (Negative) Ur Renal Epithelial Cell Not Reportable Urine Mucus Present A (None Prsent) COVID-19 Eval Order SARS-CoV-2 (PCR) (Negative) 06/09/21 06/09/21 06/09/21 Range/Units 15:54 15:54 15:54 WBC 1.61 L (4.8-10.8) K/uL RBC 2.88 L (4.7-6.1) M/uL Hgb 9.5 L (14.0-18.0) g/dL Hct 27.6 L (42-52) % MCV 95.8 (80-100) fL MCH 33.0 (25-34) pg MCHC 34.4 (32-36) g/dL RDW Std Deviation 63.3 H (36.4-46.3) fL RDW Coeff of Aubree 18.2 H (11.5-14.5) % Plt Count 59 L (130-400) K/uL MPV 10.6 H (7.4-10.4) fL Neutrophils % (Manual) 36.5 % Lymphocytes % (Manual) 22.6 % Prolymphocyte % 1.7 % Monocytes % (Manual) 37.5 % Blast Cells % (Manual) 1.7 % Neutrophils # (Manual) 0.59 L (1.4-6.5) K/uL Total Absolute Neuts 0.59 L* (1.4-6.5) K/uL Lymphocytes # (Manual) 0.36 L (1.2-3.4) K/uL Prolymphocyte # 0.03 H (0-0) K/uL Total Abs Lymphocytes 0.39 L (1.2-3.4) K/uL Monocytes # (Manual) 0.60 H (0.11-0.59) K/uL Blast Cells # (Man) 0.03 H (0-0) K/uL Blood Smear Review Pending Platelet Estimate Decreased L (Normal) Polychromasia 1+ PT 12.1 H (9.0-12.0) Seconds INR 1.2 H (0.9-1.1) APTT 36.3 H (21.0-31.0) Seconds PTT Ratio 1.4 Sodium 132 L (136-145) mmol/L Potassium 3.8 (3.5-5.1) mmol/L Chloride 98 (98-107) mmol/L Carbon Dioxide 26 (21-32) mmol/L Anion Gap 8.0 (3-11) BUN 23 H (7-18) mg/dl Creatinine 1.19 (0.6-1.4) mg/dl Est Cr Clr Drug Dosing 48.3 ml/min Est GFR ( Amer) 67.4 ml/min Est GFR (Non-Af Amer) 58.2 ml/min BUN/Creatinine Ratio 19.2 (10-20) Glucose 145 H (70-99) mg/dl Lactate (0.4-2.0) mmol/L Calcium 9.3 (8.5-10.1) mg/dl Magnesium 1.4 L (1.8-2.4) mg/dl Total Bilirubin 0.9 (0.2-1) mg/dl AST 20 (15-37) U/L ALT 27 (12-78) U/L Alkaline Phosphatase 78 (45-117) U/L Troponin I < 0.015 (0-0.045) ng/ml Total Protein 6.1 L (6.4-8.2) gm/dl Albumin 2.8 L (3.4-5.0) gm/dl Globulin 3.3 (2.5-4.0) gm/dl Albumin/Globulin Ratio 0.9 (0.9-2) Procalcitonin (0-0.5) ng/ml Urine Color Urine Appearance (Clear) Urine pH (4.5-7.5) Ur Specific [place] (1.000-1.030) Urine Protein (Negative) Urine Glucose (UA) (Negative) Urine Ketones (Negative) Urine Blood (Negative) Urine Nitrite (Negative) Urine Bilirubin (Negative) Urine Urobilinogen (Negative) Ur Leukocyte Esterase (Negative) Urine WBC (Auto) (0-5) /hpf Urine RBC (Auto) (0-4) /hpf U Hyaline Cast (Auto) (0-5) /lpf U Epithel Cells (Auto) (0-5) /lpf Urine Bacteria (Auto) (Negative) Ur Renal Epithelial Cell Urine Mucus (None Prsent) COVID-19 Eval Order SARS-CoV-2 (PCR) (Negative) Diagnostic Findings CXR FINDINGS: Stable right portacatheter. The aorta is tortuous. The remainder of the cardiomediastinal silhouette is unremarkable. The lungs are clear. No evidence of pleural effusion or pneumothorax. IMPRESSION: No acute chest disease. Code Status & VTE Plan VTE Prophylaxis Plan VTE Prophylaxis will be ordered: Yes
[2021-06-09] MEDS ORDERED: PIPERACILLIN/TAZOBACTAM 4.5 GM/120 ML BAG IV STA (19:18)
[2021-06-09] MEDS ORDERED: SODIUM CHLORIDE 0.9% 250 ML IV PRN (19:37)
[2021-06-09] MEDS ORDERED: VANCOMYCIN CONSULT ACTIVE PRN (19:37)
[2021-06-09] MEDS ORDERED: PIPERACILL/TAZOBAC CONSULT ACTIVE PRN (19:38)
[2021-06-09 19:54] LABS: Phosphorus 2.6 mg/dl (2.5-4.9); Uric Acid 6.1 mg/dl (2.6-7.2)
[2021-06-09] MEDS ORDERED: FILGRASTIM 480 MCG/1.6 ML VIAL SC ONE (21:45)
[2021-06-09] MEDS: METOPROLOL SUCC 25MG EXT REL TAB PO SCH (21:54)
[2021-06-09] MEDS: APIXABAN 5 MG TABLET PO SCH (21:54)
[2021-06-09] MEDS: MAGNESIUM OXIDE 400 MG TAB PO SCH (21:54)
[2021-06-09] MEDS ORDERED: INFLUENZA VACCINE HIGH DOSE PF 65+ 0.7 ML SYR IM ONE (23:35)
[2021-06-10] MEDS: PIPERACILLIN/TAZOBACTAM 3.375 GM in DEXTROSE 5% 100 ML IV SCH ×3 (00:14→15:54)
[2021-06-10 05:14] LABS: Hematocrit (blood only) 25.1 % (42-52); Hemoglobin 8.7 g/dL (14.0-18.0); Mean Corpuscular Hemoglobin 33.3 pg (25-34); Mean Corpuscular Hgb Conc 34.7 g/dL (32-36); Mean Corpuscular Volume 96.2 fL (80-100); RDW Coefficient of Variation 18.3 % (11.5-14.5); RDW Standard Deviation 63.6 fL (36.4-46.3); Red Blood Count 2.61 M/uL (4.7-6.1); White Blood Count 2.91 K/uL (4.8-10.8)
[2021-06-10 05:17] LABS: Mean Platelet Volume 9.4 fL (7.4-10.4); Platelet Count 42 K/uL (130-400)
[2021-06-10 05:40] LABS: Albumin Level 2.3 gm/dl (3.4-5.0); BUN Creatinine Ratio 16.7 (10-20); Calcium 8.2 mg/dl (8.5-10.1); Creatinine Clr Calc Pharmacy 58.6 ml/min; Est GFR (African American) 84.2 ml/min; Est GFR (Non-African American) 72.6 ml/min; Magnesium 1.8 mg/dl (1.8-2.4); Potassium 3.5 mmol/L (3.5-5.1); Uric Acid 4.1 mg/dl (2.6-7.2)
[2021-06-10 05:43] LABS: Albumin Globulin Ratio 0.8 (0.9-2); Globulin 2.9 gm/dl (2.5-4.0); Phosphorus 2.4 mg/dl (2.5-4.9); Total Protein 5.2 gm/dl (6.4-8.2)
[2021-06-10 05:47] LABS: Dohle Bodies 1+; Giant Platelets 1+
--- NOTE | 2021-06-10 08:45 | Pharmacy Report ---
Pharmacy Vanc AUC Short Note - Date of Service June 10, 2021 - Assessment & Plan Assessment 76 year old M receiving vancomycin and zosyn, empirically initiated last evening for treatment of neutropenic fever. Bcx pending. No past relevant cx data in this system. MRSA nasal swab negative. Current antibiotic duration ordered for 48 hours. Day # 2 of antimicrobial therapy. Plan Vancomycin * AUC/MERCY is the preferred PK/PD target for vancomycin * AUC guided dosing is effective and associated with decreased risk of nephrotoxicity compared to traditional trough targets * Predicted steady state Trough level of ~14 mcg/mL is predicted to achieve target AUC/MERCY of 400-600 mg/L.hr and may be associated with a 9 % risk of nephrotoxicity * Loading dose of 1500mg X 1 administered last evening * Continue dose of 1250 mg IV every 24 hours (to start today @1600) * Trough or random level ordered for: Order will be leveled if therapy continued past 48 hours Pharmacy will continue to follow and will adjust dose/frequency as necessary. Thank you.
[2021-06-10] MEDS ORDERED: INFLUENZA VACCINE HIGH DOSE PF 65+ 0.7 ML SYR IM ONE (09:00)
[2021-06-10] MEDS: ATORVASTATIN 20 MG TAB PO SCH (09:40)
[2021-06-10] MEDS: METOPROLOL SUCC 25MG EXT REL TAB PO SCH ×2 (09:40→20:12)
[2021-06-10] MEDS: PANTOprazole 40 MG TAB PO SCH (09:40)
[2021-06-10] MEDS: MAGNESIUM OXIDE 400 MG TAB PO SCH ×2 (09:40→20:14)
[2021-06-10] MEDS: APIXABAN 5 MG TABLET PO SCH ×2 (09:41→20:12)
[2021-06-10 09:44] LABS: Ovalocytes 1+
[2021-06-10 09:45] LABS: Tear Drop Cells Occasional
[2021-06-10 09:49] LABS: ALC (manual) 0.38 K/uL (1.2-3.4); Blast # (manual) 0.17 K/uL (0-0)
[2021-06-10 09:50] LABS: Lymphocytes # (manual) 0.38 K/uL (1.2-3.4); Monocytes # (manual) 0.81 K/uL (0.11-0.59); Neutrophils # (manual) 1.54 K/uL (1.4-6.5)
[2021-06-10 09:51] LABS: Ovalocytes 1+; Tear Drop Cells Occasional
[2021-06-10 09:54] LABS: ANC (manual) 1.54 K/uL (1.4-6.5)
--- NOTE | 2021-06-10 12:37 | Hospitalist Progress Note ---
Date of Service June 10, 2021 Assessment & Plan (1) Neutropenic fever: Plan: Patient is 76-year-old male with past medical history of multivessel coronary artery disease, diastolic heart failure, hypertension, moderate aortic sclerosis, paroxysmal atrial fibrillation, non-Hodgkin's lymphoma diagnosed in 2004, rectal carcinoma status post resection, large B cell lymphoma diagnosed in 2018 and hyper thyroidism presented to the ED with pancytopenia. He follows up with Dr. Newell as an outpatient. Given his worsening fatigue lately he was found to have worsening pancytopenia. Patient underwent recent bone marrow biopsy Pancytopenia Patient has a history of recurrent diffuse large B cell lymphoma -Follows w/Dr. Newell -Status post chemotherapy, last cycle in 2018 -Tried treatment in August 2019, however patient did not tolerate -surveillance, no treatment since mid November 2019 -Lately has been feeling very tired, and besides his anemia, he also became pancytopenic -Therefore he underwent bone marrow biopsy on May 26, w/ Dr. Newell, which did not show leukemia or lymphoma, however findings of noncaseating granuloma. -He presented to the ED, due to feeling feverish, diaphoretic, weak -Blood cultures were obtained in the ED. UA is benign. COVID-19 is ruled out. -Chest x-ray without any concerns. -We will continue with vancomycin/Zosyn -Awaiting infectious disease input.- -As per discussion between the pathologist and Dr. Newell; they are suspecting high-grade MDS or leukemia. -Discontinue Neupogen as per Dr. Newell recommendation. -1 unit of PRBC was ordered on 06/09; however patient will be getting it today. -Today WBC at 2.91 from 1.61, platelets at 42 from 59 and hemoglobin at 8.4 today. Continue monitor daily CBC. Order flow cytometry. History of rectal adenocarcinoma, status post resection CAD, ischemic MCO -at home ASA, ranexa, isordil -cont. ASA, monitor BP, restart others when BP appropriate pAfib - cont. home Eliquis, metoprolol HTN - hold lisinopril - monitor BP, restart when BP appropriate DVT ppx: SCDs Code: Admission and Anticipated Discharge Date Admission Date: June 09, 2021 Subjective Patient is awake, alert and oriented. Currently on room air. Does report feeling short of breath with minimal cough. Denies any chest pain, abdominal pain, diarrhea, nausea or vomiting. Review of Systems Review of Systems: All systems reviewed & are unremarkable except as noted in HPI & below Physical Exam Physical Exam: General: A&Ox3 HENT: NCAT, MMM, EOMI Eyes: PERRLA Neck: Supple, normal range of motion CVS: normal rate and rhythm Resp: b/l coarse breath sounds Abdomen: Soft, ND/NT Extremities: No c/c/e Neuro: face symmetric, no focal deficit apprecaited Skin: no rashes/lesions/errythema MSK: no joint swelling/erythema Results & Data Results & Data ([facility]) Vital Signs (Past 12 Hours) Vital Signs Temp Pulse Resp BP Pulse Ox 06/10/21 11:52 36.7 C 67 17 118/61 98 06/10/21 08:15 37.1 C 77 22 124/69 94 06/10/21 04:15 37.6 C H 69 18 116/54 L 96
[2021-06-10] MEDS: ASPIRIN 81 MG ECTAB PO SCH (13:11)
[2021-06-10] MEDS: VANCOMYCIN HCL 1,250 MG in SODIUM CHLORIDE 0.9% 250 ML IV SCH (15:54)
[2021-06-10] MEDS: GABAPENTIN 100 MG CAP PO SCH (21:44)
[2021-06-11] MEDS: PIPERACILLIN/TAZOBACTAM 3.375 GM in DEXTROSE 5% 100 ML IV SCH ×3 (01:41→16:44)
[2021-06-11 06:01] LABS: Albumin Level 2.4 gm/dl (3.4-5.0); Creatinine Clr Calc Pharmacy 56.9 ml/min; Est GFR (African American) 81.2 ml/min; Est GFR (Non-African American) 70.1 ml/min; Potassium 3.2 mmol/L (3.5-5.1)
[2021-06-11 06:04] LABS: Albumin Globulin Ratio 0.8 (0.9-2); Bilirubin,Total 0.9 mg/dl (0.2-1); Total Protein 5.4 gm/dl (6.4-8.2)
[2021-06-11 06:27] LABS: Hematocrit (blood only) 30.3 % (42-52); Hemoglobin 10.5 g/dL (14.0-18.0); Mean Corpuscular Hemoglobin 32.4 pg (25-34); Mean Corpuscular Hgb Conc 34.7 g/dL (32-36); Mean Corpuscular Volume 93.5 fL (80-100); Mean Platelet Volume 11.5 fL (7.4-10.4); Platelet Count 53 K/uL (130-400); RDW Standard Deviation 64.5 fL (36.4-46.3); Red Blood Count 3.24 M/uL (4.7-6.1); White Blood Count 4.31 K/uL (4.8-10.8)
[2021-06-11 06:31] LABS: ALC (manual) 0.79 K/uL (1.2-3.4); ANC (manual) 2.51 K/uL (1.4-6.5); Basophils # (manual) 0.04 K/uL (0-0.2); Basophils % (manual) 0.9 %; Blast # (manual) 0.07 K/uL (0-0); Blast Cells % (manual) 1.7 %; Lymphocytes # (manual) 0.79 K/uL (1.2-3.4); Lymphocytes % (manual) 18.3 %; Metamyelocytes # (manual) 0.07 K/uL (0-0); Metamyelocytes % (manual) 1.7 %; Monocytes # (manual) 0.68 K/uL (0.11-0.59); Monocytes % (manual) 15.7 %; Myelocytes # (manual) 0.15 K/uL (0-0); Myelocytes % (manual) 3.5 %; Neutrophils # (manual) 2.51 K/uL (1.4-6.5); Neutrophils % (manual) 58.2 %
[2021-06-11] MEDS: GABAPENTIN 100 MG CAP PO SCH ×3 (07:51→20:15)
[2021-06-11] MEDS: METOPROLOL SUCC 25MG EXT REL TAB PO SCH ×2 (07:52→20:19)
[2021-06-11] MEDS: ATORVASTATIN 20 MG TAB PO SCH (07:52)
[2021-06-11] MEDS: PANTOprazole 40 MG TAB PO SCH (07:52)
[2021-06-11] MEDS: APIXABAN 5 MG TABLET PO SCH ×2 (07:53→20:15)
[2021-06-11] MEDS: MAGNESIUM OXIDE 400 MG TAB PO SCH ×2 (07:57→20:15)
[2021-06-11] MEDS ORDERED: LOPERAMIDE HCL 2 MG CAP PO PRN (11:44)
--- NOTE | 2021-06-11 11:57 | Electrocardiogram Report ---
Test Reason : Blood Pressure : / mmHG Vent. Rate : 087 BPM Atrial Rate : 087 BPM P-R Int : 156 ms QRS Dur : 082 ms QT Int : 416 ms P-R-T Axes : 075 -28 090 degrees QTc Int : 500 ms Sinus rhythm with frequent Premature atrial complexes in a pattern of bigeminy with aberrancy T wave abnormality, consider anterior ischemia Abnormal ECG When compared with ECG of 26-APR-2019 10:31, Premature atrial complexes are now Present Nonspecific T wave abnormality now evident in Inferior leads T wave inversion now evident in Anterior leads Confirmed by Louis Medrano ([id number] on 06/11/2021 11:57:29 AM Referred By: REFERRED SELF Confirmed By:Louis Medrano
[2021-06-11] MEDS: ASPIRIN 81 MG ECTAB PO SCH (12:03)
[2021-06-11] MEDS ORDERED: POTASSIUM CHLORIDE CRTAB 20 MEQ TABCR PO STA ×2 (12:35→23:52)
--- NOTE | 2021-06-11 12:36 | Hospitalist Progress Note ---
Date of Service June 11, 2021 Assessment & Plan (1) Neutropenic fever: Plan: Patient is 76-year-old male with past medical history of multivessel coronary artery disease, diastolic heart failure, hypertension, moderate aortic sclerosis, paroxysmal atrial fibrillation, non-Hodgkin's lymphoma diagnosed in 2004, rectal carcinoma status post resection, large B cell lymphoma diagnosed in 2018 and hyper thyroidism presented to the ED with pancytopenia. He follows up with Dr. Newell as an outpatient. Given his worsening fatigue lately he was found to have worsening pancytopenia. Patient underwent recent bone marrow biopsy and there is high suspicion for high-grade MDS or leukemia. Pancytopenia Patient has a history of recurrent diffuse large B cell lymphoma -Follows w/Dr. Newell -Status post chemotherapy, last cycle in 2018 -Tried treatment in August 2019, however patient did not tolerate -surveillance, no treatment since mid November 2019 -Lately has been feeling very tired, and besides his anemia, he also became pa ncytopenic -Therefore he underwent bone marrow biopsy on May 26. Discussed w/ Dr. Newell today, suspicion for high-grade MDS or leukemia -He presented to the ED, due to feeling feverish, diaphoretic, weak -Blood cultures were obtained in the ED. UA is benign. COVID-19 is ruled out. -Chest x-ray without any concerns. -Continue Zosyn at this point. -Awaiting infectious disease input.- -Discontinue Neupogen as per Dr. Newell recommendation. -1 unit of PRBC was ordered on 06/09; hemoglobin of 10.5 today -Overall pancytopenia is improving. Continue monitor daily CBC. Order flow cytometry. History of rectal adenocarcinoma, status post resection CAD, ischemic MCO -at home ASA, ranexa, isordil -cont. ASA, monitor BP, restart others when BP appropriate pAfib - cont. home Eliquis, metoprolol HTN - hold lisinopril - monitor BP, restart when BP appropriate DVT ppx: SCDs Code: Admission and Anticipated Discharge Date Admission Date: June 09, 2021 Subjective Patient is awake and alert. Daughter is at bedside. Currently on room air. Medically doing fine. Patient reports he just feels weak. Does have nonproductive cough for the past 4 to 5 weeks. Appetite is decreased. Rest of the review of system is negative. Review of Systems Review of Systems: All systems reviewed & are unremarkable except as noted in HPI & below Physical Exam Physical Exam: General: A&Ox3 HENT: NCAT, MMM, EOMI Eyes: PERRLA Neck: Supple, normal range of motion CVS: normal rate and rhythm Resp: b/l coarse breath sounds Abdomen: Soft, ND/NT Extremities: No c/c/e Neuro: face symmetric, no focal deficit apprecaited Skin: no rashes/lesions/errythema MSK: no joint swelling/erythema Results & Data Results & Data ([facility]) Vital Signs (Past 12 Hours) Vital Signs Temp Pulse Resp BP Pulse Ox 06/11/21 04:30 36.6 C 60 18 113/64 95
[2021-06-11] MEDS: VANCOMYCIN HCL 1,250 MG in SODIUM CHLORIDE 0.9% 250 ML IV SCH (16:36)
[2021-06-11] MEDS ORDERED: MAGNESIUM SULFATE / D5W 1 GM/100 ML BAG IV ONE (23:52)
[2021-06-12] MEDS: METOPROLOL SUCC 25MG EXT REL TAB PO SCH ×3 (00:22→20:05)
[2021-06-12] MEDS: PIPERACILLIN/TAZOBACTAM 3.375 GM in DEXTROSE 5% 100 ML IV SCH ×3 (00:23→18:25)
[2021-06-12 05:35] LABS: Hematocrit (blood only) 30.9 % (42-52); Hemoglobin 10.7 g/dL (14.0-18.0); Mean Corpuscular Hemoglobin 32.1 pg (25-34); Mean Corpuscular Hgb Conc 34.6 g/dL (32-36); Mean Corpuscular Volume 92.8 fL (80-100); RDW Coefficient of Variation 18.8 % (11.5-14.5); RDW Standard Deviation 63.2 fL (36.4-46.3); Red Blood Count 3.33 M/uL (4.7-6.1); White Blood Count 2.88 K/uL (4.8-10.8)
[2021-06-12 06:00] LABS: Mean Platelet Volume 10.5 fL (7.4-10.4); Platelet Count 57 K/uL (130-400)
[2021-06-12 06:13] LABS: Albumin Globulin Ratio 0.8 (0.9-2); Albumin Level 2.6 gm/dl (3.4-5.0); BUN Creatinine Ratio 10.5 (10-20); Bilirubin,Total 0.6 mg/dl (0.2-1); Calcium 8.8 mg/dl (8.5-10.1); Creatinine Clr Calc Pharmacy 52.4 ml/min; Est GFR (African American) 75.8 ml/min; Est GFR (Non-African American) 65.4 ml/min; Globulin 3.2 gm/dl (2.5-4.0); Potassium 4.1 mmol/L (3.5-5.1); Total Protein 5.8 gm/dl (6.4-8.2)
[2021-06-12 06:40] LABS: ALC (manual) 0.57 K/uL (1.2-3.4); ANC (manual) 1.64 K/uL (1.4-6.5); Blast # (manual) 0.21 K/uL (0-0); Blast Cells % (manual) 7.2 %; Dohle Bodies 1+; Eosinophils # (manual) 0.03 K/uL (0-0.5); Eosinophils % (manual) 0.9 %; Giant Platelets 1+; Lymphocytes # (manual) 0.57 K/uL (1.2-3.4); Lymphocytes % (manual) 19.8 %; Monocytes # (manual) 0.41 K/uL (0.11-0.59); Monocytes % (manual) 14.4 %; Myelocytes # (manual) 0.03 K/uL (0-0); Myelocytes % (manual) 0.9 %; Neutrophils # (manual) 1.64 K/uL (1.4-6.5); Neutrophils % (manual) 56.8 %; Ovalocytes 1+; Tear Drop Cells 1+
[2021-06-12] MEDS: ASPIRIN 81 MG ECTAB PO SCH (07:52)
[2021-06-12] MEDS: GABAPENTIN 100 MG CAP PO SCH ×3 (07:52→20:06)
[2021-06-12] MEDS: PANTOprazole 40 MG TAB PO SCH (07:52)
[2021-06-12] MEDS: ATORVASTATIN 20 MG TAB PO SCH (07:52)
[2021-06-12] MEDS: APIXABAN 5 MG TABLET PO SCH ×2 (07:53→20:06)
[2021-06-12] MEDS: MAGNESIUM OXIDE 400 MG TAB PO SCH ×2 (08:00→20:05)
--- NOTE | 2021-06-12 11:05 | Electrocardiogram Report ---
Test Reason : Blood Pressure : / mmHG Vent. Rate : 063 BPM Atrial Rate : 063 BPM P-R Int : 160 ms QRS Dur : 084 ms QT Int : 434 ms P-R-T Axes : 067 -23 048 degrees QTc Int : 444 ms Sinus rhythm with Premature atrial complexes with Aberrant conduction Low voltage QRS Borderline ECG When compared with ECG of 09-JUN-2021 15:40, Nonspecific T wave abnormality no longer evident in Inferior leads T wave inversion no longer evident in Anterior leads QT has shortened Confirmed by Toni Dupont ([id number] on 06/12/2021 11:05:03 AM Referred By: REFERRED SELF Confirmed By:Toni Dupont
--- NOTE | 2021-06-12 18:27 | Hospitalist Progress Note ---
Date of Service June 12, 2021 Assessment & Plan (1) Neutropenic fever: Plan: worsening pancytopenia since December 2020. Recent bone marrow biopsy by Dr. Newell ([facility]) with initial impression normal. Still awaiting formal discussion [facility]. Initially placed on broad spectrum antibiotics (Vanc/Zosyn) and feels fine but still with persistent cough and feels warm to touch despite no fever. Suspect malignancy as a cause for constitutional symp toms and worsening pancytopenia. Workup this hospital stay reveals no infection in urine, negative CXR, and negative covid-19 screen. Filgrastim was initially given and then his oncology advised to stop it. Infectious disease specialist seeing patient recommended fungal blood cultures, Quantiferon, urine histo screen and consideration for coxiella burnetti as a cause for symptoms to rule out. Will order screening studies excluding Q fever panel and defer to infectious disease on outpatient followup if needed. Notably Hb 8.7 on 06/10 and patient was transfused 1 unit of irradiated RBCs, followup Hb 10.5. No evidence of transfusion reaction. No further need for blood or platelet transfusions at this time. (2) Cough: Plan: chronic cough reported now for [address] chest to evaluate further. (3) Non-Hodgkin lymphoma: Plan: h/o chemo in remission since November 2019, now with worsening pancytopenia. Concern for malignancy as a cause for recent constitutional symptoms. (4) PAF (paroxysmal atrial fibrillation): Plan: Developed post op rectal resection, continues on Eliquis. Remains in sinus rhythm throughout this admission. Cont Metoprolol per home regimen. (5) Hyperthyroidism: Plan: long-standing, cont methimazole per home regimen. (6) DVT prophylaxis: Plan: Eliquis Full Code Dispo-to home with close oncology followup planned for Tu in the office. For now, ensure he is stable and not worsening off the antibiotics. Radha Lu [facility]tic[facility]ated Discharge Date Admission Date: June 09, 2021 Subjective 76 yo M with a h/o cancer presents with fever in setting of worsening pancytopenia since December 2020. He has been experiencing B symptoms including fevers, night sweats and weight loss over the last couple of months. He has a h/o various cancers as follows: prostate cancer 2003 s/p brachytherapy diffuse B cell lymphoma Sep 2008 s/p 6 cycles of RCHOP in 2008, received chemo again in 2018. Difficulty tolerating regimen. Changed to polatuzumab, rituxan and bendamustine on Aug 2019. Last treatment mid-November 2019. rectal adenocarcinoma (2017 s/p Xeloda with XRT and open APR, resection of the bladder and prostate, ileal conduit, and colostomy on 07/2017), and diffuse B cell lymphoma He also reports a nonproductive cough x 6 weeks which is very tiresome and worsening. He has been afebrile and feeling fine on broad spectrum antibiotics since admission two days ago. Review of Systems Review of Systems: At least ten systems were reviewed and negative except as indicated in HPI above. Physical Exam Physical Exam: CONSTITUTIONAL: thin, frail, vitals as above, NAD EYES: normal conjunctivae, no scleral icterus ENT: external ear and nose normal, MMM NECK: trachea midline RESPIRATORY: clear to auscultation bilaterally, no crackles, rales or wheezes, normal respiratory effort CARDIOVASCULAR: regular rate and rhythm, S1 and 2 heard without murmurs, gall ops or rubs, no JVD, no peripheral edema GASTROINTESTINAL: soft, nontender, ND MUSCULOSKELETAL: strength 5/5 throughout, head is normocephalic and atraumatic, ambulating independently SKIN: warm and dry, feels warmer than he should but not frankly febrile NEUROLOGIC: CN 2-12 grossly intact, normal cognition, normal speech, no tremor PSYCHIATRIC: alert cooperative and oriented to person, place and time. Euthymic mood, makes good eye contact, language grossly intact, recent and remote memory grossly intact. Results & Data Results & Data ([facility]) Vital Signs (Past 12 Hours) Vital Signs Temp Pulse Pulse Resp BP BP Pulse Ox 06/12/21 11:07 37.3 C 63 22 106/62 95 06/12/21 08:00 66 13 124/66 (1) Non-Hodgkin lymphoma Lymphoma site: unspecified region Non-Hodgkin lymphoma type: unspecified type Qualified Code(s): C85.90 - Non-Hodgkin lymphoma, unspecified, unspecified site
--- NOTE | 2021-06-12 19:33 | CT Scan Report ---
CT chest diagnostic wo con CLINICAL HISTORY: chronic cough, pancytopenia, +B sxs TECHNIQUE: Multidetector row helical CT of the chest was performed. Coronal and sagittal reformations were obtained. Automated dose lowering techniques and/or adjustment according to patient size were u tilized for this exam. Comparison: Comparison is made to CT chest 04/03/2018 FINDINGS: Lungs and pleura: Biapical scarring is seen. There is a 4 mm nodule in the left lower lobe (series 4 image 291) which is unchanged from prior exam. No groundglass and consolidative opacities are seen. S cattered calcified granulomata are seen. Heart and pericardium: Heart size is normal. No pericardial effusion. Vessels: Severe atherosclerotic changes in the aorta and coronary arteries. Mediastinum and venus: Unremarkable. Chest wall and lower neck: Unremarkable. Abdomen: Unremarkable. Bones: Degenerative changes in the thoracic spine. IMPRESSION: Unremarkable evaluation of the chest. Particular, no evidence of pneumonia. ACT 112: Negative or not required by law. Electronically signed by: Oswaldo Damian M.D. 06/12/2021 7:32 PM
[2021-06-12] MEDS: guaiFENesin/CODEINE 100MG/10MG 5ML UDC PO PRN (20:05)
[2021-06-12] MEDS: BENZONATATE 100 MG CAPSULE PO SCH (20:06)
[2021-06-13] MEDS ORDERED: SODIUM CHLORIDE 0.9% 500 ML IV ONE (00:20)
[2021-06-13] MEDS: HEPARIN 100 UNIT/ML 5ML FLUSH FLUSH PRN ×2 (00:59→14:05)
[2021-06-13 01:25] LABS: BUN Creatinine Ratio 14.3 (10-20); Calcium 8.7 mg/dl (8.5-10.1); Creatinine Clr Calc Pharmacy 58.3 ml/min; Est GFR (African American) 86.3 ml/min; Est GFR (Non-African American) 74.5 ml/min; Magnesium 1.8 mg/dl (1.8-2.4); Potassium 4.2 mmol/L (3.5-5.1)
[2021-06-13] MEDS ORDERED: MAGNESIUM SULFATE / D5W 1 GM/100 ML BAG IV ONE (02:07)
[2021-06-13 02:31] LABS: Thyroid Stimulating Hormone 1.03 uIu/ml (0.300-4.500)
[2021-06-13 06:32] LABS: Hematocrit (blood only) 31.9 % (42-52); Hemoglobin 11.1 g/dL (14.0-18.0); Mean Corpuscular Hemoglobin 32.3 pg (25-34); Mean Corpuscular Hgb Conc 34.8 g/dL (32-36); Mean Corpuscular Volume 92.7 fL (80-100); RDW Coefficient of Variation 18.2 % (11.5-14.5); RDW Standard Deviation 60.8 fL (36.4-46.3); Red Blood Count 3.44 M/uL (4.7-6.1); White Blood Count 2.66 K/uL (4.8-10.8)
[2021-06-13 06:45] LABS: Mean Platelet Volume 10.9 fL (7.4-10.4); Platelet Count 60 K/uL (130-400)
[2021-06-13 07:08] LABS: Albumin Level 2.7 gm/dl (3.4-5.0); BUN Creatinine Ratio 11.8 (10-20); Calcium 9.3 mg/dl (8.5-10.1); Creatinine Clr Calc Pharmacy 58.3 ml/min; Est GFR (African American) 86.3 ml/min; Est GFR (Non-African American) 74.5 ml/min; Magnesium 2.5 mg/dl (1.8-2.4); Potassium 4.2 mmol/L (3.5-5.1)
[2021-06-13 07:11] LABS: Albumin Globulin Ratio 0.8 (0.9-2); Bilirubin,Total 0.5 mg/dl (0.2-1); Globulin 3.4 gm/dl (2.5-4.0); Phosphorus 3.2 mg/dl (2.5-4.9); Total Protein 6.1 gm/dl (6.4-8.2)
[2021-06-13 08:02] LABS: ALC (manual) 0.93 K/uL (1.2-3.4); ANC (manual) 0.59 K/uL (1.4-6.5); Blast # (manual) 0.35 K/uL (0-0); Eosinophils # (manual) 0.03 K/uL (0-0.5); Lymphocytes # (manual) 0.93 K/uL (1.2-3.4); Monocytes # (manual) 0.74 K/uL (0.11-0.59); Myelocytes # (manual) 0.03 K/uL (0-0); Neutrophils # (manual) 0.59 K/uL (1.4-6.5)
--- NOTE | 2021-06-13 08:05 | Pulmonary Consultation ---
Date of Consultation June 13, 2021 Assessment & Plan (1) Cough: Impression: 76-year-old male with multiple medical issues and chronic cough. Etiologies would include asthma, chronic reflux, upper airway cough syndrome, and habitual cough as well as other less common etiologies. Patient i s had CT scanning of the chest which was unremarkable. There was specifically no parenchymal disease which could be causing his cough. The small punctate calcifications are of no physiologic significance. Recommendations: 1. Cough: This is largely an outpatient work-up. Will provide the patient some Tessalon to use now and see if it offers him a clinical benefit. Would recommend outpatient PFTs. Could consider aggressive empiric treatment for upper airway cough syndrome using chlorpheniramine, Sudafed, and Flonase. 2. Calcified pulmonary nodules: These represent prior granulomatous disease and are not likely contributing. Unclear what the significance is with the reported finding of noncaseating granuloma on the bone marrow biopsy. Defer to hematology oncology. Again there is no structural lung disease or radiographic abnormality which may be related to this finding. Extrapulmonary sarcoid would be in the differential however this is a rare entity and would require specialty consultation with rheumatology and hematology is not available here. From a pulmonary standpoint, the patient appears stable to discharge to home. Again I would be happy to see him in the outpatient setting to further evaluate his cough. Thanks for the opportunity participating in the care of this patient. Feel free to contact us if we can be of additional assistance. History of Present Illness Attending Physician: Radha Lu, DO History of Present Illness Asked by hospitalist to evaluate this patient with cough which has been going on since December. History is obtained from reviewed electronic medical record as well as discussion with the patient. Patient is a 76-year-old male with a history of non-Hodgkin's lymphoma, rectal carcinoma, large B-cell lymphoma, and most recently pancytopenia status post bone marrow biopsy. I do not have those results available to review however the admission H&P indicates noncaseating granuloma identified on the bone marrow biopsy. He follows with Dr. Newell at [facility] oncology. The patient presented to the hospital 06/09/2021. ID consultation has been obtained. Patient was noted to be febrile and hypotensive and broad-spectrum antibiotics were initiated. Pulmonary was consulted to evaluate the patient's cough. Of note he had a CT scan of the chest which revealed evidence of prior granulomatous disease with calcifications. Patient states the cough has been present since December. He reports the cough is largely nonproductive. He is not having any chest pain wheezing or shortness of breath associated with it. He denies heartburn or reflux. He is not having any significant sinus complaints. He recently was given some antitussive medications which he states may have been helpful. Allergies Allergy/AdvReac Type Severity Reaction Status Date / Time Iodinated Contrast Media Allergy Intermediate Rash Verified 06/09/21 17:21 Home Medications Medication Instructions Recorded Confirmed Type apixaban 5 mg tablet (Eliquis) 5 mg PO BID 04/26/18 06/09/21 History atorvastatin 20 mg tablet 20 mg PO QAM 04/26/18 06/09/21 History acetaminophen 500 mg tablet 1,000 mg PO Q8H PRN 05/29/18 06/09/21 History (Tylenol Extra Strength) gabapentin 100 mg capsule 100 mg PO TID 02/11/19 06/09/21 History methimazole 10 mg tablet 10 mg PO QDL 02/11/19 06/09/21 History triamcinolone acetonide 0.1 % 1 applic TOPICAL BID PRN 02/11/19 06/09/21 History topical cream metoprolol succinate 25 mg 25 mg PO BID 04/02/19 06/09/21 History tablet,extended release 24 hr (Toprol XL) aspirin 81 mg tablet,delayed 81 mg PO QDL 06/09/21 06/09/21 History release isosorbide dinitrate 20 mg tablet 20 mg PO TID 06/09/21 06/09/21 History omeprazole 20 mg capsule,delayed 20 mg PO DAILY PRN 06/09/21 06/09/21 History release ranolazine 500 mg tablet,extended 0 mg PO UD 06/09/21 06/09/21 History release,12 hr (Ranexa) Patient History Medical History Colon cancer PERMANENT ILEOSTOMY/NEPHROSTOMY IN PLACE Coronary artery disease Per patient, 2 blocked coronary arteries d/t chemo. Being followed by Dr. Kerr. GERD (gastroesophageal reflux disease) Hx of Clostridium difficile infection Hyperlipidemia Hypertension Hyperthyroidism RECENT DIAGNOSIS; ON METHIMAZOLE Large B-cell lymphoma Non-Hodgkin lymphoma in remission DX 2008; S/P CHEMO (2017) Osteoarthritis Paroxysmal atrial fibrillation Prostate cancer S/P PROSTATECTOMY/RADIATION SEEDS (2004) Surgical History History of bladder surgery S/P CYSTECTOMY History of bowel resection CURRENT ILEOSTOMY 2/ COLON CANCER History of colonoscopy History of lymph node biopsy RT NECK EXCISIONAL BIOPSY 08/23/18 [facility] History of urostomy S/P prostatectomy Family History Other Cancer Heart disease Hypertension Social History Smoking Status: Never smoker Second Hand Exposure: No; Hx Alcohol Use: No Hx Substance Use: No Preferred Language: Polish Communication Ability: Effective Visual Impairment: No Limitations [employer] Required: No Beliefs That Will Affect Care: None marital status: Current Living Situation: Spouse Other Information That Helps Us Care for You: No Feels Safe at Home: Yes Safety Concerns: Feels Safe At This Time Assistive Devices: Glasses Review of Systems Review of Systems: Please refer to hospitalist notes. No changes Physical Exam Constitutional: WD/WN, vitals as above Neck: trachea midline, no thyromegaly Respiratory: normal respiratory effort, lungs clear to auscultation Cardiovascular: RRR, no murmur, no edema Gastrointestinal (Abdomen): normal bowel sounds, soft, nontender, no hepatosplenomegaly Musculoskeletal: Extremities: extremities normal to inspection Skin: no rashes, warm and dry Neurologic: Nonfocal exam Lymphatic: no cervical lymphadenopathy Results & Data Results & Data ([facility]) Vital Signs (Past 12 Hours) Vital Signs Temp Pulse Pulse Resp BP BP Pulse Ox 06/13/21 04:17 36.8 C 56 L 16 93/58 L 94 06/13/21 01:24 111/58 L 06/13/21 01:20 50 L 06/12/21 23:30 85/63 L 06/12/21 23:25 36.6 C 58 L 18 85/55 L 94 Laboratory Results 06/13/21 06:03 06/13/21 06:[address] chest diagnostic wo con CLINICAL HISTORY: chronic cough, pancytopenia, +B sxs TECHNIQUE: Multidetector row helical CT of the chest was performed. Coronal and sagittal reformations were obtained. Automated dose lowering techniques and/or adjustment according to patient size were utilized for this exam. Comparison: Comparison is made to CT chest 04/03/2018 FINDINGS: Lungs and pleura: Biapical scarring is seen. There is a 4 mm nodule in the left lower lobe (series 4 image 291) which is unchanged from prior exam. No groundglass and consolidative opacities are seen. Scattered calcified granulomata are seen. Heart and pericardium: Heart size is normal. No pericardial effusion. Vessels: Severe atherosclerotic changes in the aorta and coronary arteries. Mediastinum and venus: Unremarkable. Chest wall and lower neck: Unremarkable. Abdomen: Unremarkable. Bones: Degenerative changes in the thoracic spine. IMPRESSION: Unremarkable evaluation of the chest. Particular, no evidence of pneumonia. PG Care Time/CCT Total # of Minutes Spent Total Time Spent with Patient: Total time spent is greater than 50% in coordination of care (as documented) at patient's floor/unit and/or counseling patient: Coding Level of Care Code 04616 Initial Inpt Care Lvl 3 Diagnoses Cough R05.9
[2021-06-13] MEDS: ATORVASTATIN 20 MG TAB PO SCH (08:42)
[2021-06-13] MEDS: APIXABAN 5 MG TABLET PO SCH (08:42)
[2021-06-13] MEDS: BENZONATATE 100 MG CAPSULE PO SCH ×2 (08:42→12:24)
[2021-06-13] MEDS: GABAPENTIN 100 MG CAP PO SCH ×2 (08:42→12:24)
[2021-06-13] MEDS: METOPROLOL SUCC 25MG EXT REL TAB PO SCH (08:42)
[2021-06-13] MEDS: PANTOprazole 40 MG TAB PO SCH (08:42)
[2021-06-13] MEDS: MAGNESIUM OXIDE 400 MG TAB PO SCH (10:09)
[2021-06-13] MEDS: ASPIRIN 81 MG ECTAB PO SCH (12:24)
[2021-06-13] MEDS: guaiFENesin/CODEINE 100MG/10MG 5ML UDC PO PRN (15:03)
--- NOTE | 2021-06-13 16:14 | Discharge Summary ---
Date of Service June 13, 2021 Admission HPI Per Admitting Provider 76-year-old male, with history of diffuse B cell lymphoma (recurrent), rectal adenocarcinoma s/p resection, HTM, CAD, paroxysmal A. fib, who presents with neutropenic fever. Patient has not been on any chemotherapy treatment for more than a year. However lately has been feeling fatigued, diaphoretic, short of breath. Patient has been anemic for some time however pancytopenia has been fairly new. He underwent bone marrow biopsy with Dr. Newell on May 26. Results did not show any lymphoma or leukemia, there was some finding of noncaseating granuloma. He was also seen at cardiology office. Lisinopril was put on hold due to low blood pressure. However pt then developed fever and it was recommended that he comes to be evaluated in the emergency room given that he has been neutropenic. In the emergency room, blood cultures, urine, chest x-ray were obtained as well as Covid. COVID-19 was negative. Chest x-ray unremarkable. Patient is however febrile and hypotensive in the ED. Received IV fluids, and cefepime. Discussed with Dr. Newell, that it is not clear at this time what is causing this, and infectious disease work-up would be appropriate. In addition discussed that we could give patient Neupogen to increase his white blood cell count, and recommend blood transfusion as needed, hemoglobin goal above 10. Admission Exam Per Admitting Provider (per ER physician) GENERAL: Patient is in no acute distress. HEENT: No acute trauma, normocephalic atraumatic, mucous membranes moist, no nasal congestion, no scleral icterus. NECK: No stridor, no adenopathy, no meningismus, trachea is midline. LUNGS: Clear to auscultation bilaterally, no wheeze, no rhonchi, breath sounds equal. Breath sounds are diminished bilaterally. HEART: Without murmurs gallops or rubs, regular rate and rhythm. ABDOMEN: Soft, nontender, bowel sounds positive, no hernias, no peritonitis. Urostomy and colostomy noted. EXTREMITIES: No cyanosis or edema, full range of motion of all the joints without pain or difficulty, no signs for acute trauma. NEUROLOGIC: Oriented x 3, no acute motor or sensory deficits, no focal weakness. SKIN: No rash, no jaundice, no diaphoresis. Principal Diagnosis Neutropenic fever Chronic cough h/o Non-hodgkin lymphoma Discharge Exam CONSTITUTIONAL: thin, frail, vitals as above, NAD EYES: normal conjunctivae, no scleral icterus ENT: external ear and nose normal, MMM NECK: trachea midline RESPIRATORY: clear to auscultation bilaterally, no crackles, rales or wheezes, normal respiratory effort CARDIOVASCULAR: regular rate and rhythm, S1 and 2 heard without murmurs, gallops or rubs, no JVD, no peripheral edema GASTROINTESTINAL: soft, nontender, ND, ileostomy and colostomy appear normal and intact. MUSCULOSKELETAL: strength 5/5 throughout, head is normocephalic and atraumatic, ambulating independently SKIN: warm and dry, feels warmer than he should but not frankly febrile NEUROLOGIC: CN 2-12 grossly intact, normal cognition, normal speech, no tremor PSYCHIATRIC: alert cooperative and oriented to person, place and time. Euthymic mood, makes good eye contact, language grossly intact, recent and remote memory grossly intact. Discharge Data Allergies Allergy/AdvReac Type Severity Reaction Status Date / Time Iodinated Contrast Media Allergy Intermediate Rash Verified 06/09/21 17:21 Consultations 06/09/21 17:56 ED Decision to Admit Stat 06/10/21 08:00 Consult Infectious Diseases Routine 06/12/21 18:27 Consult Pulmonology Routine Ordered Studies Laboratory Results WBC 2.66 K/uL (4.8-10.8) L 06/13/21 06:03 RBC 3.44 M/uL (4.7-6.1) L 06/13/21 06:03 Hgb 11.1 g/dL (14.0-18.0) L 06/13/21 06:03 Hct 31.9 % (42-52) L 06/13/21 06:03 MCV 92.7 fL (80-100) 06/13/21 06:03 MCH 32.3 pg (25-34) 06/13/21 06:03 MCHC 34.8 g/dL (32-36) 06/13/21 06:03 RDW Std Deviation 60.8 fL (36.4-46.3) H 06/13/21 06:03 RDW Coeff of Aubree 18.2 % (11.5-14.5) H 06/13/21 06:03 Plt Count 60 K/uL (130-400) L 06/13/21 06:03 MPV 10.9 fL (7.4-10.4) H 06/13/21 06:03 Neutrophils % (Manual) 22.0 % 06/13/21 06:03 Lymphocytes % (Manual) 35.0 % 06/13/21 06:03 Prolymphocyte % 1.7 % 06/09/21 15:54 Monocytes % (Manual) 28.0 % 06/13/21 06:03 Eosinophils % (Manual) 1.0 % 06/13/21 06:03 Basophils % (Manual) 0.9 % 06/11/21 05:21 Metamyelocytes % (Man) 1.7 % 06/11/21 05:21 Myelocytes % (Man) 1.0 % 06/13/21 06:03 Blast Cells % (Manual) 13.0 % 06/13/21 06:03 Neutrophils # (Manual) 0.59 K/uL (1.4-6.5) L 06/13/21 06:03 Total Absolute Neuts 0.59 K/uL (1.4-6.5) L* 06/13/21 06:03 Lymphocytes # (Manual) 0.93 K/uL (1.2-3.4) L 06/13/21 06:03 Prolymphocyte # 0.03 K/uL (0-0) H 06/09/21 15:54 Total Abs Lymphocytes 0.93 K/uL (1.2-3.4) L 06/13/21 06:03 Monocytes # (Manual) 0.74 K/uL (0.11-0.59) H 06/13/21 06:03 Eosinophils # (Manual) 0.03 K/uL (0-0.5) 06/13/21 06:03 Basophils # (Manual) 0.04 K/uL (0-0.2) 06/11/21 05:21 Metamyelocytes # (Man) 0.07 K/uL (0-0) H 06/11/21 05:21 Myelocytes # (Manual) 0.03 K/uL (0-0) H 06/13/21 06:03 Blast Cells # (Man) 0.35 K/uL (0-0) H 06/13/21 06:03 Hyposegmented Neuts 2+ 06/12/21 05:07 Blood Smear Review 06/10/21 04:52 Dohle Bodies 1+ 06/12/21 05:07 Platelet Estimate Decreased (Normal) L 06/09/21 15:54 Giant Platelets 1+ 06/12/21 05:07 Polychromasia 1+ 06/09/21 15:54 Tear Drop Cells 1+ 06/12/21 05:07 Ovalocytes 1+ 06/12/21 05:07 PT 12.1 Seconds (9.0-12.0) H 06/09/21 15:54 INR 1.2 (0.9-1.1) H 06/09/21 15:54 APTT 36.3 Seconds (21.0-31.0) H 06/09/21 15:54 PTT Ratio 1.4 06/09/21 15:54 Sodium 138 mmol/L (136-145) 06/13/21 06:03 Potassium 4.2 mmol/L (3.5-5.1) 06/13/21 06:03 Chloride 105 mmol/L (98-107) 06/13/21 06:03 Carbon Dioxide 27 mmol/L (21-32) 06/13/21 06:03 Anion Gap 6.0 (3-11) 06/13/21 06:03 BUN 11 mg/dl (7-18) 06/13/21 06:03 Creatinine 0.97 mg/dl (0.6-1.4) 06/13/21 06:03 Est Cr Clr Drug Dosing 58.3 ml/min 06/13/21 06:03 Est GFR ( Amer) 86.3 ml/min 06/13/21 06:03 Est GFR (Non-Af Amer) 74.5 ml/min 06/13/21 06:03 BUN/Creatinine Ratio 11.8 (10-20) 06/13/21 06:03 Glucose 96 mg/dl (70-99) 06/13/21 06:03 Lactate 1.1 mmol/L (0.4-2.0) 06/13/21 00:59 Uric Acid 4.1 mg/dl (2.6-7.2) 06/10/21 04:52 Calcium 9.3 mg/dl (8.5-10.1) 06/13/21 06:03 Phosphorus 3.2 mg/dl (2.5-4.9) 06/13/21 06:03 Magnesium 2.5 mg/dl (1.8-2.4) H 06/13/21 06:03 Total Bilirubin 0.5 mg/dl (0.2-1) 06/13/21 06:03 AST 20 U/L (15-37) 06/13/21 06:03 ALT 25 U/L (12-78) 06/13/21 06:03 Alkaline Phosphatase 72 U/L (45-117) 06/13/21 06:03 Lactate Dehydrogenase 329 U/L (87-241) H 06/10/21 04:52 Troponin I < 0.015 ng/ml (0-0.045) 06/09/21 15:54 Total Protein 6.1 gm/dl (6.4-8.2) L 06/13/21 06:03 Albumin 2.7 gm/dl (3.4-5.0) L 06/13/21 06:03 Globulin 3.4 gm/dl (2.5-4.0) 06/13/21 06:03 Albumin/Globulin Ratio 0.8 (0.9-2) L 06/13/21 06:03 Procalcitonin 0.22 ng/ml (0-0.5) 06/13/21 06:03 TSH 1.030 uIu/ml (0.300-4.500) 06/13/21 00:52 Urine Color Dark Yellow 06/09/21 17:12 Urine Appearance Cloudy (Clear) A 06/09/21 17:12 Urine pH 5.0 (4.5-7.5) 06/09/21 17:12 Ur Specific Edna 1.020 (1.000-1.030) 06/09/21 17:12 Urine Protein 1+ (Negative) H 06/09/21 17:12 Urine Glucose (UA) Negative (Negative) 06/09/21 17:12 Urine Ketones Negative (Negative) 06/09/21 17:12 Urine Blood Trace (Negative) H 06/09/21 17:12 Urine Nitrite Negative (Negative) 06/09/21 17:12 Urine Bilirubin Negative (Negative) 06/09/21 17:12 Urine Urobilinogen Negative (Negative) 06/09/21 17:12 Ur Leukocyte Esterase Negative (Negative) 06/09/21 17:12 Urine WBC (Auto) 5-10 /hpf (0-5) H 06/09/21 17:12 Urine RBC (Auto) 0-4 /hpf (0-4) 06/09/21 17:12 U Hyaline Cast (Auto) 1-5 /lpf (0-5) 06/09/21 17:12 U Epithel Cells (Auto) >30 /lpf (0-5) H 06/09/21 17:12 Urine Bacteria (Auto) Negative (Negative) 06/09/21 17:12 Ur Renal Epithelial Cell Not Reportable 06/09/21 17:12 Urine Mucus Present (None Prsent) A 06/09/21 17:12 Nasal Screen MRSA (PCR) Negative (Negative) 06/09/21 23:15 COVID-19 Eval Order Covid19 at [facility] 06/09/21 17:16 SARS-CoV-2 (PCR) NEGATIVE (Negative) 06/09/21 17:16 Blood Type A Positive 06/09/21 19:43 Antibody Screen NEGATIVE 06/09/21 19:43 Crossmatch See Detail 06/09/21 19:43 Impressions Chest X-Ray 06/09/21 14:55 XR chest 1V portable CLINICAL HISTORY: SEPSIS TECHNIQUE: Single frontal radiograph of the chest was obtained. Comparison: Chest 1 view 04/25/2019 FINDINGS: Stable right portacatheter. The aorta is tortuous. The remainder of the cardiomediastinal silhouette is unremarkable. The lungs are clear. No evidence of pleural effusion or pneumothorax. IMPRESSION: No acute chest disease. ACT 112: Negative or not required by law. Electronically signed by: Oswaldo Damian M.D. 06/09/2021 3:[address] 06/12/21 18:27 CT chest diagnostic wo con CLINICAL HISTORY: chronic cough, pancytopenia, +B sxs TECHNIQUE: Multidetector row helical CT of the chest was performed. Coronal and sagittal reformations were obtained. Automated dose lowering techniques and/or adjustment according to patient size were utilized for this exam. Comparison: Comparison is made to CT chest 04/03/2018 FINDINGS: Lungs and pleura: Biapical scarring is seen. There is a 4 mm nodule in the left lower lobe (series 4 image 291) which is unchanged from prior exam. No groundglass and consolidative opacities are seen. Scattered calcified granulomata are seen. Heart and pericardium: Heart size is normal. No pericardial effusion. Vessels: Severe atherosclerotic changes in the aorta and coronary arteries. Mediastinum and venus: Unremarkable. Chest wall and lower neck: Unremarkable. Abdomen: Unremarkable. Bones: Degenerative changes in the thoracic spine. IMPRESSION: Unremarkable evaluation of the chest. Particular, no evidence of pneumonia. ACT 112: Negative or not required by law. Electronically signed by: Oswaldo Damian M.D. 06/12/2021 7:32 PM Hospital Course (1) Neutropenic fever: Worsening pancytopenia since December 2020. Recent bone marrow biopsy by Dr. Newell ([facility]) with initial impression normal. Still awaiting formal discussion with oncologist planned for next week. Admitted for concern for neutropenic fever and placed on broad spectrum antibiotics (Vanc/Zosyn). Urine cultures, blood cultures and other infectious workup including covid-[address] chest negative. Suspect malignancy as a cause for constitutional symptoms and worsening pancytopenia. Filgrastim was initially given (one dose) and then his oncology advised to stop it. Infectious disease specialist saw patient during admission and recommended fungal blood cultures, Quantiferon, urine histo screen and consideration for coxiella burnetti as a cause for symptoms to rule out. All ordered excluding Q fever panel and defer to infectious disease on outpatient followup if needed. Notably Hb 8.7 on 06/10 and patient was transfused 1 unit of irradiated RBCs, followup Hb 10.5. No evidence of transfusion reaction. No further need for blood or platelet transfusions during remainder of stay. Remained afebrile off abx for 18-24 hours prior to discharge. Continues to have constitutional symptoms including night sweats. Discussed case peripherally with covering oncologist for his Hematology group; no empiric antibiotics needed going home at this time without any clear source of infection. (2) Cough: chronic cough reported now for 6 weeks. Now considered chronic. CT chest unremarkable and pulmonology consultation performed during hospital stay. Deferred to outpatient workup. Started daily Prilosec and follow-up with primary care physician [facility] referral to pulmonology as outpatient. (3) Non-Hodgkin lymphoma: h/o chemo in remission since November 2019, now with worsening pancytopenia. Concern for malignancy as a cause for recent constitutional symptoms. Outpatient follow-up with women's swim coach this week. On day of discharge patient denied any symptoms and reported that his cough was improved with benzonatate. He was reportedly feeling well and was ambulating and mentating at his baseline. Discharged in guarded condition given possible malignant diagnosis with close hematology follow-up. Total Time Total Time Spent Total Time Spent (In Minutes): 60 Discharge Plan Discharge Items Patient Disposition: Home - Self-Care Reason For Visit: COUGH Discharge Diagnosis: Neutropenic fever Chronic cough h/o Non-hodgkin lymphoma Condition on Discharge: Fair Activity: Resume your previous activity Non-emergency contact: Primary Care Provider Call non-emergency contact if: you have any medication questions, your symptoms worsen, your pain is unusual for you and you have a fever Follow-up/Referrals: Renny Asher MD [Primary Care Provider] - Diet: Regular Addtl Attending Provider Instructions: You are being given benzonatate (Tessalon Perles) to take as needed for cough at home. You also are being given cough syrup with codeine in it for severe coughing relief as needed. Please do not drive after taking this as you may be drowsy from the effect of the codeine. Please follow-up with Dr. Newell at your scheduled date and time to review your treatment plan. If you develop a fever or worsening symptoms, please seek immediate medical attention. Your white blood cell count is low which puts you at higher risk for being sick from an infection. Please follow-up with your primary care provider within one week of discharge from the hospital. This appointment will be important to ensure you are still doing well after returning home, but also to start the workup for your cough symptoms. You have been started on daily PRILOSEC to take once daily to see if this helps. A follow-up with [facility] clinic in [place], [place] may be appropriate. Please discuss this further with your primary care physician and Dr. Newell on follow-up. It was a pleasure taking care of you! Please call if you have any questions or problems. You can reach a [facility] hospitalist on duty at [facility] 24 hours a day by calling [phone]. Take care of yourself. Radha Lu, DO [facility] Pending Studies at Discharge: Yes Studies:: urine histo antigen, fungal blood cultures, quantiferon Stand-Alone Forms: [facility] Medications and DC Order Prescriptions: New benzonatate [Tessalon Perles] 100 mg Capsule 100 mg PO TID PRN (Reason: cough) Qty: 30 RF: 0 codeine-guaifenesin [Guaiatussin AC] 10-100 mg/5 mL Liquid 10 ml PO Q6H PRN (Reason: cough) Qty: 120 RF: 0 Continued methimazole 10 mg Tablet 10 mg PO QDL RF: 0 triamcinolone acetonide 0.1 % Cream 1 applic TOPICAL BID PRN (Reason: Rash) RF: 0 gabapentin 100 mg Capsule 100 mg PO TID RF: 0 metoprolol succinate [Toprol XL] 25 mg tablet extended release 24 hr 25 mg PO BID RF: 0 atorvastatin 20 mg Tablet 20 mg PO QAM RF: 0 Eliquis 5 mg Tablet 5 mg PO BID RF: 0 acetaminophen [Tylenol Extra Strength] 500 mg Tablet 1,000 mg PO Q8H PRN (Reason: Pain) RF: 0 isosorbide dinitrate 20 mg tablet 20 mg PO TID RF: 0 ranolazine [Ranexa] 500 mg tablet extended release 12 hr 0 mg PO UD RF: 0 aspirin [Aspirin Low-Strength] 81 mg Tablet,Delayed Release (Dr/Ec) 81 mg PO QDL RF: 0 Changed omeprazole 20 mg capsule,delayed release(DR/EC) 20 mg PO DAILY Qty: 30 RF: 2 Discharge Orders: Discharge Order (Routine); Ordered 06/13/21 Ordered By: Radha Lu Admission Data Admit Date/Time: 06/09/21 19:01 Attending Provider: Radha Lu Admit Provider: Stevenson Sinha Primary Care Provider: Renny Asher Other Providers: Stevenson Sinha ; Jv Katz ; Walker Ceja ; Von Mandel I. ; Dev Nielson II ; Lavinia Tejada ; Renny Matthews ; Brian Garrett ; Micky Huitron
[2021-06-17 11:51] LABS: Quantiferon Mitogen-NIL >10.00 IU/mL; Quantiferon NIL 0.24 IU/mL; Quantiferon TB Gold Plus NEGATIVE (NEGATIVE); Quantiferon TB1-NIL 0.04 IU/mL; Quantiferon TB2-NIL 0.04 IU/mL
== END 2021-06-13 17:09 | disposition home or self-care (01) | DRG 808 ==
LOC: ED 14:10 → SUATTDRO 19:01 → EDINP 19:01 → 1E 22:26
DX: Z93.3 Colostomy status; I48.0 Paroxysmal atrial fibrillation; Z68.22 Body mass index [BMI] 22.0-22.9, adult; Z79.01 Long term (current) use of anticoagulants; I95.9 Hypotension, unspecified; D61.818 Other pancytopenia; Z85.46 Personal history of malignant neoplasm of prostate; R05.9 Cough, unspecified; Z93.6 Other artificial openings of urinary tract status; Z85.048 Personal history of other malignant neoplasm of rectum, rectosigmoid junction, and anus; E43 Unspecified severe protein-calorie malnutrition; D71 Functional disorders of polymorphonuclear neutrophils; L92.8 Other granulomatous disorders of the skin and subcutaneous tissue; Z79.899 Other long term (current) drug therapy; Z20.822 Contact with and (suspected) exposure to COVID-19; E05.90 Thyrotoxicosis, unspecified without thyrotoxic crisis or storm; I25.10 Atherosclerotic heart disease of native coronary artery without angina pectoris; Z92.21 Personal history of antineoplastic chemotherapy; C83.30 Diffuse large B-cell lymphoma, unspecified site; Z79.82 Long term (current) use of aspirin; I50.30 Unspecified diastolic (congestive) heart failure; Z91.041 Radiographic dye allergy status; R50.81 Fever presenting with conditions classified elsewhere; I11.0 Hypertensive heart disease with heart failure; C85.90 Non-Hodgkin lymphoma, unspecified, unspecified site